=== PATIENT | female | born 1940 | race Caucasian/White ===

== ENCOUNTER → 2018-03-31 12:43 | Outpatient (CLI) | payer MEDICARE, OTHER, SELFPAY ==
--- NOTE | 2018-03-31 | DI.MG.S_ITS ---
UNILATERAL LEFT DIGITAL DIAGNOSTIC MAMMOGRAM 3D/2D SHORT-TERM FOLLOW-UP: 03/31/2018 CLINICAL: Patient returns for a 6 month follow up of the left breast. Patient returns for a 6 month follow up of the right breast. Comparison is made to exams dated: 09/30/2017 mammogram, 09/18/2017 mammogram, and 05/29/2016 mammogram - [facility]. There are scattered fibroglandular elements in the left breast. Prior mammographic finding is no longer seen in the left breast. This is consistent with overlapping fibroglandular tissue. No significant masses, calcifications, or other findings are seen in the breast. IMPRESSION: NEGATIVE There is no mammographic evidence of malignancy. A screening mammogram is recommended in August 2018 when the patient is due for bilateral mammography. This exam was interpreted at Station ID: [id number]. NOTE: For mammograms, a report in lay terms will be sent to the patient. Approximately 15% of breast malignancies will not be visualized mammographically. In the management of a palpable breast mass, a negative mammogram must not discourage biopsy of a clinically suspicious lesion. Electronically Signed By: Quan Liz M.D. cj/:03/31/2018 15:49:29 letter sent: Normal Exam ACR BI-RADS Category 1: Negative [id number]
[2018-03-31 14:10] LABS: Hemoglobin 9.5 g/dL (12.0-16.0); Mean Corpuscular HGB Conc 33.7 % (30-36); Mean Corpuscular Hemoglobin 33.5 PG (26-34); Mean Corpuscular Volume 99.4 fL (80-100); Red Blood Cell Count 2.82 X10^6/uL (4.0-5.2); Red Cell Distribution Width 19.4 % (11.6-14.8)
[2018-03-31 14:26] LABS: Alanine Aminotransferase 26 IU/L (9-52); Albumin 4.6 g/dL (3.5-5.0); Albumin Globulin Ratio 1.6 (1.0-2.8); Alkaline Phosphatase 85 U/L (38-126); Aspartate Aminotransferase 25 IU/L (14-36); BUN Creatinine Ratio 16.3 (6-22); Bilirubin Total 0.7 mg/dL (0.2-1.3); Bilirubin Unconjugated 0.4 mg/dL (0.0-1.1); Blood Urea Nitrogen 13 mg/dL (7-17); Calcium 9.7 mg/dL (8.4-10.2); Carbon Dioxide 29 mmol/L (22-32); Chloride 101 mmol/L (98-107); Estimated Glomerular Filt Rate > 60.0 mL/min (>60); Globulin 2.8 g/dL (1.7-4.1); Glucose 105 mg/dL (80-110); HEMOLYSIS 16 (0-50); Potassium 4.8 mmol/L (3.4-5.1); Sodium 143 mmol/L (137-145); Total Protein 7.4 g/dL (6.3-8.2)
[2018-03-31 14:37] LABS: Platelet Count 7 X10^3/uL (150-400); White Blood Cell Count 36.5 X10^3/uL (4.5-11.0)
[2018-03-31 14:38] LABS: Add Manual Diff / Slide Review YES
[2018-03-31 15:25] LABS: Neutrophils Absolute Manual 6570 /uL (3000-5900); Total Cells Counted 100
[2018-03-31 15:26] LABS: Morphology Comment DIFF COMMENT
[2018-03-31 15:27] LABS: Anisocytosis 1+; Platelet Estimate Decreased on smear; Polychromasia 1+
[2018-03-31 15:28] LABS: WBC Morphology Comment AUER RODS PRESENT
--- NOTE | 2018-04-01 09:47 | PM.OP.1 ---
Operative Date/Time/Diagnoses - Date of procedure: 04/01/18 Time of procedure: 09:47 Pre-op diagnosis: Reflux symptoms Personal history of colon polyps Post-op diagnosis: same Procedure & Clinicians Procedure: Esophagogastroduodenoscopy with biopsies and colonoscopy to the cecum Same procedure as scheduled: Yes Indications: Worsening reflux symptoms Personal history of colon polyps with last colonoscopy approximately 12 years ago Surgeon: Sulma Tian Click Yes if Unassisted: Yes Anesthesia Type: Sedation (Versed 7 mg; fentanyl 150 mcg) Operative Notes Findings: 1. Normal duodenum 2. Mild gastritis 3. Incompetent GE junction with a small 1 cm sliding hiatal hernia 4. GE junction at 39 cm from the incisors 5. No colonic polyps or mass lesions 6. Excellent prep 7. No AV malformations or other evidence of mucosal pathology 8. Grade 1 internal hemorrhoid 9. Essentially normal colonoscopy with minimal diverticulosis limited to the junction of the descending sigmoid colon Closure Type: not applicable Specimen(s): other (Cold forceps biopsies of the duodenum, antrum, and GE junction) Estimated Blood Loss (mL): 2 Procedure in detail: After obtaining informed consent, the patient was brought to the GI suite and placed in the left lateral decubitus position on the examination table. After placement of appropriate monitors, the patient was given incremental doses of Versed and Fentanyl until an appropriate level of sedation was achieved. A time out was held per SCOAP protocol. We began with EGD. A bite block was gently placed between the patient's teeth. The endoscope was lubricated and then passed into the patient's posterior oropharynx. The esophagus was cannulated under direct vision and the scope was passed to the second portion of the duodenum without difficulty. The scope was then withdrawn with careful examination of all areas of the upper GI tract and mucosa. In the stomach, the instrument was retroflexed and the GE junction examined. The scope was straightened and the procedure continued with examination of the remainder of the upper GI tract. Findings are noted above. Air was aspirated from the stomach and the endoscope gently removed from the esophagus. The examination table was turned and we continued with the colonoscopy. A digital rectal examination was performed and did not reveal any masses or obstructing lesions. The colonoscope was gently passed into the patient's anus and the entire colon navigated to the level of the cecum with minimal difficulty. Once in the cecum, the scope was withdrawn being sure to go before and beyond all mucosal folds and prominences and get an excellent examination. The findings are noted above. At the level of the rectal vault, the scope was retroflexed and the internal anal canal was examined. The scope was straightened and air aspirated from the colon. The instrument was removed from the patient's body and the procedure was concluded. The patient was allowed to awaken from sedation without difficulty and taken to the post-anesthesia care unit in good condition. Total sedation time 23 min Total withdrawal time from colonoscopy 7 min Complications: none Condition: stable Disposition: PACU Plan for aftercare: 1. Discharge to home 2. We will contact her with results and recommendations
--- NOTE | 2018-04-14 15:57 | PC.NURSE ---
Addendum entered by Ingrid Isbell R.N. 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 RN cordinator from [facility] is Cherie at [phone] pager. Orders will need co-signing by PCP Dr Orlando they will contact.Asked for orders to be sent this week .
== END | disposition home or self-care (01) ==
PROVIDERS: PCP Family Medicine; Visit Provider Surgery
DX: R92.8 Other abnormal and inconclusive findings on diagnostic imaging of breast (principal); C92.00 Acute myeloblastic leukemia, not having achieved remission
CPT/HCPCS: 36415; 77065; 80048; 80076; 85025; G0279

== ENCOUNTER 2018-04-22 09:03 | Emergency (ER) | payer MEDICARE, OTHER, SELFPAY ==
[2018-04-22 09:05] VITALS: BP 151/56; PULSE 80; RESP 14; TEMP 36.4; O2SAT 99
--- NOTE | 2018-04-22 09:22 | ED_ITS ---
HPI - Nausea/Vomiting/Diarrhea General Chief complaint: Nausea/Vomiting/Diarrhea Stated complaint: SPITTING UP BLOOD, HAS LEUKEMIA Time Seen by Provider: 04/22/18 09:11 Source: patient Mode of arrival: ambulatory Limitations: no limitations History of Present Illness HPI Narrative: Patient is a 77-year-old female with acute leukemia she recently restarted chemotherapy. He has been in and out of the [facility] recently released 4 days ago. Last night she got extremely nauseated she was dry heaving. This morning she has vomited 6 times with speckled amounts of blood. She denies any pain no lightheadedness no fevers. She did get a platelet transfusion about 1 week ago. She does not usually vomit. She has chronic ongoing abdominal pain which isn't any worse. MD complaint: nausea and vomiting Description of Vomiting: blood-streaked Description of Diarrhea: none Related Data Home Medications Medication Instructions Recorded Confirmed fexofenadine 60 mg PO Q12HP PRN #0 05/29/12 04/22/18 acetaminophen 650 mg PO Q4-6H PRN #0 05/08/17 04/22/18 cholecalciferol (vitamin D3) 1,000 unit PO QDAY #0 06/17/17 04/22/18 [Vitamin D3] acyclovir 800 mg PO BID 04/22/18 04/22/18 fidaxomicin 200 mg PO BID 04/22/18 04/22/18 hyoscyamine sulfate 0.125 mg PO BID-QID PRN 04/22/18 04/22/18 levofloxacin 750 mg PO BEDTIME 04/22/18 04/22/18 loperamide 2 mg PO BID PRN 04/22/18 04/22/18 lorazepam 1 mg SUBLINGUAL Q6HR PRN 04/22/18 04/22/18 ondansetron 8 mg PO TID PRN 04/22/18 04/22/18 posaconazole 300 mg PO BEDTIME 04/22/18 04/22/18 prochlorperazine maleate 5 mg PO Q6HR PRN 04/22/18 04/22/18 Previous Rx's Medication Instructions Recorded estradiol [Estrace] 1 gm VAGINAL QDAY #60 gm 09/16/17 Allergies Allergy/AdvReac Type Severity Reaction Status Date / Time Penicillins Allergy Unknown Verified 04/22/18 09:15 fentanyl [FENTANYL] AdvReac Unknown NAUSEA Verified 04/22/18 09:15 meperidine AdvReac Unknown N/V Verified 04/22/18 09:15 morphine AdvReac Unknown N/V Verified 04/22/18 09:15 Review of Systems Review of Systems All systems reviewed & are unremarkable except as noted in HPI and below ENT Ears, Nose, Mouth, and Throat: Denies bleeding gums, Denies dysphagia and Denies epistaxis Cardiovascular Denies chest pain, Denies diaphoresis and Denies syncope Gastrointestinal Gastrointestinal: Denies dysphagia Musculoskeletal Denies back pain, Denies muscle weakness, Denies numbness and Denies tingling Integumentary/Breasts Denies pruritus, Denies erythema, Denies rash and Denies wounds Neurologic Denies syncope, Denies numbness and Denies tingling PFSH Medical History 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) Leukemia (Acute) Social History Smoking Status: Never smoker Exam Initial Vital Signs Initial Vital Signs: Vital Signs Temperature 97.5 F L 04/22/18 09:05 Pulse Rate 80 04/22/18 09:05 Respiratory Rate 14 04/22/18 09:05 Blood Pressure 151/56 H 04/22/18 09:05 Pulse Oximetry 99 04/22/18 09:05 GENERAL: Thin frail elderly female and in no acute distress. HEENT: Head atraumatic,EOMI, pupils reactive, CARDIOVASCULAR: Regular rate and rhythm without murmurs, rubs or gallops. RESPIRATORY: Breath sounds equal bilaterally, no wheezes rales or rhonchi. ABDOMEN: Soft, nontender. Normoactive bowel sounds all 4 quadrants. No guarding or rebound. : No CVA tenderness EXTREMITIES: Normal range of motion, no clubbing or edema. Neurovascularly intact NEUROLOGICAL: Alert and oriented x4.Normal gait and speech. Cranial nerves II through XII grossly intact. SKIN: Warm, dry, no laceration, no petechiae, no rashes or lesions. Course Hospital Course: I have called and spoken with oncology does recommend platelet transfusion with platelets of 8. If she does not appear to be in acute distress no longer vomiting on then no need to transfer at this time. Orders Ordered: ED Orders 04/22/18 09:25 Complete Blood Count AUTO DIFF Stat Comprehensive Metabolic Panel Stat Partial Thromboplastin Time Stat Prothrombin Time INR Stat 04/22/18 09:35 ABO RH Type Stat Platelet Pheresis Irradiated Stat Discontinued Medications Sodium Chloride (Normal Saline 0.9%) 1,000 mls @ 1,000 mls/hr IV BOLUS ONE Stop: 04/22/18 10:27 Last Infusion: 04/22/18 11:21 Dose: 0 mls/hr Admin: 04/22/18 10:16 Dose: 1,000 mls/hr Lorazepam (Ativan) 0.5 mg IV NOW ONE Stop: 04/22/18 09:30 Last Admin: 04/22/18 10:16 Dose: 0.5 mg Ondansetron HCl (Zofran) 4 mg IV NOW ONE Stop: 04/22/18 09:29 Last Admin: 04/22/18 10:16 Dose: 4 mg Vital Signs - 8 hr 04/22/18 09:05 04/22/18 10:57 04/22/18 11:57 Temperature 97.5 F L 97.8 F Pulse Rate 80 72 70 Respiratory Rate 14 12 14 Blood Pressure 151/56 H 114/47 L Blood Pressure [Left Arm] 115/54 L Pulse Oximetry 99 97 99 MDM - Nausea/Vomiting/Diarrhea Lab Data Result diagrams: 04/22/18 09:25 04/22/18 09:25 Lab Results 04/22/18 04/22/18 04/22/18 Range/Units 09:25 09:25 09:25 WBC 0.3 L* (4.5-11.0) X10^3/uL RBC 3.42 L (4.0-5.2) X10^6/uL Hgb 10.1 L (12.0-16.0) g/dL Hct 29.8 L (36-46) % MCV 87.1 (80-100) fL MCH 29.4 (26-34) PG MCHC 33.7 (30-36) % RDW 16.3 H (11.6-14.8) % Plt Count 8 L* (150-400) X10^3/uL Neut % (Auto) Not Reportable Lymph % (Auto) Not Reportable Trimble % (Auto) Not Reportable Eos % (Auto) Not Reportable Baso % (Auto) Not Reportable RBC Morphology Not Reportable Rouleaux 1+ H PT 13.5 H (10.1-12.7) SECONDS INR 1.2 (0.9-1.3) APTT 31 (26.4-36.2) SECONDS Sodium 138 (137-145) mmol/L Potassium 3.2 L (3.4-5.1) mmol/L Chloride 101 (98-107) mmol/L Carbon Dioxide 24 (22-32) mmol/L BUN 9 (7-17) mg/dL Creatinine 0.70 (0.52-1.04) mg/dL Estimated GFR > 60.0 (>60) mL/min BUN/Creatinine Ratio 12.9 (6-22) Glucose 127 H (80-110) mg/dL Calcium 9.0 (8.4-10.2) mg/dL Total Bilirubin 0.6 (0.2-1.3) mg/dL AST 18 (14-36) IU/L ALT 23 (9-52) IU/L Alkaline Phosphatase 93 (38-126) U/L Total Protein 6.7 (6.3-8.2) g/dL Albumin 3.9 (3.5-5.0) g/dL Globulin 2.8 (1.7-4.1) g/dL Albumin/Globulin Ratio 1.4 (1.0-2.8) Blood Type 04/22/18 Range/Units 09:35 WBC (4.5-11.0) X10^3/uL RBC (4.0-5.2) X10^6/uL Hgb (12.0-16.0) g/dL Hct (36-46) % MCV (80-100) fL MCH (26-34) PG MCHC (30-36) % RDW (11.6-14.8) % Plt Count (150-400) X10^3/uL Neut % (Auto) Lymph % (Auto) Trimble % (Auto) Eos % (Auto) Baso % (Auto) RBC Morphology Rouleaux PT (10.1-12.7) SECONDS INR (0.9-1.3) APTT (26.4-36.2) SECONDS Sodium (137-145) mmol/L Potassium (3.4-5.1) mmol/L Chloride (98-107) mmol/L Carbon Dioxide (22-32) mmol/L BUN (7-17) mg/dL Creatinine (0.52-1.04) mg/dL Estimated GFR (>60) mL/min BUN/Creatinine Ratio (6-22) Glucose (80-110) mg/dL Calcium (8.4-10.2) mg/dL Total Bilirubin (0.2-1.3) mg/dL AST (14-36) IU/L ALT (9-52) IU/L Alkaline Phosphatase (38-126) U/L Total Protein (6.3-8.2) g/dL Albumin (3.5-5.0) g/dL Globulin (1.7-4.1) g/dL Albumin/Globulin Ratio (1.0-2.8) Blood Type O Positive MDM Narrative Medical decision making narrative: I have spoken with [facility] nurse practitioner for Dr. Earl, she does recommend of platelet transfusion. The she was typed and crossed here couple of days ago however no platelets are readily available. In fact they are actually supposed to be her this afternoon around 4:00 p.m. Patient has been monitored in the ED she no longer has nausea or vomiting. His she is tolerating ice chips. Signs of she has had small amounts of speckled all blood in her vomit does not seem to be large amounts. This is likely from thrombocytopenia. I do not suspect of air seal bleed or Boerhaave syndrome, or Mara-Mclaughlin tear. She appears nontoxic and in no acute distress it actually looks much better than she did when she 1st came in. Discharge Plan Departure Patient Disposition: Home, Self-Care Clinical Impression: Thrombocytopenia Discharge Date/Time: 04/22/18 12:00 Interventions: ED Discharge Assessment Last Done: 04/22/18 11:57 Instructions: Immune Thrombocytopenia Purpura Activity Restrictions/Additional Instructions: Go to the infusion clinic around 4:00 p.m., your plateletlets should be her by then. *You have been diagnosed with thrombocytopenia *Continue to take medications as directed *Follow up with your primary care provider in 2-3 days *Return to ER if you should have any new, worsening or concerning symptoms Prescriptions: No Action fexofenadine 60 MG tablet 60 mg PO Q12HP PRN (Reason: seasonal allergies) Qty: 0 RF: 0 acetaminophen 325 MG tablet 650 mg PO Q4-6H PRN (Reason: Pain (Scale Score 1-3)) Qty: 0 RF: 0 cholecalciferol (vitamin D3) [Vitamin D3] 1,000 UNIT tablet 1,000 unit PO QDAY Qty: 0 RF: 0 estradiol [Estrace] 0.01 % cream 1 gm Vaginal QDAY Qty: 60 RF: 0 loperamide 2 mg Capsule 2 mg PO BID PRN (Reason: Diarrhea) RF: 0 prochlorperazine maleate 5 mg Tablet 5 mg PO Q6HR PRN (Reason: nausea / vomiting) RF: 0 acyclovir 400 mg Tablet 800 mg PO BID RF: 0 ondansetron 8 mg Tablet,Disintegrating 8 mg PO TID PRN (Reason: allergies) RF: 0 hyoscyamine sulfate 0.125 mg Tablet 0.125 mg PO BID-QID PRN (Reason: stomach cramping) RF: 0 lorazepam 1 mg Tablet 1 mg SUBLINGUAL Q6HR PRN (Reason: nausea / vomiting) RF: 0 levofloxacin 750 mg Tablet 750 mg PO BEDTIME RF: 0 fidaxomicin 200 mg Tablet 200 mg PO BID RF: 0 posaconazole 100 mg Tablet,Delayed Release (Dr/Ec) 300 mg PO BEDTIME RF: 0 Referrals: Alexandre Orlando MD [Primary Care Provider] -
[2018-04-22 09:44] LABS: INR 1.2 (0.9-1.3); Prothrombin Time 13.5 SECONDS (10.1-12.7)
[2018-04-22 09:46] LABS: Hematocrit 29.8 % (36-46); Hemoglobin 10.1 g/dL (12.0-16.0); Mean Corpuscular HGB Conc 33.7 % (30-36); Mean Corpuscular Hemoglobin 29.4 PG (26-34); Mean Corpuscular Volume 87.1 fL (80-100); PTT Partial Thromboplastin Tim 31 SECONDS (26.4-36.2); Red Blood Cell Count 3.42 X10^6/uL (4.0-5.2); Red Cell Distribution Width 16.3 % (11.6-14.8)
[2018-04-22 09:49] LABS: Alanine Aminotransferase 23 IU/L (9-52); Albumin 3.9 g/dL (3.5-5.0); Albumin Globulin Ratio 1.4 (1.0-2.8); Alkaline Phosphatase 93 U/L (38-126); Aspartate Aminotransferase 18 IU/L (14-36); BUN Creatinine Ratio 12.9 (6-22); Bilirubin Total 0.6 mg/dL (0.2-1.3); Blood Urea Nitrogen 9 mg/dL (7-17); Carbon Dioxide 24 mmol/L (22-32); Chloride 101 mmol/L (98-107); Estimated Glomerular Filt Rate > 60.0 mL/min (>60); Globulin 2.8 g/dL (1.7-4.1); Glucose 127 mg/dL (80-110); HEMOLYSIS < 15 (0-50); Potassium 3.2 mmol/L (3.4-5.1); Sodium 138 mmol/L (137-145); Total Protein 6.7 g/dL (6.3-8.2)
[2018-04-22 09:50] LABS: Platelet Count 8 X10^3/uL (150-400); White Blood Cell Count 0.3 X10^3/uL (4.5-11.0)
[2018-04-22 09:51] LABS: Add Manual Diff / Slide Review NO
[2018-04-22 10:08] LABS: Rouleaux 1+
[2018-04-22] MEDS: SODIUM CHLORIDE 0.9% 1,000 ML 1000 ML IV (10:16)
[2018-04-22] MEDS: LORazepam 2 MG/ML SYRINGE 0.5 MG IV (10:16)
[2018-04-22] MEDS: ONDANSETRON 4 MG/2 ML INJ IV (10:16)
[2018-04-22 10:57] VITALS: BP 115/54; PULSE 72; RESP 12; O2SAT 97
--- NOTE | 2018-04-22 11:41 | PC.NURSE ---
Spoke w/ [facility] Pt can get transfusion of platelets today. Pt instructed to keep bands on. Will report to cancer care at 1600.
[2018-04-22 11:57] VITALS: BP 114/47; PULSE 70; RESP 14; TEMP 36.6; O2SAT 99
--- NOTE | 2018-04-22 11:57 | PC.NURSE ---
Each PICC port flushed w/ 1 cc 10 unit / 1ml heparin in anticipation of platelet infusion in less than 8 hours.
--- NOTE | 2018-04-22 13:31 | PC.NURSE ---
Recieved call from lab asking that order be placed for platelets. Completed verbal order from Dr. Serra.
[2018-04-22 18:14] VITALS: BP 138/65; PULSE 69; RESP 16; TEMP 36.7
[2018-04-22 18:29] VITALS: BP 121/54; PULSE 72; RESP 17; TEMP 36.7
[2018-04-22] MEDS: diphenhydrAMINE 25 MG TABLET PO (18:39)
[2018-04-22 19:40] VITALS: BP 130/85; PULSE 75; RESP 16; TEMP 36.9
--- NOTE | 2018-04-22 20:23 | PC.NURSE ---
Platelet Infusion Pt arrived to acute care at 1700 from infusion clinic. Lab reports platelets ready. Issue with AC RN not being able to chart on order. ER nurse came to to start infusion/document. Also unable to chart on infusion once started by ER nurse so was assisted by another ER nurse to chart end of unit. Pt vitals stable, no adverse reactions reported.
== END 2018-04-22 12:00 | disposition home or self-care (01) ==
PROVIDERS: Emergency Provider Emergency Medicine; PCP Family Medicine
DX: D69.6 Thrombocytopenia, unspecified (principal); C92.02 Acute myeloblastic leukemia, in relapse
CPT/HCPCS: 36430; 36591; 80053; 85025; 85610; 85730; 86900; 86901; 96361; 96374; 96375; 99283; 99285; P9016; J2060; J2405; P9035

== ENCOUNTER 2018-05-12 15:51 | Inpatient (IN) | payer MEDICARE, OTHER, SELFPAY ==
[2018-05-12 15:58] VITALS: BP 114/69; PULSE 90; RESP 16; TEMP 37.2; O2SAT 97
--- NOTE | 2018-05-12 16:48 | DI.RAD.S_ITS ---
PROCEDURE: XR CHEST 1V INDICATIONS: fever cancer TECHNIQUE: One view of the chest was acquired. COMPARISON: [facility], , CHEST 2 VIEW, 02/08/2017, 18:34. FINDINGS: Surgical changes and devices: Right-sided PICC line with tip overlying the atrial caval junction. There are surgical clips over the upper abdomen. Lungs and pleura: No pleural effusions or pneumothorax. Mild elevation right hemidiaphragm. Lungs are clear. Mediastinum: Mediastinal contours appear normal. Heart size is normal. Bones and chest wall: No suspicious bony lesions. Overlying soft tissues appear unremarkable. IMPRESSION: No acute cardiopulmonary abnormality Dictated by: Elia Schuster M.D. on 05/12/2018 at 17:12 Approved by: Elia Schuster M.D. on 05/12/2018 at 17:13
[2018-05-12 17:40] LABS: Hemoglobin 7.9 g/dL (12.0-16.0); Mean Corpuscular HGB Conc 34.7 % (30-36); Mean Corpuscular Hemoglobin 29.7 PG (26-34); Mean Corpuscular Volume 85.7 fL (80-100); Red Blood Cell Count 2.64 X10^6/uL (4.0-5.2); Red Cell Distribution Width 16.8 % (11.6-14.8)
[2018-05-12] MEDS: SODIUM CHLORIDE 0.9% 1,000 ML 1000 ML IV (17:43)
[2018-05-12 17:49] LABS: Lactate (Lactic Acid) 1.5 mmol/L (0.7-2.1)
[2018-05-12 17:50] LABS: Alanine Aminotransferase 24 IU/L (9-52); Albumin Globulin Ratio 1.2 (1.0-2.8); Alkaline Phosphatase 54 U/L (38-126); Aspartate Aminotransferase 9 IU/L (14-36); BUN Creatinine Ratio 21.7 (6-22); Bilirubin Total 1.3 mg/dL (0.2-1.3); Blood Urea Nitrogen 13 mg/dL (7-17); Calcium 8.1 mg/dL (8.4-10.2); Carbon Dioxide 30 mmol/L (22-32); Chloride 97 mmol/L (98-107); Estimated Glomerular Filt Rate > 60.0 mL/min (>60); Globulin 2.5 g/dL (1.7-4.1); Glucose 128 mg/dL (80-110); HEMOLYSIS < 15 (0-50); Potassium 3.1 mmol/L (3.4-5.1); Sodium 132 mmol/L (137-145); Total Protein 5.5 g/dL (6.3-8.2)
[2018-05-12 18:00] VITALS: BP 121/51; PULSE 78; RESP 26; O2SAT 96
[2018-05-12 18:03] LABS: Hematocrit 23.3 % (36-46)
[2018-05-12 18:04] LABS: Platelet Count 60 X10^3/uL (150-400)
[2018-05-12 18:11] LABS: Procalcitonin 2.02 ng/mL (<0.5)
--- NOTE | 2018-05-12 18:24 | ED_ITS ---
HPI - Fever General Chief Complaint: Fever Stated Complaint: FEVER Time Seen by Provider: 05/12/18 16:04 Source: patient Mode of arrival: ambulatory Limitations: no limitations History of Present Illness HPI Narrative: Patient is a 77-year-old female who has known recurrence AML presenting from the infusion clinic with a fever. She was receiving a platelet transfusion for platelets of 9 when she developed fever of 101 per the transfusion nurse. She is currently afebrile here she denies receiving any Tylenol. She overall feels weak and fatigued. She received chemotherapy last week. She has known WBC count of 0 and has for a while. MD complaint: fever Related Data Home Medications Medication Instructions Recorded Confirmed fexofenadine 60 mg PO Q12HP PRN #0 05/29/12 04/22/18 acetaminophen 650 mg PO Q4-6H PRN #0 05/08/17 04/22/18 cholecalciferol (vitamin D3) 1,000 unit PO QDAY #0 06/17/17 04/22/18 [Vitamin D3] acyclovir 800 mg PO BID 04/22/18 04/22/18 fidaxomicin 200 mg PO BID 04/22/18 04/22/18 hyoscyamine sulfate 0.125 mg PO BID-QID PRN 04/22/18 04/22/18 levofloxacin 750 mg PO BEDTIME 04/22/18 04/22/18 loperamide 2 mg PO BID PRN 04/22/18 04/22/18 lorazepam 1 mg SUBLINGUAL Q6HR PRN 04/22/18 04/22/18 ondansetron 8 mg PO TID PRN 04/22/18 04/22/18 posaconazole 300 mg PO BEDTIME 04/22/18 04/22/18 prochlorperazine maleate 5 mg PO Q6HR PRN 04/22/18 04/22/18 Previous Rx's Medication Instructions Recorded estradiol [Estrace] 1 gm VAGINAL QDAY #60 gm 09/16/17 Allergies Allergy/AdvReac Type Severity Reaction Status Date / Time Penicillins Allergy Unknown Verified 04/22/18 09:15 fentanyl [FENTANYL] AdvReac Unknown NAUSEA Verified 04/22/18 09:15 meperidine AdvReac Unknown N/V Verified 04/22/18 09:15 morphine AdvReac Unknown N/V Verified 04/22/18 09:15 Review of Systems Review of Systems All systems reviewed & are unremarkable except as noted in HPI and below Constitutional Reports body ache(s), Reports fatigue, Reports poor appetite and Reports weakness ENT Ears, Nose, Mouth, and Throat: Denies change in voice, Denies neck pain and Denies sore throat Cardiovascular Denies chest pain, Denies irregular heart rhythm, Denies lightheadedness, Denies palpitations, Denies dyspnea, Denies dyspnea on exertion and Denies orthopnea Respiratory Denies cough, Denies dyspnea, Denies dyspnea on exertion and Denies wheezing Gastrointestinal Gastrointestinal: Denies abdominal pain, Denies change in bowel habits, Denies diarrhea, Denies nausea and Denies vomiting Musculoskeletal Denies neck pain Neurologic Reports weakness Endocrine Reports fatigue and Denies palpitations Allergic/Immunologic Denies wheezing PFSH Medical History 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) Leukemia (Acute) Social History Smoking Status: Never smoker Exam Initial Vital Signs Initial Vital Signs: Vital Signs Temperature 99.0 F 05/12/18 15:58 Pulse Rate 90 05/12/18 15:58 Respiratory Rate 16 05/12/18 15:58 Blood Pressure 114/69 05/12/18 15:58 Pulse Oximetry 97 05/12/18 15:58 Const General: cooperative, frail appearing and ill appearing Nutritional Appearance: thin HENMT Head: normal to inspection and normocephalic Face and sinus: normal facial exam Mouth: moist mucous membranes Eyes General: appearance normal, both eyes and all related structures Neck Neck: normal visual inspection, full ROM and no meningeal signs Chest Chest: normal inspection of the chest Resp Effort & Inspection: normal respiratory effort, able to speak in complete sentences, no respiratory distress and no use of accessory muscles Auscultation: clear to auscultation bilaterally, no rales, no rhonchi and no wheezes Cardio Rate: regular rate Rhythm: regular rhythm Heart Sounds: no click, no gallops, no murmurs and no rubs Pulses: normal peripheral pulses GI Inspection: non-distended Palpation: soft, no hepatosplenomegaly, No guarding, No pulsatile mass and No tender Auscultation: normal bowel sounds Skin General: no rashes or lesions noted, No jaundice and No petechiae Neuro General: alert, oriented x3, gait normal and no focal motor deficits Speech: speech normal Course Orders Ordered: ED Orders 05/12/18 16:48 XR chest 1V Stat 05/12/18 17:20 Blood Culture Stat Complete Blood Count AUTO DIFF Stat Comprehensive Metabolic Panel Stat Lactate (Lactic Acid) Stat Procalcitonin Stat 05/12/18 18:40 Urinalysis and Microscopic Stat Sodium Chloride (Normal Saline 0.9%) 1,000 mls @ 1,000 mls/hr IV CONT RACHNA Last Infusion: 05/12/18 19:24 Dose: 0 mls/hr Admin: 05/12/18 17:43 Dose: 1,000 mls/hr Discontinued Medications Levofloxacin (Levaquin) 750 mg in 150 mls @ 100 mls/hr IV NOW ONE Stop: 05/12/18 20:30 Cefepime HCl 1 gm/ Sodium (Chloride) 100 mls @ 200 mls/hr IV NOW ONE Stop: 05/12/18 19:03 Consultations Consultation #1: Dr. Reed Han [phone] (cell surgical nurse practitioner dr) for leukemia at the [facility] has been updated on patient's symptoms and test results. Difficult to tell if this is transfusion reaction versus true neutropenic fever. She has not been measuring her temperatures at home so it makes the situation more difficult. Recommends keeping for observation along with IV cefepime. No vancomycin at this time. Time: 19:00 Consultation #2: Dr. Barrientos accepts patient for observation. Time: 19:33 Vital Signs - 8 hr 05/12/18 15:58 05/12/18 18:00 Temperature 99.0 F Pulse Rate 90 78 Respiratory Rate 16 26 H Blood Pressure 114/69 Blood Pressure [Left Arm] 121/51 H Pulse Oximetry 97 96 MDM - Fever Lab Data Attestation: I reviewed the patient's lab results. Result diagrams: 05/12/18 17:20 05/12/18 17:20 Lab Results 05/12/18 05/12/18 05/12/18 Range/Units 17:20 17:20 17:20 WBC 0.0 L* (4.5-11.0) X10^3/uL RBC 2.64 L (4.0-5.2) X10^6/uL Hgb 7.9 L (12.0-16.0) g/dL Hct 23.3 L (36-46) % MCV 85.7 (80-100) fL MCH 29.7 (26-34) PG MCHC 34.7 (30-36) % RDW 16.8 H (11.6-14.8) % Plt Count 60 L (150-400) X10^3/uL Neut % (Auto) Not Reportable Lymph % (Auto) Not Reportable [place] % (Auto) Not Reportable Eos % (Auto) Not Reportable Baso % (Auto) Not Reportable Sodium 132 L (137-145) mmol/L Potassium 3.1 L (3.4-5.1) mmol/L Chloride 97 L (98-107) mmol/L Carbon Dioxide 30 (22-32) mmol/L BUN 13 (7-17) mg/dL Creatinine 0.60 (0.52-1.04) mg/dL Estimated GFR > 60.0 (>60) mL/min BUN/Creatinine Ratio 21.7 (6-22) Glucose 128 H (80-110) mg/dL Lactate (0.7-2.1) mmol/L Calcium 8.1 L (8.4-10.2) mg/dL Total Bilirubin 1.3 (0.2-1.3) mg/dL AST 9 L (14-36) IU/L ALT 24 (9-52) IU/L Alkaline Phosphatase 54 (38-126) U/L Total Protein 5.5 L (6.3-8.2) g/dL Albumin 3.0 L (3.5-5.0) g/dL Globulin 2.5 (1.7-4.1) g/dL Albumin/Globulin Ratio 1.2 (1.0-2.8) Procalcitonin 2.02 H (<0.5) ng/mL Urine Color Urine Appearance Urine pH (4.5-8.0) Ur Specific [place] (1.000-1.035) Urine Protein (Negative) Urine Glucose (UA) (Normal) g/dL Urine Ketones (NEGATIVE) Urine Occult Blood (Negative) Urine Nitrate (Negative) Urine Bilirubin (NEGATIVE) Urine Urobilinogen (0.2) E.U./dL Ur Leukocyte Esterase (NEGATIVE) Urine RBC (0-5/HPF) Urine WBC (0-5/HPF) Ur Squamous Epith Cells Urine Bacteria (None) Ur Culture Indicated? Micro UA Comment 07/18/18 07/18/18 Range/Units 17:20 18:40 WBC (4.5-11.0) X10^3/uL RBC (4.0-5.2) X10^6/uL Hgb (12.0-16.0) g/dL Hct (36-46) % MCV (80-100) fL MCH (26-34) PG MCHC (30-36) % RDW (11.6-14.8) % Plt Count (150-400) X10^3/uL Neut % (Auto) Lymph % (Auto) [place] % (Auto) Eos % (Auto) Baso % (Auto) Sodium (137-145) mmol/L Potassium (3.4-5.1) mmol/L Chloride (98-107) mmol/L Carbon Dioxide (22-32) mmol/L BUN (7-17) mg/dL Creatinine (0.52-1.04) mg/dL Estimated GFR (>60) mL/min BUN/Creatinine Ratio (6-22) Glucose (80-110) mg/dL Lactate 1.5 (0.7-2.1) mmol/L Calcium (8.4-10.2) mg/dL Total Bilirubin (0.2-1.3) mg/dL AST (14-36) IU/L ALT (9-52) IU/L Alkaline Phosphatase (38-126) U/L Total Protein (6.3-8.2) g/dL Albumin (3.5-5.0) g/dL Globulin (1.7-4.1) g/dL Albumin/Globulin Ratio (1.0-2.8) Procalcitonin (<0.5) ng/mL Urine Color Yellow Urine Appearance Clear Urine pH 7.5 (4.5-8.0) Ur Specific [place] 1.010 (1.000-1.035) Urine Protein Negative (Negative) Urine Glucose (UA) Negative (Normal) g/dL Urine Ketones Negative (NEGATIVE) Urine Occult Blood 2+ H (Negative) Urine Nitrate Negative (Negative) Urine Bilirubin Negative (NEGATIVE) Urine Urobilinogen 0.2 (0.2) E.U./dL Ur Leukocyte Esterase Negative (NEGATIVE) Urine RBC 5-10/hpf H (0-5/HPF) Urine WBC 0-1/hpf (0-5/HPF) Ur Squamous Epith Cells 0-1 /hpf Urine Bacteria Occasional (0-1) (None) Ur Culture Indicated? Cult not indicated Micro UA Comment Not Reportable Imaging Data Chest x-ray: Radiologist's impression: PROCEDURE: XR CHEST 1V INDICATIONS: fever cancer TECHNIQUE: One view of the chest was acquired. COMPARISON: [facility], CHEST 2 VIEW, 02/08/2017, 18:34. FINDINGS: Surgical changes and devices: Right-sided PICC line with tip overlying the atrial caval junction. There are surgical clips over the upper abdomen. Lungs and pleura: No pleural effusions or pneumothorax. Mild elevation right hemidiaphragm. Lungs are clear. Mediastinum: Mediastinal contours appear normal. Heart size is normal. Bones and chest wall: No suspicious bony lesions. Overlying soft tissues appear unremarkable. IMPRESSION: No acute cardiopulmonary abnormality Dictated by: Elia Schuster M.D. on 05/12/2018 at 17:12 MDM Narrative Medical decision making narrative: Patient has been persistently neutropenic. She has been afebrile in the ED. Difficult to differentiate between transfusion reaction versus neutropenic fever. We will air on side of precaution patient no longer has appointment with oncology tomorrow. And does not have close follow-up up here. Discharge Plan Departure Patient Disposition: Admitted as Observation Clinical Impression: Fever and neutropenia
[2018-05-12 18:47] LABS: Appearance Urine UA CLEAR; Bilirubin Urine UA NEGATIVE (NEGATIVE); Color Urine UA YELLOW; Glucose Urine UA NEGATIVE (Normal); Ketones Urine UA NEGATIVE (NEGATIVE); Leukocyte Esterase Urine UA NEGATIVE (NEGATIVE); Nitrite Urine UA Negative (Negative); Occult Blood Urine UA 2+ (Negative); Protein Urine UA NEGATIVE (Negative); Urobilinogen Urine UA 0.2 E.U./dL (0.2); pH Urine UA 7.5 (4.5-8.0)
[2018-05-12 18:57] LABS: Bacteria Urine Occasional (0-1); Culture Indicated Urine Cult Not Indicated; RBC Urine 5-10/HPF (0-5/HPF); Squamous Epithelial Cell Urine 0-1 /HPF; WBC Urine 0-1/HPF (0-5/HPF)
--- NOTE | 2018-05-12 19:00 | PC.NURSE ---
patient was sent from the infusion center for a fever that started while she was getting a platelet infusion. Per patients family the patients temperature was 101.
[2018-05-12] MEDS: CEFEPIME 1 GM in SODIUM CHLORIDE 0.9% 100 ML 200 ML IV (19:30)
[2018-05-12] MEDS: levoFLOXacin 750 MG/150 ML PIGGYBACK 100 MG IV (20:09)
[2018-05-12 20:10] VITALS: BP 115/45; PULSE 84; RESP 23; O2SAT 95
[2018-05-12 20:36] VITALS: BP 113/48; PULSE 88; RESP 16; TEMP 38.8
[2018-05-12 21:10] VITALS: BP 115/45; PULSE 83; RESP 16
[2018-05-12 21:11] VITALS: BP 129/54; PULSE 89; RESP 20; TEMP 37.7; O2SAT 98
--- NOTE | 2018-05-12 22:16 | PC.NURSE ---
2100- Pt [id number] to room 2214 from ED via stretcher. Pl placed on reverse isolation for WBC- 0.0, plts 60, Hx Leukemia. Pt recieved levoquin and cefepine in ED with 1L fluids. Pt states comfortable, except dislikes the bed movement. RAY dbl lum PICC. 98% RA, LS clear. Pt dry heaves adn reports this is baseline, and takes ativan 1mg PRN at home for this. Dr. Barrientos in to see pt. Call light in reach and bed alarm on for safety.
[2018-05-12] MEDS: SODIUM CHLORIDE 0.9% 1,000 ML 125 ML IV (22:31)
--- NOTE | 2018-05-12 22:32 | P.HP_ITS ---
History of Present Illness Date Patient Seen: 05/12/18 Time Patient Seen: 22:29 Chief complaint: FEVER Narrative: 77-year-old female with AML who gets chemotherapy down in [place] presents with fever. She was actually here at the Infusion Center today getting a platelet transfusion and during the transfusion her temperature went up to 101. The patient received chemotherapy about a week ago her white count has been at 0 since then. She has been on Levaquin at home she has had no symptoms of cough or congestion respiratory symptoms no urinary symptoms no GI symptoms or no signs of infection other than the fever. In the emergency department here the provider contacted her oncologist or the oncologist household refrigeration mechanic and they suggested that this could be a transfusion reaction but could also be a neutropenic fever they suggested placing her on antibiotic and monitoring her over night. Patient History Medical History 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) Leukemia (Acute) Family & Social History Social History: household members spouse Prior Living Arrangements House Safety & Behavioral: Feels Safe in Current Yes Environment Suicidal Ideation Description None Suicide Plan Description No Plan Tobacco & Substance use: Smoking Status Never smoker alcohol intake frequency 0-2 drinks per day Substance Use Type does not use Meds Home Medications Medication Instructions Recorded Confirmed Type fexofenadine 60 mg PO Q12HP PRN #0 05/29/12 05/12/18 History acetaminophen 650 mg PO Q4-6H PRN #0 05/08/17 05/12/18 History cholecalciferol (vitamin D3) 1,000 unit PO QDAY #0 06/17/17 05/12/18 History [Vitamin D3] estradiol [Estrace] 1 gm VAGINAL QDAY #60 gm 09/16/17 05/12/18 Rx acyclovir 800 mg PO BID 04/22/18 05/12/18 History fidaxomicin 200 mg PO BID 04/22/18 05/12/18 History hyoscyamine sulfate 0.125 mg PO BID-QID PRN 04/22/18 05/12/18 History levofloxacin 750 mg PO BEDTIME 04/22/18 05/12/18 History loperamide 2 mg PO BID PRN 04/22/18 05/12/18 History lorazepam 1 mg SUBLINGUAL Q6HR PRN 04/22/18 05/12/18 History ondansetron 8 mg PO TID PRN 04/22/18 05/12/18 History posaconazole 300 mg PO BEDTIME 04/22/18 05/12/18 History prochlorperazine maleate 5 mg PO Q6HR PRN 04/22/18 05/12/18 History Allergies Allergy/AdvReac Type Severity Reaction Status Date / Time Penicillins Allergy Unknown Verified 04/22/18 09:15 fentanyl [FENTANYL] AdvReac Unknown NAUSEA Verified 04/22/18 09:15 meperidine AdvReac Unknown N/V Verified 04/22/18 09:15 morphine AdvReac Unknown N/V Verified 04/22/18 09:15 Review of Systems Review of Systems All systems reviewed & are unremarkable except as noted in HPI and below Exam Vital Signs (past 8 hours): - 05/12/18 15:58 05/12/18 18:00 05/12/18 20:10 Temperature 99.0 F Pulse Rate 90 78 84 Respiratory Rate 16 26 H 23 Blood Pressure 114/69 Blood Pressure [Left Arm] 121/51 H 115/45 L Pulse Oximetry 97 96 95 05/12/18 20:36 05/12/18 21:10 05/12/18 21:11 Temperature 101.9 F H 99.8 F H Pulse Rate 88 83 89 Respiratory Rate 16 16 20 Blood Pressure 115/45 L 129/54 H Blood Pressure [Left Arm] 113/48 L Pulse Oximetry 98 Oxygen Delivery Method Room Air Narrative Exam Narrative: Thin elderly female no acute distress HEENT exam unremarkable oropharynx clear Neck no adenopathy Lungs Clear to auscultation Heart regular rhythm Abdomen thin soft nontender Extremities no edema Neuro exam awake alert oriented no focal deficits Objective Labs Result Diagrams: 05/12/18 17:20 05/12/18 17:20 Labs: Laboratory Results - last 24 hr 05/12/18 05/12/18 05/12/18 17:20 17:20 17:20 WBC 0.0 L* RBC 2.64 L Hgb 7.9 L Hct 23.3 L MCV 85.7 MCH 29.7 MCHC 34.7 RDW 16.8 H Plt Count 60 L Neut % (Auto) Not Reportable Lymph % (Auto) Not Reportable [place] % (Auto) Not Reportable Eos % (Auto) Not Reportable Baso % (Auto) Not Reportable Sodium 132 L Potassium 3.1 L Chloride 97 L Carbon Dioxide 30 BUN 13 Creatinine 0.60 Estimated GFR > 60.0 BUN/Creatinine Ratio 21.7 Glucose 128 H Lactate Calcium 8.1 L Total Bilirubin 1.3 AST 9 L ALT 24 Alkaline Phosphatase 54 Total Protein 5.5 L Albumin 3.0 L Globulin 2.5 Albumin/Globulin Ratio 1.2 Procalcitonin 2.02 H Urine Color Urine Appearance Urine pH Ur Specific [place] Urine Protein Urine Glucose (UA) Urine Ketones Urine Occult Blood Urine Nitrate Urine Bilirubin Urine Urobilinogen Ur Leukocyte Esterase Urine RBC Urine WBC Ur Squamous Epith Cells Urine Bacteria Ur Culture Indicated? Micro UA Comment 05/12/18 05/12/18 17:20 18:40 WBC RBC Hgb Hct MCV MCH MCHC RDW Plt Count Neut % (Auto) Lymph % (Auto) [place] % (Auto) Eos % (Auto) Baso % (Auto) Sodium Potassium Chloride Carbon Dioxide BUN Creatinine Estimated GFR BUN/Creatinine Ratio Glucose Lactate 1.5 Calcium Total Bilirubin AST ALT Alkaline Phosphatase Total Protein Albumin Globulin Albumin/Globulin Ratio Procalcitonin Urine Color Yellow Urine Appearance Clear Urine pH 7.5 Ur Specific [place] 1.010 Urine Protein Negative Urine Glucose (UA) Negative Urine Ketones Negative Urine Occult Blood 2+ H Urine Nitrate Negative Urine Bilirubin Negative Urine Urobilinogen 0.2 Ur Leukocyte Esterase Negative Urine RBC 5-10/hpf H Urine WBC 0-1/hpf Ur Squamous Epith Cells 0-1 /hpf Urine Bacteria Occasional (0-1) Ur Culture Indicated? Cult not indicated Micro UA Comment Not Reportable Assessment & Plan Plan: Assessment/Plan Narrative: One. Possible neutropenic fever patient will be placed on observation status and IV antibiotics cefepime and will observe her overnight recheck her white count in the morning. It does not sound like she has been on any bone marrow stimulating medications but has just been followed closely by Oncology. She has been getting platelet transfusions every 1-2 weeks. No signs of active bleeding in her platelet count actually today is 60. That is after the transfusion. 2. Pancytopenia secondary to chemotherapy Quality VTE Deep Vein Thrombosis/Pulmonary Embolism Present on Admission: No
[2018-05-12] MEDS: LORazepam 1 MG TABLET PO (22:48)
[2018-05-13] VITALS (15 sets, daily range): BP systolic 106–125; BP diastolic 55–70; PULSE 72–91; RESP 14–18; TEMP 36.2–38.1; O2SAT 95–100
--- NOTE | 2018-05-13 03:44 | PC.NURSE ---
Addendum entered by Lana Roche R.N. 05/13/18 06:33: Temp rechecked at 0620 for 98.3f orally . Original Note: Addendum entered by Lana Roche R.N. 05/13/18 04:37: Temp 100.2F orally at 0425. 650mg Tylenol po prn given. Blood cultures previous drawn in ED that are pending. Pt otherwise denies chills, shaking. Will recheck temp and monitor. Original Note: Photo Stylist- Pt A&OX4, able to make needs known using call light. OOB with SBA to BR, denied SOBOE, light-headedness or dizziness. Pt denied pain, nausea, discomfort. VSS, afebrile. Temp 98.9F orally at 0045. IVF infusing well to RAY PICC. HR 80bpm and regular upon auscultation, no edema noted, denies neuropathy. Pt states that she was due to have chemotherapy on Thursday of this week and last had 2 weeks ago, unable to state what Chemotherapy cycle she was on. States that she is on G-CLAM Chemotherapy regime at the [facility] in [place]. No voiced concerns, call light within reach.
[2018-05-13] MEDS: CEFEPIME 2 GM in SODIUM CHLORIDE 0.9% 100 ML 200 ML IV ×3 (04:23→19:39)
[2018-05-13] MEDS: SODIUM CHLORIDE 0.9% 1,000 ML 125 ML IV ×2 (04:26→16:09)
[2018-05-13] MEDS: ACETAMINOPHEN 325 MG TABLET 650 MG PO ×2 (04:31→16:38)
[2018-05-13 06:39] LABS: Add Manual Diff / Slide Review NO; Hematocrit 21.6 % (36-46); Hemoglobin 7.5 g/dL (12.0-16.0); Mean Corpuscular HGB Conc 34.6 % (30-36); Mean Corpuscular Hemoglobin 29.7 PG (26-34); Mean Corpuscular Volume 85.8 fL (80-100); Neutrophils Absolute Auto 0 /uL (3000-5900); Red Blood Cell Count 2.52 X10^6/uL (4.0-5.2); Red Cell Distribution Width 16.8 % (11.6-14.8)
[2018-05-13 06:40] LABS: Platelet Count 33 X10^3/uL (150-400); White Blood Cell Count 0.1 X10^3/uL (4.5-11.0)
[2018-05-13 06:49] LABS: Blood Urea Nitrogen 8 mg/dL (7-17); Carbon Dioxide 29 mmol/L (22-32); Chloride 99 mmol/L (98-107); Estimated Glomerular Filt Rate > 60.0 mL/min (>60); Glucose 99 mg/dL (80-110); HEMOLYSIS < 15 (0-50); Sodium 131 mmol/L (137-145)
[2018-05-13 07:01] LABS: Calcium 7.3 mg/dL (8.4-10.2)
[2018-05-13 07:03] LABS: Potassium 2.5 mmol/L (3.4-5.1)
[2018-05-13] MEDS: ACYCLOVIR 400 MG TABLET 800 MG PO ×2 (09:49→21:34)
[2018-05-13] MEDS: POTASSIUM CHLORIDE 20 MEQ TAB PO ×2 (09:49→18:07)
[2018-05-13 10:16] LABS: Enterococcus species Not Detected (Not Detect); Listeria monocytogenes Not Detected (Not Detect); Methicillin-resistant gene Detected (Not Detect)
[2018-05-13 10:17] LABS: Acinetobacter baumannii Not Detected (Not Detect); Candida albicans Not Detected (Not Detect); Candida glabrata Not Detected (Not Detect); Candida krusei Not Detected (Not Detect); Candida parapsilosis Not Detected (Not Detect); Candida tropicalis Not Detected (Not Detect); E. coli Not Detected (Not Detect); Enterobacter cloacae complex Not Detected (Not Detect); Enterobacteriaceae species Not Detected (Not Detect); Haemophilus influenzae Not Detected (Not Detect); Neisseria meningitidis Not Detected (Not Detect); Proteus species Not Detected (Not Detect); Pseudomonas aeruginosa Not Detected (Not Detect); Serratia marcescens Not Detected (Not Detect); Streptococcus agalactiae (Gr B Not Detected (Not Detect); Streptococcus pneumonia Not Detected (Not Detect); Streptococcus pyogenes (Gr A) Not Detected (Not Detect)
[2018-05-13 10:18] LABS: Staphylococcus species Detected (Not Detect); Streptococcus species Detected (Not Detect)
[2018-05-13] MEDS: VANCOMYCIN 500 MG in SODIUM CHLORIDE 0.9% 100 ML IV (11:04)
--- NOTE | 2018-05-13 17:15 | PM.PN.1 ---
Subjective Date Patient Seen: 05/13/18 Time Patient Seen: 16:00 Interval history: Patient had low-grade temp last night when her temperature went up to 100.2. She she has some nausea. She is feeling weak. Exam Vital Signs (past 8 hours): - 05/13/18 10:00 05/13/18 12:20 05/13/18 16:00 Temperature 98.4 F 97.2 F L 100.6 F H Pulse Rate 72 75 77 Respiratory Rate 16 14 16 Blood Pressure 106/55 L 122/58 H 120/70 Pulse Oximetry 95 97 96 05/13/18 16:38 Temperature 100.6 F H Pulse Rate Respiratory Rate Blood Pressure Pulse Oximetry Oxygen Delivery Method Room Air Oxygen Flow Rate 0 Narrative Exam Narrative: General: Thin elderly woman who was lethargic Lungs: Clear to auscultation bilaterally Heart: Regular rhythm, no murmur appreciated Abdomen: Soft, nontender Extremities: No pitting edema Objective Labs Result Diagrams: 05/13/18 06:20 05/13/18 06:20 Labs: Laboratory Results - last 24 hr 05/12/18 05/12/18 05/12/18 17:20 17:20 17:20 WBC 0.0 L* RBC 2.64 L Hgb 7.9 L Hct 23.3 L MCV 85.7 MCH 29.7 MCHC 34.7 RDW 16.8 H Plt Count 60 L Neut % (Auto) Not Reportable Lymph % (Auto) Not Reportable [place] % (Auto) Not Reportable Eos % (Auto) Not Reportable Baso % (Auto) Not Reportable Neut # (Auto) Sodium 132 L Potassium 3.1 L Chloride 97 L Carbon Dioxide 30 BUN 13 Creatinine 0.60 Estimated GFR > 60.0 BUN/Creatinine Ratio 21.7 Glucose 128 H Lactate Calcium 8.1 L Total Bilirubin 1.3 AST 9 L ALT 24 Alkaline Phosphatase 54 Total Protein 5.5 L Albumin 3.0 L Globulin 2.5 Albumin/Globulin Ratio 1.2 Procalcitonin 2.02 H Urine Color Urine Appearance Urine pH Ur Specific [place] Urine Protein Urine Glucose (UA) Urine Ketones Urine Occult Blood Urine Nitrate Urine Bilirubin Urine Urobilinogen Ur Leukocyte Esterase Urine RBC Urine WBC Ur Squamous Epith Cells Urine Bacteria Ur Culture Indicated? Micro UA Comment A. baumannii (PCR) Sue albicans (PCR) C. glabrata (PCR) C. krusei (PCR) C. parapsilosis (PCR) C. tropicalis (PCR) Enterobacteriac sp PCR E. cloacae complex PCR Enterococcus sp PCR E. coli (PCR) H. influenzae (PCR) Klebsiella oxytoca PCR Klebsiella pneumoniae List. monocytogenes PCR N. meningitidis (PCR) Proteus species (PCR) Serratia marcescens PCR Staphylococcus sp PCR Staph aureus (PCR) mecA-Methicil Res Gene Streptococcus sp PCR Group A Strep (PCR) Strep agalactiae (PCR) Strep pneumoniae (PCR) P. aeruginosa (PCR) [place]/B-Vanco Res Genes KPC-Carbap Res Gene PCR 05/12/18 05/12/18 05/12/18 17:20 17:32 18:40 WBC RBC Hgb Hct MCV MCH MCHC RDW Plt Count Neut % (Auto) Lymph % (Auto) [place] % (Auto) Eos % (Auto) Baso % (Auto) Neut # (Auto) Sodium Potassium Chloride Carbon Dioxide BUN Creatinine Estimated GFR BUN/Creatinine Ratio Glucose Lactate 1.5 Calcium Total Bilirubin AST ALT Alkaline Phosphatase Total Protein Albumin Globulin Albumin/Globulin Ratio Procalcitonin Urine Color Yellow Urine Appearance Clear Urine pH 7.5 Ur Specific [place] 1.010 Urine Protein Negative Urine Glucose (UA) Negative Urine Ketones Negative Urine Occult Blood 2+ H Urine Nitrate Negative Urine Bilirubin Negative Urine Urobilinogen 0.2 Ur Leukocyte Esterase Negative Urine RBC 5-10/hpf H Urine WBC 0-1/hpf Ur Squamous Epith Cells 0-1 /hpf Urine Bacteria Occasional (0-1) Ur Culture Indicated? Cult not indicated Micro UA Comment Not Reportable A. baumannii (PCR) Not detected Sue albicans (PCR) Not detected C. glabrata (PCR) Not detected C. krusei (PCR) Not detected C. parapsilosis (PCR) Not detected C. tropicalis (PCR) Not detected Enterobacteriac sp PCR Not detected E. cloacae complex PCR Not detected Enterococcus sp PCR Not detected E. coli (PCR) Not detected H. influenzae (PCR) Not detected Klebsiella oxytoca PCR Not detected Klebsiella pneumoniae Not detected List. monocytogenes PCR Not detected N. meningitidis (PCR) Not detected Proteus species (PCR) Not detected Serratia marcescens PCR Not detected Staphylococcus sp PCR Detected H Staph aureus (PCR) Not detected mecA-Methicil Res Gene Detected H Streptococcus sp PCR Detected H Group A Strep (PCR) Not detected Strep agalactiae (PCR) Not detected Strep pneumoniae (PCR) Not detected P. aeruginosa (PCR) Not detected [place]/B-Vanco Res Genes Not Reportable KPC-Carbap Res Gene PCR Not Reportable 05/13/18 05/13/18 06:20 06:20 WBC 0.1 L* D RBC 2.52 L Hgb 7.5 L Hct 21.6 L MCV 85.8 MCH 29.7 MCHC 34.6 RDW 16.8 H Plt Count 33 L* Neut % (Auto) 0.0 L Lymph % (Auto) 10.0 L [place] % (Auto) 10.0 Eos % (Auto) 80.0 H Baso % (Auto) 0.0 Neut # (Auto) 0 L Sodium 131 L Potassium 2.5 L* Chloride 99 Carbon Dioxide 29 BUN 8 Creatinine 0.50 L Estimated GFR > 60.0 BUN/Creatinine Ratio 16.0 Glucose 99 Lactate Calcium 7.3 L Total Bilirubin AST ALT Alkaline Phosphatase Total Protein Albumin Globulin Albumin/Globulin Ratio Procalcitonin Urine Color Urine Appearance Urine pH Ur Specific [place] Urine Protein Urine Glucose (UA) Urine Ketones Urine Occult Blood Urine Nitrate Urine Bilirubin Urine Urobilinogen Ur Leukocyte Esterase Urine RBC Urine WBC Ur Squamous Epith Cells Urine Bacteria Ur Culture Indicated? Micro UA Comment A. baumannii (PCR) Sue albicans (PCR) C. glabrata (PCR) C. krusei (PCR) C. parapsilosis (PCR) C. tropicalis (PCR) Enterobacteriac sp PCR E. cloacae complex PCR Enterococcus sp PCR E. coli (PCR) H. influenzae (PCR) Klebsiella oxytoca PCR Klebsiella pneumoniae List. monocytogenes PCR N. meningitidis (PCR) Proteus species (PCR) Serratia marcescens PCR Staphylococcus sp PCR Staph aureus (PCR) mecA-Methicil Res Gene Streptococcus sp PCR Group A Strep (PCR) Strep agalactiae (PCR) Strep pneumoniae (PCR) P. aeruginosa (PCR) [place]/B-Vanco Res Genes KPC-Carbap Res Gene PCR Assessment & Plan Plan: Assessment/Plan Narrative: 1. neutropenic fever: Patient continued to have fever which makes to transfusion reaction on likely. Continue cefepime. We will also add vancomycin for broader coverage. Neutrophil count has not had significant improvement. We will continue monitor daily CBC. Continue neutropenic precautions. 2. Pancytopenia secondary to chemotherapy: Transfuse 2 units of irradiated packed red cell today. Continue monitor her cell counts. We will also start her on prophylactic treatment per SCCA recommendations including Levaquin, fluconazole, and acyclovir. 3. Severe hypokalemia: Potassium was 2.5 this morning. She received oral potassium chloride. We will also give her 40 mEq of K rider. Check magnesium in the morning. Replace as needed. 4. Disposition: Patient meets inpatient criteria. I have changed her admission status to inpatient. Discharge home when she is medically more stable. Quality VTE Deep Vein Thrombosis/Pulmonary Embolism Present on Admission: No
[2018-05-13] MEDS: POTASSIUM CHLORIDE 40 MEQ in SODIUM CHLORIDE 0.9% 500 ML 130 ML IV (18:07)
[2018-05-13] MEDS: CHOLECALCIFEROL (VITAMIN D3) 1,000 UNIT TABLET 1000 UNIT PO (18:19)
[2018-05-13] MEDS: levoFLOXacin 250 MG TABLET 750 MG PO (21:34)
--- NOTE | 2018-05-13 22:29 | PC.NURSE ---
Addendum entered by Randa Robledo R.N. 05/13/18 23:28: TAR was unavailable to use, so record of transfusion of PRBC is located in pt's physical file (red file). Original Note: Evening shift pt AOx3, SBA to BR, receptive to care, denying pain and nausea, but reports felling ill. Patient has a decreased appetite and mild fever at beginning of shift of 100.6 so I administered 650mg of Tylenol, 30 minutes later pt temp at 100.5, temp later in shift was reported at 98.1, then 98.6. Patient asked for vicotin for nausea (she uses it at home), Dr. Vaz said she would not prescribe that here. Patient not c/o being nauseous, but wanted the vicotin just in case. Administered 1 unit of PRBC at 2155, H&H this AM was 7.5 and 21.6; oncology protocol states to transfuse patient if hct <26, pt tolerating transfusion well. Changed PICC dressing at start of shift, pt tolerated well. 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
[2018-05-14] VITALS (12 sets, daily range): BP systolic 108–129; BP diastolic 54–81; PULSE 65–79; RESP 16–19; TEMP 36.5–38.2; O2SAT 97–98
[2018-05-14] MEDS: ACETAMINOPHEN 325 MG TABLET 650 MG PO (02:27)
--- NOTE | 2018-05-14 02:54 | PC.NURSE ---
pre transfusion vs for 2 unit PRBC.
--- NOTE | 2018-05-14 02:56 | PC.NURSE ---
15 min post start transfusion vs.
[2018-05-14] MEDS: CEFEPIME 2 GM in SODIUM CHLORIDE 0.9% 100 ML 200 ML IV ×3 (03:31→20:57)
--- NOTE | 2018-05-14 05:15 | PC.NURSE ---
Post transfusion #2 vs.
[2018-05-14] MEDS: SODIUM CHLORIDE 0.9% 1,000 ML 125 ML IV ×2 (06:06→16:00)
[2018-05-14 06:18] LABS: Eosinophils Percent Auto 11.1 % (2-4); Hematocrit 27.2 % (36-46); Hemoglobin 9.6 g/dL (12.0-16.0); Lymphocytes Percent Auto 44.5 % (25-40); Mean Corpuscular HGB Conc 35.3 % (30-36); Mean Corpuscular Hemoglobin 30.6 PG (26-34); Mean Corpuscular Volume 86.5 fL (80-100); Monocytes Percent Auto 11.1 % (3-14); Neutrophils Absolute Auto 0 /uL (3000-5900); Neutrophils Percent Auto 33.3 % (50-75); Red Blood Cell Count 3.14 X10^6/uL (4.0-5.2); Red Cell Distribution Width 15.8 % (11.6-14.8)
[2018-05-14 06:20] LABS: Blood Urea Nitrogen 6 mg/dL (7-17); Carbon Dioxide 27 mmol/L (22-32); Chloride 102 mmol/L (98-107); Estimated Glomerular Filt Rate > 60.0 mL/min (>60); Glucose 92 mg/dL (80-110); HEMOLYSIS < 15 (0-50); Magnesium 1.8 mg/dL (1.6-2.3); Sodium 134 mmol/L (137-145)
[2018-05-14 06:27] LABS: Add Manual Diff / Slide Review SLIDE REVIEW; Platelet Count 25 X10^3/uL (150-400)
[2018-05-14 07:17] LABS: Hypochromasia 1+
[2018-05-14] MEDS: LORATADINE 10 MG TABLET PO (09:49)
[2018-05-14] MEDS: CHOLECALCIFEROL (VITAMIN D3) 1,000 UNIT TABLET 1000 UNIT PO (09:49)
[2018-05-14] MEDS: ACYCLOVIR 400 MG TABLET 800 MG PO ×2 (09:49→20:54)
[2018-05-14] MEDS: POTASSIUM CHLORIDE 20 MEQ TAB 40 MEQ PO ×2 (09:50→17:05)
[2018-05-14] MEDS: POTASSIUM CHLORIDE 20 MEQ TAB PO ×3 (09:56→17:06)
--- NOTE | 2018-05-14 11:33 | P.PN_ITS ---
Subjective Date Patient Seen: 05/14/18 Time Patient Seen: 11:22 Interval history: Patient low-grade temp of 100.8? last night. She is afebrile this morning, complains of feeling weak and has some abdominal cramping. She says she is having more frequent bowel movements and they are becoming more loose. Exam Vital Signs (past 8 hours): - 05/14/18 04:15 05/14/18 05:47 05/14/18 07:00 Temperature 100.2 F H 100.2 F H Pulse Rate 74 Respiratory Rate 16 Blood Pressure 124/65 H Pulse Oximetry 98 05/14/18 07:45 Temperature 98.4 F Pulse Rate 65 Respiratory Rate 16 Blood Pressure 108/81 H Pulse Oximetry 98 Oxygen Delivery Method Room Air Oxygen Flow Rate 0 Narrative Exam Narrative: Thin elderly woman who was awake alert. Const General: cooperative, comfortable, well developed, well groomed and frail appearing Nutritional Appearance: underweight Orientation: alert, awake and oriented x3 HENMT Head: normal to inspection, normocephalic and atraumatic Eyes General: appearance normal, both eyes and all related structures Pupils: PERRL Neck Neck: normal visual inspection, trachea midline and supple Other: No JVD or lymphadenopathy Chest Chest: normal inspection of the chest Resp Effort & Inspection: normal respiratory effort and able to speak in complete sentences Auscultation: clear to auscultation bilaterally Cardio Rate: regular rate Heart Sounds: S1 normal and S2 normal GI Inspection: normal to inspection Palpation: soft Percussion: normal to percussion Auscultation: normal bowel sounds Other: No masses or tenderness Skin General: no rashes or lesions noted, dry skin and warm Neuro General: alert, awake and oriented x3 Cognition: normal cognition Speech: speech normal Motor: muscle tone normal throughout Sensory Exam: no sensory deficits noted Extrem General: normal to inspection, capillary refill normal, no pedal edema and no calf tenderness Psych Appearance: grossly normal Mental Status: mental status grossly normal Mood: congruent mood Affect: normal affect Attitude: cooperative Thought Process: normal Thought Content: normal Judgment: judgment good Objective Labs Result Diagrams: 05/14/18 05:55 05/14/18 05:55 Labs: Laboratory Results - last 24 hr 05/12/18 05/14/18 05/14/18 17:20 05:55 05:55 WBC 0.0 L* D RBC 3.14 L Hgb 9.6 L Hct 27.2 L MCV 86.5 MCH 30.6 MCHC 35.3 RDW 15.8 H Plt Count 25 L* Neut % (Auto) 33.3 L D Lymph % (Auto) 44.5 H D [place] % (Auto) 11.1 Eos % (Auto) 11.1 H Baso % (Auto) 0.0 Neut # (Auto) 0 L RBC Morphology Not Reportable Hypochromasia 1+ H Sodium 134 L Potassium 3.0 L Chloride 102 Carbon Dioxide 27 BUN 6 L Creatinine 0.40 L Estimated GFR > 60.0 BUN/Creatinine Ratio 15.0 Glucose 92 Lactate 1.5 Calcium 7.0 L Magnesium 1.8 Assessment & Plan Plan: Assessment/Plan Narrative: 1. neutropenic fever: Patient continued to have fever which makes to transfusion reaction unlikely. T-max yesterday 100.8. Continue cefepime and vancomycin IV. We will also vancomycin 125 p.o. q.i.d. for C diff coverage based on recommendations from pharmacy as this patient was on fidaxomicin at home. She is starting to have more loose stools today. We will send a stool for C diff. I contacted [facility] [place] today to confirm transfusion threshold for the patient. We will not likely transfuse her with platelets unless platelet count is less than 10 or she shows signs of active bleeding. And we will not transfuse with packed red blood cells unless her hematocrit is less than 26. Neutrophil count has not had significant improvement. We will continue monitor daily CBC. Continue neutropenic precautions. 2. Pancytopenia secondary to chemotherapy: She was transfused with 2 units of irradiated packed red cell yesterday. Continue monitor her cell counts. We was also started on her prophylactic treatment per [facility] recommendations including Levaquin, fluconazole, and acyclovir. 3. Severe hypokalemia: Potassium was 3.0 this morning. She received 40 mEq orally and her maintenance was increased to 20 mEq t.i.d.. Her magnesium level is normal. Will continue to monitor electrolytes and replace as needed. 4. Disposition: Patient meets inpatient criteria. I have changed her admission status to inpatient. Discharge home when she is medically more stable. Quality VTE Deep Vein Thrombosis/Pulmonary Embolism Present on Admission: No
[2018-05-14] MEDS: VANCOMYCIN 125 MG CAPSULE PO ×4 (11:49→20:55)
[2018-05-14] MEDS: VANCOMYCIN 500 MG in SODIUM CHLORIDE 0.9% 100 ML IV (11:49)
--- NOTE | 2018-05-14 12:30 | PC.NURSE ---
Pt resting in bed, tired today but denies pain other than on/off abdominal cramping due to diarrhea. Will send stool culture on next bm.)
[2018-05-14 14:49] LABS: Clostridium Difficile Tox PCR Negative for C. diff
[2018-05-14] MEDS: LORazepam 1 MG TABLET PO (16:10)
[2018-05-14] MEDS: levoFLOXacin 250 MG TABLET 750 MG PO (20:55)
--- NOTE | 2018-05-14 21:46 | PC.NURSE ---
SHIFT NOTE Ox3. pt reports feeling tired today. c/o dry heaving nausea and abdominal cramps from frequent diarrhea. administered PRN ativan for nausea with good effect. pt states diarrhea has also subsided greatly. neutropenic precautions maintained.
[2018-05-15] VITALS (8 sets, daily range): BP systolic 116–132; BP diastolic 61–71; PULSE 63–73; RESP 16–20; TEMP 36.7–37.8; O2SAT 97–98
[2018-05-15] MEDS: SODIUM CHLORIDE 0.9% 1,000 ML 125 ML IV ×2 (00:38→09:32)
[2018-05-15] MEDS: CEFEPIME 2 GM in SODIUM CHLORIDE 0.9% 100 ML 200 ML IV ×3 (03:41→19:43)
[2018-05-15 05:36] LABS: Eosinophils Percent Auto 1.9 % (2-4); Hematocrit 26.7 % (36-46); Hemoglobin 9.3 g/dL (12.0-16.0); Lymphocytes Percent Auto 86.8 % (25-40); Mean Corpuscular HGB Conc 34.7 % (30-36); Mean Corpuscular Hemoglobin 30.3 PG (26-34); Mean Corpuscular Volume 87.2 fL (80-100); Monocytes Percent Auto 7.5 % (3-14); Neutrophils Absolute Auto 0 /uL (3000-5900); Neutrophils Percent Auto 3.8 % (50-75); Red Blood Cell Count 3.06 X10^6/uL (4.0-5.2); Red Cell Distribution Width 16.2 % (11.6-14.8)
[2018-05-15 05:38] LABS: Add Manual Diff / Slide Review SLIDE REVIEW; Platelet Count 11 X10^3/uL (150-400)
[2018-05-15 05:40] LABS: Blood Urea Nitrogen 7 mg/dL (7-17); Calcium 6.9 mg/dL (8.4-10.2); Carbon Dioxide 25 mmol/L (22-32); Chloride 100 mmol/L (98-107); Estimated Glomerular Filt Rate > 60.0 mL/min (>60); Glucose 82 mg/dL (80-110); HEMOLYSIS < 15 (0-50); Potassium 2.9 mmol/L (3.4-5.1); Sodium 132 mmol/L (137-145)
[2018-05-15 06:51] LABS: Target Cells 1+
[2018-05-15] MEDS: POTASSIUM CHLORIDE 20 MEQ TAB PO ×3 (09:33→17:18)
[2018-05-15] MEDS: CHOLECALCIFEROL (VITAMIN D3) 1,000 UNIT TABLET 1000 UNIT PO (09:33)
[2018-05-15] MEDS: ACYCLOVIR 400 MG TABLET 800 MG PO ×2 (09:33→21:00)
[2018-05-15] MEDS: VANCOMYCIN 125 MG CAPSULE PO ×4 (09:33→21:00)
--- NOTE | 2018-05-15 10:33 | PM.PN.1 ---
Subjective Date Patient Seen: 05/15/18 Time Patient Seen: 10:33 Interval history: She did have a bloody nose this morning Exam Vital Signs (past 8 hours): - 05/15/18 05:09 05/15/18 09:00 Temperature 99.5 F 98.1 F Pulse Rate 68 63 Respiratory Rate 20 16 Blood Pressure 123/64 H 130/61 H Pulse Oximetry 98 Oxygen Delivery Method Room Air Oxygen Flow Rate 0 Narrative Exam Narrative: Elderly female resting comfortably no acute distress no bloody nose currently Lungs are clear Heart regular rhythm Abdomen is soft Neuro exam awake alert orient x3 no focal deficits speech normal Skin warm and dry Objective Labs Result Diagrams: 05/15/18 05:05 05/15/18 05:05 Labs: Laboratory Results - last 24 hr 05/14/18 05/15/18 05/15/18 Unknown 05:05 05:05 WBC 0.0 L* RBC 3.06 L Hgb 9.3 L Hct 26.7 L MCV 87.2 MCH 30.3 MCHC 34.7 RDW 16.2 H Plt Count 11 L* Neut % (Auto) 3.8 L D Lymph % (Auto) 86.8 H D [place] % (Auto) 7.5 Eos % (Auto) 1.9 L Baso % (Auto) 0.0 Neut # (Auto) 0 L RBC Morphology Not Reportable Target Cells 1+ H Sodium 132 L Potassium 2.9 L Chloride 100 Carbon Dioxide 25 BUN 7 Creatinine 0.50 L Estimated GFR > 60.0 BUN/Creatinine Ratio 14.0 Glucose 82 Calcium 6.9 L C. difficile Tox (PCR) Negative for c. diff Assessment & Plan Plan: Assessment/Plan Narrative: 1. neutropenic fever: Patient continued to have fever which makes to transfusion reaction unlikely. T-max from yesterday morning 100.8 Continue cefepime and vancomycin IV. We will also vancomycin 125 p.o. q.i.d. for C diff coverage based on recommendations from pharmacy as this patient was on fidaxomicin at home. She is starting to have more loose stools today. We will send a stool for C diff. I contacted [facility] in [place] today to confirm transfusion threshold for the patient. We will not likely transfuse her with platelets unless platelet count is less than 10 or she shows signs of active bleeding. And we will not transfuse with packed red blood cells unless her hematocrit is less than 26. Neutrophil count has not had significant improvement. We will continue monitor daily CBC. Continue neutropenic precautions. Platelet count this morning at 11,000 Medica 26. Plan to recheck in the morning consider discharge tomorrow if things are stable 2. Pancytopenia secondary to chemotherapy: She was transfused with 2 units of irradiated packed red cell yesterday. Continue monitor her cell counts. We was also started on her prophylactic treatment per [facility] recommendations including Levaquin, fluconazole, and acyclovir. 3. Severe hypokalemia: Still with some hypokalemia plan to give her IV potassium today. 4. Disposition: Patient meets inpatient criteria. Inpatient status. If she can go without any fevers today and if things look stable that she can probably go home tomorrow Quality VTE Deep Vein Thrombosis/Pulmonary Embolism Present on Admission: No
[2018-05-15] MEDS: POTASSIUM CHLORIDE 40 MEQ in SODIUM CHLORIDE 0.9% 500 ML 130 ML IV (11:12)
[2018-05-15] MEDS: VANCOMYCIN 500 MG in SODIUM CHLORIDE 0.9% 100 ML IV (11:12)
--- NOTE | 2018-05-15 15:23 | PC.NURSE ---
patient slept on and off most of day, awakening for meals and to use bathroom. Denies pain but states she is just very fatigued. PICC line to RUE remains intact. Patient denies pain, nausea or vomiting. Patient had multiple small loose stools, assisted to bathroom with standby assistance. Patient disappointed that she was not ready for discharge today, but is hopeful for tomorrow. Call light within reach, denies needs at this time.
[2018-05-15] MEDS: ACETAMINOPHEN 325 MG TABLET 650 MG PO (15:57)
[2018-05-15] MEDS: SODIUM CHLORIDE 0.9% FLUSH 10 ML IV ×2 (16:08→19:57)
[2018-05-15] MEDS: LORazepam 1 MG TABLET PO (16:08)
[2018-05-15] MEDS: LOPERAMIDE 2 MG CAPSULE 4 MG PO (16:26)
--- NOTE | 2018-05-15 19:12 | PC.NURSE ---
Pt c/o abdominal cramping with loose stools @ beginning of shift. Requests imodium to treat this complaint. Discussed with Dr. Barrientos via telephone; orders received and entered. Med administered. Pt has dry heaves and retching and requests ativan po. Tylenol for elevated temp. Offered multiple dietary choices which pt declines after taking minimal evening meal. Refused nutritional supplement beverage. Encouraged to call for needs, but allowing for uninterrupted sleep.
[2018-05-15] MEDS: levoFLOXacin 250 MG TABLET 750 MG PO (21:00)
[2018-05-16] VITALS (14 sets, daily range): BP systolic 112–142; BP diastolic 53–70; PULSE 67–80; RESP 16–17; TEMP 36.9–37.9; O2SAT 96–100
[2018-05-16] MEDS: CEFEPIME 2 GM in SODIUM CHLORIDE 0.9% 100 ML 200 ML IV ×3 (03:40→20:00)
[2018-05-16] MEDS: SODIUM CHLORIDE 0.9% FLUSH 10 ML IV ×2 (04:30→05:52)
[2018-05-16 06:05] LABS: Eosinophils Percent Auto 5.9 % (2-4); Hematocrit 28.4 % (36-46); Hemoglobin 9.9 g/dL (12.0-16.0); Lymphocytes Percent Auto 88.2 % (25-40); Mean Corpuscular Hemoglobin 30.6 PG (26-34); Mean Corpuscular Volume 87.3 fL (80-100); Neutrophils Absolute Auto 0 /uL (3000-5900); Neutrophils Percent Auto 5.9 % (50-75); Red Blood Cell Count 3.25 X10^6/uL (4.0-5.2); Red Cell Distribution Width 16.5 % (11.6-14.8)
[2018-05-16 06:07] LABS: Platelet Count 5 X10^3/uL (150-400)
[2018-05-16 06:08] LABS: Add Manual Diff / Slide Review SLIDE REVIEW
--- NOTE | 2018-05-16 06:58 | PC.NURSE ---
Dr. Barrientos here this morning. Reported Platelet this morning only 5. Will report to day RN.
[2018-05-16 07:00] LABS: RBC Morphology Normal Morphology
[2018-05-16] MEDS: POTASSIUM CHLORIDE 20 MEQ TAB PO ×3 (09:16→16:48)
[2018-05-16] MEDS: CHOLECALCIFEROL (VITAMIN D3) 1,000 UNIT TABLET 1000 UNIT PO (09:16)
[2018-05-16] MEDS: VANCOMYCIN 125 MG CAPSULE PO ×4 (09:16→21:45)
[2018-05-16] MEDS: ACYCLOVIR 400 MG TABLET 800 MG PO ×2 (09:16→21:45)
[2018-05-16] MEDS: ACETAMINOPHEN 325 MG TABLET 650 MG PO (11:04)
--- NOTE | 2018-05-16 11:16 | PC.NURSE ---
Patient with temp of 99.9, denies complaints, given tylenol as ordered prn prior to platelet transfusion and Dr. Barrientos notified of temp. Into see patient. will proceed and continue to monitor per protocol.
[2018-05-16 11:46] LABS: Vancomycin Trough < 5.0 ug/mL (10-20)
[2018-05-16] MEDS: VANCOMYCIN 1,000 MG/200 ML FROZ.PIGGY 200 MG IV (12:12)
--- NOTE | 2018-05-16 12:58 | PC.NURSE ---
Patient tolerated 1st unit of platelets well, vss, denies pain or other complaints at this time.
--- NOTE | 2018-05-16 14:52 | P.PN_ITS ---
Subjective Date Patient Seen: 05/16/18 Time Patient Seen: 14:50 Interval history: She denies any bleeding Exam Vital Signs (past 8 hours): - 05/16/18 07:00 05/16/18 08:00 05/16/18 11:14 Temperature 98.8 F 99.9 F H Pulse Rate 67 73 Respiratory Rate 16 17 Blood Pressure 131/63 H 139/64 H Pulse Oximetry 100 98 05/16/18 11:37 05/16/18 12:55 05/16/18 13:21 Temperature 98.5 F 99.0 F 98.5 F Pulse Rate 68 79 68 Respiratory Rate 16 16 17 Blood Pressure 126/69 H 125/61 H 112/57 L Pulse Oximetry 05/16/18 13:36 05/16/18 13:41 Temperature 99.1 F Pulse Rate 72 Respiratory Rate 17 Blood Pressure 119/62 Pulse Oximetry 100 Oxygen Delivery Method Room Air Oxygen Flow Rate 0 Narrative Exam Narrative: Resting comfortably Lungs clear Heart regular rhythm Abdomen soft nontender Neuro exam awake alert oriented x3 Skin warm and dry Objective Labs Result Diagrams: 05/16/18 05:45 05/15/18 05:05 Labs: Laboratory Results - last 24 hr 05/16/18 05/16/18 05/16/18 05:45 07:50 10:45 WBC 0.0 L* RBC 3.25 L Hgb 9.9 L Hct 28.4 L MCV 87.3 MCH 30.6 MCHC 35.0 RDW 16.5 H Plt Count 5 L* Neut % (Auto) 5.9 L Lymph % (Auto) 88.2 H [place] % (Auto) 0.0 L Eos % (Auto) 5.9 H Baso % (Auto) 0.0 Neut # (Auto) 0 L Platelet Estimate RBC Morphology Normal morphology Vancomycin Trough < 5.0 L Blood Type O Positive Assessment & Plan Plan: Assessment/Plan Narrative: 1. neutropenic fever: Patient continued to have fever which makes to transfusion reaction unlikely. T-max from yesterday morning 100.8 Continue cefepime and vancomycin IV. We will also vancomycin 125 p.o. q.i.d. for C diff coverage based on recommendations from pharmacy as this patient was on fidaxomicin at home. She is starting to have more loose stools today. We will send a stool for C diff. I contacted [facility] in [place] today to confirm transfusion threshold for the patient. We will not likely transfuse her with platelets unless platelet count is less than 10 or she shows signs of active bleeding. And we will not transfuse with packed red blood cells unless her hematocrit is less than 26. Neutrophil count has not had significant improvement. We will continue monitor daily CBC. Continue neutropenic precautions. Platelet count this morning 5000. Platelets will be transfused today. She did have a fever to 100.1 last night so continue antibiotics for now 2. Pancytopenia secondary to chemotherapy: She was transfused with 2 units of irradiated packed red cell yesterday. Continue monitor her cell counts. We was also started on her prophylactic treatment per [facility] recommendations including Levaquin, fluconazole, and acyclovir. 3. Severe hypokalemia: She is on oral potassium. Plan to recheck in the morning 4. Disposition: Patient meets inpatient criteria. Inpatient status. If she can go without any fevers today and if things look stable that she can probably go home tomorrow Quality VTE Deep Vein Thrombosis/Pulmonary Embolism Present on Admission: No
--- NOTE | 2018-05-16 15:11 | CM.DPC ---
Chart Review: Pt's fevers continue, no with some abd cramping and diarrhea, stool sample sent to r/o Cdiff. Dr Barrientos expects improvement over the next 24-48 hrs. [facility] has been consulted per Dr Barrientos's note. Pt would benefit from a chk in and review of DCP before DC home. ZANDRA Discharge Planning/Care Management CM Discharge Assessment Start: 05/13/18 15:35 Freq: Status: Active Protocol: Document 05/13/18 15:35 KJS (Rec: 05/13/18 15:43 KJS [id number]) Discharge Planning Assessment Assigned Outdoor Emergency Care Technician EARL/Lauren History Provided By Patient Has Patient been admitted in last 30 No days? Prior Living Arrangements House Household Members spouse Type of transporation used prior to Relies on Others admit Independent with ADL's Yes Is patient alert and oriented? Yes Caregiver for Another No Discharge Plan Home Transportation Arrangement Spouse/Greg will provide transport home. Additional Comment Reviewed chart. Patient is a 77yr old female admitted [place] [facility] with fever. Patient with h/ o AML. PCP Is Dr. Mendoza. Primary payor is 1)Medicare 2) [place]. Met with patient explained CM/ SW role. Patient alert and oriented, resting in bed at time of visit. Patient expresses feeling down because of current situation. Patient resides with spouse [place] Patient plans to return home when medically stable. Patient has h/o AML and has been going to [facility] for treatment. Pt. reports that this has taken a lot out of her and spouse. Prior to going to [place] patient's oncologist was Dr. Dimas in the area. Patient reports that she is primarily I with all ADL's however, she no longer drives. Patient unsure on what the future holds for her. Patient hopes to fight the disease and live has long as she can but admits to being tired. Provided emotional support and placed name/number and plan on white board in patient's room. D/C date unknown. Patient aware CM team will continue to follow if needs were to arise. Review Status In Process Next Review Type Discharge Review
--- NOTE | 2018-05-16 15:16 | PC.NURSE ---
2nd unit of platelets complete, vss, patient tolerated well. Denies pain, remains fatigued resting in bed at this time. at bedside. Patient hoping to go home tonight.
[2018-05-16] MEDS: LORazepam 1 MG TABLET PO (16:53)
[2018-05-16] MEDS: levoFLOXacin 250 MG TABLET 750 MG PO (21:45)
[2018-05-17 00:20] VITALS: BP 138/70; PULSE 73; RESP 14; TEMP 36.9; O2SAT 96
[2018-05-17] MEDS: VANCOMYCIN 1,000 MG/200 ML FROZ.PIGGY 200 MG IV (00:21)
[2018-05-17] MEDS: SODIUM CHLORIDE 0.9% FLUSH 10 ML IV ×2 (00:27→03:36)
[2018-05-17 00:34] VITALS: O2SAT 96
[2018-05-17] MEDS: CEFEPIME 2 GM in SODIUM CHLORIDE 0.9% 100 ML 200 ML IV (03:36)
[2018-05-17] MEDS: LORazepam 1 MG TABLET PO (03:52)
[2018-05-17 04:26] VITALS: BP 137/76; PULSE 87; RESP 14; TEMP 37.6; O2SAT 97
[2018-05-17 05:48] LABS: Hemoglobin 9.2 g/dL (12.0-16.0); Mean Corpuscular HGB Conc 35.2 % (30-36); Mean Corpuscular Hemoglobin 30.7 PG (26-34); Mean Corpuscular Volume 87.3 fL (80-100); Neutrophils Absolute Auto 0 /uL (3000-5900); Platelet Count 78 X10^3/uL (150-400); Red Blood Cell Count 2.98 X10^6/uL (4.0-5.2); Red Cell Distribution Width 16.5 % (11.6-14.8)
--- NOTE | 2018-05-17 06:00 | PC.NURSE ---
Addendum entered by Rafia Mosley R.N. 05/17/18 06:07: platelets today are 78. (were 5 yesterday, then received platelets) Original Note: Pt is AxOx3, VSS, temp this morning was 99.7 F. No complaints of pain. Belching and retching, Ativan given for it with some relief. Reverse isolation maintained. No active signs of bleeding. RUE double lumen picc with patent purple port, Red port is not flushing. Labs drawn thru purple port. IV ABX given as ordered.
[2018-05-17 06:03] LABS: Add Manual Diff / Slide Review SLIDE REVIEW
[2018-05-17 06:21] LABS: Blood Urea Nitrogen 8 mg/dL (7-17); Carbon Dioxide 33 mmol/L (22-32); Chloride 93 mmol/L (98-107); Estimated Glomerular Filt Rate > 60.0 mL/min (>60); Glucose 91 mg/dL (80-110); HEMOLYSIS < 15 (0-50); Sodium 132 mmol/L (137-145)
[2018-05-17 06:34] LABS: Calcium 7.3 mg/dL (8.4-10.2)
[2018-05-17 07:20] VITALS: BP 129/62; PULSE 84; RESP 16; TEMP 37.7; O2SAT 97
[2018-05-17] MEDS: VANCOMYCIN 125 MG CAPSULE PO (08:13)
[2018-05-17] MEDS: ACYCLOVIR 400 MG TABLET 800 MG PO (08:13)
[2018-05-17] MEDS: POTASSIUM CHLORIDE 20 MEQ TAB PO (08:13)
[2018-05-17] MEDS: CHOLECALCIFEROL (VITAMIN D3) 1,000 UNIT TABLET 1000 UNIT PO (08:13)
--- NOTE | 2018-05-17 09:36 | PC.NURSE ---
per night club manager RN red lumen on PICC line was not flushing. Caps changed and reattempted this morning and flushing without difficulty. Dressing remains intact. Patient dangling at bedside to eating breakfast. No complaints at this time, eager to go home. will continue to follow.
[2018-05-17] MEDS: POTASSIUM CHLORIDE 20 MEQ TAB 40 MEQ PO (10:47)
--- NOTE | 2018-05-17 11:34 | PM.DS.1 ---
History of Present Illness Date Patient Seen: 05/17/18 Time Patient Seen: 11:34 Chief complaint: FEVER Narrative: 77-year-old female with AML who gets chemotherapy down in [place] presents with fever. She was actually here [facility] today getting a platelet transfusion and during the transfusion her temperature went up to 101. The patient received chemotherapy about a week ago her white count has been at 0 since then. She has been on Levaquin at home she has had no symptoms of cough or congestion respiratory symptoms no urinary symptoms no GI symptoms or no signs of infection other than the fever. In the emergency department here the provider contacted her oncologist or the oncologist electronic sales and service technician and they suggested that this could be a transfusion reaction but could also be a neutropenic fever they suggested placing her on antibiotic and monitoring her over night. Discharge Providers Date of admission: 05/13/18 09:54 Primary care physician: Alexandre Orlando MD Discharge provider: LAURA Murray Summary Discharge Diagnosis: 1. Neutropenic fever 2. Pancytopenia secondary to chemotherapy 3. Hypokalemia Hospital Course: This summary of a 5 day hospitalization for this 77-year-old patient who presented to the emergency room from the infusion clinic with fever. She was receiving platelet transfusion for platelet count of 9 when she developed a fever of 101 and was sent to the emergency department as a possible transfusion reaction. She continued to have labile lower grade temperatures as high as 101.9 during hospitalization and it was felt that this was not related to transfusion reaction. Blood cultures were obtained and the patient was started on cefepime and vancomycin. She was also started on her prophylactic treatment per [facility] recommendations including Levaquin, fluconazole, and acyclovir. She was placed on neutropenic precautions. One blood culture was positive for Streptococcus mitis/oralis which was resistant to Levofloxacin. She also developed significant diarrhea probably secondary to her antibiotic therapy. C diff was negative. Her chest x-ray showed no pleural effusions or consolidations. Her white count at admission was 0. She was transfused with 2 units of irradiated packed cells on the 13 of May for hemoglobin of 7.5 hematocrit of 21.6. On the 16 of May she was transfused with 2 units of platelets for a platelet count of 5 with some epistaxis. During this hospitalization she also developed significant hypokalemia with a K as low as 2.5. She was supplemented with p.o. as well as IV potassium and she will be started on 20 mEq t.i.d. for home medication. She will also continue on cefdinir 300 mg q.12 hours for the next 10 days to complete a total 14 day course of IV/oral antibiotics for the positive blood culture. On the day of discharge her hemoglobin is 9.2 hematocrit 26 and a platelet count of 78 white blood cell count of 0. She is encouraged to follow up with her oncology provider as soon as possible. Status at Discharge Functional status at discharge: independent ambulation Overall status at discharge: patient is progressing back to baseline Time Spent with Patient Greater than 30 minutes Exam Vital Signs (past 8 hours): - 05/17/18 04:26 05/17/18 07:20 Temperature 99.7 F H 99.8 F H Pulse Rate 87 84 Respiratory Rate 14 16 Blood Pressure 137/76 H 129/62 H Pulse Oximetry 97 97 Oxygen Delivery Method Room Air Oxygen Flow Rate 0 Narrative Exam Narrative: Thin elderly woman who was awake alert. Const General: cooperative, comfortable, well developed, well groomed and frail appearing Nutritional Appearance: underweight Orientation: alert, awake and oriented x3 HENMT Head: normal to inspection, normocephalic and atraumatic Eyes General: appearance normal, both eyes and all related structures Pupils: PERRL Neck Neck: normal visual inspection, trachea midline and supple Other: No JVD or lymphadenopathy Chest Chest: normal inspection of the chest Resp Effort & Inspection: normal respiratory effort and able to speak in complete sentences Auscultation: clear to auscultation bilaterally Cardio Rate: regular rate Heart Sounds: S1 normal and S2 normal GI Inspection: normal to inspection Palpation: soft Percussion: normal to percussion Auscultation: normal bowel sounds Other: No masses or tenderness Skin General: no rashes or lesions noted, dry skin and warm Neuro General: alert, awake and oriented x3 Cognition: normal cognition Speech: speech normal Motor: muscle tone normal throughout Sensory Exam: no sensory deficits noted Extrem General: normal to inspection, capillary refill normal, no pedal edema and no calf tenderness Psych Appearance: grossly normal Mental Status: mental status grossly normal Mood: congruent mood Affect: normal affect Attitude: cooperative Thought Process: normal Thought Content: normal Judgment: judgment good Objective Labs Result Diagrams: 05/17/18 05:35 05/17/18 05:35 Labs: Laboratory Results - last 24 hr 05/16/18 05/16/18 05/17/18 07:50 10:45 05:35 WBC 0.0 L* RBC 2.98 L Hgb 9.2 L Hct 26.0 L MCV 87.3 MCH 30.7 MCHC 35.2 RDW 16.5 H Plt Count 78 L Neut % (Auto) 0.0 L Lymph % (Auto) 75.0 H [place] % (Auto) 25.0 H Eos % (Auto) 0.0 L Baso % (Auto) 0.0 Neut # (Auto) 0 L Sodium Potassium Chloride Carbon Dioxide BUN Creatinine Estimated GFR BUN/Creatinine Ratio Glucose Calcium Vancomycin Trough < 5.0 L Blood Type O Positive 05/17/18 05:35 WBC RBC Hgb Hct MCV MCH MCHC RDW Plt Count Neut % (Auto) Lymph % (Auto) [place] % (Auto) Eos % (Auto) Baso % (Auto) Neut # (Auto) Sodium 132 L Potassium 3.0 L Chloride 93 L Carbon Dioxide 33 H BUN 8 Creatinine 0.40 L Estimated GFR > 60.0 BUN/Creatinine Ratio 20.0 Glucose 91 Calcium 7.3 L Vancomycin Trough Blood Type PROCEDURE: XR CHEST 1V INDICATIONS: fever cancer TECHNIQUE: One view of the chest was acquired. COMPARISON: Located Within [facility], , CHEST 2 VIEW, 02/08/2017, 18:34. FINDINGS: Surgical changes and devices: Right-sided PICC line with tip overlying the atrial caval junction. There are surgical clips over the upper abdomen. Lungs and pleura: No pleural effusions or pneumothorax. Mild elevation right hemidiaphragm. Lungs are clear. Mediastinum: Mediastinal contours appear normal. Heart size is normal. Bones and chest wall: No suspicious bony lesions. Overlying soft tissues appear unremarkable. IMPRESSION: No acute cardiopulmonary abnormality Dictated by: Elia Schuster M.D. on 05/12/2018 at 17:12 Approved by: Elia Schuster M.D. on 05/12/2018 at 17:13 Discharge Plan Discharge Plan Patient Disposition: Home, Self-Care Provider Discharge Instructions Diet: Diet as Tolerated and Regular Activity: As tolerated Oxygen: Room air Wound Care Report to your healthcare provider any signs of infection, such as:: chills, fever, night sweats and increased pain Discharge Data Primary Care Provider: Alexandre Orlando Attending Provider: Bony Barrientos Admit Date/Time: 05/13/18 09:54 Quality VTE Deep Vein Thrombosis/Pulmonary Embolism Present on Admission: No
--- NOTE | 2018-05-17 11:53 | CM.DPC ---
DCP Discharge Home Per PA, pt is medically stable to d/c home today with no identified barriers to discharge. Per RN, pt looking forward to discharging home today and aware of her needs and no concerns at this time. Plan: Patient to d/c home today via spouse POV. No SW needs at this time. EARL Herman
[2018-05-17 11:55] VITALS: BP 128/70; PULSE 77; RESP 16; TEMP 37.2; O2SAT 98
--- NOTE | 2018-05-17 12:39 | PC.NURSE ---
Discharge order received, discussed discharge information and instructions with patient and her , they state understanding and have no further questions or concerns at this time. PICC line to RAY in place, dressing within date, appears to have been changed on 05/13 and remains intact without reddness or swelling at the insertion site. Patient is to follow up with oncologist evon upon discharge.
--- NOTE | 2018-05-17 12:56 | PC.NURSE ---
patient escorted out via wheelchair by glove tagger with all belongings to be discharged to home with .
== END 2018-05-17 13:03 | disposition home or self-care (01) | DRG 809 ==
LOC: ED 19:34 → AC 20:16
PROVIDERS: Internal Medicine; Nurse Practitioner Acute Care; Admitting Provider Internal Medicine; Emergency Provider Emergency Medicine; Family Provider Family Medicine; PCP Family Medicine; Visit Provider Internal Medicine
DX: D70.9 Neutropenia, unspecified (principal); C92.02 Acute myeloblastic leukemia, in relapse; R78.81 Bacteremia; D61.810 Antineoplastic chemotherapy induced pancytopenia; E87.6 Hypokalemia; R50.81 Fever presenting with conditions classified elsewhere; B95.4 Other streptococcus as the cause of diseases classified elsewhere
CPT/HCPCS: 36415; 36430; 36591; 36592; 71045; 80048; 80053; 80202; 81001; 83605; 83735; 84145; 85025; 86850; 86900; 86901; 86945; 87015; 87040; 87045; 87077; 87150; 87186; 87205; 87427; 87493; 87899; 96360; 96361; 96365; 96366; 96368; 99285; G0378; P9016; J0692; J1956; J3370; J3480; P9035

== ENCOUNTER 2018-06-20 08:43 | Emergency (ER) | payer MEDICARE, OTHER, SELFPAY ==
[2018-06-20 09:00] VITALS: BP 104/79; PULSE 107; RESP 20; TEMP 36.3; O2SAT 99; BMI 16.4
--- NOTE | 2018-06-20 09:06 | ED.FALL ---
HPI - Fall General Chief Complaint: Fall Stated Complaint: GLF-hip pain Time Seen by Provider: 06/20/18 08:48 Source: patient Mode of arrival: wheelchair Limitations: no limitations History of Present Illness HPI Narrative: 77-year-old female with history of leukemia recently finished the last course of chemotherapy not currently on chemotherapy here for evaluation of left hip pain. Patient states that she was in her laundry room earlier this morning when she bent over to pharmacy picking technician some yarn cleaner and lost her balance and fell landing on her left hip. She states she did not hit her head. No loss of consciousness. Her was standing right next door when this happened. She states that it did take her some time to get up but she was able to stand up and walk afterwards. Had continued pain in her left hip since that time. Has not tried anything for prior to arrival. Normally is ambulatory at home without any assistance with walking. Related Data Home Medications Medication Instructions Recorded Confirmed fexofenadine 60 mg PO Q12HP PRN #0 05/29/12 05/12/18 acetaminophen 650 mg PO Q4-6H PRN #0 05/08/17 05/12/18 cholecalciferol (vitamin D3) 1,000 unit PO QDAY #0 06/17/17 05/12/18 [Vitamin D3] acyclovir 800 mg PO BID 04/22/18 05/12/18 fidaxomicin 200 mg PO BID 04/22/18 05/12/18 hyoscyamine sulfate 0.125 mg PO BID-QID PRN 04/22/18 05/12/18 levofloxacin 750 mg PO BEDTIME 04/22/18 05/12/18 loperamide 2 mg PO BID PRN 04/22/18 05/12/18 lorazepam 1 mg SUBLINGUAL Q6HR PRN 04/22/18 05/12/18 ondansetron 8 mg PO TID PRN 04/22/18 05/12/18 posaconazole 300 mg PO BEDTIME 04/22/18 05/12/18 prochlorperazine maleate 5 mg PO Q6HR PRN 04/22/18 05/12/18 Previous Rx's Medication Instructions Recorded estradiol [Estrace] 1 gm VAGINAL QDAY #60 gm 09/16/17 Allergies Allergy/AdvReac Type Severity Reaction Status Date / Time Penicillins Allergy Unknown Verified 04/22/18 09:15 fentanyl [FENTANYL] AdvReac Unknown NAUSEA Verified 04/22/18 09:15 meperidine AdvReac Unknown N/V Verified 04/22/18 09:15 morphine AdvReac Unknown N/V Verified 04/22/18 09:15 Review of Systems Constitutional Denies fever(s), Denies frequent falls and Denies headache(s) ENT Ears, Nose, Mouth, and Throat: Denies vertigo, Denies dizziness and Denies headache(s) Cardiovascular Denies chest pain, Denies syncope, Denies palpitations and Denies dyspnea Respiratory Denies chest congestion and Denies dyspnea Gastrointestinal Gastrointestinal: Denies abdominal pain, Denies nausea and Denies vomiting Musculoskeletal Denies numbness Comments: Left hip pain Integumentary/Breasts Denies lesions and Denies rash Neurologic Denies confusion, Denies vertigo, Denies dizziness, Denies syncope, Denies frequent falls, Denies headache(s), Denies focal weakness, Denies memory loss and Denies numbness Psychiatric Denies confusion and Denies memory loss Endocrine Denies palpitations Hematologic/Lymphatic Denies easy bleeding and Denies easy bruising Exam Initial Vital Signs Initial Vital Signs: Vital Signs Temperature 97.3 F L 06/20/18 09:00 Pulse Rate 107 H 06/20/18 09:00 Respiratory Rate 20 06/20/18 09:00 Blood Pressure 104/79 06/20/18 09:00 Pulse Oximetry 99 06/20/18 09:00 Const General: cooperative, healthy appearing, comfortable, well developed, well groomed and No acute distress Orientation: alert, awake and oriented x3 [facility] Head: normal to inspection and normocephalic Resp Effort & Inspection: normal respiratory effort Auscultation: clear to auscultation bilaterally Cardio Rate: regular rate Rhythm: regular rhythm Heart Sounds: no murmurs Pulses: dorsalis pedis present on the left GI Inspection: non-distended Palpation: soft, No guarding, No pulsatile mass and No tender Skin Lesions: no lesions Rashes: no rashes Neuro General: alert, awake and oriented x3 Cognition: normal cognition Speech: speech normal Sensory Exam: no sensory deficits noted Extrem Other: Pelvis stable. Has tenderness to palpation lateral aspect of left hip. Left thigh unremarkable. Left knee unremarkable. Rest of left lower extremity unremarkable. Patient able to internally and externally rotate left hip without problems. Able to flex and extend at the hip with some pain on the lateral aspect. 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) Leukemia (Acute) Surgical History No pertinent past surgical history (Acute) Social History household members: spouse Smoking Status: Never smoker Course Orders Ordered: ED Orders 06/20/18 09:06 XR hip w pel if done LT 2V Stat Vital Signs - 8 hr 06/20/18 09:00 Temperature 97.3 F L Pulse Rate 107 H Respiratory Rate 20 Blood Pressure 104/79 Pulse Oximetry 99 MDM - Fall Imaging Data Hip x-ray: Radiologist's impression: [address] [address] XRay Report Signed Patient: Cornelia Liang [facility]#: [id number] : 1940Acct:[id number] Age/Sex: 77 / FDate of Service: 06/20/18 Loc: ED Accession Number: [id number] Procedure: XR hip w pel if done LT 2V Ordering Provider: Rigo Powell D.O. PROCEDURE: XR HIP W PEL IF DONE LT 2V INDICATIONS: fall with hip pain TECHNIQUE: AP pelvis with lateral view(s) of the left hip(s). COMPARISON: None. FINDINGS: Bones: No fractures or dislocations. Pelvic ring appears intact. No suspicious bony lesions. Osteophytic changes are noted in bilateral hip joints. No evidence of avascular necrosis. Soft tissues: The visualized bowel gas pattern is normal. No suspicious soft tissue calcifications. IMPRESSION: No acute left hip or pelvic fracture. Left hip joint osteoarthritis. Dictated by: Joel Devlin M.D. on 06/20/2018 at 9:34 Approved by: Joel Devlin M.D. on 06/20/2018 at 9:35 [facility] Narrative Medical decision making narrative: Patient is neurovascularly intact. No fractures noted on the x-ray. this does appear to be a mechanical fall. No skin changes. Informed patient of her x-ray findings. No limitations on ambulation at home. She was given return precautions. She expressed understanding and agreement with plan. Discharge Plan Departure Patient Disposition: Home Clinical Impression: Acute pain of left hip, Fall Instructions: How to Prevent Falls Activity Restrictions/Additional Instructions: No fractures were found on the x-rays that were done today. You have no limitations on walking at home. You can take Tylenol for any discomfort. Call your primary care doctor for a follow-up. Return to the emergency department for any new or worsening symptoms Prescriptions: No Action fexofenadine 60 MG tablet 60 mg PO Q12HP PRN (Reason: seasonal allergies) Qty: 0 RF: 0 acetaminophen 325 MG tablet 650 mg PO Q4-6H PRN (Reason: Pain (Scale Score 1-3)) Qty: 0 RF: 0 cholecalciferol (vitamin D3) [Vitamin D3] 1,000 UNIT tablet 1,000 unit PO QDAY Qty: 0 RF: 0 estradiol [Estrace] 0.01 % cream 1 gm Vaginal QDAY Qty: 60 RF: 0 loperamide 2 mg Capsule 2 mg PO BID PRN (Reason: Diarrhea) RF: 0 prochlorperazine maleate 5 mg Tablet 5 mg PO Q6HR PRN (Reason: nausea / vomiting) RF: 0 acyclovir 400 mg Tablet 800 mg PO BID RF: 0 ondansetron 8 mg Tablet,Disintegrating 8 mg PO TID PRN (Reason: allergies) RF: 0 hyoscyamine sulfate 0.125 mg Tablet 0.125 mg PO BID-QID PRN (Reason: stomach cramping) RF: 0 lorazepam 1 mg Tablet 1 mg SUBLINGUAL Q6HR PRN (Reason: nausea / vomiting) RF: 0 levofloxacin 750 mg Tablet 750 mg PO BEDTIME RF: 0 fidaxomicin 200 mg Tablet 200 mg PO BID RF: 0 posaconazole 100 mg Tablet,Delayed Release (Dr/Ec) 300 mg PO BEDTIME RF: 0
[2018-06-20 10:03] VITALS: BP 129/61; PULSE 97; RESP 15; O2SAT 99
== END 2018-06-20 10:13 | disposition home or self-care (01) ==
PROVIDERS: Emergency Provider Emergency Medicine; Family Provider Family Medicine; PCP Family Medicine
DX: M25.552 Pain in left hip (principal); W18.30XA Fall on same level, unspecified, initial encounter
CPT/HCPCS: 73502; 99282; 99283

== ENCOUNTER 2018-07-28 13:03 | Emergency (ER) | payer MEDICARE, OTHER, SELFPAY ==
[2018-07-28 13:07] VITALS: BP 160/80; PULSE 96; RESP 14; TEMP 36.1; O2SAT 96
[2018-07-28 13:54] LABS: Add Manual Diff / Slide Review NO; Basophils Percent Auto 0.1 % (0-2); Eosinophils Percent Auto 0.1 % (2-4); Hematocrit 30.8 % (36-46); Hemoglobin 10.5 g/dL (12.0-16.0); Lymphocytes Percent Auto 7.3 % (25-40); Mean Corpuscular HGB Conc 34.2 % (30-36); Mean Corpuscular Hemoglobin 33.5 PG (26-34); Monocytes Percent Auto 13.2 % (3-14); Neutrophils Absolute Auto 8500 /uL (3000-5900); Neutrophils Percent Auto 79.3 % (50-75); Platelet Count 101 X10^3/uL (150-400); Red Blood Cell Count 3.14 X10^6/uL (4.0-5.2); Red Cell Distribution Width 18.2 % (11.6-14.8); White Blood Cell Count 10.7 X10^3/uL (4.5-11.0)
[2018-07-28 14:02] LABS: PTT Partial Thromboplastin Tim 32 SECONDS (26.4-36.2)
[2018-07-28 14:08] LABS: Alanine Aminotransferase 41 IU/L (9-52); Albumin 4.1 g/dL (3.5-5.0); Albumin Globulin Ratio 1.9 (1.0-2.8); Alkaline Phosphatase 90 U/L (38-126); Aspartate Aminotransferase 33 IU/L (14-36); BUN Creatinine Ratio 22.5 (6-22); Bilirubin Total 0.6 mg/dL (0.2-1.3); Blood Urea Nitrogen 18 mg/dL (7-17); Calcium 9.4 mg/dL (8.4-10.2); Carbon Dioxide 32 mmol/L (22-32); Chloride 101 mmol/L (98-107); Estimated Glomerular Filt Rate > 60.0 mL/min (>60); Globulin 2.2 g/dL (1.7-4.1); Glucose 128 mg/dL (80-110); HEMOLYSIS 38 (0-50); Lipase 26 U/L (23-300); Sodium 141 mmol/L (137-145); Total Protein 6.3 g/dL (6.3-8.2)
[2018-07-28 14:29] VITALS: BP 119/60; PULSE 87; RESP 13; O2SAT 98
[2018-07-28] MEDS: LORazepam 2 MG/ML SYRINGE 1 MG IV (14:43)
--- NOTE | 2018-07-28 16:08 | DI.CT.S_ITS ---
PROCEDURE: CT ABDOMEN PELVIS W CON INDICATIONS: abdominal pain, cancer TECHNIQUE: After the administration of intravenous contrast, 5 mm thick sections acquired from the diaphragm to the symphysis. 5 mm coronal and sagittal reformats were acquired. For radiation dose reduction, the following was used: automated exposure control, adjustment of mA and/or kV according to patient size. COMPARISON: [facility], CT, CHEST/ABD/PEL WITH CONTRAST, 11/19/2016, 12:36. FINDINGS: Image quality: Excellent. ABDOMEN: Lung bases: Lung bases are clear. Heart size is normal. Solid organs: Liver is normal in size. Within the right hepatic lobe posteriorly, there is a peripheral enhancing mass measuring 16 mm, as before. The mass previously demonstrated peripheral nodular enhancement. Gallbladder is surgically absent. Mild extrahepatic biliary ductal dilatation is present, and is increased from the prior examination. There is possible high density material within the distal common bile duct. Pancreas enhances normally. Spleen is normal in size and enhancement. No adrenal nodules. Kidneys demonstrate normal size and enhancement, without hydronephrosis. There is a nonobstructing 8 mm diameter calculus within the superior pole left kidney. Smaller nonobstructing calculi within the left interpolar and inferior pole kidney are present, as before. Peritoneum and bowel: Bowel loops demonstrate normal wall thickness and caliber. No free fluid or air. Normal appendix. Nodes and vessels: No retroperitoneal or mesenteric adenopathy by size criteria. Aorta and inferior vena cava are normal in size. Miscellaneous: No ventral hernias. PELVIS: Genitourinary: Urinary bladder is decompressed. Miscellaneous: No inguinal hernias or adenopathy. Bones: No suspicious bony lesions. New mild chronic appearing wedging of T12, L1, and L3 is present. No acute vertebral body compression fractures. IMPRESSION: 1. Increased extrahepatic biliary ductal dilatation with possible distal common bile duct calculus. MRCP or ERCP could be performed for further assessment, if clinically indicated. 2. Nonobstructing left nephroliths. 3. Normal appendix. 4. 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 5. No evidence of malignancy. 6. New mild chronic appearing compression fractures of T12, L1, and L3. If there is clinical evidence for a more recent fracture, MRI could be performed for further assessment. Dictated by: Fina Martinez M.D. on 07/28/2018 at 16:39 Approved by: Fina Martinez M.D. on 07/28/2018 at 16:45
[2018-07-28 16:38] VITALS: BP 137/68; PULSE 81; RESP 14; O2SAT 99
--- NOTE | 2018-07-28 17:00 | DI.US.S_ITS ---
PROCEDURE: US ABDOMEN LIMITED INDICATIONS: CT shows possible CBD dilatation; ?stone? TECHNIQUE: Real-time focused scanning was performed of the abdomen, with image documentation. COMPARISON: [facility], CT, CT ABDOMEN PELVIS W CON, 07/28/2018, 16:08. FINDINGS: A complex measures 8 mm, which is within normal limits for a post cholecystectomy patient and the distal common bile duct is not secondary to overlying bowel gas. IMPRESSION: The common bile duct measures within normal limits for a post cholecystectomy patient. The distal common bile duct is not seen, secondary to overlying bowel gas and a potential cause of obstruction is not observed. As clinically appropriate, an MRCP could be considered for further evaluation (assuming that there is no contraindication to MRI). Dictated by: Aleksey Armstrong M.D. on 07/28/2018 at 16:32 Approved by: Aleksey Armstrong M.D. on 07/28/2018 at 16:34
--- NOTE | 2018-08-05 18:15 | ED.ABDPAIN ---
HPI - Abdominal Pain General Chief Complaint: Abdominal Pain Stated Complaint: abdominal cramps,nausea Time Seen by Provider: 07/28/18 13:26 Source: patient and family Mode of arrival: ambulatory Limitations: no limitations History of Present Illness HPI narrative: No fever. MD complaint: abdominal pain Onset (ago): day(s) Pain Consistency: constant Location: diffuse Severity: moderate Severity scale (1-10): 5 Quality: cramping Radiation: none Migration to: no migration Relieving factors: nothing Exacerbating factors: nothing Context: other (Patient states that she has been having symptoms since her last chemotherapy treatment yesterday. She states that the symptoms are not unusual that she has been on chemo, but that the symptoms have been a little more severe this time.) Associated symptoms: nausea, vomiting and diarrhea Related Data Home Medications Medication Instructions Recorded Confirmed fexofenadine 60 mg PO QPM #0 05/29/12 07/28/18 acetaminophen 650 mg PO Q4-6H PRN #0 05/08/17 07/28/18 cholecalciferol (vitamin D3) 1,000 unit PO QDAY #0 06/17/17 07/28/18 [Vitamin D3] acyclovir 800 mg PO BID 04/22/18 07/28/18 fidaxomicin 200 mg PO BID 04/22/18 07/28/18 hyoscyamine sulfate 0.125 mg PO BID-QID PRN 04/22/18 07/28/18 levofloxacin 750 mg PO BEDTIME 04/22/18 07/28/18 loperamide 2 mg PO BID PRN 04/22/18 07/28/18 ondansetron 8 mg PO TID PRN 04/22/18 07/28/18 posaconazole 300 mg PO BEDTIME 04/22/18 07/28/18 prochlorperazine maleate 5 mg PO Q6HR PRN 04/22/18 07/28/18 lorazepam [Ativan] 0.5 mg BUCCAL BID-TID PRN 07/14/18 07/28/18 cyclobenzaprine 5 mg PO TID PRN 07/28/18 07/28/18 Previous Rx's Medication Instructions Recorded estradiol [Estrace] 1 gm VAGINAL QDAY #60 gm 09/16/17 lorazepam 1 mg SUBLINGUAL Q6HR PRN 30 Days 08/03/18 #60 tab Allergies Allergy/AdvReac Type Severity Reaction Status Date / Time Penicillins Allergy Unknown Verified 07/28/18 13:08 fentanyl [FENTANYL] AdvReac Unknown NAUSEA Verified 07/28/18 13:08 meperidine AdvReac Unknown N/V Verified 07/28/18 13:08 morphine AdvReac Unknown N/V Verified 07/28/18 13:08 Review of Systems Review of Systems All systems reviewed & are unremarkable except as noted in HPI and below Constitutional Denies chills, Denies fever(s), Denies lethargy and Denies weakness Eyes Denies change in vision, Denies eye discharge, Denies irritation and Denies loss of vision ENT Ears, Nose, Mouth, and Throat: Denies change in voice, Denies neck pain and Denies sore throat Cardiovascular Denies chest pain, Denies irregular heart rhythm, Denies lightheadedness, Denies palpitations, Denies dyspnea, Denies dyspnea on exertion and Denies orthopnea Respiratory Denies cough, Denies dyspnea, Denies dyspnea on exertion and Denies wheezing Gastrointestinal Gastrointestinal: Denies abdominal pain, Denies change in bowel habits, Denies diarrhea, Denies nausea and Denies vomiting Genitourinary Denies hematuria, Denies flank pain, Denies urinary incontinence and Denies urinary urgency Musculoskeletal Denies neck pain Integumentary/Breasts Denies pruritus, Denies erythema, Denies rash and Denies wounds Neurologic Denies confusion, Denies loss of vision and Denies weakness Psychiatric Denies anxiety, Denies confusion, Denies depression, Denies homicidal ideation and Denies suicidal ideation Endocrine Denies palpitations Hematologic/Lymphatic Denies easy bruising Allergic/Immunologic Denies wheezing [facility] Medical History 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) Leukemia (Acute) Surgical History No pertinent past surgical history (Acute) Social History Smoking Status: Never smoker Exam Initial Vital Signs Initial Vital Signs: Vital Signs Temperature 97.0 F L 07/28/18 13:07 Pulse Rate 96 H 07/28/18 13:07 Respiratory Rate 14 10/03/18 13:07 Blood Pressure 160/80 H 07/28/18 13:07 Pulse Oximetry 96 07/28/18 13:07 Const General: cooperative and well developed Nutritional Appearance: well nourished Orientation: alert, awake, oriented x3 and not confused [facility] Head: normocephalic and atraumatic Ears: external ears normal and TM's normal bilaterally Nose: external nose normal and No nasal discharge Face and sinus: sinuses nontender, face symmetric, no sinus tenderness and No dry mucous membranes Mouth: oral mucosae normal and moist mucous membranes Teeth and gingiva: dentition normal Throat: tonsils normal and uvula midline Eyes General: appearance normal, both eyes and all related structures Eyelids: eyelids normal Conjunctivae: conjunctivae normal Sclera: sclerae normal Pupils: PERRL EOM: EOM intact bilaterally Neck Neck: normal visual inspection, trachea midline, No lymphadenopathy, No midline deformity and No JVD Lymphatic: No lymphedema Chest Chest: normal inspection of the chest Resp Effort & Inspection: normal respiratory effort, able to speak in complete sentences, no respiratory distress and no use of accessory muscles Auscultation: clear to auscultation bilaterally, no rales, no rhonchi and no wheezes Cardio Rate: regular rate Rhythm: regular rhythm Heart Sounds: no click, no gallops, no murmurs and no rubs Pulses: normal peripheral pulses GI Inspection: non-distended Palpation: soft, no hepatosplenomegaly, No guarding, No pulsatile mass and tender Auscultation: normal bowel sounds Back/Spine/Pelvis Back: No CVA tenderness Cervical Spine: cervical ROM normal and No pain with cervical ROM Thoracic/Lumbar Spine: thoracic and lumbar spine normal to inspection Skin General: no rashes or lesions noted, No jaundice and No petechiae Neuro General: alert, oriented x3, gait normal and no focal motor deficits Speech: speech normal Extrem General: full ROM, no clubbing, cyanosis or edema, no pedal edema and no calf tenderness Psych Appearance: well kempt Mental Status: mental status grossly normal Attitude: cooperative Thought Content: normal and suicidality Judgment: judgment good Course Course Narrative: Patient was worked up with labs and imaging. She was treated symptomatically in the emergency department as well. Orders Ordered: Discontinued Medications Lorazepam (Ativan) 1 mg IV NOW ONE Stop: 07/28/18 14:42 Last Admin: 07/28/18 14:43 Dose: 1 mg MDM - Abdominal Pain Medical Records Attestation: I reviewed the patient's medical records. Lab Data Attestation: I reviewed the patient's lab results. Result diagrams: 07/28/18 13:45 07/28/18 13:45 Lab Results 07/28/18 07/28/18 07/28/18 Range/Units 13:45 13:45 13:45 WBC 10.7 (4.5-11.0) X10^3/uL RBC 3.14 L (4.0-5.2) X10^6/uL Hgb 10.5 L (12.0-16.0) g/dL Hct 30.8 L (36-46) % MCV 98.0 (80-100) fL MCH 33.5 (26-34) PG MCHC 34.2 (30-36) % RDW 18.2 H (11.6-14.8) % Plt Count 101 L (150-400) X10^3/uL Neut % (Auto) 79.3 H (50-75) % Lymph % (Auto) 7.3 L (25-40) % Stokes % (Auto) 13.2 (3-14) % Eos % (Auto) 0.1 L (2-4) % Baso % (Auto) 0.1 (0-2) % Neut # (Auto) 8500 H (3673-1000) /uL PT 11.0 (10.1-12.7) SECONDS INR 1.0 (0.9-1.3) APTT 32 (26.4-36.2) SECONDS Sodium 141 (137-145) mmol/L Potassium 4.0 (3.4-5.1) mmol/L Chloride 101 (98-107) mmol/L Carbon Dioxide 32 (22-32) mmol/L BUN 18 H (7-17) mg/dL Creatinine 0.80 (0.52-1.04) mg/dL Estimated GFR > 60.0 (>60) mL/min BUN/Creatinine Ratio 22.5 H (6-22) Glucose 128 H (80-110) mg/dL Calcium 9.4 (8.4-10.2) mg/dL Total Bilirubin 0.6 (0.2-1.3) mg/dL AST 33 (14-36) IU/L ALT 41 (9-52) IU/L Alkaline Phosphatase 90 (38-126) U/L Total Protein 6.3 (6.3-8.2) g/dL Albumin 4.1 (3.5-5.0) g/dL Globulin 2.2 (1.7-4.1) g/dL Albumin/Globulin Ratio 1.9 (1.0-2.8) Lipase 26 (23-300) U/L Point of care testing: Urine Dip Bedside Urine Glucose Negative Bedside Urine Bilirubin - Negative Bedside Urine Ketone - Negative Urine Specific [place] 1.025 Bedside Urine Occult Blood - Negative Bedside Urine pH 7.0 Bedside Urine Protein - Negative Bedside Urine Urobilinogen - Negative Bedside Urine Nitrite - Negative Bedside Urine Leukocytes - Negative Esterase Imaging Data CT scan - abdomen: Radiologist's impression: PROCEDURE: CT ABDOMEN PELVIS W CON INDICATIONS: abdominal pain, cancer TECHNIQUE: After the administration of intravenous contrast, 5 mm thick sections acquired from the diaphragm to the symphysis. 5 mm coronal and sagittal reformats were acquired. For radiation dose reduction, the following was used: automated exposure control, adjustment of mA and/or kV according to patient size. COMPARISON: [facility], CT, CHEST/ABD/PEL WITH CONTRAST, 11/19/2016, 12:36. FINDINGS: Image quality: Excellent. ABDOMEN: Lung bases: Lung bases are clear. Heart size is normal. Solid organs: Liver is normal in size. Within the right hepatic lobe posteriorly, there is a peripheral enhancing mass measuring 16 mm, as before. The mass previously demonstrated peripheral nodular enhancement. Gallbladder is surgically absent. Mild extrahepatic biliary ductal dilatation is present, and is increased from the prior examination. There is possible high density material within the distal common bile duct. Pancreas enhances normally. Spleen is normal in size and enhancement. No adrenal nodules. Kidneys demonstrate normal size and enhancement, without hydronephrosis. There is a nonobstructing 8 mm diameter calculus within the superior pole left kidney. Smaller nonobstructing calculi within the left interpolar and inferior pole kidney are present, as before. Peritoneum and bowel: Bowel loops demonstrate normal wall thickness and caliber. No free fluid or air. Normal appendix. Nodes and vessels: No retroperitoneal or mesenteric adenopathy by size criteria. Aorta and inferior vena cava are normal in size. Miscellaneous: No ventral hernias. PELVIS: Genitourinary: Urinary bladder is decompressed. Miscellaneous: No inguinal hernias or adenopathy. Bones: No suspicious bony lesions. New mild chronic appearing wedging of T12, L1, and L3 is present. No acute vertebral body compression fractures. IMPRESSION: 1. Increased extrahepatic biliary ductal dilatation with possible distal common bile duct calculus. MRCP or ERCP could be performed for further assessment, if clinically indicated. 2. Nonobstructing left nephroliths. 3. Normal appendix. 4. 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 5. No evidence of malignancy. 6. New mild chronic appearing compression fractures of T12, L1, and L3. If there is clinical evidence for a more recent fracture, MRI could be performed for further assessment. Dictated by: Fina Martinez M.D. on 07/28/2018 at 16:39 Approved by: Fina Martinez M.D. on 07/28/2018 at 16:45 US - abdomen: Radiologist's impression: [place] [address] Ultrasound Report Signed Patient: Cornelia Liang [facility]#: [id number] : 1940Acct:[id number] Age/Sex: 78 / FDate of Service: 07/28/18 Loc: ED Accession Number: [id number] Procedure: US abdomen limited Ordering Provider: Stacy Junior MD PROCEDURE: US ABDOMEN LIMITED INDICATIONS: CT shows possible CBD dilatation; ?stone? TECHNIQUE: Real-time focused scanning was performed of the abdomen, with image documentation. COMPARISON: [facility], CT, CT ABDOMEN PELVIS W CON, 07/28/2018, 16:08. FINDINGS: A complex measures 8 mm, which is within normal limits for a post cholecystectomy patient and the distal common bile duct is not secondary to overlying bowel gas. IMPRESSION: The common bile duct measures within normal limits for a post cholecystectomy patient. The distal common bile duct is not seen, secondary to overlying bowel gas and a potential cause of obstruction is not observed. As clinically appropriate, an MRCP could be considered for further evaluation (assuming that there is no contraindication to MRI). Dictated by: Aleksey Armstrong M.D. on 07/28/2018 at 16:32 Approved by: Aleksey Armstrong M.D. on 07/28/2018 at 16:34 [facility] Narrative Medical decision making narrative: Patient was found to be feeling better after symptomatic treatment. Her CT scan showed what appeared to be a dilated common bile duct although patient is status post cholecystectomy, and radiologist felt a stone could not be excluded. As such, an ultrasound of the right upper quadrant was performed to evaluate the possibility of a stone, and was read by the radiologist as common bile duct within normal limits. I did feel the patient was stable for discharge home. We have discussed the workup results, as well as symptomatic management at home. The usual indications for return been discussed. Discharge Plan Departure Patient Disposition: Home Clinical Impression: Nausea, Abdominal pain Discharge Date/Time: 07/28/18 17:40 Interventions: ED Discharge Assessment Last Done: 07/28/18 17:40 Instructions: Coping with Nausea and Vomiting From Chemotherapy, DI for Abdominal Pain-Adult, DI for Nausea -- Adult Activity Restrictions/Additional Instructions: Your CT scan showed a dilated common bile duct with a possible stone. For this reason, an ultrasound was done to evaluate the duct that is left over after your gallbladder removal. This appeared normal on ultrasound, which is good. No evidence of any problem with your abdominal organs was identified. Your symptoms are most likely the result of the chemotherapy. If you continue to have trouble with the chemotherapy, please speak with your oncologist about options for management of these unpleasant side effects. Prescriptions: No Action fexofenadine 60 MG tablet 60 mg PO QPM Qty: 0 RF: 0 acetaminophen 325 MG tablet 650 mg PO Q4-6H PRN (Reason: Pain (Scale Score 1-3)) Qty: 0 RF: 0 cholecalciferol (vitamin D3) [Vitamin D3] 1,000 UNIT tablet 1,000 unit PO QDAY Qty: 0 RF: 0 estradiol [Estrace] 0.01 % cream 1 gm Vaginal QDAY Qty: 60 RF: 0 lorazepam [Ativan] 0.5 mg Tablet 0.5 mg BUCCAL BID-TID PRN (Reason: unknown) RF: 0 lorazepam 1 mg Tablet 1 mg SUBLINGUAL Q6HR PRN (Reason: nausea / vomiting) 30 Days Qty: 60 RF: 0 loperamide 2 mg Capsule 2 mg PO BID PRN (Reason: Diarrhea) RF: 0 prochlorperazine maleate 5 mg Tablet 5 mg PO Q6HR PRN (Reason: nausea / vomiting) RF: 0 acyclovir 400 mg Tablet 800 mg PO BID RF: 0 ondansetron 8 mg Tablet,Disintegrating 8 mg PO TID PRN (Reason: allergies) RF: 0 hyoscyamine sulfate 0.125 mg Tablet 0.125 mg PO BID-QID PRN (Reason: stomach cramping) RF: 0 levofloxacin 750 mg Tablet 750 mg PO BEDTIME RF: 0 fidaxomicin 200 mg Tablet 200 mg PO BID RF: 0 posaconazole 100 mg Tablet,Delayed Release (Dr/Ec) 300 mg PO BEDTIME RF: 0 cyclobenzaprine 5 mg tablet 5 mg PO TID PRN (Reason: Muscle Spasm) RF: 0 Referrals: Alexandre Orlando MD [Primary Care Provider] -
--- NOTE | 2018-08-05 18:39 | ED_ITS ---
HPI - Abdominal Pain General Chief Complaint: Abdominal Pain Stated Complaint: abdominal cramps,nausea Time Seen by Provider: 07/28/18 13:26 Source: patient and family Mode of arrival: ambulatory Limitations: no limitations History of Present Illness HPI narrative: No fever. MD complaint: abdominal pain Onset (ago): day(s) Pain Consistency: constant Location: diffuse Severity: moderate Severity scale (1-10): 5 Quality: cramping Radiation: none Migration to: no migration Relieving factors: nothing Exacerbating factors: nothing Context: other (Patient states that she has been having symptoms since her last chemotherapy treatment yesterday. She states that the symptoms are not unusual that she has been on chemo, but that the symptoms have been a little more severe this time.) Associated symptoms: nausea, vomiting and diarrhea Related Data Home Medications Medication Instructions Recorded Confirmed fexofenadine 60 mg PO QPM #0 05/29/12 07/28/18 acetaminophen 650 mg PO Q4-6H PRN #0 05/08/17 07/28/18 cholecalciferol (vitamin D3) 1,000 unit PO QDAY #0 06/17/17 07/28/18 [Vitamin D3] acyclovir 800 mg PO BID 04/22/18 07/28/18 fidaxomicin 200 mg PO BID 04/22/18 07/28/18 hyoscyamine sulfate 0.125 mg PO BID-QID PRN 04/22/18 07/28/18 levofloxacin 750 mg PO BEDTIME 04/22/18 07/28/18 loperamide 2 mg PO BID PRN 04/22/18 07/28/18 ondansetron 8 mg PO TID PRN 04/22/18 07/28/18 posaconazole 300 mg PO BEDTIME 04/22/18 07/28/18 prochlorperazine maleate 5 mg PO Q6HR PRN 04/22/18 07/28/18 lorazepam [Ativan] 0.5 mg BUCCAL BID-TID PRN 07/14/18 07/28/18 cyclobenzaprine 5 mg PO TID PRN 07/28/18 07/28/18 Previous Rx's Medication Instructions Recorded estradiol [Estrace] 1 gm VAGINAL QDAY #60 gm 09/16/17 lorazepam 1 mg SUBLINGUAL Q6HR PRN 30 Days 08/03/18 #60 tab Allergies Allergy/AdvReac Type Severity Reaction Status Date / Time Penicillins Allergy Unknown Verified 07/28/18 13:08 fentanyl [FENTANYL] AdvReac Unknown NAUSEA Verified 07/28/18 13:08 meperidine AdvReac Unknown N/V Verified 07/28/18 13:08 morphine AdvReac Unknown N/V Verified 07/28/18 13:08 Review of Systems Review of Systems All systems reviewed & are unremarkable except as noted in HPI and below Constitutional Denies chills, Denies fever(s), Denies lethargy and Denies weakness Eyes Denies change in vision, Denies eye discharge, Denies irritation and Denies loss of vision ENT Ears, Nose, Mouth, and Throat: Denies change in voice, Denies neck pain and Denies sore throat Cardiovascular Denies chest pain, Denies irregular heart rhythm, Denies lightheadedness, Denies palpitations, Denies dyspnea, Denies dyspnea on exertion and Denies orthopnea Respiratory Denies cough, Denies dyspnea, Denies dyspnea on exertion and Denies wheezing Gastrointestinal Gastrointestinal: Denies abdominal pain, Denies change in bowel habits, Denies diarrhea, Denies nausea and Denies vomiting Genitourinary Denies hematuria, Denies flank pain, Denies urinary incontinence and Denies urinary urgency Musculoskeletal Denies neck pain Integumentary/Breasts Denies pruritus, Denies erythema, Denies rash and Denies wounds Neurologic Denies confusion, Denies loss of vision and Denies weakness Psychiatric Denies anxiety, Denies confusion, Denies depression, Denies homicidal ideation and Denies suicidal ideation Endocrine Denies palpitations Hematologic/Lymphatic Denies easy bruising Allergic/Immunologic Denies wheezing [facility] Medical History 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) Leukemia (Acute) Surgical History No pertinent past surgical history (Acute) Social History Smoking Status: Never smoker Exam Initial Vital Signs Initial Vital Signs: Vital Signs Temperature 97.0 F L 07/28/18 13:07 Pulse Rate 96 H 07/28/18 13:07 Respiratory Rate 14 10/03/18 13:07 Blood Pressure 160/80 H 07/28/18 13:07 Pulse Oximetry 96 07/28/18 13:07 Const General: cooperative and well developed Nutritional Appearance: well nourished Orientation: alert, awake, oriented x3 and not confused [facility] Head: normocephalic and atraumatic Ears: external ears normal and TM's normal bilaterally Nose: external nose normal and No nasal discharge Face and sinus: sinuses nontender, face symmetric, no sinus tenderness and No dry mucous membranes Mouth: oral mucosae normal and moist mucous membranes Teeth and gingiva: dentition normal Throat: tonsils normal and uvula midline Eyes General: appearance normal, both eyes and all related structures Eyelids: eyelids normal Conjunctivae: conjunctivae normal Sclera: sclerae normal Pupils: PERRL EOM: EOM intact bilaterally Neck Neck: normal visual inspection, trachea midline, No lymphadenopathy, No midline deformity and No JVD Lymphatic: No lymphedema Chest Chest: normal inspection of the chest Resp Effort & Inspection: normal respiratory effort, able to speak in complete sentences, no respiratory distress and no use of accessory muscles Auscultation: clear to auscultation bilaterally, no rales, no rhonchi and no wheezes Cardio Rate: regular rate Rhythm: regular rhythm Heart Sounds: no click, no gallops, no murmurs and no rubs Pulses: normal peripheral pulses GI Inspection: non-distended Palpation: soft, no hepatosplenomegaly, No guarding, No pulsatile mass and tender Auscultation: normal bowel sounds Back/Spine/Pelvis Back: No CVA tenderness Cervical Spine: cervical ROM normal and No pain with cervical ROM Thoracic/Lumbar Spine: thoracic and lumbar spine normal to inspection Skin General: no rashes or lesions noted, No jaundice and No petechiae Neuro General: alert, oriented x3, gait normal and no focal motor deficits Speech: speech normal Extrem General: full ROM, no clubbing, cyanosis or edema, no pedal edema and no calf tenderness Psych Appearance: well kempt Mental Status: mental status grossly normal Attitude: cooperative Thought Content: normal and suicidality Judgment: judgment good Course Course Narrative: Patient was worked up with labs and imaging. She was treated symptomatically in the emergency department as well. Orders Ordered: Discontinued Medications Lorazepam (Ativan) 1 mg IV NOW ONE Stop: 07/28/18 14:42 Last Admin: 07/28/18 14:43 Dose: 1 mg MDM - Abdominal Pain Medical Records Attestation: I reviewed the patient's medical records. Lab Data Attestation: I reviewed the patient's lab results. Result diagrams: 07/28/18 13:45 07/28/18 13:45 Lab Results 07/28/18 07/28/18 07/28/18 Range/Units 13:45 13:45 13:45 WBC 10.7 (4.5-11.0) X10^3/uL RBC 3.14 L (4.0-5.2) X10^6/uL Hgb 10.5 L (12.0-16.0) g/dL Hct 30.8 L (36-46) % MCV 98.0 (80-100) fL MCH 33.5 (26-34) PG MCHC 34.2 (30-36) % RDW 18.2 H (11.6-14.8) % Plt Count 101 L (150-400) X10^3/uL Neut % (Auto) 79.3 H (50-75) % Lymph % (Auto) 7.3 L (25-40) % [place] % (Auto) 13.2 (3-14) % Eos % (Auto) 0.1 L (2-4) % Baso % (Auto) 0.1 (0-2) % Neut # (Auto) 8500 H (7499-4450) /uL PT 11.0 (10.1-12.7) SECONDS INR 1.0 (0.9-1.3) APTT 32 (26.4-36.2) SECONDS Sodium 141 (137-145) mmol/L Potassium 4.0 (3.4-5.1) mmol/L Chloride 101 (98-107) mmol/L Carbon Dioxide 32 (22-32) mmol/L BUN 18 H (7-17) mg/dL Creatinine 0.80 (0.52-1.04) mg/dL Estimated GFR > 60.0 (>60) mL/min BUN/Creatinine Ratio 22.5 H (6-22) Glucose 128 H (80-110) mg/dL Calcium 9.4 (8.4-10.2) mg/dL Total Bilirubin 0.6 (0.2-1.3) mg/dL AST 33 (14-36) IU/L ALT 41 (9-52) IU/L Alkaline Phosphatase 90 (38-126) U/L Total Protein 6.3 (6.3-8.2) g/dL Albumin 4.1 (3.5-5.0) g/dL Globulin 2.2 (1.7-4.1) g/dL Albumin/Globulin Ratio 1.9 (1.0-2.8) Lipase 26 (23-300) U/L Point of care testing: Urine Dip Bedside Urine Glucose Negative Bedside Urine Bilirubin - Negative Bedside Urine Ketone - Negative Urine Specific [place] 1.025 Bedside Urine Occult Blood - Negative Bedside Urine pH 7.0 Bedside Urine Protein - Negative Bedside Urine Urobilinogen - Negative Bedside Urine Nitrite - Negative Bedside Urine Leukocytes - Negative Esterase Imaging Data CT scan - abdomen: Radiologist's impression: PROCEDURE: CT ABDOMEN PELVIS W CON INDICATIONS: abdominal pain, cancer TECHNIQUE: After the administration of intravenous contrast, 5 mm thick sections acquired from the diaphragm to the symphysis. 5 mm coronal and sagittal reformats were acquired. For radiation dose reduction, the following was used: automated exposure control, adjustment of mA and/or kV according to patient size. COMPARISON: [facility], CT, CHEST/ABD/PEL WITH CONTRAST, 11/19/2016, 12:36. FINDINGS: Image quality: Excellent. ABDOMEN: Lung bases: Lung bases are clear. Heart size is normal. Solid organs: Liver is normal in size. Within the right hepatic lobe posteriorly, there is a peripheral enhancing mass measuring 16 mm, as before. The mass previously demonstrated peripheral nodular enhancement. Gallbladder is surgically absent. Mild extrahepatic biliary ductal dilatation is present, and is increased from the prior examination. There is possible high density material within the distal common bile duct. Pancreas enhances normally. Spleen is normal in size and enhancement. No adrenal nodules. Kidneys demonstrate normal size and enhancement, without hydronephrosis. There is a nonobstructing 8 mm diameter calculus within the superior pole left kidney. Smaller nonobstructing calculi within the left interpolar and inferior pole kidney are present, as before. Peritoneum and bowel: Bowel loops demonstrate normal wall thickness and caliber. No free fluid or air. Normal appendix. Nodes and vessels: No retroperitoneal or mesenteric adenopathy by size criteria. Aorta and inferior vena cava are normal in size. Miscellaneous: No ventral hernias. PELVIS: Genitourinary: Urinary bladder is decompressed. Miscellaneous: No inguinal hernias or adenopathy. Bones: No suspicious bony lesions. New mild chronic appearing wedging of T12, L1, and L3 is present. No acute vertebral body compression fractures. IMPRESSION: 1. Increased extrahepatic biliary ductal dilatation with possible distal common bile duct calculus. MRCP or ERCP could be performed for further assessment, if clinically indicated. 2. Nonobstructing left nephroliths. 3. Normal appendix. 4. 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 5. No evidence of malignancy. 6. New mild chronic appearing compression fractures of T12, L1, and L3. If there is clinical evidence for a more recent fracture, MRI could be performed for further assessment. Dictated by: Fina Martinez M.D. on 07/28/2018 at 16:39 Approved by: Fina Martinez M.D. on 07/28/2018 at 16:45 US - abdomen: Radiologist's impression: [place] [address] Ultrasound Report Signed Patient: Cornelia Liang [facility]#: [id number] : 1940Acct:[id number] Age/Sex: 78 / FDate of Service: 07/28/18 Loc: ED Accession Number: [id number] Procedure: US abdomen limited Ordering Provider: Stacy Junior MD PROCEDURE: US ABDOMEN LIMITED INDICATIONS: CT shows possible CBD dilatation; ?stone? TECHNIQUE: Real-time focused scanning was performed of the abdomen, with image documentation. COMPARISON: [facility], CT, CT ABDOMEN PELVIS W CON, 07/28/2018, 16:08. FINDINGS: A complex measures 8 mm, which is within normal limits for a post cholecystectomy patient and the distal common bile duct is not secondary to overlying bowel gas. IMPRESSION: The common bile duct measures within normal limits for a post cholecystectomy patient. The distal common bile duct is not seen, secondary to overlying bowel gas and a potential cause of obstruction is not observed. As clinically appropriate, an MRCP could be considered for further evaluation ( assuming that there is no contraindication to MRI). Dictated by: Aleksey Armstrong M.D. on 07/28/2018 at 16:32 Approved by: Aleksey Armstrong M.D. on 07/28/2018 at 16:34 [facility] Narrative Medical decision making narrative: Patient was found to be feeling better after symptomatic treatment. Her CT scan showed what appeared to be a dilated common bile duct although patient is status post cholecystectomy, and radiologist felt a stone could not be excluded. As such, an ultrasound of the right upper quadrant was performed to evaluate the possibility of a stone, and was read by the radiologist as common bile duct within normal limits. I did feel the patient was stable for discharge home. We have discussed the workup results, as well as symptomatic management at home. The usual indications for return been discussed. Discharge Plan Departure Patient Disposition: Home Clinical Impression: Nausea, Abdominal pain Discharge Date/Time: 07/28/18 17:40 Interventions: ED Discharge Assessment Last Done: 07/28/18 17:40 Instructions: Coping with Nausea and Vomiting From Chemotherapy, DI for Abdominal Pain-Adult, DI for Nausea -- Adult Activity Restrictions/Additional Instructions: Your CT scan showed a dilated common bile duct with a possible stone. For this reason, an ultrasound was done to evaluate the duct that is left over after your gallbladder removal. This appeared normal on ultrasound, which is good. No evidence of any problem with your abdominal organs was identified. Your symptoms are most likely the result of the chemotherapy. If you continue to have trouble with the chemotherapy, please speak with your oncologist about options for management of these unpleasant side effects. Prescriptions: No Action fexofenadine 60 MG tablet 60 mg PO QPM Qty: 0 RF: 0 acetaminophen 325 MG tablet 650 mg PO Q4-6H PRN (Reason: Pain (Scale Score 1-3)) Qty: 0 RF: 0 cholecalciferol (vitamin D3) [Vitamin D3] 1,000 UNIT tablet 1,000 unit PO QDAY Qty: 0 RF: 0 estradiol [Estrace] 0.01 % cream 1 gm Vaginal QDAY Qty: 60 RF: 0 lorazepam [Ativan] 0.5 mg Tablet 0.5 mg BUCCAL BID-TID PRN (Reason: unknown) RF: 0 lorazepam 1 mg Tablet 1 mg SUBLINGUAL Q6HR PRN (Reason: nausea / vomiting) 30 Days Qty: 60 RF: 0 loperamide 2 mg Capsule 2 mg PO BID PRN (Reason: Diarrhea) RF: 0 prochlorperazine maleate 5 mg Tablet 5 mg PO Q6HR PRN (Reason: nausea / vomiting) RF: 0 acyclovir 400 mg Tablet 800 mg PO BID RF: 0 ondansetron 8 mg Tablet,Disintegrating 8 mg PO TID PRN (Reason: allergies) RF: 0 hyoscyamine sulfate 0.125 mg Tablet 0.125 mg PO BID-QID PRN (Reason: stomach cramping) RF: 0 levofloxacin 750 mg Tablet 750 mg PO BEDTIME RF: 0 fidaxomicin 200 mg Tablet 200 mg PO BID RF: 0 posaconazole 100 mg Tablet,Delayed Release (Dr/Ec) 300 mg PO BEDTIME RF: 0 cyclobenzaprine 5 mg tablet 5 mg PO TID PRN (Reason: Muscle Spasm) RF: 0 Referrals: Alexandre Orlando MD [Primary Care Provider] -
== END 2018-07-28 17:40 | disposition home or self-care (01) ==
PROVIDERS: Emergency Provider Emergency Medicine; Family Provider Family Medicine; PCP Family Medicine
DX: R10.9 Unspecified abdominal pain (principal)
CPT/HCPCS: 36591; 74177; 76705; 80053; 81003; 83690; 85025; 85610; 85730; 96374; 99282; 99285; J2060; Q9967

== ENCOUNTER 2018-10-28 19:56 | Emergency (ER) | payer MEDICARE, OTHER, SELFPAY ==
[2018-10-28 20:09] VITALS: BP 164/76; PULSE 106; RESP 16; TEMP 36.9; O2SAT 96
--- NOTE | 2018-10-28 20:09 | ED.FEMALEGU ---
HPI - Female Genitourinary <Svetlana Gonzalez PA-C - Last Filed: 10/28/18 22:12> General Chief complaint: Urogenital-Female Stated complaint: BLOOD IN URINE Time Seen by Provider: 10/28/18 20:09 Source: patient Mode of arrival: ambulatory Limitations: no limitations History of Present Illness HPI Narrative: This 78-year-old female comes in today due to urinary changes. She states that she returned home after chemotherapy and noticed that her urine seemed dark. She had 2 episodes of this, then noticed this evening some blood on the toilet paper when she wiped. She states that she has had urinary infections present this way previously. She has not had any dysuria, frequency, or urgency. She denies any fever, chills, sweats, nausea or vomiting. She states she has had some right-sided low back and flank area pain which is very typical for her, especially when she is constipated (she states that she has not had a bowel movement in 3 days, also not unusual, she will take a dose of MiraLax tomorrow as she usually does every 3rd day and will have a bowel movement). She denies any other new pain including abdominal pain. She states that she would not have come in today aside from seeing the change in the appearance of her urine. States her lab work looked good yesterday including improvement in her platelet count. She does have a history of kidney stones as well Related Data Home Medications Medication Instructions Recorded Confirmed fexofenadine 60 mg PO QPM #0 05/29/12 07/28/18 acetaminophen 650 mg PO Q4-6H PRN #0 05/08/17 07/28/18 hyoscyamine sulfate 0.125 mg PO BID-QID PRN 04/22/18 07/28/18 loperamide 2 mg PO BID PRN 04/22/18 07/28/18 ondansetron 8 mg PO TID PRN 04/22/18 07/28/18 prochlorperazine maleate 5 mg PO Q6HR PRN 04/22/18 07/28/18 lorazepam [Ativan] 0.5 mg BUCCAL BID-TID PRN 07/14/18 07/28/18 cyclobenzaprine 5 mg PO TID PRN 07/28/18 08/17/18 hydrocodone-acetaminophen 1 tab PO Q4-6H PRN 08/17/18 08/17/18 Previous Rx's Medication Instructions Recorded lorazepam [Ativan] 0.5 mg PO BID-TID PRN 30 Days #60 10/20/18 tab oxycodone 5 mg PO Q4-6H PRN 30 Days #90 cap 10/20/18 Allergies Allergy/AdvReac Type Severity Reaction Status Date / Time Penicillins Allergy Unknown Verified 07/28/18 13:08 fentanyl [FENTANYL] AdvReac Unknown NAUSEA Verified 07/28/18 13:08 meperidine AdvReac Unknown N/V Verified 07/28/18 13:08 morphine AdvReac Unknown N/V Verified 07/28/18 13:08 Review of Systems <Svetlana Gonzalez PA-C - Last Filed: 10/28/18 22:12> Review of Systems All systems reviewed & are unremarkable except as noted in HPI and below Exam <Svetlana Gonzalez PA-C - Last Filed: 10/28/18 22:12> Narrative Exam Narrative: GENERAL APPEARANCE: Diminuitive patient sitting comfortably, in no distress. HEENT: PERRL, EOMI, no scleral icterus NECK: Supple LUNGS: Clear to auscultation bilaterally. HEART: Rate and rhythm regular, normal S1 and S2, no S3 or S4. ABDOMEN: Soft, nontender, nondistended, bowel sounds present x 4 quadrants, no masses palpable, no hepatosplenomegaly. Minimal L. CVAT EXTREMITIES: No edema DERMATOLOGIC: No jaundice or exanthem NEUROLOGIC: Alert and oriented with normal speech and coordination Initial Vital Signs Initial Vital Signs: Vital Signs Temperature 98.4 F 10/28/18 20:09 Pulse Rate 106 H 10/28/18 20:09 Respiratory Rate 16 10/28/18 20:09 Blood Pressure 164/76 H 10/28/18 20:09 Pulse Oximetry 96 10/28/18 20:09 <Ramírez Sanchez DO - Last Filed: 10/29/18 00:14> Initial Vital Signs Initial Vital Signs: Vital Signs Temperature 98.4 F 10/28/18 20:09 Pulse Rate 106 H 10/28/18 20:09 Respiratory Rate 16 10/28/18 20:09 Blood Pressure 164/76 H 10/28/18 20:09 Pulse Oximetry 96 10/28/18 20:09 Course <Svetlana Gonzalez PA-C - Last Filed: 10/28/18 22:12> Additional Information: Patient appears comfortable in the ED. She does have oxycodone at home and agrees to increase the dose of this as needed. She felt like this was typical of her chronic back pain. Advised on reasons to return, as well as importance of follow-up with her PCP, preferably tomorrow but if not in the next few days, so that she can get set up with a urologist if needed. She does not appear to have acute infection with the stones. Orders Ordered: ED Orders 10/28/18 20:15 Urinalysis and Microscopic Stat 10/28/18 20:26 CT kidney ureter bladder (KUB) Stat 10/28/18 20:50 Complete Blood Count AUTO DIFF Stat Comprehensive Metabolic Panel Stat Creatine Kinase Stat Vital Signs - 8 hr 10/28/18 20:09 10/28/18 21:27 Temperature 98.4 F Pulse Rate 106 H 80 Respiratory Rate 16 18 Blood Pressure 164/76 H Blood Pressure [Left Arm] 126/54 L Pulse Oximetry 96 97 <Ramírez Sanchez DO - Last Filed: 10/29/18 00:14> Orders Ordered: ED Orders 10/28/18 20:15 Urinalysis and Microscopic Stat 10/28/18 20:26 CT kidney ureter bladder (KUB) Stat 10/28/18 20:50 Complete Blood Count AUTO DIFF Stat Comprehensive Metabolic Panel Stat Creatine Kinase Stat Vital Signs - 8 hr 10/28/18 20:09 10/28/18 21:27 Temperature 98.4 F Pulse Rate 106 H 80 Respiratory Rate 16 18 Blood Pressure 164/76 H Blood Pressure [Left Arm] 126/54 L Pulse Oximetry 96 97 MDM - Female Genitourinary <Svetlana Gonzalez PA-C - Last Filed: 10/28/18 22:12> Lab Data Result diagrams: 10/28/18 20:50 10/28/18 20:50 Lab Results 10/28/18 10/28/18 10/28/18 Range/Units 20:15 20:50 20:50 WBC 12.6 H (4.5-11.0) X10^3/uL RBC 3.93 L (4.0-5.2) X10^6/uL Hgb 12.6 (12.0-16.0) g/dL Hct 37.8 (36-46) % MCV 96.4 (80-100) fL MCH 32.0 (26-34) PG MCHC 33.2 (30-36) % RDW 15.5 H (11.6-14.8) % Plt Count 134 L (150-400) X10^3/uL Neut % (Auto) Not Reportable Lymph % (Auto) Not Reportable [place] % (Auto) Not Reportable Eos % (Auto) Not Reportable Baso % (Auto) Not Reportable Total Counted 100 Seg Neutrophils % 96.0 H (38-70) % Lymphocytes % (Manual) 3.0 L (25-45) % Monocytes % (Manual) 1.0 L (2-11) % Neutrophils # (Manual) 51704 H (7088-7397) /uL Smudge Cells 2+ H RBC Morphology See below Poikilocytosis 1+ H Anisocytosis 2+ H Macrocytosis 2+ H Ovalocytes 1+ H Sodium (137-145) mmol/L Potassium (3.4-5.1) mmol/L Chloride (98-107) mmol/L Carbon Dioxide (22-32) mmol/L BUN (7-17) mg/dL Creatinine (0.52-1.04) mg/dL Estimated GFR (>60) mL/min BUN/Creatinine Ratio (6-22) Glucose (80-110) mg/dL Calcium (8.4-10.2) mg/dL Total Bilirubin (0.2-1.3) mg/dL AST (14-36) IU/L ALT (9-52) IU/L Alkaline Phosphatase (38-126) U/L Total Creatine Kinase Cancelled Total Protein (6.3-8.2) g/dL Albumin (3.5-5.0) g/dL Globulin (1.7-4.1) g/dL Albumin/Globulin Ratio (1.0-2.8) Urine Color Yellow Urine Appearance Cloudy Urine pH 6.0 (4.5-8.0) Ur Specific [place] 1.015 (1.000-1.035) Urine Protein Negative (Negative) Urine Glucose (UA) Trace H (Negative) g/dL Urine Ketones Negative (NEGATIVE) Urine Occult Blood 3+ H (Negative) Urine Nitrate Negative (Negative) Urine Bilirubin Negative (NEGATIVE) Urine Urobilinogen 0.2 (0.2) E.U./dL Ur Leukocyte Esterase Negative (NEGATIVE) Urine RBC 30-100/hpf H (0-5/HPF) Urine WBC 1-5/hpf (0-5/HPF) Ur Squamous Epith Cells 0-1 /hpf Urine Bacteria None seen (None) Ur Culture Indicated? Cult not indicated Micro UA Comment Not Reportable 10/28/18 Range/Units 20:50 WBC (4.5-11.0) X10^3/uL RBC (4.0-5.2) X10^6/uL Hgb (12.0-16.0) g/dL Hct (36-46) % MCV (80-100) fL MCH (26-34) PG MCHC (30-36) % RDW (11.6-14.8) % Plt Count (150-400) X10^3/uL Neut % (Auto) Lymph % (Auto) [place] % (Auto) Eos % (Auto) Baso % (Auto) Total Counted Seg Neutrophils % (38-70) % Lymphocytes % (Manual) (25-45) % Monocytes % (Manual) (2-11) % Neutrophils # (Manual) (6331-8536) /uL Smudge Cells RBC Morphology Poikilocytosis Anisocytosis Macrocytosis Ovalocytes Sodium 139 (137-145) mmol/L Potassium 4.1 (3.4-5.1) mmol/L Chloride 101 (98-107) mmol/L Carbon Dioxide 26 (22-32) mmol/L BUN 21 H (7-17) mg/dL Creatinine 0.80 (0.52-1.04) mg/dL Estimated GFR > 60.0 (>60) mL/min BUN/Creatinine Ratio 26.3 H (6-22) Glucose 178 H (80-110) mg/dL Calcium 9.2 (8.4-10.2) mg/dL Total Bilirubin 0.7 (0.2-1.3) mg/dL AST 21 (14-36) IU/L ALT 19 (9-52) IU/L Alkaline Phosphatase 109 (38-126) U/L Total Creatine Kinase < 20 L Total Protein 6.8 (6.3-8.2) g/dL Albumin 4.2 (3.5-5.0) g/dL Globulin 2.6 (1.7-4.1) g/dL Albumin/Globulin Ratio 1.6 (1.0-2.8) Urine Color Urine Appearance Urine pH (4.5-8.0) Ur Specific [place] (1.000-1.035) Urine Protein (Negative) Urine Glucose (UA) (Negative) g/dL Urine Ketones (NEGATIVE) Urine Occult Blood (Negative) Urine Nitrate (Negative) Urine Bilirubin (NEGATIVE) Urine Urobilinogen (0.2) E.U./dL Ur Leukocyte Esterase (NEGATIVE) Urine RBC (0-5/HPF) Urine WBC (0-5/HPF) Ur Squamous Epith Cells Urine Bacteria (None) Ur Culture Indicated? Micro UA Comment Imaging Data KUB: Radiologist's impression: View Report History Print [address] [address] [address] Scan Report Signed Patient: Cornelia Liang MR#: [id number] : 1940 Acct:[id number] Age/Sex: 78 / F Date of Service: 10/28/18 Loc: ED Accession Number: [id number] Procedure: CT kidney ureter bladder (KUB) Ordering Provider: Svetlana Gonzlaez P.A-C PROCEDURE: CT KIDNEY URETER BLADDER (KUB) INDICATIONS: L. flank pain, hematuria TECHNIQUE: Noncontrast 5 mm thick sections acquired from the diaphragms to the symphysis. 5 mm thick coronal and sagittal reformats were then performed. For radiation dose reduction, the following was used: automated exposure control, adjustment of mA and/or kV according to patient size. COMPARISON: [facility], CT, CT ABDOMEN PELVIS W CON, 07/28/2018, 16:08. FINDINGS: Image quality: Excellent. Lung bases: Lung bases are clear. Heart size is normal. Urinary system: Both kidneys are normal in size. No right renal cannulate. Multiple left renal calculi measuring up to 7 mm No hydronephrosis or perinephric fat stranding. Both ureters appear non-dilated throughout their expected courses. Bladder is collapsed and otherwise unremarkable. There are scattered vascular calcifications in the near the expected course of the left ureter. Other solid organs: Liver is normal in size. Gallbladder surgically absent. Pancreas is normal in contours. Spleen is normal in size. No adrenal nodules. Peritoneum and bowel: Surgical clips seen at the GE junction. No bowel obstruction. Colonic diverticulosis. Rectum is grossly unremarkable The appendix is within normal limits No free fluid or air. Nodes and vessels: No retroperitoneal or mesenteric adenopathy by size criteria. Aorta and inferior vena cava are normal in caliber. Abdominal wall: No ventral hernias. Pelvis: No free pelvic fluid. No inguinal hernias or adenopathy. Bones: No suspicious bony lesions. Subcentimeter sclerotic focus in the posterior column the left acetabulum is unchanged. Mild compression fractures involving the L3 and T12 vertebral bodies, grossly unchanged. Multilevel degenerative disc disease and facet arthropathy, as well as diffuse osteopenia. IMPRESSION: Multiple left renal calculi without evidence of urinary obstruction. Normal appendix. Dictated by: Simón Brock M.D. on 10/28/2018 at 21:02 Approved by: Simón Brock M.D. on 10/28/2018 at 21:09 <Ramírez Sanchez DO - Last Filed: 10/29/18 00:14> Lab Data Lab Results 10/28/18 10/28/18 10/28/18 Range/Units 20:15 20:50 20:50 WBC 12.6 H (4.5-11.0) X10^3/uL RBC 3.93 L (4.0-5.2) X10^6/uL Hgb 12.6 (12.0-16.0) g/dL Hct 37.8 (36-46) % MCV 96.4 (80-100) fL MCH 32.0 (26-34) PG MCHC 33.2 (30-36) % RDW 15.5 H (11.6-14.8) % Plt Count 134 L (150-400) X10^3/uL Neut % (Auto) Not Reportable Lymph % (Auto) Not Reportable [place] % (Auto) Not Reportable Eos % (Auto) Not Reportable Baso % (Auto) Not Reportable Total Counted 100 Seg Neutrophils % 96.0 H (38-70) % Lymphocytes % (Manual) 3.0 L (25-45) % Monocytes % (Manual) 1.0 L (2-11) % Neutrophils # (Manual) 14880 H (7022-0919) /uL Smudge Cells 2+ H RBC Morphology See below Poikilocytosis 1+ H Anisocytosis 2+ H Macrocytosis 2+ H Ovalocytes 1+ H Sodium (137-145) mmol/L Potassium (3.4-5.1) mmol/L Chloride (98-107) mmol/L Carbon Dioxide (22-32) mmol/L BUN (7-17) mg/dL Creatinine (0.52-1.04) mg/dL Estimated GFR (>60) mL/min BUN/Creatinine Ratio (6-22) Glucose (80-110) mg/dL Calcium (8.4-10.2) mg/dL Total Bilirubin (0.2-1.3) mg/dL AST (14-36) IU/L ALT (9-52) IU/L Alkaline Phosphatase (38-126) U/L Total Creatine Kinase Cancelled Total Protein (6.3-8.2) g/dL Albumin (3.5-5.0) g/dL Globulin (1.7-4.1) g/dL Albumin/Globulin Ratio (1.0-2.8) Urine Color Yellow Urine Appearance Cloudy Urine pH 6.0 (4.5-8.0) Ur Specific [place] 1.015 (1.000-1.035) Urine Protein Negative (Negative) Urine Glucose (UA) Trace H (Negative) g/dL Urine Ketones Negative (NEGATIVE) Urine Occult Blood 3+ H (Negative) Urine Nitrate Negative (Negative) Urine Bilirubin Negative (NEGATIVE) Urine Urobilinogen 0.2 (0.2) E.U./dL Ur Leukocyte Esterase Negative (NEGATIVE) Urine RBC 30-100/hpf H (0-5/HPF) Urine WBC 1-5/hpf (0-5/HPF) Ur Squamous Epith Cells 0-1 /hpf Urine Bacteria None seen (None) Ur Culture Indicated? Cult not indicated Micro UA Comment Not Reportable 10/28/18 Range/Units 20:50 WBC (4.5-11.0) X10^3/uL RBC (4.0-5.2) X10^6/uL Hgb (12.0-16.0) g/dL Hct (36-46) % MCV (80-100) fL MCH (26-34) PG MCHC (30-36) % RDW (11.6-14.8) % Plt Count (150-400) X10^3/uL Neut % (Auto) Lymph % (Auto) [place] % (Auto) Eos % (Auto) Baso % (Auto) Total Counted Seg Neutrophils % (38-70) % Lymphocytes % (Manual) (25-45) % Monocytes % (Manual) (2-11) % Neutrophils # (Manual) (4249-2075) /uL Smudge Cells RBC Morphology Poikilocytosis Anisocytosis Macrocytosis Ovalocytes Sodium 139 (137-145) mmol/L Potassium 4.1 (3.4-5.1) mmol/L Chloride 101 (98-107) mmol/L Carbon Dioxide 26 (22-32) mmol/L BUN 21 H (7-17) mg/dL Creatinine 0.80 (0.52-1.04) mg/dL Estimated GFR > 60.0 (>60) mL/min BUN/Creatinine Ratio 26.3 H (6-22) Glucose 178 H (80-110) mg/dL Calcium 9.2 (8.4-10.2) mg/dL Total Bilirubin 0.7 (0.2-1.3) mg/dL AST 21 (14-36) IU/L ALT 19 (9-52) IU/L Alkaline Phosphatase 109 (38-126) U/L Total Creatine Kinase < 20 L Total Protein 6.8 (6.3-8.2) g/dL Albumin 4.2 (3.5-5.0) g/dL Globulin 2.6 (1.7-4.1) g/dL Albumin/Globulin Ratio 1.6 (1.0-2.8) Urine Color Urine Appearance Urine pH (4.5-8.0) Ur Specific [place] (1.000-1.035) Urine Protein (Negative) Urine Glucose (UA) (Negative) g/dL Urine Ketones (NEGATIVE) Urine Occult Blood (Negative) Urine Nitrate (Negative) Urine Bilirubin (NEGATIVE) Urine Urobilinogen (0.2) E.U./dL Ur Leukocyte Esterase (NEGATIVE) Urine RBC (0-5/HPF) Urine WBC (0-5/HPF) Ur Squamous Epith Cells Urine Bacteria (None) Ur Culture Indicated? Micro UA Comment Discharge Plan Departure Patient Disposition: Home Clinical Impression: Kidney stone on left side Discharge Date/Time: 10/28/18 21:50 Interventions: ED Discharge Assessment Last Done: 10/28/18 22:00 Instructions: DI for Kidney Stones Activity Restrictions/Additional Instructions: You do have some blood in your urine today on microscopic evaluation, and you have left-sided kidney stones on your CT scan. These are not causing an obstruction. They are likely to pass on their own, but please follow-up with your PCP tomorrow or in the next few days so that you can get a referral to urology if you're not feeling better. You should return if you have any acutely worsening symptoms in the interim, or new symptoms such as vomiting or fever. Please continue your oxycodone for pain, however you can take it much more frequently if you need to. Please use your MiraLax tonight as you planned to help with your constipation. Prescriptions: No Action fexofenadine 60 MG tablet 60 mg PO QPM Qty: 0 RF: 0 acetaminophen 325 MG tablet 650 mg PO Q4-6H PRN (Reason: Pain (Scale Score 1-3)) Qty: 0 RF: 0 lorazepam [Ativan] 0.5 mg Tablet 0.5 mg BUCCAL BID-TID PRN (Reason: unknown) RF: 0 hydrocodone-acetaminophen 5-325 mg Tablet 1 tab PO Q4-6H PRN (Reason: Pain (Scale Score 1-3)) RF: 0 lorazepam [Ativan] 0.5 mg Tablet 0.5 mg PO BID-TID PRN (Reason: Anxiety) 30 Days Qty: 60 RF: 1 oxycodone 5 mg Capsule 5 mg PO Q4-6H PRN (Reason: Pain (Scale Score 4-6)) 30 Days Qty: 90 RF: 0 loperamide 2 mg Capsule 2 mg PO BID PRN (Reason: Diarrhea) RF: 0 prochlorperazine maleate 5 mg Tablet 5 mg PO Q6HR PRN (Reason: nausea / vomiting) RF: 0 ondansetron 8 mg Tablet,Disintegrating 8 mg PO TID PRN (Reason: allergies) RF: 0 hyoscyamine sulfate 0.125 mg Tablet 0.125 mg PO BID-QID PRN (Reason: stomach cramping) RF: 0 cyclobenzaprine 5 mg tablet 5 mg PO TID PRN (Reason: Muscle Spasm) RF: 0 Referrals: Alexandre Orlando MD [Primary Care Provider] - Tay Patel MD [Physician] - <Ramírez Sanchez DO - Last Filed: 10/29/18 00:14> Cosign ED Attending Sohaature Attestation: I was immediately available in the department for consultation. Documentation has been reviewed. I agree with assessment and plan.
--- NOTE | 2018-10-28 20:14 | ED_ITS ---
HPI - Female Genitourinary <Svetlana Gonzalez PA-C - Last Filed: 10/28/18 22:12> General Chief complaint: Urogenital-Female Stated complaint: BLOOD IN URINE Time Seen by Provider: 10/28/18 20:09 Source: patient Mode of arrival: ambulatory Limitations: no limitations History of Present Illness HPI Narrative: This 78-year-old female comes in today due to urinary changes. She states that she returned home after chemotherapy and noticed that her urine seemed dark. She had 2 episodes of this, then noticed this evening some blood on the toilet paper when she wiped. She states that she has had urinary infections present this way previously. She has not had any dysuria, frequency , or urgency. She denies any fever, chills, sweats, nausea or vomiting. She states she has had some right-sided low back and flank area pain which is very typical for her, especially when she is constipated (she states that she has not had a bowel movement in 3 days, also not unusual, she will take a dose of MiraLax tomorrow as she usually does every 3rd day and will have a bowel movement). She denies any other new pain including abdominal pain. She states that she would not have come in today aside from seeing the change in the appearance of her urine. States her lab work looked good yesterday including improvement in her platelet count. She does have a history of kidney stones as well Related Data Home Medications Medication Instructions Recorded Confirmed fexofenadine 60 mg PO QPM #0 05/29/12 07/28/18 acetaminophen 650 mg PO Q4-6H PRN #0 05/08/17 07/28/18 hyoscyamine sulfate 0.125 mg PO BID-QID PRN 04/22/18 07/28/18 loperamide 2 mg PO BID PRN 04/22/18 07/28/18 ondansetron 8 mg PO TID PRN 04/22/18 07/28/18 prochlorperazine maleate 5 mg PO Q6HR PRN 04/22/18 07/28/18 lorazepam [Ativan] 0.5 mg BUCCAL BID-TID PRN 07/14/18 07/28/18 cyclobenzaprine 5 mg PO TID PRN 07/28/18 08/17/18 hydrocodone-acetaminophen 1 tab PO Q4-6H PRN 08/17/18 08/17/18 Previous Rx's Medication Instructions Recorded lorazepam [Ativan] 0.5 mg PO BID-TID PRN 30 Days #60 10/20/18 tab oxycodone 5 mg PO Q4-6H PRN 30 Days #90 cap 10/20/18 Allergies Allergy/AdvReac Type Severity Reaction Status Date / Time Penicillins Allergy Unknown Verified 07/28/18 13:08 fentanyl [FENTANYL] AdvReac Unknown NAUSEA Verified 07/28/18 13:08 meperidine AdvReac Unknown N/V Verified 07/28/18 13:08 morphine AdvReac Unknown N/V Verified 07/28/18 13:08 Review of Systems <Svetlana Gonzalez PA-C - Last Filed: 10/28/18 22:12> Review of Systems All systems reviewed & are unremarkable except as noted in HPI and below Exam <Svetlana Gonzalez PA-C - Last Filed: 10/28/18 22:12> Narrative Exam Narrative: GENERAL APPEARANCE: Diminuitive patient sitting comfortably, in no distress. HEENT: PERRL, EOMI, no scleral icterus NECK: Supple LUNGS: Clear to auscultation bilaterally. HEART: Rate and rhythm regular, normal S1 and S2, no S3 or S4. ABDOMEN: Soft, nontender, nondistended, bowel sounds present x 4 quadrants, no masses palpable, no hepatosplenomegaly. Minimal L. CVAT EXTREMITIES: No edema DERMATOLOGIC: No jaundice or exanthem NEUROLOGIC: Alert and oriented with normal speech and coordination Initial Vital Signs Initial Vital Signs: Vital Signs Temperature 98.4 F 10/28/18 20:09 Pulse Rate 106 H 10/28/18 20:09 Respiratory Rate 16 10/28/18 20:09 Blood Pressure 164/76 H 10/28/18 20:09 Pulse Oximetry 96 10/28/18 20:09 <Ramírez Sanchez DO - Last Filed: 10/29/18 00:14> Initial Vital Signs Initial Vital Signs: Vital Signs Temperature 98.4 F 10/28/18 20:09 Pulse Rate 106 H 10/28/18 20:09 Respiratory Rate 16 10/28/18 20:09 Blood Pressure 164/76 H 10/28/18 20:09 Pulse Oximetry 96 10/28/18 20:09 Course <Svetlana Gonzalez PA-C - Last Filed: 10/28/18 22:12> Additional Information: Patient appears comfortable in the ED. She does have oxycodone at home and agrees to increase the dose of this as needed. She felt like this was typical of her chronic back pain. Advised on reasons to return, as well as importance of follow-up with her PCP, preferably tomorrow but if not in the next few days, so that she can get set up with a urologist if needed. She does not appear to have acute infection with the stones. Orders Ordered: ED Orders 10/28/18 20:15 Urinalysis and Microscopic Stat 10/28/18 20:26 CT kidney ureter bladder (KUB) Stat 10/28/18 20:50 Complete Blood Count AUTO DIFF Stat Comprehensive Metabolic Panel Stat Creatine Kinase Stat Vital Signs - 8 hr 10/28/18 20:09 10/28/18 21:27 Temperature 98.4 F Pulse Rate 106 H 80 Respiratory Rate 16 18 Blood Pressure 164/76 H Blood Pressure [Left Arm] 126/54 L Pulse Oximetry 96 97 <Ramírez Sanchez DO - Last Filed: 10/29/18 00:14> Orders Ordered: ED Orders 10/28/18 20:15 Urinalysis and Microscopic Stat 10/28/18 20:26 CT kidney ureter bladder (KUB) Stat 10/28/18 20:50 Complete Blood Count AUTO DIFF Stat Comprehensive Metabolic Panel Stat Creatine Kinase Stat Vital Signs - 8 hr 10/28/18 20:09 10/28/18 21:27 Temperature 98.4 F Pulse Rate 106 H 80 Respiratory Rate 16 18 Blood Pressure 164/76 H Blood Pressure [Left Arm] 126/54 L Pulse Oximetry 96 97 MDM - Female Genitourinary <Svetlana Gonzalez PA-C - Last Filed: 10/28/18 22:12> Lab Data Result diagrams: 10/28/18 20:50 10/28/18 20:50 Lab Results 10/28/18 10/28/18 10/28/18 Range/Units 20:15 20:50 20:50 WBC 12.6 H (4.5-11.0) X10^3/uL RBC 3.93 L (4.0-5.2) X10^6/uL Hgb 12.6 (12.0-16.0) g/dL Hct 37.8 (36-46) % MCV 96.4 (80-100) fL MCH 32.0 (26-34) PG MCHC 33.2 (30-36) % RDW 15.5 H (11.6-14.8) % Plt Count 134 L (150-400) X10^3/uL Neut % (Auto) Not Reportable Lymph % (Auto) Not Reportable Crisp % (Auto) Not Reportable Eos % (Auto) Not Reportable Baso % (Auto) Not Reportable Total Counted 100 Seg Neutrophils % 96.0 H (38-70) % Lymphocytes % (Manual) 3.0 L (25-45) % Monocytes % (Manual) 1.0 L (2-11) % Neutrophils # (Manual) 47984 H (3873-6001) /uL Smudge Cells 2+ H RBC Morphology See below Poikilocytosis 1+ H Anisocytosis 2+ H Macrocytosis 2+ H Ovalocytes 1+ H Sodium (137-145) mmol/L Potassium (3.4-5.1) mmol/L Chloride (98-107) mmol/L Carbon Dioxide (22-32) mmol/L BUN (7-17) mg/dL Creatinine (0.52-1.04) mg/dL Estimated GFR (>60) mL/min BUN/Creatinine Ratio (6-22) Glucose (80-110) mg/dL Calcium (8.4-10.2) mg/dL Total Bilirubin (0.2-1.3) mg/dL AST (14-36) IU/L ALT (9-52) IU/L Alkaline Phosphatase (38-126) U/L Total Creatine Kinase Cancelled Total Protein (6.3-8.2) g/dL Albumin (3.5-5.0) g/dL Globulin (1.7-4.1) g/dL Albumin/Globulin Ratio (1.0-2.8) Urine Color Yellow Urine Appearance Cloudy Urine pH 6.0 (4.5-8.0) Ur Specific [place] 1.015 (1.000-1.035) Urine Protein Negative (Negative) Urine Glucose (UA) Trace H (Negative) g/dL Urine Ketones Negative (NEGATIVE) Urine Occult Blood 3+ H (Negative) Urine Nitrate Negative (Negative) Urine Bilirubin Negative (NEGATIVE) Urine Urobilinogen 0.2 (0.2) E.U./dL Ur Leukocyte Esterase Negative (NEGATIVE) Urine RBC 30-100/hpf H (0-5/HPF) Urine WBC 1-5/hpf (0-5/HPF) Ur Squamous Epith Cells 0-1 /hpf Urine Bacteria None seen (None) Ur Culture Indicated? Cult not indicated Micro UA Comment Not Reportable 10/28/18 Range/Units 20:50 WBC (4.5-11.0) X10^3/uL RBC (4.0-5.2) X10^6/uL Hgb (12.0-16.0) g/dL Hct (36-46) % MCV (80-100) fL MCH (26-34) PG MCHC (30-36) % RDW (11.6-14.8) % Plt Count (150-400) X10^3/uL Neut % (Auto) Lymph % (Auto) Crisp % (Auto) Eos % (Auto) Baso % (Auto) Total Counted Seg Neutrophils % (38-70) % Lymphocytes % (Manual) (25-45) % Monocytes % (Manual) (2-11) % Neutrophils # (Manual) (0848-7658) /uL Smudge Cells RBC Morphology Poikilocytosis Anisocytosis Macrocytosis Ovalocytes Sodium 139 (137-145) mmol/L Potassium 4.1 (3.4-5.1) mmol/L Chloride 101 (98-107) mmol/L Carbon Dioxide 26 (22-32) mmol/L BUN 21 H (7-17) mg/dL Creatinine 0.80 (0.52-1.04) mg/dL Estimated GFR > 60.0 (>60) mL/min BUN/Creatinine Ratio 26.3 H (6-22) Glucose 178 H (80-110) mg/dL Calcium 9.2 (8.4-10.2) mg/dL Total Bilirubin 0.7 (0.2-1.3) mg/dL AST 21 (14-36) IU/L ALT 19 (9-52) IU/L Alkaline Phosphatase 109 (38-126) U/L Total Creatine Kinase < 20 L Total Protein 6.8 (6.3-8.2) g/dL Albumin 4.2 (3.5-5.0) g/dL Globulin 2.6 (1.7-4.1) g/dL Albumin/Globulin Ratio 1.6 (1.0-2.8) Urine Color Urine Appearance Urine pH (4.5-8.0) Ur Specific [place] (1.000-1.035) Urine Protein (Negative) Urine Glucose (UA) (Negative) g/dL Urine Ketones (NEGATIVE) Urine Occult Blood (Negative) Urine Nitrate (Negative) Urine Bilirubin (NEGATIVE) Urine Urobilinogen (0.2) E.U./dL Ur Leukocyte Esterase (NEGATIVE) Urine RBC (0-5/HPF) Urine WBC (0-5/HPF) Ur Squamous Epith Cells Urine Bacteria (None) Ur Culture Indicated? Micro UA Comment Imaging Data KUB: Radiologist's impression: View Report History Print [address] [address] [address] Scan Report Signed Patient: Cornelia Liang MR#: [id number] : 1940 Acct:[id number] Age/Sex: 78 / F Date of Service: 10/28/18 Loc: ED Accession Number: [id number] Procedure: CT kidney ureter bladder (KUB) Ordering Provider: Svetlana Gonzalez P.A-C PROCEDURE: CT KIDNEY URETER BLADDER (KUB) INDICATIONS: L. flank pain, hematuria TECHNIQUE: Noncontrast 5 mm thick sections acquired from the diaphragms to the symphysis. 5 mm thick coronal and sagittal reformats were then performed. For radiation dose reduction, the following was used: automated exposure control, adjustment of mA and/or kV according to patient size. COMPARISON: [facility], CT, CT ABDOMEN PELVIS W CON, 07/28/2018, 16:08. FINDINGS: Image quality: Excellent. Lung bases: Lung bases are clear. Heart size is normal. Urinary system: Both kidneys are normal in size. No right renal cannulate. Multiple left renal calculi measuring up to 7 mm No hydronephrosis or perinephric fat stranding. Both ureters appear non- dilated throughout their expected courses. Bladder is collapsed and otherwise unremarkable. There are scattered vascular calcifications in the near the expected course of the left ureter. Other solid organs: Liver is normal in size. Gallbladder surgically absent. Pancreas is normal in contours. Spleen is normal in size. No adrenal nodules. Peritoneum and bowel: Surgical clips seen at the GE junction. No bowel obstruction. Colonic diverticulosis. Rectum is grossly unremarkable The appendix is within normal limits No free fluid or air. Nodes and vessels: No retroperitoneal or mesenteric adenopathy by size criteria. Aorta and inferior vena cava are normal in caliber. Abdominal wall: No ventral hernias. Pelvis: No free pelvic fluid. No inguinal hernias or adenopathy. Bones: No suspicious bony lesions. Subcentimeter sclerotic focus in the posterior column the left acetabulum is unchanged. Mild compression fractures involving the L3 and T12 vertebral bodies, grossly unchanged. Multilevel degenerative disc disease and facet arthropathy, as well as diffuse osteopenia. IMPRESSION: Multiple left renal calculi without evidence of urinary obstruction. Normal appendix. Dictated by: Simón Brock M.D. on 10/28/2018 at 21:02 Approved by: Simón Brock M.D. on 10/28/2018 at 21:09 <Ramírez Sanchez DO - Last Filed: 10/29/18 00:14> Lab Data Lab Results 10/28/18 10/28/18 10/28/18 Range/Units 20:15 20:50 20:50 WBC 12.6 H (4.5-11.0) X10^3/uL RBC 3.93 L (4.0-5.2) X10^6/uL Hgb 12.6 (12.0-16.0) g/dL Hct 37.8 (36-46) % MCV 96.4 (80-100) fL MCH 32.0 (26-34) PG MCHC 33.2 (30-36) % RDW 15.5 H (11.6-14.8) % Plt Count 134 L (150-400) X10^3/uL Neut % (Auto) Not Reportable Lymph % (Auto) Not Reportable Crisp % (Auto) Not Reportable Eos % (Auto) Not Reportable Baso % (Auto) Not Reportable Total Counted 100 Seg Neutrophils % 96.0 H (38-70) % Lymphocytes % (Manual) 3.0 L (25-45) % Monocytes % (Manual) 1.0 L (2-11) % Neutrophils # (Manual) 89729 H (7729-5545) /uL Smudge Cells 2+ H RBC Morphology See below Poikilocytosis 1+ H Anisocytosis 2+ H Macrocytosis 2+ H Ovalocytes 1+ H Sodium (137-145) mmol/L Potassium (3.4-5.1) mmol/L Chloride (98-107) mmol/L Carbon Dioxide (22-32) mmol/L BUN (7-17) mg/dL Creatinine (0.52-1.04) mg/dL Estimated GFR (>60) mL/min BUN/Creatinine Ratio (6-22) Glucose (80-110) mg/dL Calcium (8.4-10.2) mg/dL Total Bilirubin (0.2-1.3) mg/dL AST (14-36) IU/L ALT (9-52) IU/L Alkaline Phosphatase (38-126) U/L Total Creatine Kinase Cancelled Total Protein (6.3-8.2) g/dL Albumin (3.5-5.0) g/dL Globulin (1.7-4.1) g/dL Albumin/Globulin Ratio (1.0-2.8) Urine Color Yellow Urine Appearance Cloudy Urine pH 6.0 (4.5-8.0) Ur Specific [place] 1.015 (1.000-1.035) Urine Protein Negative (Negative) Urine Glucose (UA) Trace H (Negative) g/dL Urine Ketones Negative (NEGATIVE) Urine Occult Blood 3+ H (Negative) Urine Nitrate Negative (Negative) Urine Bilirubin Negative (NEGATIVE) Urine Urobilinogen 0.2 (0.2) E.U./dL Ur Leukocyte Esterase Negative (NEGATIVE) Urine RBC 30-100/hpf H (0-5/HPF) Urine WBC 1-5/hpf (0-5/HPF) Ur Squamous Epith Cells 0-1 /hpf Urine Bacteria None seen (None) Ur Culture Indicated? Cult not indicated Micro UA Comment Not Reportable 10/28/18 Range/Units 20:50 WBC (4.5-11.0) X10^3/uL RBC (4.0-5.2) X10^6/uL Hgb (12.0-16.0) g/dL Hct (36-46) % MCV (80-100) fL MCH (26-34) PG MCHC (30-36) % RDW (11.6-14.8) % Plt Count (150-400) X10^3/uL Neut % (Auto) Lymph % (Auto) Crisp % (Auto) Eos % (Auto) Baso % (Auto) Total Counted Seg Neutrophils % (38-70) % Lymphocytes % (Manual) (25-45) % Monocytes % (Manual) (2-11) % Neutrophils # (Manual) (7208-1004) /uL Smudge Cells RBC Morphology Poikilocytosis Anisocytosis Macrocytosis Ovalocytes Sodium 139 (137-145) mmol/L Potassium 4.1 (3.4-5.1) mmol/L Chloride 101 (98-107) mmol/L Carbon Dioxide 26 (22-32) mmol/L BUN 21 H (7-17) mg/dL Creatinine 0.80 (0.52-1.04) mg/dL Estimated GFR > 60.0 (>60) mL/min BUN/Creatinine Ratio 26.3 H (6-22) Glucose 178 H (80-110) mg/dL Calcium 9.2 (8.4-10.2) mg/dL Total Bilirubin 0.7 (0.2-1.3) mg/dL AST 21 (14-36) IU/L ALT 19 (9-52) IU/L Alkaline Phosphatase 109 (38-126) U/L Total Creatine Kinase < 20 L Total Protein 6.8 (6.3-8.2) g/dL Albumin 4.2 (3.5-5.0) g/dL Globulin 2.6 (1.7-4.1) g/dL Albumin/Globulin Ratio 1.6 (1.0-2.8) Urine Color Urine Appearance Urine pH (4.5-8.0) Ur Specific [place] (1.000-1.035) Urine Protein (Negative) Urine Glucose (UA) (Negative) g/dL Urine Ketones (NEGATIVE) Urine Occult Blood (Negative) Urine Nitrate (Negative) Urine Bilirubin (NEGATIVE) Urine Urobilinogen (0.2) E.U./dL Ur Leukocyte Esterase (NEGATIVE) Urine RBC (0-5/HPF) Urine WBC (0-5/HPF) Ur Squamous Epith Cells Urine Bacteria (None) Ur Culture Indicated? Micro UA Comment Discharge Plan Departure Patient Disposition: Home Clinical Impression: Kidney stone on left side Discharge Date/Time: 10/28/18 21:50 Interventions: ED Discharge Assessment Last Done: 10/28/18 22:00 Instructions: DI for Kidney Stones Activity Restrictions/Additional Instructions: You do have some blood in your urine today on microscopic evaluation, and you have left-sided kidney stones on your CT scan. These are not causing an obstruction. They are likely to pass on their own, but please follow-up with your PCP tomorrow or in the next few days so that you can get a referral to urology if you're not feeling better. You should return if you have any acutely worsening symptoms in the interim, or new symptoms such as vomiting or fever. Please continue your oxycodone for pain, however you can take it much more frequently if you need to. Please use your MiraLax tonight as you planned to help with your constipation. Prescriptions: No Action fexofenadine 60 MG tablet 60 mg PO QPM Qty: 0 RF: 0 acetaminophen 325 MG tablet 650 mg PO Q4-6H PRN (Reason: Pain (Scale Score 1-3)) Qty: 0 RF: 0 lorazepam [Ativan] 0.5 mg Tablet 0.5 mg BUCCAL BID-TID PRN (Reason: unknown) RF: 0 hydrocodone-acetaminophen 5-325 mg Tablet 1 tab PO Q4-6H PRN (Reason: Pain (Scale Score 1-3)) RF: 0 lorazepam [Ativan] 0.5 mg Tablet 0.5 mg PO BID-TID PRN (Reason: Anxiety) 30 Days Qty: 60 RF: 1 oxycodone 5 mg Capsule 5 mg PO Q4-6H PRN (Reason: Pain (Scale Score 4-6)) 30 Days Qty: 90 RF: 0 loperamide 2 mg Capsule 2 mg PO BID PRN (Reason: Diarrhea) RF: 0 prochlorperazine maleate 5 mg Tablet 5 mg PO Q6HR PRN (Reason: nausea / vomiting) RF: 0 ondansetron 8 mg Tablet,Disintegrating 8 mg PO TID PRN (Reason: allergies) RF: 0 hyoscyamine sulfate 0.125 mg Tablet 0.125 mg PO BID-QID PRN (Reason: stomach cramping) RF: 0 cyclobenzaprine 5 mg tablet 5 mg PO TID PRN (Reason: Muscle Spasm) RF: 0 Referrals: Alexandre Orlando MD [Primary Care Provider] - Tay Patel MD [Physician] - <Ramírez Sanchez DO - Last Filed: 10/29/18 00:14> Cosign ED Attending Sohaature Attestation: I was immediately available in the department for consultation. Documentation has been reviewed. I agree with assessment and plan.
[2018-10-28 20:17] LABS: Bacteria Urine None Seen
[2018-10-28 20:22] LABS: Appearance Urine UA CLOUDY; Bilirubin Urine UA NEGATIVE (NEGATIVE); Color Urine UA YELLOW; Glucose Urine UA TRACE g/dL (Negative); Ketones Urine UA NEGATIVE (NEGATIVE); Leukocyte Esterase Urine UA NEGATIVE (NEGATIVE); Nitrite Urine UA NEGATIVE (Negative); Occult Blood Urine UA 3+ (Negative); Protein Urine UA NEGATIVE (Negative); Specific Gravity Urine UA 1.015 (1.000-1.035); Urobilinogen Urine UA 0.2 E.U./dL (0.2)
--- NOTE | 2018-10-28 20:26 | DI.CT.S_ITS ---
PROCEDURE: CT KIDNEY URETER BLADDER (KUB) INDICATIONS: L. flank pain, hematuria TECHNIQUE: Noncontrast 5 mm thick sections acquired from the diaphragms to the symphysis. 5 mm thick coronal and sagittal reformats were then performed. For radiation dose reduction, the following was used: automated exposure control, adjustment of mA and/or kV according to patient size. COMPARISON: [facility], CT, CT ABDOMEN PELVIS W CON, 07/28/2018, 16:08. FINDINGS: Image quality: Excellent. Lung bases: Lung bases are clear. Heart size is normal. Urinary system: Both kidneys are normal in size. No right renal cannulate. Multiple left renal calculi measuring up to 7 mm No hydronephrosis or perinephric fat stranding. Both ureters appear non-dilated throughout their expected courses. Bladder is collapsed and otherwise unremarkable. There are scattered vascular calcifications in the near the expected course of the left ureter. Other solid organs: Liver is normal in size. Gallbladder surgically absent. Pancreas is normal in contours. Spleen is normal in size. No adrenal nodules. Peritoneum and bowel: Surgical clips seen at the GE junction. No bowel obstruction. Colonic diverticulosis. Rectum is grossly unremarkable The appendix is within normal limits No free fluid or air. Nodes and vessels: No retroperitoneal or mesenteric adenopathy by size criteria. Aorta and inferior vena cava are normal in caliber. Abdominal wall: No ventral hernias. Pelvis: No free pelvic fluid. No inguinal hernias or adenopathy. Bones: No suspicious bony lesions. Subcentimeter sclerotic focus in the posterior column the left acetabulum is unchanged. Mild compression fractures involving the L3 and T12 vertebral bodies, grossly unchanged. Multilevel degenerative disc disease and facet arthropathy, as well as diffuse osteopenia. IMPRESSION: Multiple left renal calculi without evidence of urinary obstruction. Normal appendix. Dictated by: Simón Brock M.D. on 10/28/2018 at 21:02 Approved by: Simón Brock M.D. on 10/28/2018 at 21:09
[2018-10-28 20:35] LABS: Culture Indicated Urine Cult Not Indicated; RBC Urine 30-100/HPF (0-5/HPF); Squamous Epithelial Cell Urine 0-1 /HPF; WBC Urine 1-5/HPF (0-5/HPF)
[2018-10-28 21:04] LABS: Hematocrit 37.8 % (36-46); Hemoglobin 12.6 g/dL (12.0-16.0); Mean Corpuscular HGB Conc 33.2 % (30-36); Mean Corpuscular Volume 96.4 fL (80-100); Platelet Count 134 X10^3/uL (150-400); Red Blood Cell Count 3.93 X10^6/uL (4.0-5.2); Red Cell Distribution Width 15.5 % (11.6-14.8); White Blood Cell Count 12.6 X10^3/uL (4.5-11.0)
[2018-10-28 21:07] LABS: Add Manual Diff / Slide Review YES
[2018-10-28 21:18] LABS: Alanine Aminotransferase 19 IU/L (9-52); Albumin 4.2 g/dL (3.5-5.0); Albumin Globulin Ratio 1.6 (1.0-2.8); Alkaline Phosphatase 109 U/L (38-126); Aspartate Aminotransferase 21 IU/L (14-36); BUN Creatinine Ratio 26.3 (6-22); Bilirubin Total 0.7 mg/dL (0.2-1.3); Blood Urea Nitrogen 21 mg/dL (7-17); Calcium 9.2 mg/dL (8.4-10.2); Carbon Dioxide 26 mmol/L (22-32); Chloride 101 mmol/L (98-107); Creatine Kinase < 20 U/L (30-135); Estimated Glomerular Filt Rate > 60.0 mL/min (>60); Globulin 2.6 g/dL (1.7-4.1); Glucose 178 mg/dL (80-110); HEMOLYSIS < 15 (0-50); Potassium 4.1 mmol/L (3.4-5.1); Sodium 139 mmol/L (137-145); Total Protein 6.8 g/dL (6.3-8.2)
[2018-10-28 21:19] LABS: Neutrophils Absolute Manual 12096 /uL (3000-5900); Smudge Cells 2+; Total Cells Counted 100
[2018-10-28 21:20] LABS: Anisocytosis 2+; Poikilocytosis 1+
[2018-10-28 21:21] LABS: Macrocytosis 2+; Ovalocytes 1+
[2018-10-28 21:27] VITALS: BP 126/54; PULSE 80; RESP 18; O2SAT 97
== END 2018-10-28 21:50 | disposition home or self-care (01) ==
PROVIDERS: Emergency Medicine; Emergency Provider Internal Medicine; Family Provider Family Medicine; PCP Family Medicine
DX: N20.0 Calculus of kidney (principal)
CPT/HCPCS: 36415; 74176; 80053; 81001; 82550; 85025; 96375; 96409; 99283; 99284; J1100; J2405; J9025

== ENCOUNTER → 2019-05-06 16:23 | Outpatient (CLI) | payer MEDICARE, OTHER, SELFPAY ==
--- NOTE | 2019-05-06 | DI.MRI.S_ITS ---
PROCEDURE: MR HIP LT WO CON INDICATIONS: LEFT HIP PAIN TECHNIQUE: Noncontrast coronal T1 spin echo and STIR through the bony pelvis. Coronal and axial T2 fast spin echo with fat saturation, sagittal T1 spin echo, and oblique axial T2 fast spin echo with fat saturation through the hip. COMPARISON: [facility], CT, CHEST/ABD/PEL WITH CONTRAST, 11/19/2016, 12:36. [facility], CT, CT KIDNEY URETER BLADDER (KUB), 10/28/2018, 20:26. [facility], CR, XR HIP W PEL IF DONE LT 2V, 06/20/2018, 8:55. FINDINGS: Image quality: Excellent. Bones and joints: There is diffuse mild stippled appearance of the marrow signal intensity throughout the bony pelvis and lower lumbar spine, with T1 hypointensity and T2 hyperintensity. This finding technically nonspecific although raises the possibility of early marrow infiltrative process. Of note, the CT appearance of the osseous structures on prior studies from 11/19/16 compared to 10/28/18 grossly unchanged No acute fractures. No avascular necrosis of the femoral heads. Lower lumbar spondylosis Tendons and ligaments: The gluteus medius and minimus tendons appear intact, without associated muscle atrophy. The nearby proximal iliotibial band also appears intact. The iliopsoas tendon appears intact, without adjacent bursal fluid collections or evidence for impingement syndrome. The origin of the hamstring tendon is intact at the ischial tuberosity, as well as the associated sacrotuberous ligament. The straight and reflected heads of the rectus femoris muscle origin appear intact, as well as the conjoint tendon. The ligamentum teres appears intact where visualized. Labrum and cartilage: Mild/moderate left hip joint degeneration. Anterosuperior labral tear, with possible early developing 2 mm para labral cyst seen on image 10 series 7 The alpha angle of the femur is within normal limits at less than 55 degrees. Soft tissues: Visualized muscles demonstrate normal bulk and internal signal. Quadratus femoris muscle demonstrates no internal edema to suggest ischiofemoral impingement. The proximal sciatic neurovascular bundle appears normal adjacent to the hamstring tendons. No free pelvic fluid. Bladder wall thickness is normal. Genitourinary structures and bowel loops appear normal where visualized. IMPRESSION: Anterosuperior labral tear with developing/early 2 mm para labral cyst. Mild to moderate left hip joint degeneration. Diffuse stippled appearance of the marrow signal intensity as above involving the bony pelvis and lower lumbar spine. This raises the possibility of early marrow infiltrative process, such as metastatic disease, myelofibrosis, among other benign and malignant possibilities. Recommend clinical correlation. If necessary, continued monitoring with cross-sectional imaging or further assessment with bone scan could be performed. Dictated by: Simón Brock M.D. on 05/09/2019 at 9:00 Approved by: Simón Brock M.D. on 05/09/2019 at 9:14
--- NOTE | 2019-05-06 16:26 | DI.MRI.S_ITS ---
PROCEDURE: MR LUMBAR SPINE WO CON INDICATIONS: RADICULLPATHY,LUMBAR PAIN LEFT HIP PAIN TECHNIQUE: Noncontrast sagittal T1 spin echo and T2 fast echo, sagittal STIR, axial T1 and T2 fast spin echo through the lumbar spine. In cases with scoliosis, additional coronal T2 fast spin echo may be performed. COMPARISON: None. FINDINGS: Image quality: Excellent. Alignment and Curvature: There is trace L2-L3 anterolisthesis. Bone Marrow: Marrow signal is within normal limits. No acute vertebral body compression fractures. Spinal Cord: Conus medullaris terminates at the L2 level. Visualized cord demonstrates normal signal and size. Paraspinous Soft Tissues: No paravertebral masses. L1-L2: Loss of disc signal. Mild, diffuse disc bulge. Mild bilateral facet hypertrophy. Mild narrowing of the central canal. Moderate bilateral neural foraminal narrowing. No neural impingement. L2-L3: Loss of disc signal. Mild, diffuse disc bulge. Moderate bilateral facet hypertrophy. Moderate narrowing of the central canal. Moderate right and mild left neural foraminal narrowing. No neural impingement. L3-L4: Loss of disc signal. Mild bilateral facet hypertrophy. Mild narrowing of the central canal. Mild bilateral neural foraminal narrowing. No neural impingement. L4-L5: Loss of disc signal. A loss of disc height. Mild, diffuse disc bulge. Mild bilateral facet hypertrophy. Mild narrowing of the central canal. Moderate bilateral neural foraminal narrowing. No neural impingement. L5-S1: Loss of disc signal. Mild bilateral facet hypertrophy. No central stenosis. Moderate to severe left subarticular neural foraminal narrowing with slight compression of the exiting left L5 nerve root. IMPRESSION: 1. Multilevel degenerative disc disease. 2. Multilevel facet arthropathy. 3. Mild L1-L2, L3-L4 and L4-L5 central canal narrowing. Moderate L2-L3 central canal narrowing. 4. Moderate to severe left L5-S1 subarticular neural foraminal narrowing. Moderate bilateral L1-L2 and L4-L5 neural foraminal narrowing. Moderate right and mild left L2-L3 neural foraminal narrowing. Mild bilateral L3-L4 neural foraminal narrowing. 5. Slight compression of the exiting left L5 nerve root secondary to left subarticular neural foraminal narrowing. Please correlate with clinical data. Dictated by: Stephie Cortez MD, PhD on 05/09/2019 at 9:01 Approved by: Stephie Cortez MD, PhD on 05/09/2019 at 9:16
== END ==
PROVIDERS: PCP Family Medicine; Visit Provider Family Medicine
DX: M25.552 Pain in left hip (principal); M16.12 Unilateral primary osteoarthritis, left hip; S73.192A Other sprain of left hip, initial encounter; M51.16 Intervertebral disc disorders with radiculopathy, lumbar region; M47.26 Other spondylosis with radiculopathy, lumbar region; M47.27 Other spondylosis with radiculopathy, lumbosacral region; M48.061 Spinal stenosis, lumbar region without neurogenic claudication; M48.07 Spinal stenosis, lumbosacral region
CPT/HCPCS: 72148; 73721

== ENCOUNTER 2019-06-20 20:23 | Emergency (ER) | payer MEDICARE, OTHER, SELFPAY ==
[2019-06-20 20:29] VITALS: BP 147/100; PULSE 128; RESP 17; O2SAT 94
--- NOTE | 2019-06-20 20:38 | PC.NURSE ---
Pt reports nose bleed slowly oozing since 1900 today. she was cleaning nose gently with a kleenex. She applied direct pressure externally with her hand and bleeding has stopped upon arrival. Pt had labs drawn today with plt 27 resulted.
[2019-06-20 20:44] VITALS: BP 145/70; PULSE 100; O2SAT 100
[2019-06-20] MEDS: SILVER NITRATE STICK 1 EACH TOP (20:49)
--- NOTE | 2019-06-20 20:50 | PC.NURSE ---
Provider applied silver nitrate to pt nostril.
[2019-06-20 21:00] VITALS: BP 108/54; PULSE 93; RESP 19; O2SAT 96
[2019-06-20] MEDS: OXYMETAZOLINE NASAL SPRAY 30 ML 2 SPRAYS NASAL (21:08)
--- NOTE | 2019-06-20 21:19 | PC.NURSE ---
Provider applied silver nitrate and afrin to nostril. Pt has no further complaints. Denies further needs.
[2019-06-20 21:25] VITALS: BP 132/78; PULSE 82; RESP 15; O2SAT 96
--- NOTE | 2019-06-21 01:15 | ED_ITS ---
HPI - Epistaxis General Chief complaint: Nasal Problem Stated complaint: LEUKEMIA PATIETNT BLOODY NOSE SENSE MORNING Time Seen by Provider: 06/20/19 20:29 Source: patient and family Mode of arrival: ambulatory Limitations: no limitations History of Present Illness HPI Narrative: 78-year-old female nonsmoker with history of leukemia, recently active again, presents with a left-sided nose bleed in the absence of any trauma. She is chronically thrombocytopenic and received platelet transfusion last week. Her bleeding had stopped prior to her arrival. She is not dizzy nor weak or lightheaded. She denies any blood in her urine or stool nor any abnormal bruising. She has had no chest pain, cough or hemoptysis. She denies nausea, vomiting or hematemesis. She denies any dark or tarry stools MD complaint: epistaxis Location: left nostril Onset (ago): hour(s) Duration: now resolved Associated symptoms: fever Treatment prior to arrival: nose pinching Related Data Home Medications Medication Instructions Recorded Confirmed acetaminophen 650 mg PO Q4-6H PRN #0 05/08/17 06/20/19 hydroxyurea [Hydrea] 500 mg PO DAILY 06/20/19 06/20/19 Previous Rx's Medication Instructions Recorded lorazepam 1 mg PO BID-TID PRN #60 tab 05/03/19 ondansetron 8 mg PO Q8H PRN 30 Days #30 tab 05/03/19 oxycodone 5 mg PO Q4-6H PRN #100 cap 06/01/19 allopurinol 300 mg PO DAILY 30 Days #30 tab 06/08/19 Allergies Allergy/AdvReac Type Severity Reaction Status Date / Time Penicillins Allergy Unknown Verified 06/20/19 20:31 fentanyl [FENTANYL] AdvReac Unknown NAUSEA Verified 06/20/19 20:31 meperidine AdvReac Unknown N/V Verified 06/20/19 20:31 morphine AdvReac Unknown N/V Verified 06/20/19 20:31 Review of Systems Constitutional Denies chills, Denies fever(s), Denies lethargy and Denies weakness Eyes Denies change in vision, Denies eye discharge, Denies irritation and Denies loss of vision ENT Ears, Nose, Mouth, and Throat: Denies change in voice, Reports epistaxis, Denies neck pain and Denies sore throat Cardiovascular Denies chest pain, Denies irregular heart rhythm, Denies lightheadedness, Denies palpitations, Denies dyspnea, Denies dyspnea on exertion and Denies orthopnea Respiratory Denies cough, Denies dyspnea, Denies dyspnea on exertion and Denies wheezing Gastrointestinal Gastrointestinal: Denies abdominal pain, Denies change in bowel habits, Denies diarrhea, Denies nausea and Denies vomiting Genitourinary Denies hematuria, Denies flank pain, Denies urinary incontinence and Denies uri nary urgency Musculoskeletal Denies neck pain Integumentary/Breasts Denies pruritus, Denies erythema, Denies rash and Denies wounds Neurologic Denies confusion, Denies loss of vision and Denies weakness Psychiatric Denies anxiety, Denies confusion, Denies depression, Denies homicidal ideation and Denies suicidal ideation Endocrine Denies palpitations Hematologic/Lymphatic Denies easy bruising Allergic/Immunologic Denies wheezing [facility] Medical History 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) Chronic back pain (Chronic) Chronic constipation (Chronic) Endometriosis (Chronic) History of kidney stones (Chronic) Leukemia (Chronic) Surgical History No pertinent past surgical history (Acute) History of Charisma fundoplication (Resolved) Family History Other Family history non-contributory Social History household members: spouse Smoking Status: Never smoker Family History Other Family history non-contributory Social History household members: spouse Smoking Status: Never smoker Exam Narrative Exam Narrative: GEN: AOx3 and in mild distress EYES: Pupils are equal, round, and reactive to light and accommodation. Extraoccular muscles are intact bilaterally. There is no subconjunctival hemorrhage or exudate. ENT: Dried clots in left nares, no active bleeding, irritated area in the anterior septum likely cause of bleeding CHEST: Lungs are clear to auscultation bilaterally and free of wheezes, rales, or rhonchi. Heart rate is regular rhythm, there are no murmurs, clicks, rubs, or gallops. There is no chest wall tenderness. ABD: Abdomen is soft and nontender. There is no guarding or rebound. Bowel sounds are normal in all 4 quadrants. There is no mass or organomegaly. EXT: Full painless ROM of all extremities with no loss of sensation or strength. SKIN: Warm, pink, and dry. No erythema or rash Initial Vital Signs Initial Vital Signs: Vital Signs Pulse Rate 128 H 06/20/19 20:29 Respiratory Rate 17 06/20/19 20:29 Blood Pressure 147/100 H 06/20/19 20:29 Pulse Oximetry 94 06/20/19 20:29 Procedures Epistaxis Control Time Out Performed: Yes Nostril: left Direct Inspection: yes Clots Removed by: suction Cautery Used: silver nitrate Patient Tolerated Procedure: well Course Orders Ordered: Discontinued Medications Oxymetazoline HCl (Afrin) 2 sprays NASAL NOW ONE Stop: 06/20/19 20:59 Last Admin: 06/20/19 21:08 Dose: 2 sprays Silver Nitrate/Potassium Nitrate (Silver Nitrate Stick) 1 each TOP NOW ONE Stop: 06/20/19 20:30 Last Admin: 06/20/19 20:49 Dose: 1 each Vital Signs - 8 hr 06/20/19 20:29 06/20/19 20:44 06/20/19 21:00 Pulse Rate 128 H 100 H 93 H Respiratory Rate 17 19 Blood Pressure 147/100 H Blood Pressure [Left Arm] 145/70 H 108/54 L Pulse Oximetry 94 100 96 06/20/19 21:25 Pulse Rate 82 Respiratory Rate 15 Blood Pressure 132/78 Blood Pressure [Left Arm] Pulse Oximetry 96 Discharge Plan Departure Patient Disposition: Home Clinical Impression: Bleeding from the nose Discharge Date/Time: 06/20/19 21:26 Interventions: ED Discharge Assessment Last Done: 06/20/19 21:25 Instructions: DI for Nosebleed Activity Restrictions/Additional Instructions: *You have been diagnosed with [ acute anterior epistaxis ] *What to do: * do not blow your nose, stick your finger in her nose, or disturb nose for the next 24 hr. If you must sneeze please sneeze out your mouth like we talked about *Follow up with your primary care provider or ENT doctor in 2-3 days, call for an appointment. Let them know you were seen in the Emergency Department and that we ask that you be seen in follow up *Return to ER if you should have any new, worsening or concerning symptoms * if you are bleeding starts again at home please place a portion of a cotton ball in your nostril and squirt some of the Afrin you were given in your nose. Apply the nose clamp and uses a watch or o'clock to time yourself for 15 min. At the end 15 min recheck for bleeding, if you continue to bleed please repeat the process for another 15 min. If at the end of 30 min you still have bleeding you should return to the emergency department Prescriptions: No Action acetaminophen 325 MG tablet 650 mg PO Q4-6H PRN (Reason: Pain (Scale Score 1-3)) Qty: 0 RF: 0 lorazepam 1 mg Tablet 1 mg PO BID-TID PRN (Reason: Nausea) Qty: 60 RF: 1 ondansetron 8 mg Tablet,Disintegrating 8 mg PO Q8H PRN (Reason: Nausea) 30 Days Qty: 30 RF: 6 oxycodone 5 mg Capsule 5 mg PO Q4-6H PRN (Reason: Pain (Scale Score 4-6)) Qty: 100 RF: 0 allopurinol 300 mg Tablet 300 mg PO DAILY 30 Days Qty: 30 RF: 0 hydroxyurea [Hydrea] 500 mg capsule 500 mg PO DAILY RF: 0 Referrals: Kevon Spears MD [Physician] - Alexandre Orlando MD [Primary Care Provider] -
== END 2019-06-20 21:26 | disposition home or self-care (01) ==
PROVIDERS: Emergency Provider Emergency Medicine; Family Provider Family Medicine; PCP Family Medicine
DX: R04.0 Epistaxis (principal); C92.02 Acute myeloblastic leukemia, in relapse
CPT/HCPCS: 30901; 36592; 80053; 85025; 96523; 99282

== ENCOUNTER 2019-06-22 12:23 | Emergency (ER) | payer MEDICARE, OTHER, SELFPAY ==
[2019-06-22 12:30] VITALS: BP 129/58; PULSE 101; RESP 14; TEMP 36.6; O2SAT 96; BMI 19.5
--- NOTE | 2019-06-22 12:50 | PC.NURSE ---
pt states she was here Thursday evening for nose bleed. it has started oozing blood. she leans forward and clamps nose, it stops but starts again.
--- NOTE | 2019-06-22 12:52 | PC.NURSE ---
no bleeding to nares at this time.
--- NOTE | 2019-06-22 14:31 | ED.EPISTAXIS ---
HPI - Epistaxis <DEMI Garcia Last Filed: 06/22/19 21:07> General Chief complaint: Nasal Problem Stated complaint: nose bleed Time Seen by Provider: 06/22/19 13:14 Source: patient Mode of arrival: ambulatory Limitations: no limitations History of Present Illness HPI Narrative: This 78-year-old female returns to ED secondary to recurrent epistaxis today, left-sided. She states that this started on Thursday evening and persisted, so she came in and this was treated with Afrin and cauterized. If she states that this morning it was continuing to slough and ooze a bit when she is up and about, though does seem to stop with pressure. She states she has been using a little bit of Vaseline to moisturize. She is not having pain. She has not noted any new rectal bleeding or other unusual bleeding or bruising though always bruises easily. 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 She states she is feeling otherwise at baseline Related Data Home Medications Medication Instructions Recorded Confirmed acetaminophen 650 mg PO Q4-6H PRN #0 05/08/17 06/20/19 hydroxyurea [Hydrea] 1,000 mg PO DAILY 06/20/19 06/22/19 oxycodone 5 mg PO Q4-6H PRN 06/22/19 06/22/19 Previous Rx's Medication Instructions Recorded lorazepam 1 mg PO BID-TID PRN #60 tab 05/03/19 ondansetron 8 mg PO Q8H PRN 30 Days #30 tab 05/03/19 allopurinol 300 mg PO DAILY 30 Days #30 tab 06/08/19 Allergies Allergy/AdvReac Type Severity Reaction Status Date / Time Penicillins Allergy Unknown Verified 06/22/19 12:30 fentanyl [FENTANYL] AdvReac Unknown NAUSEA Verified 06/22/19 12:30 meperidine AdvReac Unknown N/V Verified 06/22/19 12:30 morphine AdvReac Unknown N/V Verified 06/22/19 12:30 Review of Systems <Svetlana Gonzalez PA-C - Last Filed: 06/22/19 21:07> Review of Systems ROS Unobtainable: All systems reviewed & are unremarkable except as noted in HPI and below PFSH <Svetlana Gonzalez PA-C - Last Filed: 06/22/19 21:07> Medical History 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) Chronic back pain (Chronic) Chronic constipation (Chronic) Endometriosis (Chronic) History of kidney stones (Chronic) Leukemia (Chronic) Surgical History History of Charisma fundoplication (Resolved) No pertinent past surgical history (Acute) Family History Other Family history non-contributory Social History household members: spouse Smoking Status: Never smoker Social History household members: spouse Smoking Status: Never smoker Exam <DEMI Garcia Last Filed: 06/22/19 21:07> Narrative Exam Narrative: GENERAL APPEARANCE: Patient sitting comfortably, in no distress. HEENT: EOMI, right-sided nasal mucosa normal, left side there is mild edema, just a trace of dried blood slightly rough septal mucosa, no active bleeding site visualized LUNGS: Clear to auscultation bilaterally. HEART: Rate and rhythm regular without murmur, normal S1 and S2, no S3 or S4. Initial Vital Signs Initial Vital Signs: Vital Signs Temperature 97.8 F 06/22/19 12:30 Pulse Rate 101 H 06/22/19 12:30 Respiratory Rate 14 06/22/19 12:30 Blood Pressure 129/58 L 06/22/19 12:30 Pulse Oximetry 96 06/22/19 12:30 <Shawanda Prieto DO - Last Filed: 06/25/19 05:46> Initial Vital Signs Initial Vital Signs: Vital Signs Temperature 97.8 F 06/22/19 12:30 Pulse Rate 101 H 06/22/19 12:30 Respiratory Rate 14 06/22/19 12:30 Blood Pressure 129/58 L 06/22/19 12:30 Pulse Oximetry 96 06/22/19 12:30 Course <Svetlana Gonzalez PA-C - Last Filed: 06/22/19 21:07> Vital Signs Vital signs: Vital Signs - 8 hr 06/22/19 15:00 Pulse Rate 91 H Blood Pressure 113/50 L <Shawanda Prieto DO - Last Filed: 06/25/19 05:46> Vital Signs Vital signs: Vital Signs - 8 hr 06/22/19 15:00 Pulse Rate 91 H Blood Pressure 113/50 L Discharge Plan Departure Patient Disposition: Home Clinical Impression: Epistaxis Discharge Date/Time: 06/22/19 15:01 Instructions: DI for Nosebleed Activity Restrictions/Additional Instructions: Since your nose has not been bleeding for the last couple of hours and I do not see any active bleeding going on currently, you can monitor at home. If you have any persistent bleeding or oozing, please use the Afrin medicine we gave you on a cotton ball inside the nostril for about 10 minutes with the clip on your nose. If you are having heavy bleeding, weakness, nausea, or the bleeding is not stopping you should return to the ED. Please avoid blowing your nose, etc. You can use a little Vaseline as you have been to help moisturize. Thank you with your kind patience in our busy ED today, and best wishes with your great grand baby on the way! Prescriptions: No Action acetaminophen 325 MG tablet 650 mg PO Q4-6H PRN (Reason: Pain (Scale Score 1-3)) Qty: 0 RF: 0 lorazepam 1 mg Tablet 1 mg PO BID-TID PRN (Reason: Nausea) Qty: 60 RF: 1 ondansetron 8 mg Tablet,Disintegrating 8 mg PO Q8H PRN (Reason: Nausea) 30 Days Qty: 30 RF: 6 allopurinol 300 mg Tablet 300 mg PO DAILY 30 Days Qty: 30 RF: 0 hydroxyurea [Hydrea] 500 mg capsule 1,000 mg PO DAILY RF: 0 oxycodone 5 mg tablet 5 mg PO Q4-6H PRN (Reason: pain) RF: 0 Referrals: Alexandre Orlando MD [Primary Care Provider] - Tay Patel MD [Physician] -
[2019-06-22 15:00] VITALS: BP 113/50; PULSE 91
== END 2019-06-22 15:01 | disposition home or self-care (01) ==
PROVIDERS: Emergency Provider Internal Medicine; Family Provider Family Medicine; PCP Family Medicine
DX: R04.0 Epistaxis (principal)
CPT/HCPCS: 99282

== ENCOUNTER 2019-06-28 09:34 | Inpatient (IN) | payer MEDICARE, OTHER, SELFPAY ==
[2019-06-28 10:00] VITALS: BP 139/72; PULSE 111; RESP 16; TEMP 36.9; O2SAT 99
[2019-06-28 10:02] VITALS: BMI 17.4
--- NOTE | 2019-06-28 10:53 | PC.ADMIT ---
Admission Note: Pt arrived to room 230 at 0945, walked self into room independently without any issues, steady on feet. Alert and oriented x3. Oriented to room and to call light/tv/bed controls, call light within reach. Double-lumen PICC line in place to RUE, dressing due to be changed today. Labs easily drawn from PICC and sent to lab. Belongings in room including glasses, clothing, shoes, and home medications. Instructed on need to send medications home or to lock up in pharmacy - plans to send home with . Declines to lock up any valuables. The patient,Cornelia Liang,79 y/o, was given written information regarding hospital policies, unit procedures and contact persons. Patient's smoking status: Never smoker.
[2019-06-28 10:56] LABS: BUN Creatinine Ratio 13.8 (6-22); Blood Urea Nitrogen 11 mg/dL (7-17); Carbon Dioxide 29 mmol/L (22-32); Chloride 100 mmol/L (98-107); Estimated Glomerular Filt Rate > 60.0 mL/min (>60); Glucose 155 mg/dL (80-110); HEMOLYSIS < 15 (0-50); Potassium 3.4 mmol/L (3.4-5.1); Sodium 136 mmol/L (137-145)
[2019-06-28 10:58] LABS: Hematocrit 23.3 % (36-46); Hemoglobin 7.9 g/dL (12.0-16.0); Mean Corpuscular HGB Conc 33.9 % (30-36); Mean Corpuscular Volume 91.6 fL (80-100); Red Blood Cell Count 2.54 X10^6/uL (4.0-5.2); Red Cell Distribution Width 18.8 % (11.6-14.8)
[2019-06-28 11:11] LABS: Add Manual Diff / Slide Review YES; Platelet Count 28 X10^3/uL (150-400); White Blood Cell Count 60.2 X10^3/uL (4.5-11.0)
[2019-06-28 11:33] LABS: Hypochromasia 1+; Neutrophils Absolute Manual 27090 /uL (3000-5900); Platelet Estimate Decreased on smear; Poikilocytosis 1+; Total Cells Counted 100
[2019-06-28 11:34] LABS: Anisocytosis 2+; Tear Drop Cells 1+
[2019-06-28] MEDS: RASBURICASE 7.5 MG in SODIUM CHLORIDE 0.9% 50 ML 100 ML IV (11:45)
--- NOTE | 2019-06-28 12:10 | PC.NURSE ---
Pt currently on acute care floor for monitoring during initiation on Chemo Venclexta. Pt denies chest pain and SOB, reports usual fatigue. Speech clear, face and body relaxed. and pt's daughter in room, education provided to pt and family regarding new Chemo administration and side effect and possible reaction. Tumor Lysis Syndrome discussed at length with pt and family, verbalized understanding, questions answered. Premed, Rasburicase s/s of possible reaction discussed with pt, verbalized understanding and agrees to alert staff if anything abnormal occurs. Per Dr. Patel, Rasburicase will be given first, followed by Dex, and Zofran then, Vidaza, and last Venclexta. Dr. Patel aware of pt's platelet count of 28, no new orders received.
[2019-06-28] MEDS: ONDANSETRON 16 MG in SODIUM CHLORIDE 0.9% 50 ML 232 ML IV (13:07)
[2019-06-28] MEDS: SODIUM CHLORIDE 0.9% IV (13:46)
[2019-06-28] MEDS: AZACITIDINE IV (13:46)
[2019-06-28] MEDS: SODIUM CHLORIDE 0.9% 1,000 ML 150 ML IV (14:25)
[2019-06-28 14:55] VITALS: BP 139/68; PULSE 108; RESP 17; TEMP 36.8; O2SAT 96
[2019-06-28 15:30] VITALS: BP 122/69; PULSE 108; RESP 18; TEMP 37.1; O2SAT 96
[2019-06-28 15:58] LABS: Phosphorous 3.8 mg/dL (2.8-4.1)
[2019-06-28 16:12] LABS: Lactate Dehydrogenase 2888 U/L (313-618)
[2019-06-28] MEDS: LOPERAMIDE 2 MG CAPSULE PO ×2 (16:13→18:48)
--- NOTE | 2019-06-28 16:51 | P.HP_ITS ---
History of Present Illness History of Present Illness Date Patient Seen: 06/28/19 Chief complaint: AML Narrative: The patient is a 79-year-old female diagnosed with AML in 2016. She has a history of AML and has been receiving her treatment in [place]. She relapsed in March 2018 and was treated on a clinical trial but failed to respond. She had 1 additional cycle of off trial therapy and did have a response. Her most recent bone marrow biopsy in May showed morphologic remission. Her FISH however was positive at 0.2%. She has been on maintenance therapy with azacitidine since then. She has recently developed increased pain in her hip. MRI suggested bone marrow infiltration. Last week, she was noted to have a rising white count to 22,000. A bone marrow biopsy was performed. The patient was seen by Jorge and is admitted to the hospital at this time for consolidation chemotherapy. As the patient has a high risk for tumor lysis syndrome I was asked to assist with management of her care while hospitalized during her chemotherapeutic treatment. The patient reports an 8 lb weight loss over the past month which she attributes to ?stress. She denies any shortness of breath chest pain nausea or vomiting. She has no headache blurred vision or double vision. She does report some chronic left lower quadrant pain which is old. She has intermittent diarrhea. She has had no fever or chills. Further review of systems is negative Patient History Medical History (Updated 06/28/19 @ 16:59 by Mari Richard MD) 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) Bowel obstruction (Acute) Chronic back pain (Chronic) Chronic constipation (Chronic) Endometriosis (Chronic) History of kidney stones (Chronic) Leukemia (Chronic) Surgical History History of Charisma fundoplication (Resolved) No pertinent past surgical history (Acute) Family History (Updated 06/28/19 @ 16:59 by Mari Richard MD) Father Lung cancer Grandfather Stomach cancer Other Family history non-contributory Social History household members: spouse Smoking Status: Never smoker Family & Social History Family History (Updated 06/28/19 @ 16:59 by Mari Richard MD) Father Lung cancer Grandfather Stomach cancer Other Family history non-contributory Social History: household members spouse Prior Living Arrangements House Safety & Behavioral: Feels Safe in Current Yes Environment Been Physically Hurt or No Threatened By a Person Suicidal Ideation Description None Suicide Plan Description No Plan Tobacco & Substance use: Smoking Status Never smoker alcohol intake frequency 0-2 drinks per day Substance Use Type does not use Meds Home Medications and Allergies Home Medications Medication Instructions Recorded Confirmed Type lorazepam 1 mg PO BID-TID PRN #60 tab 05/03/19 06/28/19 Rx ondansetron 8 mg PO Q8H PRN 30 Days #30 tab 05/03/19 06/28/19 Rx allopurinol 300 mg PO DAILY 30 Days #30 tab 06/08/19 06/28/19 Rx hydroxyurea [Hydrea] 1,000 mg PO DAILY 06/20/19 06/28/19 History oxycodone 5 mg PO Q4-6H PRN 06/22/19 06/28/19 History fexofenadine [Irma Allergy] 180 mg PO DAILY 06/28/19 06/28/19 History loperamide [Imodium A-D] 2 mg PO Q2-4H PRN 06/28/19 06/28/19 History Allergies Allergy/AdvReac Type Severity Reaction Status Date / Time Penicillins Allergy Unknown Verified 06/22/19 12:30 fentanyl [FENTANYL] AdvReac Unknown NAUSEA Verified 06/22/19 12:30 meperidine AdvReac Unknown N/V Verified 06/22/19 12:30 morphine AdvReac Unknown N/V Verified 06/22/19 12:30 Review of Systems Review of Systems ROS Unobtainable: All systems reviewed & are unremarkable except as noted in HPI and below Exam Vital Signs (past 8 hours): - 06/28/19 10:00 06/28/19 14:55 06/28/19 15:30 Temperature 98.5 F 98.3 F 98.8 F Pulse Rate 111 H 108 H 108 H Respiratory Rate 16 17 18 Blood Pressure 139/72 139/68 122/69 Pulse Oximetry 99 96 96 Oxygen Flow Rate 0 Narrative Exam Narrative: Pleasant elderly female resting comfortably in no obvious distress HEENT: Normocephalic atraumatic, extraocular muscles are intact, oropharynx is clear, neck is supple, there is no adenopathy, no noted thyromegaly Lungs: Clear to auscultation Cardiac exam: Regular rate rhythm normal S1-S2 Abdomen: Soft nontender nondistended without hepatosplenomegaly, no board-like rigidity he, no rebound tenderness Extremities: No edema Neuro exam: Nonfocal Skin exam: No lesion Musculoskeletal exam: Normal bulk and tone no noted abnormality Objective Labs Result Diagrams: 06/28/19 10:30 06/28/19 10:30 Labs: Laboratory Results - last 24 hr 06/28/19 06/28/19 06/28/19 10:30 10:30 14:20 WBC 60.2 H* RBC 2.54 L Hgb 7.9 L Hct 23.3 L MCV 91.6 MCH 31.0 MCHC 33.9 RDW 18.8 H Plt Count 28 L* Neut % (Auto) Not Reportable Lymph % (Auto) Not Reportable [place] % (Auto) Not Reportable Eos % (Auto) Not Reportable Baso % (Auto) Not Reportable Lymph # (Auto) Not Reportable [place] # (Auto) Not Reportable Baso # (Auto) Not Reportable Total Counted 100 Seg Neutrophils % 41.0 Band Neutrophils % 4.0 Monocytes % (Manual) 6.0 Eosinophils % (Manual) 2.0 Blast Cells % 47.0 H Neutrophils # (Manual) 71850 H Differential Comment Platelet Estimate Decreased on smear RBC Morphology See below Hypochromasia 1+ H Poikilocytosis 1+ H Anisocytosis 2+ H Tear Drop Cells 1+ H Sodium 136 L Potassium 3.4 Chloride 100 Carbon Dioxide 29 BUN 11 Creatinine 0.80 Estimated GFR > 60.0 BUN/Creatinine Ratio 13.8 Glucose 155 H Uric Acid 3.0 Calcium 9.0 Phosphorus 3.8 Lactate Dehydrogenase 2888 H Crossmatch 06/28/19 14:20 WBC RBC Hgb Hct MCV MCH MCHC RDW Plt Count Neut % (Auto) Lymph % (Auto) [place] % (Auto) Eos % (Auto) Baso % (Auto) Lymph # (Auto) [place] # (Auto) Baso # (Auto) Total Counted Seg Neutrophils % Band Neutrophils % Monocytes % (Manual) Eosinophils % (Manual) Blast Cells % Neutrophils # (Manual) Differential Comment Platelet Estimate RBC Morphology Hypochromasia Poikilocytosis Anisocytosis Tear Drop Cells Sodium Potassium Chloride Carbon Dioxide BUN Creatinine Estimated GFR BUN/Creatinine Ratio Glucose Uric Acid Calcium Phosphorus Lactate Dehydrogenase Crossmatch See Detail Assessment & Plan Assessment & Plan narrative: 1. 79-year-old female with recurrent AML here for chemotherapy. Chemotherapy will be written by Dr. Patel. Patient to be monitor closely for tumor lysis syndrome. She has been started on IV fluids, D5 NS at 150 cc an hour. Will check her electrolytes daily including phosphate. Will obtain daily uric acid levels. 2. Chronic diarrhea, will continue usual Imodium 3. Allergic rhinitis, Irma as needed as needed The patient reports she is a full code. Note that in a regular accordingly. Will continue to follow her closely. Quality VTE Deep Vein Thrombosis/Pulmonary Embolism Present on Admission: No
--- NOTE | 2019-06-28 17:35 | PN_ITS ---
PN -Subjective Interval history: Diagnosis: AML Previous treatment: 1. Induction chemotherapy with decidabine + GCLAM October 2016. 2. Three cycles of consolidation with winston-c completed April 2017. 3. Relapse in March 2018 treated with a clinical trial without response. 4. One additional cycle of GCLAM which was tolerated poorly but did induce apparent remission. Bone marrow biopsy in May showed morphologic CR but with MRD detected by FISH at 0.2%. 5. 9 cycles of vidaza beginning in June 2018 Interval history The patient is 79-year-old woman who is seen today in the hospital. She has a history of relapsed acute leukemia. She had been on maintenance 5 days of for the last year. Recently she began having some increasing hip pain and MRI showed marrow infiltration. Shortly thereafter, her white cell count increased dramatically. Bone marrow biopsy showed relapsed acute leukemia. She has been taking Hydrea 1 g daily for the last few weeks which has been holding her white count steady. She has been needing red cell and platelet transfusions, the last was about a week ago. She did have an episode of epistaxis requiring cauterization in the ER. She has not had any other unusual bleeding or bruising. Her hip pain has been under good control with oxycodone. Strength and energy level have been low but stable. No mouth sores. No fevers or chills. She has not had any infectious complications. Appetite has been fair. No nausea or vomiting. She is otherwise without complaint today. Her medications are unchanged. They include Hydrea. Her last dose was yesterday. She has just run out. She has been on allopurinol for about 2-3 weeks now. She also takes Oxycodone Compazine Zofran hyoscamine and fexofenadine as needed. Social history: She lives in [place]. She is . She does not smoke or use alcohol. For past medical history is notable for leukemia as described above. She also has a history of C diff. She has otherwise been quite healthy. - Patient Self-Reported Symptoms SR Skin issues: Dry skin, Blistering or peeling, Hair loss or scalp prob, Nail changes SR Gastrointestinal issues: Nausea SR Genitourinary issues: Blood in urine SR Musculoskeletal issues: Muscle weakness, Muscle pain or cramps Home Medications and Allergies Home Medications Medication Instructions Recorded Confirmed Type lorazepam 1 mg PO BID-TID PRN #60 tab 05/03/19 06/28/19 Rx ondansetron 8 mg PO Q8H PRN 30 Days #30 tab 05/03/19 06/28/19 Rx allopurinol 300 mg PO DAILY 30 Days #30 tab 06/08/19 06/28/19 Rx hydroxyurea [Hydrea] 1,000 mg PO DAILY 06/20/19 06/28/19 History oxycodone 5 mg PO Q4-6H PRN 06/22/19 06/28/19 History fexofenadine [Irma Allergy] 180 mg PO DAILY 06/28/19 06/28/19 History loperamide [Imodium A-D] 2 mg PO Q2-4H PRN 06/28/19 06/28/19 History Allergies Allergy/AdvReac Type Severity Reaction Status Date / Time Penicillins Allergy Unknown Verified 06/22/19 12:30 fentanyl [FENTANYL] AdvReac Unknown NAUSEA Verified 06/22/19 12:30 meperidine AdvReac Unknown N/V Verified 06/22/19 12:30 morphine AdvReac Unknown N/V Verified 06/22/19 12:30 Exam - Constitutional positive no acute distress, positive average body habitus - Routine HEENT Exam Head: Present: normocephalic, atraumatic Eye: Present: EOMI, PERRL. Absent: conjunctival icterus, scleral injection ENT: Present: mucous membranes moist, oropharynx clear - Routine Neck Exam Present: supple. Absent: lymphadenopathy, thyromegaly - Routine Respiratory Exam Present: Clear to auscultation bilaterally. Absent: rales, wheezes - Routine Cardiovascular Exam Present: RRR, S1, S2. Absent: murmur - Routine Abdominal Exam Present: soft, normoactive bowel sounds. Absent: tenderness, organomegaly, mass - Routine Extremities Exam Absent: cyanosis, clubbing, edema - Routine Skin Exam Present: intact. Absent: petechiae, rash - Routine Neurological Exam Present: alert, oriented X3 - Routine Psychiatric Exam Present: normal affect, normal thought process Results - Labs Laboratory Last Values WBC Cancelled 06/23/19 13:02 RBC Cancelled 06/23/19 13:02 Hgb Cancelled 06/23/19 13:02 Hct Cancelled 06/23/19 13:02 MCV Cancelled 06/23/19 13:02 MCH Cancelled 06/23/19 13:02 MCHC Cancelled 06/23/19 13:02 RDW Cancelled 06/23/19 13:02 Plt Count Cancelled 06/23/19 13:02 Neut % (Auto) Cancelled 06/23/19 13:02 Lymph % (Auto) Cancelled 06/23/19 13:02 [place] % (Auto) Cancelled 06/23/19 13:02 Eos % (Auto) Cancelled 06/23/19 13:02 Baso % (Auto) Cancelled 06/23/19 13:02 Neut # (Auto) Cancelled 06/23/19 13:02 Lymph # (Auto) Cancelled 06/23/19 13:02 [place] # (Auto) Cancelled 06/23/19 13:02 Eos # (Auto) Cancelled 06/23/19 13:02 Baso # (Auto) Cancelled 06/23/19 13:02 Total Counted 100 06/23/19 13:00 Seg Neutrophils % 48.0 % (38-70) 06/23/19 13:00 Band Neutrophils % 13.0 % (3-7) H 06/23/19 13:00 Lymphocytes % (Manual) 5.0 % (25-45) L 06/23/19 13:00 Atypical Lymphs % 1.0 % (-0) H 06/16/19 08:49 Monocytes % (Manual) 5.0 % (2-11) 06/23/19 13:00 Eosinophils % (Manual) 2.0 % (2-4) 06/08/19 14:39 Basophils % (Manual) 1.0 % (0-1) 06/20/19 08:50 Metamyelocytes % 5.0 % (-0) H 06/23/19 13:00 Myelocytes % 5.0 % (-0) H 06/23/19 13:00 Promyelocytes % 4.0 % (-0) H 06/23/19 13:00 Blast Cells % 15.0 % (-0) H 06/23/19 13:00 Neutrophils # (Manual) 42837 /uL (2417-6466) H 06/23/19 13:00 Nucleated RBCs 1 #/Diff (-0) H 06/23/19 13:00 Differential Comment Cancelled 05/26/18 10:47 Hypersegmented Neuts Cancelled 03/07/19 13:25 Hypogranular Neuts Cancelled 03/07/19 13:25 Reactive Lymphocytes Cancelled 03/07/19 13:25 Plasma Cells Cancelled 05/26/18 10:47 Smudge Cells 1+ H 06/16/19 08:49 Other Cell Type Cancelled 03/07/19 13:25 Toxic Granulation Cancelled 03/07/19 13:25 Toxic Vacuolation Cancelled 03/07/19 13:25 Dohle Bodies Cancelled 03/07/19 13:25 [place] Rods Cancelled 03/07/19 13:25 WBC Morphology Comment Cancelled 03/07/19 13:25 Platelet Estimate Decreased on smear 06/23/19 13:00 Clumped Platelets Cancelled 03/07/19 13:25 Plt Morphology Comment 03/20/19 12:50 RBC Morphology See below 06/23/19 13:00 Dimorphic RBCs Cancelled 03/07/19 13:25 Polychromasia 1+ H 06/16/19 08:49 Hypochromasia Cancelled 03/07/19 13:25 Poikilocytosis 1+ H 06/20/19 08:50 Basophilic Stippling 1+ H 06/06/19 11:20 Anisocytosis 2+ H 06/23/19 13:00 Microcytosis Cancelled 03/07/19 13:25 Macrocytosis Cancelled 03/07/19 13:25 Spherocytes Cancelled 03/07/19 13:25 Pappenheimer Bodies Cancelled 03/07/19 13:25 Sickle Cells Cancelled 03/07/19 13:25 Target Cells Cancelled 03/07/19 13:25 Tear Drop Cells Cancelled 03/07/19 13:25 Ovalocytes Cancelled 03/07/19 13:25 Stomatocytes Cancelled 03/07/19 13:25 Helmet Cells Cancelled 03/07/19 13:25 [place] Bodies Cancelled 03/07/19 13:25 [place] Rings Cancelled 03/07/19 13:25 [place] Cells Cancelled 03/07/19 13:25 Acanthocytes (Spur) Cancelled 03/07/19 13:25 Rouleaux Cancelled 03/07/19 13:25 Schistocytes Cancelled 03/07/19 13:25 Smear Path Review Cancelled 06/01/19 15:55 Sodium 135 mmol/L (137-145) L 06/20/19 08:50 Potassium 3.9 mmol/L (3.4-5.1) 06/20/19 08:50 Chloride 99 mmol/L (98-107) 06/20/19 08:50 Carbon Dioxide 26 mmol/L (22-32) 06/20/19 08:50 BUN 21 mg/dL (7-17) H 06/20/19 08:50 Creatinine 0.90 mg/dL (0.52-1.04) 06/20/19 08:50 Estimated GFR > 60.0 mL/min (>60) 06/20/19 08:50 BUN/Creatinine Ratio 23.3 (6-22) H 06/20/19 08:50 Glucose 103 mg/dL (80-110) 06/20/19 08:50 Uric Acid 2.6 mg/dL (2.5-6.2) 06/13/19 14:06 Calcium 9.2 mg/dL (8.4-10.2) 06/20/19 08:50 Magnesium 2.1 mg/dL (1.6-2.3) 06/06/19 11:20 Total Bilirubin 0.7 mg/dL (0.2-1.3) 06/20/19 08:50 Conjugated Bilirubin 0.0 md/dL (0.0-0.3) 07/13/18 10:33 Unconjugated Bilirubin 0.7 mg/dL (0.0-1.1) 07/13/18 10:33 AST 32 IU/L (14-36) 06/20/19 08:50 ALT 29 IU/L (9-52) 06/20/19 08:50 Alkaline Phosphatase 88 U/L (38-126) 06/20/19 08:50 Lactate Dehydrogenase 4460 U/L (313-618) H 06/13/19 14:06 Total Protein 6.4 g/dL (6.3-8.2) 06/20/19 08:50 Albumin 4.2 g/dL (3.5-5.0) 06/20/19 08:50 Globulin 2.2 g/dL (1.7-4.1) 06/20/19 08:50 Albumin/Globulin Ratio 1.9 (1.0-2.8) 06/20/19 08:50 Urine Color Yellow 11/18/18 14:19 Urine Appearance Clear 11/18/18 14:19 Urine pH 7.0 (4.5-8.0) 11/18/18 14:19 Ur Specific [employer] 1.015 (1.000-1.035) 11/18/18 14:19 Urine Protein Negative (Negative) 11/18/18 14:19 Urine Glucose (UA) Negative g/dL (Negative) 11/18/18 14:19 Urine Ketones Negative (NEGATIVE) 11/18/18 14:19 Urine Occult Blood 3+ (Negative) H 11/18/18 14:19 Urine Nitrate Negative (Negative) 11/18/18 14:19 Urine Bilirubin Negative (NEGATIVE) 11/18/18 14:19 Urine Urobilinogen 0.2 E.U./dL (0.2) 11/18/18 14:19 Ur Leukocyte Esterase Negative (NEGATIVE) 11/18/18 14:19 Urine RBC 5-10/hpf (0-5/HPF) H 11/18/18 14:19 Urine WBC 0-1/hpf (0-5/HPF) 11/18/18 14:19 Ur Squamous Epith Cells 0-1 /hpf 11/18/18 14:19 Ur Transition Epith Cell 0-1/hpf (0-5/HPF) 11/18/18 14:19 Calcium Oxalate Crystal Few (None) H 11/18/18 14:19 Urine Bacteria None seen (None) 11/18/18 14:19 Ur Culture Indicated? Cult not indicated 11/18/18 14:19 Micro UA Comment Not Reportable 05/26/18 12:28 Blood Type O Positive 06/23/19 13:00 Antibody Screen Cancelled 06/14/19 16:20 Crossmatch See Detail 05/12/18 12:04 - Imaging Additional studies: Procedures Colonoscopy (04/06/14) Injection or infusion of other therapeutic or prophylactic substance (06/03/12) Assessment and Plan (1) Acute leukemia Status: Acute 79-year-old woman with florid relapse of acute leukemia. Her recent bone marrow showed 80% blasts. She has been on Hydrea which has been holding her white count steady. She has been on allopurinol now for 2-3 weeks. She is ready to begin therapy with azacitidine and venetoclax. The dose will need to be titrated over the next 3 days and she will then continue on 400 mg daily. She will need to be monitored carefully for the development of tumor lysis syndrome. She will continue with IV hydration. She does have some anemia and is scheduled for transfusion. Signed By:<Electronically signed by Tay Patel MD>06/28/19 [id number]
[2019-06-28 19:45] VITALS: BP 141/58; PULSE 105; RESP 17; TEMP 37; O2SAT 95
[2019-06-28] MEDS: LORazepam 1 MG TABLET PO (22:14)
[2019-06-28] MEDS: OXYCODONE IR 5 MG TABLET PO (22:14)
--- NOTE | 2019-06-28 23:53 | PC.NURSE ---
Shift summary-Pt in chemo precautions room. Pt c/o diarrhea x3, loperamide given after each episode, effective diarrhea subsided, SBA to BRP, voiding throughout shift, 750ml and 3 unmeasured voids this shift, output monitored closely for at least 100ml out/hr, information in chart regarding close output monitoring r/t new chemo medication, which pt recieved AM shift. RAY PICC NS @ 150, Blood draw from PICC sent to lab @ 2129 for uric acid and phosphate level. Changed PICC drsg @ 2129. tele- ST 106, ST-102. 96% RA, LS clear, denies SOB. BT+ denies nausea. call light in reach.
[2019-06-28 23:55] VITALS: BP 106/57; PULSE 103; RESP 16; TEMP 37.1; O2SAT 96
[2019-06-29] VITALS (15 sets, daily range): BP systolic 106–136; BP diastolic 51–77; PULSE 11–116; RESP 15–19; TEMP 36.4–37.2; O2SAT 90–97
[2019-06-29 02:14] LABS: Blood Urea Nitrogen 14 mg/dL (7-17); Calcium 7.9 mg/dL (8.4-10.2); Carbon Dioxide 27 mmol/L (22-32); Chloride 106 mmol/L (98-107); Estimated Glomerular Filt Rate > 60.0 mL/min (>60); Glucose 126 mg/dL (80-110); HEMOLYSIS < 15 (0-50); Potassium 4.2 mmol/L (3.4-5.1); Sodium 135 mmol/L (137-145)
[2019-06-29 02:15] LABS: Uric Acid < 0.5 mg/dL (2.5-6.2)
[2019-06-29 02:27] LABS: Phosphorous 3.9 mg/dL (2.8-4.1)
--- NOTE | 2019-06-29 03:03 | PC.NURSE ---
Refused SCD's, states I don't think I need it , I been walking to the bathroom & moving in bed a lot. Will monitor.
[2019-06-29] MEDS: SODIUM CHLORIDE 0.9% 1,000 ML 150 ML IV ×2 (06:15→13:11)
[2019-06-29] MEDS: OXYCODONE IR 5 MG TABLET PO ×2 (07:15→20:52)
--- NOTE | 2019-06-29 08:19 | PN_ITS ---
PN -Subjective Interval history: Diagnosis: AML Previous treatment: 1. Induction chemotherapy with decidabine + GCLAM October 2016. 2. Three cycles of consolidation with winston-c completed April 2017. 3. Relapse in March 2018 treated with a clinical trial without response. 4. One additional cycle of GCLAM which was tolerated poorly but did induce apparent remission. Bone marrow biopsy in May showed morphologic CR but with MRD detected by FISH at 0.2%. 5. 9 cycles of vidaza beginning in June 2018 6. Azacitidine and venetoclax starting yesterday Interval history The patient is 79-year-old woman who is seen today in the hospital. She has a history of relapsed acute leukemia. She had been on maintenance azacitidine for the last year. Recently she began having some increasing hip pain and MRI showed marrow infiltration. Shortly thereafter, her white cell count increased dramatically. Bone marrow biopsy showed relapsed acute leukemia. She has been taking Hydrea 1 g daily for the last few weeks which has been holding her white count steady. Yesterday, she started on azacitidine and venetoclax. She tolerated the 1st dose reasonably well. She has had a little bit of nausea but no vomiting. She has also noticed some loose stool yesterday. She took some Imodium which seems to have helped. She is scheduled for red cell transfusion later today. She has not had any unusual bleeding or bruising. No fevers or chills. No shortness of breath or cough. She notes a lot of urine output. She denies any other changes in her health. - Patient Self-Reported Symptoms SR Skin issues: Dry skin, Blistering or peeling, Hair loss or scalp prob, Nail changes SR Gastrointestinal issues: Nausea SR Genitourinary issues: Blood in urine SR Musculoskeletal issues: Muscle weakness, Muscle pain or cramps Home Medications and Allergies Home Medications Medication Instructions Recorded Confirmed Type lorazepam 1 mg PO BID-TID PRN #60 tab 05/03/19 06/28/19 Rx ondansetron 8 mg PO Q8H PRN 30 Days #30 tab 05/03/19 06/28/19 Rx allopurinol 300 mg PO DAILY 30 Days #30 tab 06/08/19 06/28/19 Rx hydroxyurea [Hydrea] 1,000 mg PO DAILY 06/20/19 06/28/19 History oxycodone 5 mg PO Q4-6H PRN 06/22/19 06/28/19 History fexofenadine [Irma Allergy] 180 mg PO DAILY 06/28/19 06/28/19 History loperamide [Imodium A-D] 2 mg PO Q2-4H PRN 06/28/19 06/28/19 History Allergies Allergy/AdvReac Type Severity Reaction Status Date / Time Penicillins Allergy Unknown Verified 06/22/19 12:30 fentanyl [FENTANYL] AdvReac Unknown NAUSEA Verified 06/22/19 12:30 meperidine AdvReac Unknown N/V Verified 06/22/19 12:30 morphine AdvReac Unknown N/V Verified 06/22/19 12:30 Exam - Constitutional positive no acute distress, positive average body habitus Comments: She is not further examined. Results - Labs Laboratory Last Values WBC Cancelled 06/23/19 13:02 RBC Cancelled 06/23/19 13:02 Hgb Cancelled 06/23/19 13:02 Hct Cancelled 06/23/19 13:02 MCV Cancelled 06/23/19 13:02 MCH Cancelled 06/23/19 13:02 MCHC Cancelled 06/23/19 13:02 RDW Cancelled 06/23/19 13:02 Plt Count Cancelled 06/23/19 13:02 Neut % (Auto) Cancelled 06/23/19 13:02 Lymph % (Auto) Cancelled 06/23/19 13:02 [place] % (Auto) Cancelled 06/23/19 13:02 Eos % (Auto) Cancelled 06/23/19 13:02 Baso % (Auto) Cancelled 06/23/19 13:02 Neut # (Auto) Cancelled 06/23/19 13:02 Lymph # (Auto) Cancelled 06/23/19 13:02 [place] # (Auto) Cancelled 06/23/19 13:02 Eos # (Auto) Cancelled 06/23/19 13:02 Baso # (Auto) Cancelled 06/23/19 13:02 Total Counted 100 06/23/19 13:00 Seg Neutrophils % 48.0 % (38-70) 06/23/19 13:00 Band Neutrophils % 13.0 % (3-7) H 06/23/19 13:00 Lymphocytes % (Manual) 5.0 % (25-45) L 06/23/19 13:00 Atypical Lymphs % 1.0 % (-0) H 06/16/19 08:49 Monocytes % (Manual) 5.0 % (2-11) 06/23/19 13:00 Eosinophils % (Manual) 2.0 % (2-4) 06/08/19 14:39 Basophils % (Manual) 1.0 % (0-1) 06/20/19 08:50 Metamyelocytes % 5.0 % (-0) H 06/23/19 13:00 Myelocytes % 5.0 % (-0) H 06/23/19 13:00 Promyelocytes % 4.0 % (-0) H 06/23/19 13:00 Blast Cells % 15.0 % (-0) H 06/23/19 13:00 Neutrophils # (Manual) 05341 /uL (4813-7959) H 06/23/19 13:00 Nucleated RBCs 1 #/Diff (-0) H 06/23/19 13:00 Differential Comment Cancelled 05/26/18 10:47 Hypersegmented Neuts Cancelled 03/07/19 13:25 Hypogranular Neuts Cancelled 03/07/19 13:25 Reactive Lymphocytes Cancelled 03/07/19 13:25 Plasma Cells Cancelled 05/26/18 10:47 Smudge Cells 1+ H 06/16/19 08:49 Other Cell Type Cancelled 03/07/19 13:25 Toxic Granulation Cancelled 03/07/19 13:25 Toxic Vacuolation Cancelled 03/07/19 13:25 Dohle Bodies Cancelled 03/07/19 13:25 [place] Rods Cancelled 03/07/19 13:25 WBC Morphology Comment Cancelled 03/07/19 13:25 Platelet Estimate Decreased on smear 06/23/19 13:00 Clumped Platelets Cancelled 03/07/19 13:25 Plt Morphology Comment 03/20/19 12:50 RBC Morphology See below 06/23/19 13:00 Dimorphic RBCs Cancelled 03/07/19 13:25 Polychromasia 1+ H 06/16/19 08:49 Hypochromasia Cancelled 03/07/19 13:25 Poikilocytosis 1+ H 06/20/19 08:50 Basophilic Stippling 1+ H 06/06/19 11:20 Anisocytosis 2+ H 06/23/19 13:00 Microcytosis Cancelled 03/07/19 13:25 Macrocytosis Cancelled 03/07/19 13:25 Spherocytes Cancelled 03/07/19 13:25 Pappenheimer Bodies Cancelled 03/07/19 13:25 Sickle Cells Cancelled 03/07/19 13:25 Target Cells Cancelled 03/07/19 13:25 Tear Drop Cells Cancelled 03/07/19 13:25 Ovalocytes Cancelled 03/07/19 13:25 Stomatocytes Cancelled 03/07/19 13:25 Helmet Cells Cancelled 03/07/19 13:25 [place] Bodies Cancelled 03/07/19 13:25 [place] Rings Cancelled 03/07/19 13:25 [place] Cells Cancelled 03/07/19 13:25 Acanthocytes (Spur) Cancelled 03/07/19 13:25 Rouleaux Cancelled 03/07/19 13:25 Schistocytes Cancelled 03/07/19 13:25 Smear Path Review Cancelled 06/01/19 15:55 Sodium 135 mmol/L (137-145) L 06/20/19 08:50 Potassium 3.9 mmol/L (3.4-5.1) 06/20/19 08:50 Chloride 99 mmol/L (98-107) 06/20/19 08:50 Carbon Dioxide 26 mmol/L (22-32) 06/20/19 08:50 BUN 21 mg/dL (7-17) H 06/20/19 08:50 Creatinine 0.90 mg/dL (0.52-1.04) 06/20/19 08:50 Estimated GFR > 60.0 mL/min (>60) 06/20/19 08:50 BUN/Creatinine Ratio 23.3 (6-22) H 06/20/19 08:50 Glucose 103 mg/dL (80-110) 06/20/19 08:50 Uric Acid 2.6 mg/dL (2.5-6.2) 06/13/19 14:06 Calcium 9.2 mg/dL (8.4-10.2) 06/20/19 08:50 Magnesium 2.1 mg/dL (1.6-2.3) 06/06/19 11:20 Total Bilirubin 0.7 mg/dL (0.2-1.3) 06/20/19 08:50 Conjugated Bilirubin 0.0 md/dL (0.0-0.3) 07/13/18 10:33 Unconjugated Bilirubin 0.7 mg/dL (0.0-1.1) 07/13/18 10:33 AST 32 IU/L (14-36) 06/20/19 08:50 ALT 29 IU/L (9-52) 06/20/19 08:50 Alkaline Phosphatase 88 U/L (38-126) 06/20/19 08:50 Lactate Dehydrogenase 4460 U/L (313-618) H 06/13/19 14:06 Total Protein 6.4 g/dL (6.3-8.2) 06/20/19 08:50 Albumin 4.2 g/dL (3.5-5.0) 06/20/19 08:50 Globulin 2.2 g/dL (1.7-4.1) 06/20/19 08:50 Albumin/Globulin Ratio 1.9 (1.0-2.8) 06/20/19 08:50 Urine Color Yellow 11/18/18 14:19 Urine Appearance Clear 11/18/18 14:19 Urine pH 7.0 (4.5-8.0) 11/18/18 14:19 Ur Specific [place] 1.015 (1.000-1.035) 11/18/18 14:19 Urine Protein Negative (Negative) 11/18/18 14:19 Urine Glucose (UA) Negative g/dL (Negative) 11/18/18 14:19 Urine Ketones Negative (NEGATIVE) 11/18/18 14:19 Urine Occult Blood 3+ (Negative) H 11/18/18 14:19 Urine Nitrate Negative (Negative) 11/18/18 14:19 Urine Bilirubin Negative (NEGATIVE) 11/18/18 14:19 Urine Urobilinogen 0.2 E.U./dL (0.2) 11/18/18 14:19 Ur Leukocyte Esterase Negative (NEGATIVE) 11/18/18 14:19 Urine RBC 5-10/hpf (0-5/HPF) H 11/18/18 14:19 Urine WBC 0-1/hpf (0-5/HPF) 11/18/18 14:19 Ur Squamous Epith Cells 0-1 /hpf 11/18/18 14:19 Ur Transition Epith Cell 0-1/hpf (0-5/HPF) 11/18/18 14:19 Calcium Oxalate Crystal Few (None) H 11/18/18 14:19 Urine Bacteria None seen (None) 11/18/18 14:19 Ur Culture Indicated? Cult not indicated 11/18/18 14:19 Micro UA Comment Not Reportable 05/26/18 12:28 Blood Type O Positive 06/23/19 13:00 Antibody Screen Cancelled 06/14/19 16:20 Crossmatch See Detail 05/12/18 12:04 - Imaging Additional studies: Procedures Colonoscopy (04/06/14) Injection or infusion of other therapeutic or prophylactic substance (06/03/12) Assessment and Plan (1) Acute leukemia Status: Acute 79-year-old woman with florid relapse of acute leukemia. Her recent bone marrow showed 80% blasts. She started azacytadine and venetoclax yesterday. She will be due for 200 mg of venetoclax today. This morning, her Cr, K and Phos are stable. Uric acid is undetectable. There is no sign of TLS so far. Will continue IVF and monitor electolytes. Red cell transfusion today. Signed By:<Electronically signed by Tay Patel MD>06/29/19 [id number]
[2019-06-29] MEDS: ALLOPURINOL 300 MG TABLET PO (08:46)
[2019-06-29] MEDS: LORazepam 0.5 MG TABLET PO ×2 (08:46→13:11)
[2019-06-29 10:15] LABS: Mean Corpuscular HGB Conc 33.6 % (30-36); Mean Corpuscular Hemoglobin 31.1 PG (26-34); Mean Corpuscular Volume 92.6 fL (80-100); Red Cell Distribution Width 19.1 % (11.6-14.8)
[2019-06-29 10:20] LABS: Add Manual Diff / Slide Review YES
[2019-06-29 10:25] LABS: Hematocrit 17.9 % (36-46); Hemoglobin 5.9 g/dL (12.0-16.0); Platelet Count 11 X10^3/uL (150-400)
[2019-06-29 10:38] LABS: Neutrophils Absolute Manual 27950 /uL (3000-5900); Nucleated Red Blood Cells 1 #/Diff; Total Cells Counted 100
[2019-06-29 10:40] LABS: Anisocytosis 3+
[2019-06-29 10:41] LABS: Poikilocytosis 1+
[2019-06-29 10:43] LABS: Platelet Estimate Decreased on smear; Schistocytes 1+
[2019-06-29] MEDS: ONDANSETRON 16 MG in SODIUM CHLORIDE 0.9% 50 ML 232 ML IV (11:04)
--- NOTE | 2019-06-29 11:16 | CM.DANOTE ---
DCP: Case received, EMR reviewed and met with patient. Introduced self and role. Was able to obtain baseline health information from patient. DCP assessment/template completed with information currently available. Patient is a 79 year old female who admitted yesterday morning to the care of the hospitalist team. PCP: Dr. Orlando. Payer: confirmed: Medicare/[facility]. Patient came to the hospital for her chemo-therapy treatment. She is receiving a type of chemo that has to be closely monitored. Patient has Acute Myeloid Leukemia Patient stated that she had been on oral chemo at home, but they found that some of it had spread, so they changed her chemo. Patent is under the care of Dr. Patel. She is pleasant. She no longer drives, but her spouse, Greg, is supportive. Her daughter, Sulma, is also here from [place], and staying with her for a while. Patient is independent at home, does help out with meals when she is weak. P: DCP to continue to follow and be available for any support that she may need at discharge. Amara Ortiz RN/Coal Dumping Equipment Operator
[2019-06-29] MEDS: AZACITIDINE IV (12:09)
[2019-06-29] MEDS: SODIUM CHLORIDE 0.9% IV (12:09)
--- NOTE | 2019-06-29 14:50 | PC.NURSE ---
1400 Pt had chemo per the director of corporate responsibility today. Pt brittney well. Pt now cont w/IVF at 150ml/hr thru PICC lne. Pt up to BRP w/sba. Pt pleasant/cooperative. Pt does refuse finger stick for glucose checks, updated Dr Richard on this. Pt to recieve PRBCs and plattlets this evening. Consent signed.
--- NOTE | 2019-06-29 15:07 | P.PN_ITS ---
Subjective Subjective Date Patient Seen: 06/29/19 Interval history: Patient is a 79-year-old female admitted to the hospital for chemotherapy for AML. The patient is here for IV hydration and evaluation for tumor lysis syndrome. She received her 1st dose of chemo yesterday. She had no changes in her electrolytes. Her platelet count is down to 11 today. She is anemic and anticipating blood transfusion. The patient denies any nausea or vomiting. She is tolerating therapy without difficulty. Exam Vital Signs (past 8 hours): - 06/29/19 07:45 06/29/19 08:00 06/29/19 12:00 Temperature 98.1 F 98 F Pulse Rate 98 H 92 H Respiratory Rate 19 18 Blood Pressure 114/51 L 115/57 L Pulse Oximetry 97 96 96 Oxygen Delivery Method Room Air Oxygen Flow Rate 0 Narrative Exam Narrative: Pleasant female resting comfortably in no obvious distress Lungs: Clear to auscultation Cardiac exam: Regular rate and rhythm normal S1-S2 with a 2/6 systolic ejection murmur Abdomen: Soft nontender nondistended Extremities: No edema Objective Labs Result Diagrams: 06/29/19 10:00 06/29/19 01:50 Labs: Laboratory Results - last 24 hr 06/28/19 06/28/19 06/29/19 14:20 14:20 01:50 WBC RBC Hgb Hct MCV MCH MCHC RDW Plt Count Neut % (Auto) Lymph % (Auto) [place] % (Auto) Eos % (Auto) Baso % (Auto) Lymph # (Auto) [place] # (Auto) Baso # (Auto) Total Counted Seg Neutrophils % Band Neutrophils % Lymphocytes % (Manual) Monocytes % (Manual) Eosinophils % (Manual) Metamyelocytes % Myelocytes % Blast Cells % Neutrophils # (Manual) Nucleated RBCs Platelet Estimate RBC Morphology Poikilocytosis Anisocytosis Schistocytes Sodium Cancelled Potassium Cancelled Chloride Cancelled Carbon Dioxide Cancelled BUN Cancelled Creatinine Cancelled Estimated GFR Cancelled BUN/Creatinine Ratio Cancelled Glucose Cancelled Uric Acid Calcium Cancelled Phosphorus 3.8 3.9 Lactate Dehydrogenase 2888 H Specimen Hemolysis Cancelled Blood Type O Positive Antibody Screen Negative 06/29/19 06/29/19 01:50 10:00 WBC 43.0 H* RBC 1.90 L Hgb 5.9 L* Hct 17.9 L* MCV 92.6 MCH 31.1 MCHC 33.6 RDW 19.1 H Plt Count 11 L* Neut % (Auto) Not Reportable Lymph % (Auto) Not Reportable [place] % (Auto) Not Reportable Eos % (Auto) Not Reportable Baso % (Auto) Not Reportable Lymph # (Auto) Not Reportable [place] # (Auto) Not Reportable Baso # (Auto) Not Reportable Total Counted 100 Seg Neutrophils % 57.0 Band Neutrophils % 8.0 H Lymphocytes % (Manual) 5.0 L Monocytes % (Manual) 6.0 Eosinophils % (Manual) 2.0 Metamyelocytes % 7.0 H Myelocytes % 1.0 H Blast Cells % 14.0 H Neutrophils # (Manual) 65982 H Nucleated RBCs 1 H Platelet Estimate Decreased on smear RBC Morphology See below Poikilocytosis 1+ H Anisocytosis 3+ H Schistocytes 1+ H Sodium 135 L Potassium 4.2 Chloride 106 Carbon Dioxide 27 BUN 14 Creatinine 0.70 Estimated GFR > 60.0 BUN/Creatinine Ratio 20.0 Glucose 126 H Uric Acid < 0.5 L Calcium 7.9 L Phosphorus Lactate Dehydrogenase Specimen Hemolysis Blood Type Antibody Screen Assessment & Plan Assessment & Plan narrative: Impression 1. Acute myelogenous leukemia, here for chemotherapy, also for IV hydration to rule out the possibility of tumor lysis syndrome. Electrolytes are stable at this point. 2. Anemia, secondary to chemotherapy awaiting blood transfusion. Patient will received 2 units of irradiated packed RBCs. 3. Thrombocytopenia, secondary to chemotherapy, patient awaiting platelets Plan continue to monitor electrolytes closely continue IV hydration replace platelets and RBCs as above. Quality VTE Deep Vein Thrombosis/Pulmonary Embolism Present on Admission: No
--- NOTE | 2019-06-29 18:44 | PC.NURSE ---
Addendum entered by Phyllis Robles R.N. 06/29/19 22:27: Patient has been resting in bed most of the shift. No more c/o chest pressure. Patient is on 2nd unit of PRBC and patient states she is feeling better. Aloud patient to get oob to wash up for bed. Patient denied any cardiac symptoms during that time. Patient has been calm and cooperative. Original Note: Patient resting in bed most of the shift. But when up to and from the bathroom independently patient c/o chest pressure. Once back into bed the pressure resolves. notified and stat EKG ordered. PRBC finally arrived and first unit is up and running. Ask patient to please us the BSC instead of ambulating all the way to the bathroom and back, patient agrees to use the BSC.
[2019-06-29] MEDS: LORazepam 1 MG TABLET PO (20:50)
[2019-06-30] VITALS (11 sets, daily range): BP systolic 116–127; BP diastolic 62–77; PULSE 83–93; RESP 15–19; TEMP 36.4–37.1; O2SAT 91–98
--- NOTE | 2019-06-30 01:18 | PC.NURSE ---
Second unit of PRBC's transfused @ 2358 & Platelets started @ 0010. Tolerating transfusion, denies any S&S of transfusion reactions. VS after 15 mins. of transfusion was B/P 117/62 , HR 90, RR 16 & temp. 98.4. Will monitor.
--- NOTE | 2019-06-30 03:14 | PC.NURSE ---
Platelet transfused no S&S of reactions noted.VS WNL B/P 120/76, HR 88, RR 16 & Temp. 98.0. Will cont. POC & monitor.
[2019-06-30] MEDS: SODIUM CHLORIDE 0.9% 1,000 ML 150 ML IV (05:29)
[2019-06-30 06:19] LABS: Hematocrit 24.7 % (36-46); Hemoglobin 8.4 g/dL (12.0-16.0); Mean Corpuscular HGB Conc 33.8 % (30-36); Mean Corpuscular Hemoglobin 30.8 PG (26-34); Mean Corpuscular Volume 90.9 fL (80-100); Red Blood Cell Count 2.72 X10^6/uL (4.0-5.2); Red Cell Distribution Width 16.5 % (11.6-14.8); White Blood Cell Count 21.6 X10^3/uL (4.5-11.0)
[2019-06-30 06:24] LABS: Phosphorous 4.3 mg/dL (2.8-4.1); Uric Acid 0.6 mg/dL (2.5-6.2)
[2019-06-30 06:25] LABS: Alanine Aminotransferase 22 IU/L (9-52); Albumin 3.1 g/dL (3.5-5.0); Albumin Globulin Ratio 1.3 (1.0-2.8); Alkaline Phosphatase 62 U/L (38-126); Aspartate Aminotransferase 75 IU/L (14-36); Bilirubin Total 0.8 mg/dL (0.2-1.3); Blood Urea Nitrogen 21 mg/dL (7-17); Carbon Dioxide 27 mmol/L (22-32); Chloride 106 mmol/L (98-107); Estimated Glomerular Filt Rate > 60.0 mL/min (>60); Globulin 2.4 g/dL (1.7-4.1); Glucose 107 mg/dL (80-110); HEMOLYSIS < 15 (0-50); Potassium 3.9 mmol/L (3.4-5.1); Sodium 137 mmol/L (137-145); Total Protein 5.5 g/dL (6.3-8.2)
[2019-06-30 06:33] LABS: Add Manual Diff / Slide Review YES; Platelet Count 36 X10^3/uL (150-400)
[2019-06-30 07:26] LABS: Anisocytosis 2+; Neutrophils Absolute Manual 18576 /uL (3000-5900); Total Cells Counted 100
[2019-06-30 07:27] LABS: Smudge Cells 1+
[2019-06-30] MEDS: LORazepam 0.5 MG TABLET PO ×2 (07:37→11:43)
[2019-06-30] MEDS: OXYCODONE IR 5 MG TABLET PO ×2 (07:37→20:32)
[2019-06-30] MEDS: ALLOPURINOL 300 MG TABLET PO (10:07)
[2019-06-30] MEDS: ONDANSETRON 16 MG in SODIUM CHLORIDE 0.9% 50 ML 232 ML IV (10:56)
--- NOTE | 2019-06-30 11:29 | PC.NURSE ---
Addendum entered by Jessi Winter R.N. 06/30/19 14:40: Updated physician to patients condition, instructed patient to minimize activity at this time to avoid SOB. Utilizing BSC. Patient currently on 4L at 94%. Addendum entered by Jessi Winter R.N. 06/30/19 12:33: Patient c/o shortness of breath. Patient at 80%, O2 placed via NC at 4L, Crackles noted bilaterally, doctor notified. Chest Xray and BNP ordered. Original Note: Patient resting comfortably in bed. A/O x 3. Denies pain, SOB, or N/V at this time. Lung sounds clear, patient on Tele, pulses equal, rate WNL, no edema noted. NS infusing at 150/hr, PICC line patent, dsg CDI. Bowel sounds present in all four quadrants, last BM 06/28/2019. Abd soft and non-tender. Pt. c/o post nasal drip and running nose due to allergies. Patient would like her allergy medication, Irma. Followed up with physician. Patient ambulates independently in the room. Patient denies any further needs at this time.
[2019-06-30] MEDS: SODIUM CHLORIDE 0.9% IV (11:41)
[2019-06-30] MEDS: AZACITIDINE IV (11:41)
[2019-06-30] MEDS: LORATADINE 10 MG TABLET PO (12:03)
--- NOTE | 2019-06-30 12:23 | DI.RAD.S_ITS ---
PROCEDURE: XR CHEST 1V INDICATIONS: SHORT OF BREATH TECHNIQUE: One view of the chest was acquired. COMPARISON: [facility], CR, XR CHEST 1V, 05/12/2018, 16:56. FINDINGS: Surgical changes and devices: There is a left PICC with the tip in the right atriocaval junction. Lungs and pleura: Bilateral interstitial and airspace infiltrates. No pleural effusions or pneumothorax. Mediastinum: Mediastinal contours appear normal. Heart size is normal. Bones and chest wall: No suspicious bony lesions. Overlying soft tissues appear unremarkable. IMPRESSION: 1. Bilateral interstitial and airspace infiltrates may be secondary to pulmonary edema or bilateral pneumonia 2. Right PICC tip is in the distal caval junction. Dictated by: Josy Alonzo M.D. on 06/30/2019 at 14:04 Approved by: Josy Alonzo M.D. on 06/30/2019 at 14:07
--- NOTE | 2019-06-30 12:33 | CM.DPC ---
DCP Cont: Anticipate that patient will be here for a couple more days, after discussion at team rounds. Patient has had 2 units of blood, and is continuing with her chemo. Patient has been coughing, is working with respiratory therapy. P: DCP to continue to follow patient closely, and be available for any needs before discharge. Amara Ortiz RN/Staple Side Laster
--- NOTE | 2019-06-30 12:56 | PC.NURSE ---
This RN administered pt's chemo on nursing floor, tolerated well. Upon initial arrival pt reported an increased cough because I haven't had my allergy pill, its been 3 days. Primary RN aware and working on order for allergy med. This communications writer administered allergy med when it became available. Pt's cough became increasingly persistent. Pt's lungs assessed; Bilat bases crackles noted. Wheezes auscultated L>R. Sats 80% on RA. IV fluids stopped, aware, 02 placed by primary RN. into see pt. Dr. Robles updated on pt's status.
[2019-06-30 13:42] LABS: B Type Natriuretic Peptide 683 (<100)
[2019-06-30 13:44] LABS: Uric Acid < 0.5 mg/dL (2.5-6.2)
[2019-06-30 14:05] LABS: Alanine Aminotransferase 27 IU/L (9-52); Albumin 3.3 g/dL (3.5-5.0); Albumin Globulin Ratio 1.6 (1.0-2.8); Alkaline Phosphatase 79 U/L (38-126); Aspartate Aminotransferase 64 IU/L (14-36); BUN Creatinine Ratio 23.8 (6-22); Bilirubin Total 1.1 mg/dL (0.2-1.3); Blood Urea Nitrogen 19 mg/dL (7-17); Carbon Dioxide 24 mmol/L (22-32); Chloride 105 mmol/L (98-107); Estimated Glomerular Filt Rate > 60.0 mL/min (>60); Globulin 2.1 g/dL (1.7-4.1); Glucose 123 mg/dL (80-110); HEMOLYSIS < 15 (0-50); Potassium 3.7 mmol/L (3.4-5.1); Sodium 138 mmol/L (137-145); Total Protein 5.4 g/dL (6.3-8.2)
[2019-06-30] MEDS: levoFLOXacin 750 MG/150 ML PIGGYBACK 100 MG IV (16:09)
[2019-06-30] MEDS: FUROSEMIDE 20 MG/2 ML VIAL IV (16:09)
--- NOTE | 2019-06-30 18:21 | PC.NURSE ---
Per patient, PICC line placed March 2018
[2019-06-30 18:24] LABS: Alanine Aminotransferase 23 IU/L (9-52); Albumin 3.7 g/dL (3.5-5.0); Albumin Globulin Ratio 1.5 (1.0-2.8); Alkaline Phosphatase 74 U/L (38-126); Aspartate Aminotransferase 60 IU/L (14-36); BUN Creatinine Ratio 23.8 (6-22); Bilirubin Total 1.3 mg/dL (0.2-1.3); Blood Urea Nitrogen 19 mg/dL (7-17); Calcium 8.4 mg/dL (8.4-10.2); Carbon Dioxide 28 mmol/L (22-32); Chloride 104 mmol/L (98-107); Estimated Glomerular Filt Rate > 60.0 mL/min (>60); Globulin 2.5 g/dL (1.7-4.1); Glucose 167 mg/dL (80-110); HEMOLYSIS < 15 (0-50); Potassium 3.8 mmol/L (3.4-5.1); Sodium 138 mmol/L (137-145); Total Protein 6.2 g/dL (6.3-8.2)
--- NOTE | 2019-06-30 18:49 | P.PN_ITS ---
Subjective Subjective Date Patient Seen: 06/30/19 Interval history: The patient is a 79-year-old female who was admitted to the hospital for induction chemotherapy for acute myelogenous leukemia. The concern was regarding possibility of development of tumor lysis syndrome. The patient has been getting hydrated. She became anemic, and thrombocytopenic. She required 2 units of packed RBCs in addition to a 6 pack of platelets. This morning the patient was found to be markedly short of breath, significant rhonchi throughout, and hypoxic. Exam Vital Signs (past 8 hours): - 06/30/19 11:43 06/30/19 16:00 06/30/19 17:41 Temperature 98 F 97.8 F Pulse Rate 93 H 93 H Respiratory Rate 16 19 Blood Pressure 120/75 127/77 Pulse Oximetry 91 96 94 Oxygen Delivery Method Nasal Cannula Oxygen Flow Rate 4 Narrative Exam Narrative: Ill appearing female short of breath Neck: JVD to the angle of the jaw bilaterally Lungs: Diffuse coarse rhonchi in the left base, diffuse crackles throughout, decreased breath sounds Cardiac exam tachycardic regular rate and rhythm normal S1-S2 with a 2/6 systoli c ejection murmur Abdomen: Soft nontender nondistended Extremities: 1+ edema Objective Labs Result Diagrams: 06/30/19 06:00 06/30/19 18:00 Labs: Laboratory Results - last 24 hr 06/28/19 06/30/19 06/30/19 14:20 06:00 06:00 WBC 21.6 H RBC 2.72 L Hgb 8.4 L Hct 24.7 L MCV 90.9 MCH 30.8 MCHC 33.8 RDW 16.5 H Plt Count 36 L* Neut % (Auto) Not Reportable Lymph % (Auto) Not Reportable [facility] % (Auto) Not Reportable Eos % (Auto) Not Reportable Baso % (Auto) Not Reportable Lymph # (Auto) Not Reportable [facility] # (Auto) Not Reportable Baso # (Auto) Not Reportable Total Counted 100 Seg Neutrophils % 86.0 H D Lymphocytes % (Manual) 3.0 L Monocytes % (Manual) 6.0 Metamyelocytes % 1.0 H Myelocytes % 2.0 H Blast Cells % 2.0 H Neutrophils # (Manual) 59973 H Smudge Cells 1+ H RBC Morphology See below Anisocytosis 2+ H Sodium Potassium Chloride Carbon Dioxide BUN Creatinine Estimated GFR BUN/Creatinine Ratio Glucose Uric Acid 0.6 L Calcium Phosphorus 4.3 H Total Bilirubin AST ALT Alkaline Phosphatase B-Natriuretic Peptide Total Protein Albumin Globulin Albumin/Globulin Ratio Blood Type O Positive Antibody Screen Negative Crossmatch See Detail 06/30/19 06/30/19 06/30/19 06:00 13:05 13:05 WBC RBC Hgb Hct MCV MCH MCHC RDW Plt Count Neut % (Auto) Lymph % (Auto) [facility] % (Auto) Eos % (Auto) Baso % (Auto) Lymph # (Auto) [facility] # (Auto) Baso # (Auto) Total Counted Seg Neutrophils % Lymphocytes % (Manual) Monocytes % (Manual) Metamyelocytes % Myelocytes % Blast Cells % Neutrophils # (Manual) Smudge Cells RBC Morphology Anisocytosis Sodium 137 Potassium 3.9 Chloride 106 Carbon Dioxide 27 BUN 21 H Creatinine 0.70 Estimated GFR > 60.0 BUN/Creatinine Ratio 30.0 H Glucose 107 Uric Acid < 0.5 L Calcium 8.0 L Phosphorus Total Bilirubin 0.8 AST 75 H ALT 22 Alkaline Phosphatase 62 B-Natriuretic Peptide 683 H Total Protein 5.5 L Albumin 3.1 L Globulin 2.4 Albumin/Globulin Ratio 1.3 Blood Type Antibody Screen Crossmatch 06/30/19 06/30/19 13:05 18:00 WBC RBC Hgb Hct MCV MCH MCHC RDW Plt Count Neut % (Auto) Lymph % (Auto) [facility] % (Auto) Eos % (Auto) Baso % (Auto) Lymph # (Auto) [facility] # (Auto) Baso # (Auto) Total Counted Seg Neutrophils % Lymphocytes % (Manual) Monocytes % (Manual) Metamyelocytes % Myelocytes % Blast Cells % Neutrophils # (Manual) Smudge Cells RBC Morphology Anisocytosis Sodium 138 138 Potassium 3.7 3.8 Chloride 105 104 Carbon Dioxide 24 28 BUN 19 H 19 H Creatinine 0.80 0.80 Estimated GFR > 60.0 > 60.0 BUN/Creatinine Ratio 23.8 H 23.8 H Glucose 123 H 167 H Uric Acid Calcium 8.0 L 8.4 Phosphorus Total Bilirubin 1.1 1.3 AST 64 H 60 H ALT 27 23 Alkaline Phosphatase 79 74 B-Natriuretic Peptide Total Protein 5.4 L 6.2 L Albumin 3.3 L 3.7 Globulin 2.1 2.5 Albumin/Globulin Ratio 1.6 1.5 Blood Type Antibody Screen Crossmatch Assessment & Plan Assessment & Plan narrative: Impression 1. Acute hypoxic respiratory failure, likely related to IV hydration, transfusion and possible pneumonia 2. Acute pulmonary edema will obtain cardiac echo, continue Lasix 20 mg IV daily 3. Left lower lobe pneumonia, abrupt onset during hospital stay. Given her immunocompromised state with chemotherapy ideally would start broad-spectrum antibiotics. However given her penicillin allergy will continue with levofloxacin 4. Acute myelogenous leukemia, continue induction chemotherapy. Patient is on protocol to rule out tumor lysis syndrome. Laboratory studies ordered per Oncology. IV fluids have been held 5. Cytopenia, secondary to chemotherapy. Patient has received 2 units of packed RBC in addition to platelets will continue to monitor closely. Quality VTE Deep Vein Thrombosis/Pulmonary Embolism Present on Admission: No
--- NOTE | 2019-06-30 20:17 | DI.ECHO.S_ITS ---
[facility] +---------+ : : [address] : [address] : : : : [id number] : : : : Phone: [phone] Echocardiogram Report + + :Name: SHABNAM DIEGO Study Date: 07/01/2019 Height: 60 in : :[facility] Exam Location: [facility] Weight: 90 lb : : Gender: Female BSA: 1.3 m2 : :: 1940 Age: 79 yrs BP: 131/76 mmHg: :Reason For Study: CHF : : Performed By: Bienvenido Dickerson : :Referring: ANURADHA RAINEY : + + Interpretation Summary The ejection fraction is estimated to be 55-60%. There is mild tricuspid regurgitation. The right ventricular systolic pressure is estimated to be at least 28 mmHg based on an estimated right atrial pressure of 3 mm Hg. Procedure: A two-dimensional transthoracic echocardiogram with color flow and Doppler was performed. The study quality was technically good. There is no prior echocardiogram noted for this patient. The patient was in normal sinus rhythm during the exam. Left Ventricle: The left ventricle is normal in size. There is normal left ventricular wall thickness. The ejection fraction is estimated to be 55-60%. There are no focal wall motion abnormalities. Right Ventricle: The right ventricle is normal in size and function. Atria: The left atrium is mildly dilated. Right atrial size is normal. The interatrial septum is intact with no evidence for an atrial septal defect. Mitral Valve: The mitral valve is normal in structure and function. There is trace mitral regurgitation. Aortic Valve: The aortic valve is trileaflet. The aortic valve is slightly calcified. The aortic valve opens well. There is trace aortic regurgitation. Tricuspid Valve: The tricuspid valve is normal in structure and function. There is mild tricuspid regurgitation. The right ventricular systolic pressure is estimated to be at least 28 mmHg based on an estimated right atrial pressure of 3 mm Hg. Pulmonic Valve: The pulmonic valve is normal in structure and function. There is trace pulmonic regurgitation. Great Vessels: The aortic root is normal size. The ascending aorta is mildly enlarged. The pulmonary artery is normal size. The IVC is of normal diameter and collapses greater than 50% with a sniff. This suggests a low right atrial pressure of 3 mm Hg. Pericardium/ Pleura There is no pericardial effusion. There is no pleural effusion. MMode/2D Measurements & Calculations LVIDd: 4.5 cm LVOT diam: 1.9 cm LVIDs: 3.1 cm Ao root diam: 2.8 cm FS: 29.9 % Aortic Jxn: 2.6 cm EPSS: 0.65 cm asc Aorta Diam: 3.7 cm IVSd: 0.82 cm Ao Arch Diam (Prox Trans): 2.2 cm LVPWd: 0.83 cm LV mendez. diameter/BSA (cm/m^2): 3.3 LV sys. diameter/BSA (cm/m^2): 2.3 LA dimension: 3.7 cm RA long axis: 4.7 cm LA A2 area: 18.9 cm2 RA area: 13.5 cm2 LA A4 area: 17.5 cm2 RA vol: 32.9 ml LA length (vol): 5.8 cm RA : 24.8 ml/m2 LA vol: 48.3 ml IVC diam: 1.6 cm LA vol index: 36.3 ml/m2 Doppler Measurements & Calculations Ao V2 max: 172.3 cm/sec LVOT Max Brock: 94.5 cm/sec Ao V2 mean: 117.7 cm/sec LV V1 max P.6 mmHg Ao max P.9 mmHg LV V1 VTI: 19.6 cm Ao mean P.2 mmHg FEDE(I,D): 1.6 cm2 Ao V2 VTI: 34.6 cm FEDE(V,D): 1.5 cm2 sev ratio: 0.57 FEDE indexed to BSA (cm^2/m^2): 1.2 MV E max brock: 63.6 cm/sec TR max brock: 249.9 cm/sec MV A max brock: 90.9 cm/sec TR max P.0 mmHg MV E/A: 0.70 PA V2 max: 80.3 cm/sec Med Peak E' Brock: 5.6 cm/sec PA V2 mean: 53.8 cm/sec E/E' med: 11.4 PA mean P.3 mmHg Lat Peak E' Brock: 6.6 cm/sec PA pr(Accel): 39.1 mmHg E/E' lat: 9.6 PA Accel Time: 0.09 sec E/e' average: 10.5 MV dec time: 0.16 sec SV(LVOT): 54.4 ml Reading Physician:01:19 PM
[2019-06-30] MEDS: LORazepam 1 MG TABLET PO (20:32)
--- NOTE | 2019-06-30 20:46 | PC.NURSE ---
Patient resting in bed most of the shift. independent to BSC. was on 5L o2 sats 98%, decreased to 3L but patient stated she felt a little sob after using the BSC, sats at that time were 92%. Increased to 4L, patient able to tolerate well sats 95%. Crackles in lungs have slightly improved after ivp lasix. Still has occasional cough. Patient has been calm and cooperative. Resting in bed at this time.
[2019-07-01] VITALS (12 sets, daily range): BP systolic 111–137; BP diastolic 56–76; PULSE 73–97; RESP 16–18; TEMP 36.3–37; O2SAT 91–98
[2019-07-01 01:11] LABS: Alanine Aminotransferase 23 IU/L (9-52); Albumin 3.1 g/dL (3.5-5.0); Albumin Globulin Ratio 1.5 (1.0-2.8); Alkaline Phosphatase 58 U/L (38-126); Aspartate Aminotransferase 42 IU/L (14-36); BUN Creatinine Ratio 26.3 (6-22); Bilirubin Total 1.2 mg/dL (0.2-1.3); Blood Urea Nitrogen 21 mg/dL (7-17); Calcium 8.1 mg/dL (8.4-10.2); Carbon Dioxide 30 mmol/L (22-32); Chloride 101 mmol/L (98-107); Estimated Glomerular Filt Rate > 60.0 mL/min (>60); Globulin 2.1 g/dL (1.7-4.1); Glucose 113 mg/dL (80-110); HEMOLYSIS < 15 (0-50); Sodium 137 mmol/L (137-145); Total Protein 5.2 g/dL (6.3-8.2)
[2019-07-01 01:12] LABS: Uric Acid < 0.5 mg/dL (2.5-6.2)
--- NOTE | 2019-07-01 04:23 | PC.NURSE ---
Pt continues to be on 4 liters of oxygen NC and 96%. Pt has course crackles bilaterally through all lung bhagat. Pt is on tele: NS.
[2019-07-01 06:41] LABS: Alanine Aminotransferase 25 IU/L (9-52); Albumin 3.1 g/dL (3.5-5.0); Albumin Globulin Ratio 1.4 (1.0-2.8); Alkaline Phosphatase 54 U/L (38-126); Aspartate Aminotransferase 39 IU/L (14-36); Bilirubin Total 1.4 mg/dL (0.2-1.3); Blood Urea Nitrogen 21 mg/dL (7-17); Calcium 8.4 mg/dL (8.4-10.2); Carbon Dioxide 31 mmol/L (22-32); Chloride 101 mmol/L (98-107); Estimated Glomerular Filt Rate > 60.0 mL/min (>60); Globulin 2.2 g/dL (1.7-4.1); Glucose 97 mg/dL (80-110); HEMOLYSIS < 15 (0-50); Sodium 137 mmol/L (137-145); Total Protein 5.3 g/dL (6.3-8.2)
[2019-07-01 06:42] LABS: Uric Acid 0.6 mg/dL (2.5-6.2)
[2019-07-01] MEDS: FUROSEMIDE 20 MG/2 ML VIAL IV (08:23)
[2019-07-01] MEDS: LORazepam 0.5 MG TABLET PO ×2 (08:24→12:31)
[2019-07-01] MEDS: LORATADINE 10 MG TABLET PO (08:24)
[2019-07-01] MEDS: ALLOPURINOL 300 MG TABLET PO (08:24)
[2019-07-01] MEDS: OXYCODONE IR 5 MG TABLET PO ×2 (08:25→21:24)
[2019-07-01 12:21] LABS: Uric Acid 0.5 mg/dL (2.5-6.2)
[2019-07-01] MEDS: VENCLEXTA 4 EACH PO (12:31)
[2019-07-01 14:12] LABS: Alanine Aminotransferase 22 IU/L (9-52); Albumin 3.7 g/dL (3.5-5.0); Albumin Globulin Ratio 1.7 (1.0-2.8); Alkaline Phosphatase 70 U/L (38-126); Aspartate Aminotransferase 41 IU/L (14-36); BUN Creatinine Ratio 26.3 (6-22); Bilirubin Total 1.7 mg/dL (0.2-1.3); Blood Urea Nitrogen 21 mg/dL (7-17); Calcium 8.6 mg/dL (8.4-10.2); Carbon Dioxide 34 mmol/L (22-32); Chloride 95 mmol/L (98-107); Estimated Glomerular Filt Rate > 60.0 mL/min (>60); Globulin 2.2 g/dL (1.7-4.1); Glucose 107 mg/dL (80-110); HEMOLYSIS < 15 (0-50); Potassium 3.4 mmol/L (3.4-5.1); Sodium 136 mmol/L (137-145); Total Protein 5.9 g/dL (6.3-8.2)
[2019-07-01 14:19] LABS: Hematocrit 26.4 % (36-46); Hemoglobin 9.4 g/dL (12.0-16.0); Mean Corpuscular HGB Conc 35.5 % (30-36); Mean Corpuscular Hemoglobin 31.8 PG (26-34); Mean Corpuscular Volume 89.6 fL (80-100); Red Blood Cell Count 2.95 X10^6/uL (4.0-5.2); Red Cell Distribution Width 16.6 % (11.6-14.8); White Blood Cell Count 11.4 X10^3/uL (4.5-11.0)
[2019-07-01 14:21] LABS: Add Manual Diff / Slide Review YES
[2019-07-01 14:24] LABS: Platelet Count 19 X10^3/uL (150-400)
[2019-07-01 14:36] LABS: B Type Natriuretic Peptide 303 (<100)
[2019-07-01 14:47] LABS: Platelet Estimate Decreased on smear
[2019-07-01 14:48] LABS: Neutrophils Absolute Manual 10602 /uL (3000-5900); Rouleaux 2+; Total Cells Counted 100
[2019-07-01 14:52] LABS: Anisocytosis 1+
--- NOTE | 2019-07-01 15:09 | P.PN_ITS ---
Subjective Subjective Date Patient Seen: 07/01/19 Interval history: She is seen today to follow-up her AML/chemotherapy induction with resultant pancytopenia and episode of pulmonary edema experienced yesterday. She was started on levofloxacin after a left lower lobe infiltrate was noted on chest x-ray. She is being followed by Oncology. Her blood tests today show a platelet level of 19, down from 36, a white blood count of 11.4, down from 21.6, a hematocrit of 9.4 along with a potassium of 3.4. She tells me that she lives with her in their home in [place]. Her echocardiogram is normal with an ejection fraction of 55-60% and no significant valvular disease.. Additionally her BNP is 303, down from 683. Exam Vital Signs (past 8 hours): - 07/01/19 08:20 07/01/19 08:40 07/01/19 12:11 Temperature 97.6 F 97.9 F Pulse Rate 81 73 Respiratory Rate 18 16 Blood Pressure 131/76 111/64 Pulse Oximetry 96 96 97 07/01/19 14:07 Temperature Pulse Rate Respiratory Rate Blood Pressure Pulse Oximetry 98 Oxygen Delivery Method Nasal Cannula Oxygen Flow Rate 3 Narrative Exam Narrative: She is alert and oriented x3. She is in no apparent distress. Heart is regular rate and rhythm without murmur. Lungs are clear to auscultation bilaterally. Extremities have no ankle edema. Objective Labs Result Diagrams: 07/01/19 12:00 07/01/19 12:00 Labs: Laboratory Results - last 24 hr 06/30/19 07/01/19 07/01/19 18:00 00:53 00:53 WBC RBC Hgb Hct MCV MCH MCHC RDW Plt Count Neut % (Auto) Lymph % (Auto) [place] % (Auto) Eos % (Auto) Baso % (Auto) Lymph # (Auto) [place] # (Auto) Baso # (Auto) Total Counted Seg Neutrophils % Lymphocytes % (Manual) Monocytes % (Manual) Eosinophils % (Manual) Basophils % (Manual) Neutrophils # (Manual) Platelet Estimate RBC Morphology Anisocytosis Rouleaux Sodium 138 137 Potassium 3.8 4.0 Chloride 104 101 Carbon Dioxide 28 30 BUN 19 H 21 H Creatinine 0.80 0.80 Estimated GFR > 60.0 > 60.0 BUN/Creatinine Ratio 23.8 H 26.3 H Glucose 167 H 113 H Uric Acid < 0.5 L Calcium 8.4 8.1 L Total Bilirubin 1.3 1.2 AST 60 H 42 H ALT 23 23 Alkaline Phosphatase 74 58 B-Natriuretic Peptide Total Protein 6.2 L 5.2 L Albumin 3.7 3.1 L Globulin 2.5 2.1 Albumin/Globulin Ratio 1.5 1.5 07/01/19 07/01/19 07/01/19 06:22 06:22 12:00 WBC RBC Hgb Hct MCV MCH MCHC RDW Plt Count Neut % (Auto) Lymph % (Auto) [place] % (Auto) Eos % (Auto) Baso % (Auto) Lymph # (Auto) [place] # (Auto) Baso # (Auto) Total Counted Seg Neutrophils % Lymphocytes % (Manual) Monocytes % (Manual) Eosinophils % (Manual) Basophils % (Manual) Neutrophils # (Manual) Platelet Estimate RBC Morphology Anisocytosis Rouleaux Sodium 137 Potassium 4.0 Chloride 101 Carbon Dioxide 31 BUN 21 H Creatinine 0.70 Estimated GFR > 60.0 BUN/Creatinine Ratio 30.0 H Glucose 97 Uric Acid 0.6 L 0.5 L Calcium 8.4 Total Bilirubin 1.4 H AST 39 H ALT 25 Alkaline Phosphatase 54 B-Natriuretic Peptide Total Protein 5.3 L Albumin 3.1 L Globulin 2.2 Albumin/Globulin Ratio 1.4 07/01/19 07/01/19 07/01/19 12:00 12:00 12:00 WBC 11.4 H RBC 2.95 L Hgb 9.4 L Hct 26.4 L MCV 89.6 MCH 31.8 MCHC 35.5 RDW 16.6 H Plt Count 19 L* Neut % (Auto) Not Reportable Lymph % (Auto) Not Reportable [place] % (Auto) Not Reportable Eos % (Auto) Not Reportable Baso % (Auto) Not Reportable Lymph # (Auto) Not Reportable [place] # (Auto) Not Reportable Baso # (Auto) Not Reportable Total Counted 100 Seg Neutrophils % 93.0 H Lymphocytes % (Manual) 4.0 L Monocytes % (Manual) 3.0 Eosinophils % (Manual) 0.0 L Basophils % (Manual) 0.0 Neutrophils # (Manual) 57198 H Platelet Estimate Decreased on smear RBC Morphology Not Reportable Anisocytosis 1+ H Rouleaux 2+ H Sodium 136 L Potassium 3.4 Chloride 95 L Carbon Dioxide 34 H BUN 21 H Creatinine 0.80 Estimated GFR > 60.0 BUN/Creatinine Ratio 26.3 H Glucose 107 Uric Acid Calcium 8.6 Total Bilirubin 1.7 H AST 41 H ALT 22 Alkaline Phosphatase 70 B-Natriuretic Peptide 303 H Total Protein 5.9 L Albumin 3.7 Globulin 2.2 Albumin/Globulin Ratio 1.7 Assessment & Plan Assessment & Plan narrative: 1. Acute hypoxic respiratory failure, caused by IV hydration, transfusion and possible pneumonia. She is hoping to wean off the oxygen by discharge which is quite realistic. 2. Acute pulmonary edema secondary to a blood transfusion/IV hydration, now resolving with a normal echocardiogram. Continue daily Lasix low dose. 3. Left lower lobe pneumonia, abrupt onset during hospital stay. Given her immunocompromised state with chemotherapy will continue the IV levofloxacin for now but continue to suspect that her chest x-ray findings are primarily pulmonary edema in origin.. 4. Acute myelogenous leukemia, continue induction chemotherapy. Patient is on p rotocol to rule out tumor lysis syndrome. Laboratory studies ordered per Oncology. IV fluids were stopped due to pulmonary edema. 5. Pancytopenia, secondary to chemotherapy. Patient received 2 units of packed RBC in addition to platelets so will continue to monitor closely. She may need another platelet transfusion by tomorrow. No signs of ongoing bleeding. Quality VTE Deep Vein Thrombosis/Pulmonary Embolism Present on Admission: No
--- NOTE | 2019-07-01 15:33 | CM.DPC ---
Discharge planning cont. FLOORING PROFESSIONAL met with pt, spouse and dtr to check on status and continued discharge planning needs. Pt shares that she is already feeling much better today in terms of her respiratory status, and that the current plan is for her to remain in the hospital for the next day or two until she is able to discharge on room air, and the plan so far is not to d/c with home O2. She continues to have the need for continuous O2 here inpt. She has a f/u appointment in Oncology this coming 07/04/19. Continue to monitor for any further needs/concerns that arise until time of d/c.
[2019-07-01] MEDS: LORazepam 1 MG TABLET PO (21:22)
[2019-07-02] VITALS (13 sets, daily range): BP systolic 109–122; BP diastolic 51–76; PULSE 84–158; RESP 14–20; TEMP 36.6–37.6; O2SAT 93–97
[2019-07-02 06:38] LABS: Hematocrit 24.1 % (36-46); Hemoglobin 8.5 g/dL (12.0-16.0); Mean Corpuscular HGB Conc 35.4 % (30-36); Mean Corpuscular Hemoglobin 31.8 PG (26-34); Mean Corpuscular Volume 89.8 fL (80-100); Red Blood Cell Count 2.68 X10^6/uL (4.0-5.2); Red Cell Distribution Width 16.1 % (11.6-14.8); White Blood Cell Count 6.9 X10^3/uL (4.5-11.0)
[2019-07-02] MEDS: ONDANSETRON 4 MG ODT SL (06:40)
[2019-07-02 06:41] LABS: Add Manual Diff / Slide Review YES
[2019-07-02 06:42] LABS: Platelet Count 17 X10^3/uL (150-400)
[2019-07-02 06:51] LABS: Alanine Aminotransferase 23 IU/L (9-52); Albumin 3.3 g/dL (3.5-5.0); Albumin Globulin Ratio 1.4 (1.0-2.8); Alkaline Phosphatase 60 U/L (38-126); Aspartate Aminotransferase 26 IU/L (14-36); BUN Creatinine Ratio 28.6 (6-22); Bilirubin Total 2.3 mg/dL (0.2-1.3); Blood Urea Nitrogen 20 mg/dL (7-17); Calcium 8.5 mg/dL (8.4-10.2); Carbon Dioxide 31 mmol/L (22-32); Chloride 93 mmol/L (98-107); Estimated Glomerular Filt Rate > 60.0 mL/min (>60); Globulin 2.3 g/dL (1.7-4.1); Glucose 99 mg/dL (80-110); HEMOLYSIS < 15 (0-50); Potassium 3.9 mmol/L (3.4-5.1); Sodium 132 mmol/L (137-145); Total Protein 5.6 g/dL (6.3-8.2)
[2019-07-02 07:02] LABS: Neutrophils Absolute Manual 5727 /uL (3000-5900); Nucleated Red Blood Cells 2 #/Diff; Total Cells Counted 100
[2019-07-02 07:03] LABS: RBC Morphology Normal Morphology
--- NOTE | 2019-07-02 08:41 | PC.NURSE ---
Day shift: Refused SCD's. Informed Pt of the risks of not using. Pt still refused.
[2019-07-02] MEDS: FUROSEMIDE 20 MG/2 ML VIAL IV (09:11)
[2019-07-02] MEDS: LORATADINE 10 MG TABLET PO (09:13)
[2019-07-02] MEDS: OXYCODONE IR 5 MG TABLET PO ×3 (09:13→20:36)
[2019-07-02] MEDS: ALLOPURINOL 300 MG TABLET PO (09:13)
[2019-07-02] MEDS: LORazepam 0.5 MG TABLET PO ×2 (09:13→11:54)
[2019-07-02] MEDS: ACETAMINOPHEN 325 MG TABLET 650 MG PO (09:24)
--- NOTE | 2019-07-02 10:03 | PM.DS.1 ---
History of Present Illness History of Present Illness Chief complaint: AML Narrative: The patient is a 79-year-old female diagnosed with AML in 2016. She has a history of AML and has been receiving her treatment in [place]. She relapsed in March 2018 and was treated on a clinical trial but failed to respond. She had 1 additional cycle of off trial therapy and did have a response. Her most recent bone marrow biopsy in May showed morphologic remission. Her FISH however was positive at 0.2%. She has been on maintenance therapy with azacitidine since then. She has recently developed increased pain in her hip. MRI suggested bone marrow infiltration. Last week, she was noted to have a rising white count to 22,000. A bone marrow biopsy was performed. The patient was seen by Jorge and is admitted to the hospital at this time for consolidation chemotherapy. As the patient has a high risk for tumor lysis syndrome I was asked to assist with management of her care while hospitalized during her chemotherapeutic treatment. The patient reports an 8 lb weight loss over the past month which she attributes to ?stress. She denies any shortness of breath chest pain nausea or vomiting. She has no headache blurred vision or double vision. She does report some chronic left lower quadrant pain which is old. She has intermittent diarrhea. She has had no fever or chills. Further review of systems is negative Discharge Providers Provider Date of admission: 06/28/19 09:34 Discharge Date: 07/02/19 Primary care physician: Alexandre Orlando MD Discharge provider: Mari Richard MD Summary Hospital Course Discharge Diagnosis: 1. Acute myelogenous leukemia, recurrence 2. Consolidation chemotherapy 3. Pulmonary edema 4. Left lower lobe infiltrate 5. Allergic rhinitis 6. Pancytopenia, status post 2 units of packed RBCs and [address] 7. Acute respiratory failure secondary to pulmonary edema from IV hydration and blood transfusion Hospital Course: Patient was admitted to the hospital for consolidation chemotherapy for her acute myelogenous leukemia. There was concern for development of tumor lysis syndrome. The patient was given IV hydration. In addition she received 2 units of packed RBCs. She became acutely hypoxic. The patient required IV Lasix. Her IV fluids were discontinued. She also was found to have a left lower lobe infiltrate. She was placed on IV antibiotics. The patient made significant improvement after a couple doses of Lasix. She was taken off oxygen. Breathing improved. She overall felt better. The patient had no evidence to suggest tumor lysis syndrome. She was deemed appropriate for discharge and arrangements were made for her to discharge home. Patient underwent a cardiac echo. Her LV function was within normal limits. Status at Discharge Cognitive/behavioral status at discharge: oriented Functional status at discharge: independent ambulation Overall status at discharge: patient is back to baseline Time Spent with Patient Time spent: Less than 30 minutes Exam Vital Signs (past 8 hours): - 07/02/19 04:25 07/02/19 08:00 07/02/19 08:12 Temperature 99.3 F 99.7 F H Pulse Rate 91 H 97 H Respiratory Rate 16 20 Blood Pressure 114/76 116/63 Pulse Oximetry 95 96 94 07/02/19 09:24 Temperature 99.3 F Pulse Rate Respiratory Rate Blood Pressure Pulse Oximetry Oxygen Delivery Method Room Air Oxygen Flow Rate 2 Narrative Exam Narrative: Pleasant elderly female in no obvious distress Lungs: Occasional basilar scattered crackles, no rhonchi or wheezing Cardiac exam: Regular rate and rhythm normal S1-S2 Abdomen: Soft nontender nondistended Extremities: No edema Objective Labs Result Diagrams: 07/02/19 06:30 07/02/19 06:30 Labs: Laboratory Results - last 24 hr 07/01/19 07/01/19 07/01/19 12:00 12:00 12:00 WBC 11.4 H RBC 2.95 L Hgb 9.4 L Hct 26.4 L MCV 89.6 MCH 31.8 MCHC 35.5 RDW 16.6 H Plt Count 19 L* Neut % (Auto) Not Reportable Lymph % (Auto) Not Reportable [place] % (Auto) Not Reportable Eos % (Auto) Not Reportable Baso % (Auto) Not Reportable Lymph # (Auto) Not Reportable [place] # (Auto) Not Reportable Baso # (Auto) Not Reportable Total Counted 100 Seg Neutrophils % 93.0 H Band Neutrophils % Lymphocytes % (Manual) 4.0 L Atypical Lymphs % Monocytes % (Manual) 3.0 Eosinophils % (Manual) 0.0 L Basophils % (Manual) 0.0 Metamyelocytes % Neutrophils # (Manual) 20847 H Nucleated RBCs Platelet Estimate Decreased on smear RBC Morphology Not Reportable Anisocytosis 1+ H Rouleaux 2+ H Sodium Potassium Chloride Carbon Dioxide BUN Creatinine Estimated GFR BUN/Creatinine Ratio Glucose Uric Acid 0.5 L Calcium Total Bilirubin AST ALT Alkaline Phosphatase B-Natriuretic Peptide 303 H Total Protein Albumin Globulin Albumin/Globulin Ratio 07/01/19 07/02/19 07/02/19 12:00 06:30 06:30 WBC 6.9 RBC 2.68 L Hgb 8.5 L Hct 24.1 L MCV 89.8 MCH 31.8 MCHC 35.4 RDW 16.1 H Plt Count 17 L* Neut % (Auto) Not Reportable Lymph % (Auto) Not Reportable [place] % (Auto) Not Reportable Eos % (Auto) Not Reportable Baso % (Auto) Not Reportable Lymph # (Auto) Not Reportable [place] # (Auto) Not Reportable Baso # (Auto) Not Reportable Total Counted 100 Seg Neutrophils % 70.0 Band Neutrophils % 13.0 H Lymphocytes % (Manual) 3.0 L Atypical Lymphs % 6.0 H Monocytes % (Manual) 6.0 Eosinophils % (Manual) Basophils % (Manual) Metamyelocytes % 2.0 H Neutrophils # (Manual) 5727 Nucleated RBCs 2 H Platelet Estimate RBC Morphology Normal morphology Anisocytosis Rouleaux Sodium 136 L 132 L Potassium 3.4 3.9 Chloride 95 L 93 L Carbon Dioxide 34 H 31 BUN 21 H 20 H Creatinine 0.80 0.70 Estimated GFR > 60.0 > 60.0 BUN/Creatinine Ratio 26.3 H 28.6 H Glucose 107 99 Uric Acid Calcium 8.6 8.5 Total Bilirubin 1.7 H 2.3 H AST 41 H 26 ALT 22 23 Alkaline Phosphatase 70 60 B-Natriuretic Peptide Total Protein 5.9 L 5.6 L Albumin 3.7 3.3 L Globulin 2.2 2.3 Albumin/Globulin Ratio 1.7 1.4 Discharge Plan Discharge Plan Patient Disposition: Home Discharge Med Rec/Prescriptions Prescriptions: New levofloxacin 750 mg tablet 750 mg PO DAILY Qty: 5 RF: 0 Continued lorazepam 1 mg Tablet 1 mg PO BID-TID PRN (Reason: Nausea) Qty: 60 RF: 1 ondansetron 8 mg Tablet,Disintegrating 8 mg PO Q8H PRN (Reason: Nausea) 30 Days Qty: 30 RF: 6 allopurinol 300 mg Tablet 300 mg PO DAILY 30 Days Qty: 30 RF: 0 hydroxyurea 500 mg capsule 1,000 mg PO DAILY RF: 0 oxycodone 5 mg tablet 5 mg PO Q4-6H PRN (Reason: pain) RF: 0 fexofenadine [Irma Allergy] 180 mg Tablet 180 mg PO DAILY RF: 0 loperamide [Imodium A-D] 2 mg Capsule 2 mg PO Q2-4H PRN (Reason: Diarrhea) RF: 0 Follow up/Referrals: Alexandre Orlando MD [Primary Care Provider] - Provider Discharge Instructions Diet: Diet as Tolerated Activity: as tolerated Discharge Data Primary Care Provider: Alexandre Orlando Quality VTE Deep Vein Thrombosis/Pulmonary Embolism Present on Admission: No
--- NOTE | 2019-07-02 11:15 | PC.NURSE ---
Day shift: Pt tachy w/ HR in 150's. Dr Richard aware. Ordered stat EKG and Dr Richard will order labs. MD also to cancel discharge orders.
[2019-07-02] MEDS: VENCLEXTA 4 EACH PO (11:54)
[2019-07-02 12:07] LABS: Alanine Aminotransferase 23 IU/L (9-52); Albumin 3.7 g/dL (3.5-5.0); Albumin Globulin Ratio 1.4 (1.0-2.8); Alkaline Phosphatase 73 U/L (38-126); Aspartate Aminotransferase 27 IU/L (14-36); BUN Creatinine Ratio 23.3 (6-22); Bilirubin Total 2.9 mg/dL (0.2-1.3); Blood Urea Nitrogen 21 mg/dL (7-17); Calcium 8.5 mg/dL (8.4-10.2); Carbon Dioxide 34 mmol/L (22-32); Chloride 92 mmol/L (98-107); Estimated Glomerular Filt Rate > 60.0 mL/min (>60); Globulin 2.6 g/dL (1.7-4.1); Glucose 114 mg/dL (80-110); HEMOLYSIS < 15 (0-50); Potassium 3.5 mmol/L (3.4-5.1); Sodium 132 mmol/L (137-145); Total Protein 6.3 g/dL (6.3-8.2); Uric Acid 0.7 mg/dL (2.5-6.2)
[2019-07-02 12:17] LABS: Basophils Absolute Auto 0 /uL (0-100); Basophils Percent Auto 0.2 % (0-2); Eosinophils Absolute Auto 100 /uL (0-450); Eosinophils Percent Auto 0.7 % (2-4); Hematocrit 26.2 % (36-46); Hemoglobin 9.2 g/dL (12.0-16.0); Lymphocytes Absolute Auto 400 /uL (1100-4500); Lymphocytes Percent Auto 4.9 % (25-40); Mean Corpuscular HGB Conc 35.2 % (30-36); Mean Corpuscular Hemoglobin 31.7 PG (26-34); Mean Corpuscular Volume 90.1 fL (80-100); Monocytes Absolute Auto 0 /uL (0-900); Monocytes Percent Auto 0.4 % (3-14); Neutrophils Absolute Auto 7200 /uL (1500-7000); Neutrophils Percent Auto 93.8 % (50-75); Red Blood Cell Count 2.91 X10^6/uL (4.0-5.2); Red Cell Distribution Width 16.5 % (11.6-14.8); White Blood Cell Count 7.6 X10^3/uL (4.5-11.0)
[2019-07-02 12:24] LABS: Platelet Count 16 X10^3/uL (150-400)
[2019-07-02 12:25] LABS: Add Manual Diff / Slide Review SLIDE REVIEW
[2019-07-02 13:19] LABS: RBC Morphology Normal Morphology
[2019-07-02 13:20] LABS: Platelet Estimate Decreased on smear
[2019-07-02] MEDS: levoFLOXacin 750 MG/150 ML PIGGYBACK 100 MG IV (14:25)
[2019-07-02] MEDS: LORazepam 1 MG TABLET PO (20:36)
--- NOTE | 2019-07-02 21:31 | PC.NURSE ---
Addendum entered by Isabell Birmingham R.N. 07/02/19 22:59: First platelet transfusion finished @ 2020. TAR is not allowing me to end this transfusion. This video game script writer has asked every RN on this shift for help with this documentation. No one is able to end documentation of this transfusion. Second transfusion is ready. 40mg potassium oral solution is not available in night pharmacy, nor is PO. New order for 20mg K-rider to infuse at 130/Hr, starting @ 2300. Original Note: Pt 95-97% 2L nc, LS fine crackles to bases bilat, denies SOB. SBA to BSC BM @ 1545. Pt tachycardic trending in the 100's, and spiking to the 140-150's. Kevon Ortiz made aware, order for potassium 40mg oral solution now, blood draw for K and Mag @ 2300. Platelets started @ 1835 at this time HR 145, 15min HR 101, 2020, end of transfusion HR 98, all other VSS WNL. RAY Dbl PICC SL. Call light in reach.
[2019-07-02] MEDS: POTASSIUM CHLORIDE 20 MEQ in SODIUM CHLORIDE 0.9% 250 ML 130 ML IV (23:08)
[2019-07-03 00:53] VITALS: O2SAT 93
--- NOTE | 2019-07-03 04:29 | PC.NURSE ---
Pt continues to be tachy in the 90's. Pt is on tele: NS and Sinus Tach w/occasional PVC's. K rider finished this night. Pt has bilateral fine crackles in lung bases.
[2019-07-03 05:35] VITALS: BP 125/64; PULSE 100; RESP 19; TEMP 36.8; O2SAT 97
[2019-07-03 05:54] LABS: Hemoglobin 8.2 g/dL (12.0-16.0); Mean Corpuscular HGB Conc 34.1 % (30-36); Mean Corpuscular Hemoglobin 31.3 PG (26-34); Mean Corpuscular Volume 91.9 fL (80-100); Platelet Count 68 X10^3/uL (150-400); Red Blood Cell Count 2.61 X10^6/uL (4.0-5.2); Red Cell Distribution Width 16.5 % (11.6-14.8); White Blood Cell Count 7.1 X10^3/uL (4.5-11.0)
[2019-07-03 05:57] LABS: Alanine Aminotransferase 18 IU/L (9-52); Albumin 3.4 g/dL (3.5-5.0); Albumin Globulin Ratio 1.4 (1.0-2.8); Alkaline Phosphatase 60 U/L (38-126); Aspartate Aminotransferase 19 IU/L (14-36); Bilirubin Total 1.9 mg/dL (0.2-1.3); Blood Urea Nitrogen 14 mg/dL (7-17); Calcium 8.7 mg/dL (8.4-10.2); Carbon Dioxide 30 mmol/L (22-32); Chloride 97 mmol/L (98-107); Estimated Glomerular Filt Rate > 60.0 mL/min (>60); Globulin 2.4 g/dL (1.7-4.1); Glucose 130 mg/dL (80-110); HEMOLYSIS < 15 (0-50); Potassium 3.6 mmol/L (3.4-5.1); Sodium 135 mmol/L (137-145); Total Protein 5.8 g/dL (6.3-8.2)
[2019-07-03 05:58] LABS: Add Manual Diff / Slide Review YES
[2019-07-03 06:27] LABS: B Type Natriuretic Peptide < 100 (<100)
[2019-07-03 06:31] LABS: Hypersegmented Neutrophils 2+; Neutrophils Absolute Manual 6603 /uL (3000-5900); Total Cells Counted 100
[2019-07-03 07:47] VITALS: O2SAT 96
--- NOTE | 2019-07-03 07:58 | P.DS_ITS ---
History of Present Illness History of Present Illness Date Patient Seen: 07/03/19 Time Patient Seen: 09:32 Chief complaint: AML Narrative: The patient is a 79-year-old female diagnosed with AML in 2016. She has a history of AML and has been receiving her treatment in [place]. She relapsed in March 2018 and was treated on a clinical trial but failed to respond. She had 1 additional cycle of off trial therapy and did have a response. Her most recent bone marrow biopsy in May showed morphologic remission. Her FISH however was positive at 0.2%. She has been on maintenance therapy with azacitidine since then. She has recently developed increased pain in her hip. MRI suggested bone marrow infiltration. Last week, she was noted to have a rising white count to 22,000. A bone marrow biopsy was performed. The patient was seen by Jorge and is admitted to the hospital at this time for consolidation chemotherapy. As the patient has a high risk for tumor lysis syndrome I was asked to assist with management of her care while hospitalized during her chemotherapeutic treatment. The patient reports an 8 lb weight loss over the past month which she att ributes to ?stress. She denies any shortness of breath chest pain nausea or vomiting. She has no headache blurred vision or double vision. She does report some chronic left lower quadrant pain which is old. She has intermittent diarrhea. She has had no fever or chills. Further review of systems is negative Discharge Providers Provider Date of admission: 06/28/19 09:34 Discharge Date: 07/03/19 Primary care physician: Alexandre Orlando MD Discharge provider: Ryley Atkins MD Summary Hospital Course Hospital Course: 1. Acute myelogenous leukemia, recurrence 2. Consolidation chemotherapy 3. Pulmonary edema 4. Left lower lobe infiltrate 5. Allergic rhinitis 6. Pancytopenia, status post 2 units of packed RBCs and [address] 7. Acute respiratory failure secondary to pulmonary edema from IV hydration and blood transfusion Hospital Course: Patient was admitted to the hospital for consolidation chemotherapy for her acute myelogenous leukemia. There was concern for development of tumor lysis syndrome. The patient was given IV hydration. In addition she received 2 units of packed RBCs. She became acutely hypoxic. The patient required IV Lasix. Her IV fluids were discontinued. She also was found to have a left lower lobe infiltrate. She was placed on IV antibiotics. The patient made significant improvement after a couple doses of Lasix. She was taken off oxygen. Breathing improved. She overall felt better. The patient had no evidence to suggest tumor lysis syndrome. She was deemed appropriate for discharge and arrangements were made for her to discharge home. Patient underwent a cardiac echo. Her LV function was within normal limits. Subsequent to yesterday's discharge plans her platelets continued to drop and so she was transfused and this morning her platelets are up to 68 so she will be discharged home with a hemoglobin of 8.2 and plans to follow up with Oncology in 1 day. Status at Discharge Cognitive/behavioral status at discharge: oriented Functional status at discharge: independent ambulation Overall status at discharge: patient is back to baseline Time Spent with Patient Time spent: Less than 30 minutes Exam Vital Signs (past 8 hours): - 07/03/19 00:53 07/03/19 05:35 07/03/19 07:47 Temperature 98.3 F Pulse Rate 100 H Respiratory Rate 19 Blood Pressure 125/64 Pulse Oximetry 93 97 96 Oxygen Delivery Method Nasal Cannula Oxygen Flow Rate 1 Narrative Exam Narrative: She is alert and oriented x3 in no apparent distress. She complains of abdominal cramping. This is apparently chronic. Heart is tachycardic, regular rhythm without murmur. Lungs clear to auscu ltation bilaterally. Abdomen is soft, bowel sounds positive, nontender, no organomegaly. Extremities have no ankle edema. Objective Labs Result Diagrams: 07/03/19 05:30 07/03/19 05:30 Labs: Laboratory Results - last 24 hr 06/28/19 07/02/19 07/02/19 14:20 11:35 11:35 WBC 7.6 RBC 2.91 L Hgb 9.2 L Hct 26.2 L MCV 90.1 MCH 31.7 MCHC 35.2 RDW 16.5 H Plt Count 16 L* Neut % (Auto) 93.8 H Lymph % (Auto) 4.9 L Ramsey % (Auto) 0.4 L Eos % (Auto) 0.7 L Baso % (Auto) 0.2 Neut # (Auto) 7200 H Lymph # (Auto) 400 L Ramsey # (Auto) 0 Eos # (Auto) 100 Baso # (Auto) 0 Total Counted Seg Neutrophils % Band Neutrophils % Lymphocytes % (Manual) Monocytes % (Manual) Eosinophils % (Manual) Neutrophils # (Manual) Hypersegmented Neuts Platelet Estimate Decreased on smear RBC Morphology Normal morphology Sodium 132 L Potassium 3.5 Chloride 92 L Carbon Dioxide 34 H BUN 21 H Creatinine 0.90 Estimated GFR > 60.0 BUN/Creatinine Ratio 23.3 H Glucose 114 H Uric Acid 0.7 L Calcium 8.5 Phosphorus 4.0 Magnesium Total Bilirubin 2.9 H AST 27 ALT 23 Alkaline Phosphatase 73 B-Natriuretic Peptide Total Protein 6.3 Albumin 3.7 Globulin 2.6 Albumin/Globulin Ratio 1.4 Blood Type O Positive Antibody Screen Negative Crossmatch See Detail 07/02/19 07/03/19 07/03/19 11:35 05:30 05:30 WBC 7.1 RBC 2.61 L Hgb 8.2 L Hct 24.0 L MCV 91.9 MCH 31.3 MCHC 34.1 RDW 16.5 H Plt Count 68 L Neut % (Auto) Not Reportable Lymph % (Auto) Not Reportable Ramsey % (Auto) Not Reportable Eos % (Auto) Not Reportable Baso % (Auto) Not Reportable Neut # (Auto) Lymph # (Auto) Not Reportable Ramsey # (Auto) Not Reportable Eos # (Auto) Baso # (Auto) Not Reportable Total Counted 100 Seg Neutrophils % 91.0 H Band Neutrophils % 2.0 L Lymphocytes % (Manual) 3.0 L Monocytes % (Manual) 3.0 Eosinophils % (Manual) 1.0 L Neutrophils # (Manual) 6603 H Hypersegmented Neuts 2+ Platelet Estimate RBC Morphology See below Sodium 135 L Potassium 3.6 Chloride 97 L Carbon Dioxide 30 BUN 14 Creatinine 0.70 Estimated GFR > 60.0 BUN/Creatinine Ratio 20.0 Glucose 130 H Uric Acid Calcium 8.7 Phosphorus Magnesium 2.0 Total Bilirubin 1.9 H AST 19 ALT 18 Alkaline Phosphatase 60 B-Natriuretic Peptide Total Protein 5.8 L Albumin 3.4 L Globulin 2.4 Albumin/Globulin Ratio 1.4 Blood Type Antibody Screen Crossmatch 07/03/19 05:30 WBC RBC Hgb Hct MCV MCH MCHC RDW Plt Count Neut % (Auto) Lymph % (Auto) Ramsey % (Auto) Eos % (Auto) Baso % (Auto) Neut # (Auto) Lymph # (Auto) Ramsey # (Auto) Eos # (Auto) Baso # (Auto) Total Counted Seg Neutrophils % Band Neutrophils % Lymphocytes % (Manual) Monocytes % (Manual) Eosinophils % (Manual) Neutrophils # (Manual) Hypersegmented Neuts Platelet Estimate RBC Morphology Sodium Potassium Chloride Carbon Dioxide BUN Creatinine Estimated GFR BUN/Creatinine Ratio Glucose Uric Acid Calcium Phosphorus Magnesium Total Bilirubin AST ALT Alkaline Phosphatase B-Natriuretic Peptide < 100 Total Protein Albumin Globulin Albumin/Globulin Ratio Blood Type Antibody Screen Crossmatch Discharge Plan Discharge Plan Patient Disposition: Home Discharge comment: Followup with oncology here in 2 days. Discharge Med Rec/Prescriptions Prescriptions: New levofloxacin 750 mg tablet 750 mg PO DAILY Qty: 5 RF: 0 Continued lorazepam 1 mg Tablet 1 mg PO BID-TID PRN (Reason: Nausea) Qty: 60 RF: 1 ondansetron 8 mg Tablet,Disintegrating 8 mg PO Q8H PRN (Reason: Nausea) 30 Days Qty: 30 RF: 6 allopurinol 300 mg Tablet 300 mg PO DAILY 30 Days Qty: 30 RF: 0 hydroxyurea 500 mg capsule 1,000 mg PO DAILY RF: 0 oxycodone 5 mg tablet 5 mg PO Q4-6H PRN (Reason: pain) RF: 0 fexofenadine [Irma Allergy] 180 mg Tablet 180 mg PO DAILY RF: 0 loperamide [Imodium A-D] 2 mg Capsule 2 mg PO Q2-4H PRN (Reason: Diarrhea) RF: 0 Follow up/Referrals: Alexandre Orlando MD [Primary Care Provider] - Provider Discharge Instructions Diet: Diet as Tolerated Activity: as tolerated Visit Report/Discharge Packet Instructions: Acute Myelogenous Leukemia -- Adult, Levofloxacin Discharge Data Primary Care Provider: Alexandre Orlando Discharges patient from system. Discharge Date/Time: 07/03/19 11:24 Quality VTE Deep Vein Thrombosis/Pulmonary Embolism Present on Admission: No
[2019-07-03] MEDS: LORazepam 0.5 MG TABLET PO (08:01)
[2019-07-03] MEDS: OXYCODONE IR 5 MG TABLET PO (08:04)
[2019-07-03 08:15] VITALS: BP 117/65; PULSE 103; RESP 16; TEMP 36.8; O2SAT 96
[2019-07-03] MEDS: ALLOPURINOL 300 MG TABLET PO (09:26)
[2019-07-03] MEDS: FUROSEMIDE 20 MG/2 ML VIAL IV (09:28)
[2019-07-03] MEDS: LORATADINE 10 MG TABLET PO (09:28)
[2019-07-03] MEDS: SODIUM CHLORIDE 0.9% FLUSH 10 ML IV (09:29)
--- NOTE | 2019-07-03 10:14 | PC.NURSE ---
Day shift: Ambulated with Pt in room w/ O2 monitor and Spo2 stayed above 91%. HR was 122. Dr Atkins aware. Pt to d/c home today. Pt has CA meds from pharmacy at this time.
--- NOTE | 2019-07-03 10:21 | CM.DPC ---
DCP: continued: Dr. Atkins noted in Team Rounds that pt was ready now for d/c to home and will followup at oncology clinic. EMR reviewed and see that rack room worker Nohemy did confirm that this appt is for Wednesday 07/04. Checked in with pt and her . She is up, dressed, on phone. confirms this appt for tomorrow and says we expect to go every day for the next four days. No concerns re the d/c for today were expressed.
[2019-07-03 10:50] VITALS: O2SAT 97
--- NOTE | 2019-07-03 11:21 | PC.NURSE ---
Day shift: Pt left unit at approx 1110 in WC w/ this entry writer to private car driven by spouse. Paperwork signed and all question answered. Pt has all personal belonging. MD scrips sent to mail paharmacy and Pt is aware and will call to get scrips faster. PICC line remains in place. Suggested Pts monitor SpO2 while at home and to keep MD informed.
== END 2019-07-03 11:24 | disposition home or self-care (01) | DRG 837 ==
PROVIDERS: Family Medicine; Internal Medicine Hematology & Oncology; Nurse Practitioner Adult Health; Nurse Practitioner Family; Admitting Provider Internal Medicine; Family Provider Family Medicine; PCP Family Medicine; Visit Provider Internal Medicine
DX: Z51.11 Encounter for antineoplastic chemotherapy (principal); J81.0 Acute pulmonary edema; C92.00 Acute myeloblastic leukemia, not having achieved remission; J18.9 Pneumonia, unspecified organism; J96.01 Acute respiratory failure with hypoxia; D61.810 Antineoplastic chemotherapy induced pancytopenia; R19.7 Diarrhea, unspecified; D64.81 Anemia due to antineoplastic chemotherapy; T45.1X5A Adverse effect of antineoplastic and immunosuppressive drugs, initial encounter; D69.59 Other secondary thrombocytopenia
CPT/HCPCS: 36430; 36592; 71045; 80048; 80053; 82962; 83615; 83735; 83880; 84100; 84550; 85025; 86850; 86900; 86901; 86945; 93005; 93306; 94760; 99231; P9016; P9040; J1100; J1642; J1940; J1956; J2405; J2783; J3480; J9025; P9035

== ENCOUNTER 2019-07-13 20:28 | Emergency (ER) | payer MEDICARE, OTHER, SELFPAY ==
[2019-07-13 20:41] VITALS: BP 126/74; PULSE 108; RESP 20; TEMP 37.3; O2SAT 97
--- NOTE | 2019-07-13 20:44 | DI.RAD.S_ITS ---
PROCEDURE: XR CHEST 1V INDICATIONS: suspected sepsis TECHNIQUE: One view of the chest was acquired. COMPARISON: [facility], CR, CHEST 2 VIEW, 02/08/2017, 18:34. [facility], CR, XR CHEST 1V, 05/12/2018, 16:56. [facility], CR, XR CHEST 1V, 06/30/2019, 12:31. FINDINGS: Surgical changes and devices: There is a right-sided PICC line seen, the tip overlying the inferior aspect of the superior vena cava, near the cavoatrial junction. Cholecystectomy clips and upper abdominal clips are seen. Lungs and pleura: Lungs are clear. No pleural effusions or pneumothorax. Mediastinum: Mediastinal contours appear normal. Heart size is normal. Bones and chest wall: No suspicious bony lesions. Age-appropriate bony degenerative changes are seen. Overlying soft tissues appear unremarkable. IMPRESSION: The tip of the right-sided PICC line is seen overlying the inferior aspect of the superior vena cava, near the cavoatrial junction. No focal infiltrates are seen. The previously seen pulmonary edema has resolved. If there is clinical concern for a developing pulmonary process, a short-term followup chest series (with PA and lateral views, performed in deep inspiration) is suggested for further evaluation. Dictated by: Aleksey Armstrong M.D. on 07/13/2019 at 21:15 Approved by: Aleksey Armstrong M.D. on 07/13/2019 at 21:17
[2019-07-13] MEDS: SODIUM CHLORIDE 0.9% 1,000 ML 1000 ML IV (20:45)
--- NOTE | 2019-07-13 21:05 | ED.FEVER ---
HPI - Fever General Chief Complaint: Fever Stated Complaint: leukemia patient , fever Time Seen by Provider: 07/13/19 20:49 Source: patient Mode of arrival: ambulatory Limitations: no limitations History of Present Illness HPI Narrative: Patient is a 79-year-old female with history of AML recent admission for pneumonia and pulmonary edema discharged on 06/28/2019. On Levaquin however the prescription was sent for a mail order so there were 3 days where she did not have an antibiotic. However she did receive a 6 full days of Levaquin after that. Today she was quite sleepy and tired. She had a temperature 100.0? at home. She was told by Oncology if it is anything above 99 she should come to the emergency department. She has a new chemotherapy medication is currently making her very nauseous she is not vomiting. She was able to eat a BLT sandwich today along with some cheese an apple sauce. She has no abdominal pain. She does have some hip pain with the cancer is has spread. She denies any chest pain or shortness of breath. She has no swelling in her legs. MD complaint: fever and malaise Related Data Home Medications Medication Instructions Recorded Confirmed hydroxyurea 1,000 mg PO DAILY 06/20/19 06/28/19 oxycodone 5 mg PO Q4-6H PRN 06/22/19 06/28/19 fexofenadine [Irma Allergy] 180 mg PO DAILY 06/28/19 06/28/19 loperamide [Imodium A-D] 2 mg PO Q2-4H PRN 06/28/19 06/28/19 Previous Rx's Medication Instructions Recorded lorazepam 1 mg PO BID-TID PRN #60 tab 05/03/19 ondansetron 8 mg PO Q8H PRN 30 Days #30 tab 05/03/19 allopurinol 300 mg PO DAILY 30 Days #30 tab 06/08/19 levofloxacin 750 mg PO DAILY #5 tab 07/02/19 Allergies Allergy/AdvReac Type Severity Reaction Status Date / Time Penicillins Allergy Unknown Verified 06/22/19 12:30 fentanyl [FENTANYL] AdvReac Unknown NAUSEA Verified 06/22/19 12:30 meperidine AdvReac Unknown N/V Verified 06/22/19 12:30 morphine AdvReac Unknown N/V Verified 06/22/19 12:30 Review of Systems Review of Systems ROS Unobtainable: All systems reviewed & are unremarkable except as noted in HPI and below Constitutional Constitutional: Denies chills, Reports fatigue and Reports fever(s) Eyes Eyes: Denies change in vision, Denies eye discharge, Denies irritation and Denies loss of vision ENT Ears, Nose, Mouth, and Throat: Denies change in voice, Denies neck pain and Denies sore throat Cardiovascular Cardiovascular: Denies chest pain, Denies irregular heart rhythm, Denies lightheadedness, Denies palpitations, Denies dyspnea, Denies dyspnea on exertion and Denies orthopnea Respiratory Respiratory: Denies cough, Denies dyspnea, Denies dyspnea on exertion and Denies wheezing Gastrointestinal Gastrointestinal: Denies abdominal pain, Denies diarrhea, Reports nausea and Denies vomiting Genitourinary Genitourinary: Denies hematuria, Denies flank pain, Denies urinary incontinence and Denies urinary urgency Musculoskeletal Musculoskeletal: Denies neck pain Integumentary/Breasts Skin/Breast: Denies pruritus, Denies erythema, Denies rash and Denies wounds Neurologic Neurologic: Denies loss of vision Endocrine Endocrine: Reports fatigue and Denies palpitations Allergic/Immunologic Allergic/Immunologic: Denies wheezing PFSH Medical History 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) Bowel obstruction (Acute) Chronic back pain (Chronic) Chronic constipation (Chronic) Endometriosis (Chronic) History of kidney stones (Chronic) Leukemia (Chronic) Surgical History History of Charisma fundoplication (Resolved) No pertinent past surgical history (Acute) Family History (Updated 06/28/19 @ 16:59 by Mari Richard MD) Father Lung cancer Grandfather Stomach cancer Other Family history non-contributory Social History household members: spouse Smoking Status: Never smoker Family History Father Lung cancer Grandfather Stomach cancer Other Family history non-contributory Social History household members: spouse Smoking Status: Never smoker Exam Initial Vital Signs Initial Vital Signs: Vital Signs Temperature 99.2 F 07/13/19 20:41 Pulse Rate 108 H 07/13/19 20:41 Respiratory Rate 20 07/13/19 20:41 Blood Pressure 126/74 07/13/19 20:41 Pulse Oximetry 97 07/13/19 20:41 GENERAL: A thin frail elderly female and in no acute distress. HEENT: Head atraumatic,EOMI, pupils reactive, face symmetric, moist mucous membranes CARDIOVASCULAR: Regular rate and rhythm without murmurs, rubs or gallops. RESPIRATORY: Breath sounds equal bilaterally, no wheezes rales or rhonchi. ABDOMEN: Soft, nontender. Normoactive bowel sounds all 4 quadrants. No guarding or rebound. EXTREMITIES: Normal range of motion, no clubbing or edema. Neurovascularly intact NEUROLOGICAL: Alert and oriented x4.Normal gait and speech. Cranial nerves II through XII grossly intact. SKIN: Warm, dry, no laceration, no petechiae, no rashes or lesions. Course Orders Ordered: ED Orders 07/13/19 20:44 XR chest 1V Stat Blood Culture Stat RT Consult Eval and Treat Now 07/13/19 20:57 B Type Natriuretic Peptide Stat Complete Blood Count AUTO DIFF Stat Comprehensive Metabolic Panel Stat Lactate (Lactic Acid) Stat Lipase Stat Partial Thromboplastin Time Stat Procalcitonin Stat Prothrombin Time INR Stat Troponin & CK Cardiac Panel Stat 07/13/19 22:30 Urine Culture Stat Urine Microscopic Stat Discontinued Medications Sodium Chloride (Normal Saline 0.9%) 1,000 mls @ 1,000 mls/hr IV BOLUS ONE Stop: 07/13/19 21:43 Last Infusion: 07/13/19 21:15 Dose: 1,000 mls/hr [facility]ed by: [facility] Admin: 07/13/19 20:45 Dose: 1,000 mls/hr Documented by: [facility] Vital Signs Vital signs: Vital Signs - 8 hr 07/13/19 20:41 07/13/19 22:25 07/13/19 23:13 Temperature 99.2 F 97.1 F L Pulse Rate 108 H 99 H 96 H Respiratory Rate 20 97 H Blood Pressure 126/74 Blood Pressure [Left Arm] 91/50 L 96/44 L Pulse Oximetry 97 96 97 MDM - Fever Lab Data Attestation: I reviewed the patient's lab results. Result diagrams: 07/13/19 20:57 07/13/19 20:57 Labs: Lab Results 07/13/19 07/13/19 07/13/19 Range/Units 20:57 20:57 20:57 WBC 2.7 L (4.5-11.0) X10^3/uL RBC 3.10 L (4.0-5.2) X10^6/uL Hgb 9.7 L (12.0-16.0) g/dL Hct 28.0 L (36-46) % MCV 90.2 (80-100) fL MCH 31.2 (26-34) PG MCHC 34.6 (30-36) % RDW 15.0 H (11.6-14.8) % Plt Count 80 L (150-400) X10^3/uL Neut % (Auto) Not Reportable Lymph % (Auto) Not Reportable Power % (Auto) Not Reportable Eos % (Auto) Not Reportable Baso % (Auto) Not Reportable Lymph # (Auto) Not Reportable Power # (Auto) Not Reportable Baso # (Auto) Not Reportable Total Counted 100 Seg Neutrophils % 82.0 H (38-70) % Band Neutrophils % 6.0 (3-7) % Lymphocytes % (Manual) 12.0 L (25-45) % Monocytes % (Manual) 0.0 L (2-11) % Eosinophils % (Manual) 0.0 L (2-4) % Basophils % (Manual) 0.0 (0-1) % Metamyelocytes % 0.0 (-0) % Myelocytes % 0.0 (-0) % Promyelocytes % 0.0 (-0) % Blast Cells % 0.0 (-0) % Neutrophils # (Manual) 2376 L (9559-2369) /uL Platelet Estimate Decreased on smear RBC Morphology Not Reportable Poikilocytosis 1+ H Anisocytosis 1+ H Schistocytes 1+ H PT 12.2 (10.1-12.7) SECONDS INR 1.1 (0.9-1.3) APTT 33 (26.4-36.2) SECONDS Sodium (137-145) mmol/L Potassium (3.4-5.1) mmol/L Chloride (98-107) mmol/L Carbon Dioxide (22-32) mmol/L BUN (7-17) mg/dL Creatinine (0.52-1.04) mg/dL Estimated GFR (>60) mL/min BUN/Creatinine Ratio (6-22) Glucose (80-110) mg/dL Lactate (0.7-2.1) mmol/L Calcium (8.4-10.2) mg/dL Total Bilirubin (0.2-1.3) mg/dL AST (14-36) IU/L ALT (9-52) IU/L Alkaline Phosphatase (38-126) U/L Total Creatine Kinase (30-135) U/L CK-MB (CK-2) CK-MB (CK-2) Rel Index Troponin I (0.01-0.034) ng/mL B-Natriuretic Peptide (<100) Total Protein (6.3-8.2) g/dL Albumin (3.5-5.0) g/dL Globulin (1.7-4.1) g/dL Albumin/Globulin Ratio (1.0-2.8) Lipase (23-300) U/L Procalcitonin 2.07 H (<0.5) ng/mL Urine RBC (0-5/HPF) Urine WBC (0-5/HPF) Urine Bacteria (None) Ur Culture Indicated? 07/13/19 07/13/19 07/13/19 Range/Units 20:57 20:57 20:57 WBC (4.5-11.0) X10^3/uL RBC (4.0-5.2) X10^6/uL Hgb (12.0-16.0) g/dL Hct (36-46) % MCV (80-100) fL MCH (26-34) PG MCHC (30-36) % RDW (11.6-14.8) % Plt Count (150-400) X10^3/uL Neut % (Auto) Lymph % (Auto) Power % (Auto) Eos % (Auto) Baso % (Auto) Lymph # (Auto) Power # (Auto) Baso # (Auto) Total Counted Seg Neutrophils % (38-70) % Band Neutrophils % (3-7) % Lymphocytes % (Manual) (25-45) % Monocytes % (Manual) (2-11) % Eosinophils % (Manual) (2-4) % Basophils % (Manual) (0-1) % Metamyelocytes % (-0) % Myelocytes % (-0) % Promyelocytes % (-0) % Blast Cells % (-0) % Neutrophils # (Manual) (8998-8188) /uL Platelet Estimate RBC Morphology Poikilocytosis Anisocytosis Schistocytes PT (10.1-12.7) SECONDS INR (0.9-1.3) APTT (26.4-36.2) SECONDS Sodium 136 L (137-145) mmol/L Potassium 3.2 L (3.4-5.1) mmol/L Chloride 99 (98-107) mmol/L Carbon Dioxide 30 (22-32) mmol/L BUN 11 (7-17) mg/dL Creatinine 0.60 (0.52-1.04) mg/dL Estimated GFR > 60.0 (>60) mL/min BUN/Creatinine Ratio 18.3 (6-22) Glucose 109 (80-110) mg/dL Lactate 0.9 (0.7-2.1) mmol/L Calcium 8.3 L (8.4-10.2) mg/dL Total Bilirubin 2.1 H (0.2-1.3) mg/dL AST 17 (14-36) IU/L ALT 14 (9-52) IU/L Alkaline Phosphatase 105 (38-126) U/L Total Creatine Kinase 29 L (30-135) U/L CK-MB (CK-2) TNP CK-MB (CK-2) Rel Index TNP Troponin I < 0.012 (0.01-0.034) ng/mL B-Natriuretic Peptide (<100) Total Protein 5.5 L (6.3-8.2) g/dL Albumin 3.3 L (3.5-5.0) g/dL Globulin 2.2 (1.7-4.1) g/dL Albumin/Globulin Ratio 1.5 (1.0-2.8) Lipase 209 (23-300) U/L Procalcitonin (<0.5) ng/mL Urine RBC (0-5/HPF) Urine WBC (0-5/HPF) Urine Bacteria (None) Ur Culture Indicated? 07/13/19 07/13/19 Range/Units 20:57 22:30 WBC (4.5-11.0) X10^3/uL RBC (4.0-5.2) X10^6/uL Hgb (12.0-16.0) g/dL Hct (36-46) % MCV (80-100) fL MCH (26-34) PG MCHC (30-36) % RDW (11.6-14.8) % Plt Count (150-400) X10^3/uL Neut % (Auto) Lymph % (Auto) Power % (Auto) Eos % (Auto) Baso % (Auto) Lymph # (Auto) Power # (Auto) Baso # (Auto) Total Counted Seg Neutrophils % (38-70) % Band Neutrophils % (3-7) % Lymphocytes % (Manual) (25-45) % Monocytes % (Manual) (2-11) % Eosinophils % (Manual) (2-4) % Basophils % (Manual) (0-1) % Metamyelocytes % (-0) % Myelocytes % (-0) % Promyelocytes % (-0) % Blast Cells % (-0) % Neutrophils # (Manual) (6851-0655) /uL Platelet Estimate RBC Morphology Poikilocytosis Anisocytosis Schistocytes PT (10.1-12.7) SECONDS INR (0.9-1.3) APTT (26.4-36.2) SECONDS Sodium (137-145) mmol/L Potassium (3.4-5.1) mmol/L Chloride (98-107) mmol/L Carbon Dioxide (22-32) mmol/L BUN (7-17) mg/dL Creatinine (0.52-1.04) mg/dL Estimated GFR (>60) mL/min BUN/Creatinine Ratio (6-22) Glucose (80-110) mg/dL Lactate (0.7-2.1) mmol/L Calcium (8.4-10.2) mg/dL Total Bilirubin (0.2-1.3) mg/dL AST (14-36) IU/L ALT (9-52) IU/L Alkaline Phosphatase (38-126) U/L Total Creatine Kinase (30-135) U/L CK-MB (CK-2) CK-MB (CK-2) Rel Index Troponin I (0.01-0.034) ng/mL B-Natriuretic Peptide 131 H (<100) Total Protein (6.3-8.2) g/dL Albumin (3.5-5.0) g/dL Globulin (1.7-4.1) g/dL Albumin/Globulin Ratio (1.0-2.8) Lipase (23-300) U/L Procalcitonin (<0.5) ng/mL Urine RBC 0-1/hpf (0-5/HPF) Urine WBC 0-1/hpf (0-5/HPF) Urine Bacteria Few (2-10) H (None) Ur Culture Indicated? Specimen cultured Urine Dip Bedside Urine Glucose Negative Bedside Urine Bilirubin - Negative Bedside Urine Ketone - Negative Urine Specific [place] 1.010 Bedside Urine Occult Blood +/- Bedside Urine pH 6.5 Bedside Urine Protein - Negative Bedside Urine Urobilinogen +/- 1mg Bedside Urine Nitrite - Negative Bedside Urine Leukocytes +/- 15 Esterase Imaging Data Chest x-ray: Radiologist's impression: PROCEDURE: XR CHEST 1V INDICATIONS: suspected sepsis TECHNIQUE: One view of the chest was acquired. COMPARISON: [facility], CR, CHEST 2 VIEW, 02/08/2017, 18:34. [facility], CR, XR CHEST 1V, 05/12/2018, 16:56. [facility], CR, XR CHEST 1V, 06/30/2019, 12:31. FINDINGS: Surgical changes and devices: There is a right-sided PICC line seen, the tip overlying the inferior aspect of the superior vena cava, near the cavoatrial junction. Cholecystectomy clips and upper abdominal clips are seen. Lungs and pleura: Lungs are clear. No pleural effusions or pneumothorax. Mediastinum: Mediastinal contours appear normal. Heart size is normal. Bones and chest wall: No suspicious bony lesions. Age-appropriate bony degenerative changes are seen. Overlying soft tissues appear unremarkable. IMPRESSION: The tip of the right-sided PICC line is seen overlying the inferior aspect of the superior vena cava, near the cavoatrial junction. No focal infiltrates are seen. The previously seen pulmonary edema has resolved. If there is clinical concern for a developing pulmonary process, a short-term followup chest series (with PA and lateral views, performed in deep inspiration) is suggested for further evaluation. Dictated by: Aleksey Armstrong M.D. on 07/13/2019 at 21:15 Approved by: Aleksey Armstrong M.D. on 07/13/2019 at 21:17 ECG Data Attestation: I personally reviewed and interpreted this ECG as follows: Prior ECG tracings: available for review Interpretation: Normal sinus rhythm rate [address] changes no T-wave inversions p.r. interval 121 QRS 76 QTC 440 no changes from prior MDM Narrative Medical decision making narrative: The patient is afebrile in the emergency department. Her blood work actually appears improved from yesterday she had a platelet transfusion. She has no significant shortness of breath or breathing difficulty year x-ray also has improved. She has not neutropenic. At this time she appears well recommend she follow up with her Oncology. Blood pressure is noted to be a little low she had a 500 cc bolus. She denies any dizziness lightheadedness. She says that she did take pain medication and she is very relaxed. But she overall feels like she can go home. Discharge Plan Departure Patient Disposition: Home Clinical Impression: Feared complaint without diagnosis Discharge Date/Time: 07/13/19 23:09 Instructions: DI for Fever (Symptom) -- Adult Activity Restrictions/Additional Instructions: *You have been diagnosed with no infection found *What to do: Increase fluid intake continue to monitor temperature *Continue to take medications as directed *Follow up with your primary care provider in 2-3 days *Return to ER if you should have increasing weakness, fever more than 100.4, increasing shortness of breath or any new, worsening or concerning symptoms Prescriptions: No Action lorazepam 1 mg Tablet 1 mg PO BID-TID PRN (Reason: Nausea) Qty: 60 RF: 1 ondansetron 8 mg Tablet,Disintegrating 8 mg PO Q8H PRN (Reason: Nausea) 30 Days Qty: 30 RF: 6 allopurinol 300 mg Tablet 300 mg PO DAILY 30 Days Qty: 30 RF: 0 hydroxyurea 500 mg capsule 1,000 mg PO DAILY RF: 0 oxycodone 5 mg tablet 5 mg PO Q4-6H PRN (Reason: pain) RF: 0 fexofenadine [Irma Allergy] 180 mg Tablet 180 mg PO DAILY RF: 0 loperamide [Imodium A-D] 2 mg Capsule 2 mg PO Q2-4H PRN (Reason: Diarrhea) RF: 0 levofloxacin 750 mg tablet 750 mg PO DAILY Qty: 5 RF: 0 Referrals: Alexandre Orlando MD [Primary Care Provider] - Tay Patel MD [Physician] -
[2019-07-13 21:12] LABS: Hemoglobin 9.7 g/dL (12.0-16.0); Mean Corpuscular HGB Conc 34.6 % (30-36); Mean Corpuscular Hemoglobin 31.2 PG (26-34); Mean Corpuscular Volume 90.2 fL (80-100); Platelet Count 80 X10^3/uL (150-400); White Blood Cell Count 2.7 X10^3/uL (4.5-11.0)
[2019-07-13 21:13] LABS: Add Manual Diff / Slide Review YES
--- NOTE | 2019-07-13 21:16 | PC.NURSE ---
Lab in to draw second set of blood cultures, pt refused. Dr catherine.
[2019-07-13 21:17] LABS: INR 1.1 (0.9-1.3); Prothrombin Time 12.2 SECONDS (10.1-12.7)
[2019-07-13 21:20] LABS: PTT Partial Thromboplastin Tim 33 SECONDS (26.4-36.2)
[2019-07-13 21:21] LABS: Lactate (Lactic Acid) 0.9 mmol/L (0.7-2.1)
[2019-07-13 21:23] LABS: Creatine Kinase 29 U/L (30-135)
[2019-07-13 21:27] LABS: Alanine Aminotransferase 14 IU/L (9-52); Albumin 3.3 g/dL (3.5-5.0); Albumin Globulin Ratio 1.5 (1.0-2.8); Alkaline Phosphatase 105 U/L (38-126); Aspartate Aminotransferase 17 IU/L (14-36); BUN Creatinine Ratio 18.3 (6-22); Bilirubin Total 2.1 mg/dL (0.2-1.3); Blood Urea Nitrogen 11 mg/dL (7-17); Calcium 8.3 mg/dL (8.4-10.2); Carbon Dioxide 30 mmol/L (22-32); Chloride 99 mmol/L (98-107); Estimated Glomerular Filt Rate > 60.0 mL/min (>60); Globulin 2.2 g/dL (1.7-4.1); Glucose 109 mg/dL (80-110); HEMOLYSIS 28 (0-50); Lipase 209 U/L (23-300); Potassium 3.2 mmol/L (3.4-5.1); Sodium 136 mmol/L (137-145); Total Protein 5.5 g/dL (6.3-8.2)
[2019-07-13 21:34] LABS: B Type Natriuretic Peptide 131 (<100)
[2019-07-13 21:36] LABS: Troponin I < 0.012 ng/mL (0.01-0.034)
[2019-07-13 21:44] LABS: Total Cells Counted 100
[2019-07-13 21:45] LABS: Neutrophils Absolute Manual 2376 /uL (3000-5900)
[2019-07-13 21:46] LABS: Anisocytosis 1+; Platelet Estimate Decreased on smear; Schistocytes 1+
[2019-07-13 21:47] LABS: Poikilocytosis 1+
--- NOTE | 2019-07-13 22:00 | PC.NURSE ---
PT states recent pneumonia and pulmonary edema with hospital admission, finished her levaquin and still febrile today was told to come in by oncology if Temperature was over 99. Pt is taking a new chemotherapy medication that is making her very nauseous she is not vomiting. She was able to eat a BLT sandwich today along with some cheese an apple sauce. Denies any chest pain or shortness of breath.
[2019-07-13 22:05] LABS: Procalcitonin 2.07 ng/mL (<0.5)
[2019-07-13 22:25] VITALS: BP 91/50; PULSE 99; RESP 97; TEMP 36.2; O2SAT 96
[2019-07-13 23:13] VITALS: BP 96/44; PULSE 96; O2SAT 97
[2019-07-13 23:13] LABS: Bacteria Urine Few (2-10); Culture Indicated Urine Specimen Cultured; RBC Urine 0-1/HPF (0-5/HPF); WBC Urine 0-1/HPF (0-5/HPF)
== END 2019-07-13 23:09 | disposition home or self-care (01) ==
PROVIDERS: Emergency Provider Emergency Medicine; Family Provider Family Medicine; PCP Family Medicine
DX: C95.10 Chronic leukemia of unspecified cell type not having achieved remission (principal); R50.9 Fever, unspecified; Z71.1 Person with feared health complaint in whom no diagnosis is made
CPT/HCPCS: 36591; 71045; 80053; 81003; 81015; 82550; 83605; 83690; 83880; 84145; 84484; 85025; 85610; 85730; 87040; 87086; 93005; 99283; 99285

== ENCOUNTER → 2019-08-02 10:00 | Oncology outpatient (ONC) | payer MEDICARE, OTHER, SELFPAY ==
[2018-04-20 12:56] LABS: Hematocrit 30.9 % (36-46); Hemoglobin 10.5 g/dL (12.0-16.0); Mean Corpuscular HGB Conc 33.8 % (30-36); Mean Corpuscular Hemoglobin 29.5 PG (26-34); Mean Corpuscular Volume 87.2 fL (80-100); Red Blood Cell Count 3.55 X10^6/uL (4.0-5.2); Red Cell Distribution Width 16.5 % (11.6-14.8)
[2018-04-20 13:00] LABS: Platelet Count 14 X10^3/uL (150-400)
[2018-04-20 13:11] LABS: Add Manual Diff / Slide Review NO; Alanine Aminotransferase 23 IU/L (9-52); Albumin 4.2 g/dL (3.5-5.0); Albumin Globulin Ratio 1.6 (1.0-2.8); Alkaline Phosphatase 89 U/L (38-126); Aspartate Aminotransferase 16 IU/L (14-36); BUN Creatinine Ratio 12.9 (6-22); Bilirubin Total 0.8 mg/dL (0.2-1.3); Blood Urea Nitrogen 9 mg/dL (7-17); Calcium 9.4 mg/dL (8.4-10.2); Carbon Dioxide 27 mmol/L (22-32); Chloride 100 mmol/L (98-107); Estimated Glomerular Filt Rate > 60.0 mL/min (>60); Globulin 2.7 g/dL (1.7-4.1); Glucose 106 mg/dL (80-110); HEMOLYSIS < 15 (0-50); Potassium 3.5 mmol/L (3.4-5.1); Sodium 137 mmol/L (137-145); Total Protein 6.9 g/dL (6.3-8.2)
[2018-04-20 13:13] LABS: Platelet Estimate Decreased on smear
--- NOTE | 2018-04-20 13:28 | PC.NURSE ---
1300: critical value of wbc 0.4 and plt 14 reported by El in lab, info given to triage NR.JJ.
[2018-04-20 13:50] LABS: White Blood Cell Count 0.4 X10^3/uL (4.5-11.0)
--- NOTE | 2018-04-20 14:02 | PC.NURSE ---
Addendum entered by Kamini Pack R.N. 04/20/18 14:03: Fax confirmation received. Original Note: labs noted and faxed to Nick Staton Rn for Dr Steward at fax number provided. Called pt to let her know results. Will check labs again on .
--- NOTE | 2018-04-27 12:20 | PC.NURSE ---
spoke to patient's spouse, Greg. He stated they were at [facility] yesterday and are going back (04/29/18) for one week of chemo. They'll call to schedule labs or transfusion if necessary in the future depending on [facility]'s requests
[2018-05-07 09:36] LABS: Hematocrit 33.2 % (36-46); Hemoglobin 11.3 g/dL (12.0-16.0); Mean Corpuscular Hemoglobin 29.7 PG (26-34); Mean Corpuscular Volume 87.3 fL (80-100); Red Blood Cell Count 3.81 X10^6/uL (4.0-5.2); Red Cell Distribution Width 15.9 % (11.6-14.8)
[2018-05-07 09:38] LABS: Add Manual Diff / Slide Review NO; Alanine Aminotransferase 37 IU/L (9-52); Albumin 3.7 g/dL (3.5-5.0); Albumin Globulin Ratio 1.7 (1.0-2.8); Alkaline Phosphatase 65 U/L (38-126); Aspartate Aminotransferase 15 IU/L (14-36); BUN Creatinine Ratio 28.6 (6-22); Bilirubin Total 1.3 mg/dL (0.2-1.3); Blood Urea Nitrogen 20 mg/dL (7-17); Calcium 8.8 mg/dL (8.4-10.2); Carbon Dioxide 26 mmol/L (22-32); Chloride 96 mmol/L (98-107); Estimated Glomerular Filt Rate > 60.0 mL/min (>60); Globulin 2.2 g/dL (1.7-4.1); Glucose 159 mg/dL (80-110); HEMOLYSIS < 15 (0-50); Platelet Count 11 X10^3/uL (150-400); Potassium 2.9 mmol/L (3.4-5.1); Sodium 135 mmol/L (137-145); Total Protein 5.9 g/dL (6.3-8.2)
[2018-05-07 09:53] VITALS: BP 128/66; PULSE 66; RESP 20; TEMP 36.2; O2SAT 100
[2018-05-07 10:12] LABS: Platelet Estimate Decreased on smear
[2018-05-07] MEDS: diphenhydrAMINE 25 MG TABLET PO (17:27)
[2018-05-07 18:34] VITALS: BP 128/66; PULSE 66; RESP 20; TEMP 36.2
[2018-05-07] MEDS: SODIUM CHLORIDE 0.9% 250 ML 21 ML IV (18:38)
[2018-05-07 18:50] VITALS: BP 132/62; PULSE 54; RESP 20; TEMP 36.8
[2018-05-07 20:31] VITALS: BP 131/63; PULSE 61; RESP 20; TEMP 36.5
--- NOTE | 2018-05-07 20:46 | PC.NURSE ---
patient vital signs stable all throughout treatment and administration of platelets. patient denied symptoms of fever (and temp was wnl), itchiness, and denied rash/irritation. patient tolerated administration of platelets well and has just now left facility with family and all belongings. patient was ambulatory and oriented upon d/c from facility.
[2018-05-10 10:59] LABS: Hematocrit 32.4 % (36-46); Mean Corpuscular Hemoglobin 29.4 PG (26-34); Mean Corpuscular Volume 86.5 fL (80-100); Red Blood Cell Count 3.75 X10^6/uL (4.0-5.2); Red Cell Distribution Width 16.6 % (11.6-14.8)
[2018-05-10 11:02] LABS: Add Manual Diff / Slide Review NO; Platelet Count 30 X10^3/uL (150-400)
[2018-05-10 11:29] LABS: RBC Morphology Normal Morphology
[2018-05-10 11:36] VITALS: BP 111/67; PULSE 79; RESP 18; TEMP 36.7; O2SAT 99
--- NOTE | 2018-05-10 11:39 | PC.NURSE ---
Pt here for labs.WBC 0.0 other labs stable no tranfusion required.Pt feeling poorly having intermittent dry heaves this am which apparently occurs intermittently. VSS afebrile assessment negative except for dry mouth and gassy pain that has been ongoing since first chemo takes Gas -X prn, having nl BM's.Call placed to [facility] to inquire re; potential fluid order. Pt decided to go home will try to drink some fluids and take a nap which often helps.To RTC on Thu for labs .Donna at [facility] covering for Yohan advised-pt to [facility] on for visit.
[2018-05-12 12:23] LABS: Hematocrit 31.8 % (36-46); Hemoglobin 10.8 g/dL (12.0-16.0); Mean Corpuscular Hemoglobin 29.2 PG (26-34); Mean Corpuscular Volume 85.9 fL (80-100); Red Cell Distribution Width 16.8 % (11.6-14.8)
[2018-05-12 12:25] LABS: Add Manual Diff / Slide Review NO; Platelet Count 9 X10^3/uL (150-400)
[2018-05-12 12:31] LABS: BUN Creatinine Ratio 21.4 (6-22); Blood Urea Nitrogen 15 mg/dL (7-17); Calcium 8.6 mg/dL (8.4-10.2); Carbon Dioxide 29 mmol/L (22-32); Chloride 95 mmol/L (98-107); Estimated Glomerular Filt Rate > 60.0 mL/min (>60); Glucose 165 mg/dL (80-110); HEMOLYSIS < 15 (0-50); Magnesium 2.3 mg/dL (1.6-2.3); Potassium 3.4 mmol/L (3.4-5.1); Sodium 135 mmol/L (137-145)
[2018-05-12 12:40] LABS: Anisocytosis 2+; Poikilocytosis 1+
[2018-05-12] MEDS: SODIUM CHLORIDE 0.9% 1,000 ML 1000 ML IV (12:46)
[2018-05-12 12:53] VITALS: BP 107/54; PULSE 78; RESP 14; TEMP 36.8; O2SAT 97
[2018-05-12] MEDS: MAG HYDROX/ALUM/SIMETH 30 ML UDC PO (13:09)
[2018-05-12 13:59] VITALS: BP 107/54; PULSE 78; RESP 14; TEMP 36.8
[2018-05-12 14:14] VITALS: BP 105/48; PULSE 78; RESP 14; TEMP 37.6
[2018-05-12] MEDS: SODIUM CHLORIDE 0.9% 250 ML 21 ML IV (14:26)
[2018-05-12] MEDS: diphenhydrAMINE 25 MG TABLET PO (14:27)
[2018-05-12 15:21] VITALS: BP 125/58; PULSE 79; RESP 14; TEMP 38.3
--- NOTE | 2018-05-12 15:56 | PC.NURSE ---
Per ARNOLD Woods pt spiked temp of 101.9. Pt taken to ER. Report given by Peggy BARRETT.
--- NOTE | 2018-05-12 16:05 | PC.NURSE ---
pt here today for platelet transfusion CV 9. During lab draw, pt was shakey,weak, with nausea and reports of no appetite. Labs associated with transfusion can be reviewed under TAR, but it should be noted her temp was as follows 98.7, fifteen minutes later it 99.0 then 100.9 I asked the pt to wait, removed her extra covering and a recheck which occurred at approx 1600 showed a temp of 101.0. It was then determined by myself and the block sawyer Joanna that the pt should be sent to the ED for a work up of a possible Neutropenic Fever that could be related to her WBC's of 0.[address] Puckett in the ED was given information for physician contacts at [facility] as well as a full report upon transferring pt to ED.
--- NOTE | 2018-05-12 16:11 | PC.NURSE ---
Called Nick Staton Rn at Dr Steward office to let her know about pt's fever and that she was sent to ER. Message left on her voicemail. Peggy BARRETT gave contact numbers including Dr Steward's pager to ER staff.
--- NOTE | 2018-05-19 14:54 | PC.NURSE ---
Triage note: called Arnulfo So at [facility] yesterday to let her know that pt was discharged from hospital 05/17 and to ask if they'd like us to go by the orders on May 05 or do they have knew ones? Return call not received. Called arnulfo on 05/19 to inquire again and she states that she didn't get my message. She states that yes, keep same orders with lab checks MWF. States pt is due to come in to see them tomorrow 05/20. Notified Vicky, director of physician practices and she called to make appt but told Aurylayne that Arnulfo instructed him that it's not necessary to have labs checked today because they are seeing her tomorrow. Requested to pls give us a call to schedule after appt with [facility] tomorrow.
[2018-05-26 11:12] LABS: Hematocrit 36.7 % (36-46); Hemoglobin 12.7 g/dL (12.0-16.0); Mean Corpuscular HGB Conc 34.6 % (30-36); Mean Corpuscular Hemoglobin 29.6 PG (26-34); Mean Corpuscular Volume 85.8 fL (80-100); Red Blood Cell Count 4.28 X10^6/uL (4.0-5.2); Red Cell Distribution Width 15.5 % (11.6-14.8)
[2018-05-26 11:18] LABS: Platelet Count 27 X10^3/uL (150-400); White Blood Cell Count 0.3 X10^3/uL (4.5-11.0)
[2018-05-26 11:24] LABS: Alanine Aminotransferase 208 IU/L (9-52); Albumin 3.4 g/dL (3.5-5.0); Albumin Globulin Ratio 1.3 (1.0-2.8); Alkaline Phosphatase 110 U/L (38-126); Aspartate Aminotransferase 64 IU/L (14-36); BUN Creatinine Ratio 21.7 (6-22); Bilirubin Total 1.1 mg/dL (0.2-1.3); Bilirubin Unconjugated 0.6 mg/dL (0.0-1.1); Blood Urea Nitrogen 13 mg/dL (7-17); Calcium 8.6 mg/dL (8.4-10.2); Carbon Dioxide 29 mmol/L (22-32); Chloride 96 mmol/L (98-107); Estimated Glomerular Filt Rate > 60.0 mL/min (>60); Globulin 2.6 g/dL (1.7-4.1); Glucose 88 mg/dL (80-110); HEMOLYSIS < 15 (0-50); Sodium 134 mmol/L (137-145)
[2018-05-26 11:28] LABS: Potassium 2.7 mmol/L (3.4-5.1)
[2018-05-26 11:38] LABS: Add Manual Diff / Slide Review NO; Platelet Estimate Decreased on smear
--- NOTE | 2018-05-26 12:37 | PC.NURSE ---
Critical values called form lab WBC 0.3 Plt and H/H stable at 27 k and 12.7/36.7.Critical potassium -2.7all reported to elevator mechanic apprentice Joanna
[2018-05-26 12:51] LABS: Bacteria Urine None Seen
[2018-05-26 12:52] LABS: Appearance Urine UA CLEAR; Bilirubin Urine UA NEGATIVE (NEGATIVE); Color Urine UA YELLOW; Glucose Urine UA NEGATIVE (Normal); Ketones Urine UA NEGATIVE (NEGATIVE); Leukocyte Esterase Urine UA NEGATIVE (NEGATIVE); Nitrite Urine UA Negative (Negative); Occult Blood Urine UA 3+ (Negative); Protein Urine UA TRACE (Negative); Urobilinogen Urine UA 0.2 E.U./dL (0.2)
[2018-05-26 13:00] LABS: Culture Indicated Urine Cult Not Indicated; RBC Urine 10-30/HPF (0-5/HPF); Squamous Epithelial Cell Urine 0-1 /HPF; WBC Urine 0-1/HPF (0-5/HPF)
[2018-05-26] MEDS: POTASSIUM CHLORIDE 40 MEQ in SODIUM CHLORIDE 0.9% 500 ML 130 MEQ IV (13:02)
[2018-05-26 13:19] VITALS: BP 130/71; PULSE 66; RESP 18; TEMP 36.4; O2SAT 96
--- NOTE | 2018-05-27 09:10 | ONC.NAV ---
*Pt received a wig today.
[2018-06-01 11:09] LABS: Hematocrit 36.3 % (36-46); Hemoglobin 12.3 g/dL (12.0-16.0); Mean Corpuscular Hemoglobin 29.5 PG (26-34); Mean Corpuscular Volume 86.8 fL (80-100); Red Blood Cell Count 4.18 X10^6/uL (4.0-5.2); Red Cell Distribution Width 15.2 % (11.6-14.8)
--- NOTE | 2018-06-01 11:13 | PC.NURSE ---
Received call from lab, WBC 1.0 and platelets 15, gear lapping machine operator aware.
[2018-06-01 11:14] LABS: Add Manual Diff / Slide Review YES; Platelet Count 15 X10^3/uL (150-400)
[2018-06-01 11:18] LABS: Alanine Aminotransferase 48 IU/L (9-52); Albumin 3.7 g/dL (3.5-5.0); Albumin Globulin Ratio 1.5 (1.0-2.8); Alkaline Phosphatase 122 U/L (38-126); Aspartate Aminotransferase 17 IU/L (14-36); BUN Creatinine Ratio 13.3 (6-22); Bilirubin Unconjugated 0.6 mg/dL (0.0-1.1); Blood Urea Nitrogen 8 mg/dL (7-17); Calcium 8.8 mg/dL (8.4-10.2); Carbon Dioxide 28 mmol/L (22-32); Chloride 96 mmol/L (98-107); Estimated Glomerular Filt Rate > 60.0 mL/min (>60); Globulin 2.4 g/dL (1.7-4.1); Glucose 115 mg/dL (80-110); HEMOLYSIS < 15 (0-50); Magnesium 1.9 mg/dL (1.6-2.3); Sodium 132 mmol/L (137-145); Total Protein 6.1 g/dL (6.3-8.2)
[2018-06-01 11:47] LABS: Neutrophils Absolute Manual 740 /uL (3000-5900); Total Cells Counted 50
[2018-06-01 11:48] LABS: Anisocytosis 1+
[2018-06-01 11:49] LABS: Poikilocytosis 1+
[2018-06-07 10:57] LABS: Hematocrit 32.2 % (36-46); Mean Corpuscular HGB Conc 34.2 % (30-36); Mean Corpuscular Hemoglobin 29.7 PG (26-34); Mean Corpuscular Volume 87.1 fL (80-100); Red Blood Cell Count 3.69 X10^6/uL (4.0-5.2); Red Cell Distribution Width 15.2 % (11.6-14.8)
[2018-06-07 10:58] LABS: White Blood Cell Count 1.2 X10^3/uL (4.5-11.0)
[2018-06-07 10:59] LABS: Add Manual Diff / Slide Review YES; Platelet Count 36 X10^3/uL (150-400)
[2018-06-07 11:13] LABS: BUN Creatinine Ratio 12.2 (6-22); Blood Urea Nitrogen 11 mg/dL (7-17); Calcium 8.7 mg/dL (8.4-10.2); Carbon Dioxide 31 mmol/L (22-32); Chloride 97 mmol/L (98-107); Estimated Glomerular Filt Rate > 60.0 mL/min (>60); Glucose 111 mg/dL (80-110); HEMOLYSIS < 15 (0-50); Magnesium 2.2 mg/dL (1.6-2.3); Potassium 4.6 mmol/L (3.4-5.1); Sodium 135 mmol/L (137-145)
[2018-06-07 11:16] LABS: Neutrophils Absolute Manual 792 /uL (3000-5900); Platelet Estimate Decreased on smear; Total Cells Counted 100
[2018-06-09 11:16] LABS: Hematocrit 32.4 % (36-46); Hemoglobin 10.9 g/dL (12.0-16.0); Mean Corpuscular HGB Conc 33.5 % (30-36); Mean Corpuscular Hemoglobin 29.4 PG (26-34); Mean Corpuscular Volume 87.8 fL (80-100); Red Blood Cell Count 3.69 X10^6/uL (4.0-5.2); Red Cell Distribution Width 15.2 % (11.6-14.8)
[2018-06-09 11:17] LABS: Platelet Count 20 X10^3/uL (150-400); White Blood Cell Count 1.8 X10^3/uL (4.5-11.0)
[2018-06-09 11:18] LABS: Add Manual Diff / Slide Review YES
[2018-06-09 11:27] LABS: BUN Creatinine Ratio 11.7 (6-22); Blood Urea Nitrogen 7 mg/dL (7-17); Calcium 9.1 mg/dL (8.4-10.2); Carbon Dioxide 33 mmol/L (22-32); Chloride 96 mmol/L (98-107); Estimated Glomerular Filt Rate > 60.0 mL/min (>60); Glucose 124 mg/dL (80-110); HEMOLYSIS < 15 (0-50); Magnesium 2.2 mg/dL (1.6-2.3); Potassium 5.2 mmol/L (3.4-5.1); Sodium 134 mmol/L (137-145)
[2018-06-09 11:45] LABS: Neutrophils Absolute Manual 1188 /uL (3000-5900); RBC Morphology Normal Morphology; Total Cells Counted 50
[2018-06-14 10:58] LABS: Add Manual Diff / Slide Review NO; Basophils Percent Auto 0.1 % (0-2); Hematocrit 28.5 % (36-46); Hemoglobin 9.8 g/dL (12.0-16.0); Lymphocytes Percent Auto 6.8 % (25-40); Mean Corpuscular HGB Conc 34.4 % (30-36); Mean Corpuscular Hemoglobin 30.4 PG (26-34); Mean Corpuscular Volume 88.5 fL (80-100); Monocytes Percent Auto 21.4 % (3-14); Neutrophils Absolute Auto 1800 /uL (3000-5900); Neutrophils Percent Auto 71.7 % (50-75); Red Blood Cell Count 3.21 X10^6/uL (4.0-5.2); Red Cell Distribution Width 15.4 % (11.6-14.8); White Blood Cell Count 2.4 X10^3/uL (4.5-11.0)
[2018-06-14 10:59] LABS: Platelet Count 19 X10^3/uL (150-400)
[2018-06-14 11:12] LABS: BUN Creatinine Ratio 13.3 (6-22); Blood Urea Nitrogen 8 mg/dL (7-17); Calcium 9.1 mg/dL (8.4-10.2); Carbon Dioxide 33 mmol/L (22-32); Chloride 96 mmol/L (98-107); Estimated Glomerular Filt Rate > 60.0 mL/min (>60); Glucose 186 mg/dL (80-110); HEMOLYSIS < 15 (0-50); Magnesium 2.2 mg/dL (1.6-2.3); Potassium 3.9 mmol/L (3.4-5.1); Sodium 135 mmol/L (137-145)
[2018-06-14 11:24] LABS: RBC Morphology Normal Morphology
--- NOTE | 2018-06-14 12:33 | PC.NURSE ---
Left message with pt regarding chemistry results dated 06/14. Encouraged a rtn call if any questions.
[2018-06-17 10:50] LABS: Hematocrit 27.5 % (36-46); Hemoglobin 9.4 g/dL (12.0-16.0); Mean Corpuscular HGB Conc 34.2 % (30-36); Mean Corpuscular Hemoglobin 30.2 PG (26-34); Mean Corpuscular Volume 88.4 fL (80-100); Red Blood Cell Count 3.11 X10^6/uL (4.0-5.2); Red Cell Distribution Width 15.9 % (11.6-14.8); White Blood Cell Count 2.6 X10^3/uL (4.5-11.0)
[2018-06-17 10:52] LABS: Add Manual Diff / Slide Review YES; Platelet Count 30 X10^3/uL (150-400)
[2018-06-17 11:03] LABS: BUN Creatinine Ratio 13.3 (6-22); Blood Urea Nitrogen 8 mg/dL (7-17); Calcium 8.7 mg/dL (8.4-10.2); Carbon Dioxide 31 mmol/L (22-32); Chloride 97 mmol/L (98-107); Estimated Glomerular Filt Rate > 60.0 mL/min (>60); Glucose 117 mg/dL (80-110); HEMOLYSIS < 15 (0-50); Magnesium 2.2 mg/dL (1.6-2.3); Sodium 135 mmol/L (137-145)
[2018-06-17 11:13] LABS: Anisocytosis 1+; Hypochromasia 1+; Neutrophils Absolute Manual 1820 /uL (3000-5900); Total Cells Counted 100
[2018-06-29 11:16] LABS: Hematocrit 28.9 % (36-46); Hemoglobin 9.6 g/dL (12.0-16.0); Mean Corpuscular HGB Conc 33.3 % (30-36); Mean Corpuscular Hemoglobin 31.2 PG (26-34); Mean Corpuscular Volume 93.8 fL (80-100); Platelet Count 66 X10^3/uL (150-400); Red Blood Cell Count 3.08 X10^6/uL (4.0-5.2); Red Cell Distribution Width 20.3 % (11.6-14.8); White Blood Cell Count 5.6 X10^3/uL (4.5-11.0)
[2018-06-29 11:17] LABS: Add Manual Diff / Slide Review YES
[2018-06-29 11:21] LABS: BUN Creatinine Ratio 17.1 (6-22); Blood Urea Nitrogen 12 mg/dL (7-17); Calcium 8.8 mg/dL (8.4-10.2); Carbon Dioxide 30 mmol/L (22-32); Chloride 102 mmol/L (98-107); Estimated Glomerular Filt Rate > 60.0 mL/min (>60); Glucose 110 mg/dL (80-110); HEMOLYSIS < 15 (0-50); Magnesium 2.2 mg/dL (1.6-2.3); Potassium 4.4 mmol/L (3.4-5.1); Sodium 140 mmol/L (137-145)
[2018-06-29 11:51] LABS: RBC Morphology Normal Morphology
[2018-06-29 12:11] LABS: Neutrophils Absolute Manual 4312 /uL (3000-5900); Total Cells Counted 100
[2018-07-06 11:03] LABS: Add Manual Diff / Slide Review NO; Basophils Percent Auto 0.4 % (0-2); Hematocrit 30.8 % (36-46); Hemoglobin 10.4 g/dL (12.0-16.0); Lymphocytes Percent Auto 6.8 % (25-40); Mean Corpuscular HGB Conc 33.8 % (30-36); Mean Corpuscular Volume 94.6 fL (80-100); Monocytes Percent Auto 14.4 % (3-14); Neutrophils Absolute Auto 5100 /uL (3000-5900); Neutrophils Percent Auto 78.4 % (50-75); Platelet Count 83 X10^3/uL (150-400); Red Blood Cell Count 3.25 X10^6/uL (4.0-5.2); Red Cell Distribution Width 21.5 % (11.6-14.8); White Blood Cell Count 6.5 X10^3/uL (4.5-11.0)
[2018-07-06 11:13] LABS: Alanine Aminotransferase 25 IU/L (9-52); Albumin 4.2 g/dL (3.5-5.0); Albumin Globulin Ratio 1.8 (1.0-2.8); Alkaline Phosphatase 119 U/L (38-126); Aspartate Aminotransferase 28 IU/L (14-36); Bilirubin Total 0.7 mg/dL (0.2-1.3); Bilirubin Unconjugated 0.4 mg/dL (0.0-1.1); Blood Urea Nitrogen 11 mg/dL (7-17); Calcium 9.3 mg/dL (8.4-10.2); Carbon Dioxide 32 mmol/L (22-32); Chloride 101 mmol/L (98-107); Estimated Glomerular Filt Rate > 60.0 mL/min (>60); Globulin 2.4 g/dL (1.7-4.1); Glucose 121 mg/dL (80-110); HEMOLYSIS < 15 (0-50); Magnesium 2.3 mg/dL (1.6-2.3); Potassium 4.2 mmol/L (3.4-5.1); Sodium 141 mmol/L (137-145); Total Protein 6.6 g/dL (6.3-8.2)
[2018-07-06 11:51] LABS: Anisocytosis 2+; Microcytosis 1+
[2018-07-06 11:52] LABS: Hypochromasia 1+; Poikilocytosis 1+; Polychromasia 1+
[2018-07-13 11:30] LABS: Add Manual Diff / Slide Review NO; Basophils Percent Auto 0.3 % (0-2); Eosinophils Percent Auto 0.1 % (2-4); Hematocrit 33.6 % (36-46); Hemoglobin 11.5 g/dL (12.0-16.0); Lymphocytes Percent Auto 8.6 % (25-40); Mean Corpuscular HGB Conc 34.1 % (30-36); Mean Corpuscular Hemoglobin 32.8 PG (26-34); Mean Corpuscular Volume 96.1 fL (80-100); Monocytes Percent Auto 15.9 % (3-14); Neutrophils Absolute Auto 5000 /uL (3000-5900); Neutrophils Percent Auto 75.1 % (50-75); Platelet Count 97 X10^3/uL (150-400); Red Cell Distribution Width 20.5 % (11.6-14.8); White Blood Cell Count 6.6 X10^3/uL (4.5-11.0)
[2018-07-13 11:38] LABS: Alanine Aminotransferase 26 IU/L (9-52); Albumin 4.3 g/dL (3.5-5.0); Albumin Globulin Ratio 1.6 (1.0-2.8); Alkaline Phosphatase 93 U/L (38-126); Aspartate Aminotransferase 31 IU/L (14-36); Bilirubin Unconjugated 0.7 mg/dL (0.0-1.1); Blood Urea Nitrogen 12 mg/dL (7-17); Calcium 9.6 mg/dL (8.4-10.2); Carbon Dioxide 32 mmol/L (22-32); Chloride 101 mmol/L (98-107); Estimated Glomerular Filt Rate > 60.0 mL/min (>60); Globulin 2.7 g/dL (1.7-4.1); Glucose 111 mg/dL (80-110); HEMOLYSIS 15 (0-50); Magnesium 2.2 mg/dL (1.6-2.3); Potassium 4.6 mmol/L (3.4-5.1); Sodium 142 mmol/L (137-145)
[2018-07-13 11:56] LABS: Anisocytosis 2+
[2018-07-14 09:45] VITALS: BP 122/93; PULSE 115; RESP 17; TEMP 36.6; O2SAT 98
--- NOTE | 2018-07-14 12:38 | ONC.PN ---
PN -Subjective Interval history: Diagnosis: AML Previous treatment: 1. Induction chemotherapy with decidabine + GCLAM October 2016. 2. Three cycles of consolidation with winston-c completed April 2017. 3. Relapse in March 2018 treated with a clinical trial JWP without response. 4. One additional cycle of GCLAM which was tolerated poorly but did induce apparent remission. Bone marrow biopsy in May showed morphologic CR but with MRD detected by FISH at 0.2%. Interval history The patient is 78-year-old woman who returns today for follow-up. She has a history of AML and has been receiving her treatment in [place]. She relapsed in March of this year and was treated on a clinical trial but failed to respond. She had 1 additional cycle of off trial therapy and did have a response. Her most recent bone marrow biopsy in May showed morphologic remission. Her FISH however was positive at 0.2%. She has been recovering slowly from her chemotherapy but over the last 2 weeks or so feels like her strength energy level and appetite are beginning to improve. Her weight has been fairly stable. She was having trouble with nausea and vomiting but it has gotten better recently. She also has had some ongoing diarrhea. She was found to have C diff has been on a course of antibiotics which she has just recently completed. She denies any unusual bleeding or bruising. She had been getting both red cell and platelet transfusions but has not needed any for the last 3-4 weeks. She denies any shortness of breath cough for chest pain. No mouth sores. Her skin lesions and rash have healed. Her physicians in [place] recommended ongoing treatment with vidaza. She would like to get as much treatment she can closer to home and would prefer treatment here. Her medications include Irma Tylenol and vitamins. Social history: She lives in [place]. She is . She does not smoke or use alcohol. For past medical history is notable for leukemia as described above. She also has a history of C diff. She has otherwise been quite healthy. - Patient Self-Reported Symptoms SR Skin issues: Dry skin, Blistering or peeling, Hair loss or scalp prob, Nail changes Home Medications and Allergies Home Medications Medication Instructions Recorded Confirmed Type fexofenadine 60 mg PO Q12HP PRN #0 05/29/12 07/14/18 History acetaminophen 650 mg PO Q4-6H PRN #0 05/08/17 07/14/18 History cholecalciferol (vitamin D3) 1,000 unit PO QDAY #0 06/17/17 07/14/18 History [Vitamin D3] estradiol [Estrace] 1 gm VAGINAL QDAY #60 gm 09/16/17 07/14/18 Rx acyclovir 800 mg PO BID 04/22/18 07/14/18 History fidaxomicin 200 mg PO BID 04/22/18 07/14/18 History hyoscyamine sulfate 0.125 mg PO BID-QID PRN 04/22/18 07/14/18 History levofloxacin 750 mg PO BEDTIME 04/22/18 07/14/18 History loperamide 2 mg PO BID PRN 04/22/18 07/14/18 History lorazepam 1 mg SUBLINGUAL Q6HR PRN 04/22/18 07/14/18 History ondansetron 8 mg PO TID PRN 04/22/18 07/14/18 History posaconazole 300 mg PO BEDTIME 04/22/18 07/14/18 History prochlorperazine maleate 5 mg PO Q6HR PRN 04/22/18 07/14/18 History loperamide [Imodium A-D] 0.1 mg/kg PO Q2H PRN 07/14/18 07/14/18 History lorazepam [Ativan] 0.5 mg BUCCAL BID-TID PRN 07/14/18 07/14/18 History Allergies Allergy/AdvReac Type Severity Reaction Status Date / Time Penicillins Allergy Unknown Verified 04/22/18 09:15 fentanyl [FENTANYL] AdvReac Unknown NAUSEA Verified 04/22/18 09:15 meperidine AdvReac Unknown N/V Verified 04/22/18 09:15 morphine AdvReac Unknown N/V Verified 04/22/18 09:15 Exam Vital signs: Last Vital Signs Temp 97.8 F 07/14/18 09:45 Pulse 115 H 07/14/18 09:45 Resp 17 07/14/18 09:45 BP 122/93 H 07/14/18 09:45 Pulse Ox 98 07/14/18 09:45 - Constitutional positive no acute distress, positive thin - Routine HEENT Exam Head: Present: normocephalic, atraumatic Eye: Present: EOMI, PERRL. Absent: conjunctival icterus, scleral injection ENT: Present: mucous membranes moist, oropharynx clear - Routine Neck Exam Present: supple. Absent: lymphadenopathy, thyromegaly - Routine Respiratory Exam Present: Clear to auscultation bilaterally. Absent: rales, wheezes - Routine Cardiovascular Exam Present: RRR, S1, S2. Absent: murmur - Routine Abdominal Exam Present: soft, normoactive bowel sounds. Absent: tenderness, organomegaly - Routine Extremities Exam Absent: cyanosis, clubbing, edema - Routine Back/Spine Exam Back/Spine: Absent: paraspinal tenderness, vertebral tenderness - Routine Skin Exam Present: intact. Absent: petechiae, rash - Routine Neurological Exam Present: alert, oriented X3 - Routine Psychiatric Exam Present: normal affect, normal thought process Results - Labs Laboratory Last Values WBC 6.6 X10^3/uL (4.5-11.0) 07/13/18 10:33 RBC 3.50 X10^6/uL (4.0-5.2) L 07/13/18 10:33 Hgb 11.5 g/dL (12.0-16.0) L 07/13/18 10:33 Hct 33.6 % (36-46) L 07/13/18 10:33 MCV 96.1 fL (80-100) 07/13/18 10:33 MCH 32.8 PG (26-34) 07/13/18 10:33 MCHC 34.1 % (30-36) 07/13/18 10:33 RDW 20.5 % (11.6-14.8) H 07/13/18 10:33 Plt Count 97 X10^3/uL (150-400) L 07/13/18 10:33 Neut % (Auto) 75.1 % (50-75) H 07/13/18 10:33 Lymph % (Auto) 8.6 % (25-40) L 07/13/18 10:33 Arthur % (Auto) 15.9 % (3-14) H 07/13/18 10:33 Eos % (Auto) 0.1 % (2-4) L 07/13/18 10:33 Baso % (Auto) 0.3 % (0-2) 07/13/18 10:33 Neut # (Auto) 5000 /uL (6084-8345) 07/13/18 10:33 Total Counted 100 06/29/18 10:55 Seg Neutrophils % 71.0 % (38-70) H 06/29/18 10:55 Band Neutrophils % 6.0 % (3-7) 06/29/18 10:55 Lymphocytes % (Manual) 5.0 % (25-45) L 06/29/18 10:55 Atypical Lymphs % 1.0 % (-0) H 06/17/18 10:35 Monocytes % (Manual) 17.0 % (2-11) H 06/29/18 10:55 Eosinophils % (Manual) Cancelled 04/20/18 12:34 Basophils % (Manual) 1.0 % (0-1) 06/29/18 10:55 Metamyelocytes % 1.0 % (-0) H 06/17/18 10:35 Myelocytes % 2.0 % (-0) H 06/01/18 10:55 Promyelocytes % Cancelled 04/20/18 12:34 Blast Cells % Cancelled 04/20/18 12:34 Neutrophils # (Manual) 4312 /uL (7865-8402) 06/29/18 10:55 Differential Comment Cancelled 04/20/18 12:34 Plasma Cells Cancelled 04/20/18 12:34 Platelet Estimate Decreased on smear 06/07/18 10:30 Plt Morphology Comment 06/01/18 10:55 RBC Morphology Not Reportable 07/13/18 10:33 Polychromasia 1+ H 07/06/18 10:37 Hypochromasia 1+ H 07/06/18 10:37 Poikilocytosis 1+ H 07/06/18 10:37 Anisocytosis 2+ H 07/13/18 10:33 Microcytosis 1+ H 07/06/18 10:37 Sodium 142 mmol/L (137-145) 07/13/18 10:33 Potassium 4.6 mmol/L (3.4-5.1) 07/13/18 10:33 Chloride 101 mmol/L (98-107) 07/13/18 10:33 Carbon Dioxide 32 mmol/L (22-32) 07/13/18 10:33 BUN 12 mg/dL (7-17) 07/13/18 10:33 Creatinine 0.80 mg/dL (0.52-1.04) 07/13/18 10:33 Estimated GFR > 60.0 mL/min (>60) 07/13/18 10:33 BUN/Creatinine Ratio 15.0 (6-22) 07/13/18 10:33 Glucose 111 mg/dL (80-110) H 07/13/18 10:33 Calcium 9.6 mg/dL (8.4-10.2) 07/13/18 10:33 Magnesium 2.2 mg/dL (1.6-2.3) 07/13/18 10:33 Total Bilirubin 1.0 mg/dL (0.2-1.3) 07/13/18 10:33 Conjugated Bilirubin 0.0 md/dL (0.0-0.3) 07/13/18 10:33 Unconjugated Bilirubin 0.7 mg/dL (0.0-1.1) 07/13/18 10:33 AST 31 IU/L (14-36) 07/13/18 10:33 ALT 26 IU/L (9-52) 07/13/18 10:33 Alkaline Phosphatase 93 U/L (38-126) 07/13/18 10:33 Total Protein 7.0 g/dL (6.3-8.2) 07/13/18 10:33 Albumin 4.3 g/dL (3.5-5.0) 07/13/18 10:33 Globulin 2.7 g/dL (1.7-4.1) 07/13/18 10:33 Albumin/Globulin Ratio 1.6 (1.0-2.8) 07/13/18 10:33 Urine Color Yellow 05/26/18 12:28 Urine Appearance Clear 05/26/18 12:28 Urine pH 7.0 (4.5-8.0) 05/26/18 12:28 Ur Specific [place] 1.010 (1.000-1.035) 05/26/18 12:28 Urine Protein Trace (Negative) H 05/26/18 12:28 Urine Glucose (UA) Negative g/dL (Normal) 05/26/18 12:28 Urine Ketones Negative (NEGATIVE) 05/26/18 12:28 Urine Occult Blood 3+ (Negative) H 05/26/18 12:28 Urine Nitrate Negative (Negative) 05/26/18 12:28 Urine Bilirubin Negative (NEGATIVE) 05/26/18 12:28 Urine Urobilinogen 0.2 E.U./dL (0.2) 05/26/18 12:28 Ur Leukocyte Esterase Negative (NEGATIVE) 05/26/18 12:28 Urine RBC 10-30/hpf (0-5/HPF) H 05/26/18 12:28 Urine WBC 0-1/hpf (0-5/HPF) 05/26/18 12:28 Ur Squamous Epith Cells 0-1 /hpf 05/26/18 12:28 Urine Bacteria None seen (None) 05/26/18 12:28 Ur Culture Indicated? Cult not indicated 05/26/18 12:28 Micro UA Comment Not Reportable 05/26/18 12:28 Blood Type O Positive 05/12/18 12:04 Antibody Screen Negative 05/12/18 12:04 Crossmatch See Detail 05/12/18 12:04 - Imaging Additional studies: Procedures Colonoscopy (04/06/14) Injection or infusion of other therapeutic or prophylactic substance (06/03/12) Transfusion of Nonautologous Platelets into Peripheral Vein, Percutaneous Approach (05/13/18) Assessment and Plan (1) Acute leukemia Problem details: 78-year-old woman with a history of AML with relapse disease about 3 months ago. She is in a morphologic remission but does have residual disease detected by FISH. She remains at very high risk for relapse. She is not willing to pursue any further aggressive therapy but is willing to go ahead with lower intensity therapy with vidaza. This would have a low risk for alopecia. Usually, nausea and vomiting are not big problem. Can induce some cytopenias and risk for infection. Rarely patients can have a rash. Compared to her prior chemotherapy, this should be much easier. We will plan on starting as soon as can be practically arranged. She will continue with weekly PICC dressing changes and labs. She will return to clinic in about 4 weeks for follow-up. Current visit: No Status: Acute
[2018-07-19 13:31] LABS: Add Manual Diff / Slide Review NO; Basophils Percent Auto 0.4 % (0-2); Eosinophils Percent Auto 0.3 % (2-4); Hemoglobin 10.8 g/dL (12.0-16.0); Lymphocytes Percent Auto 9.3 % (25-40); Mean Corpuscular HGB Conc 33.7 % (30-36); Mean Corpuscular Hemoglobin 32.9 PG (26-34); Mean Corpuscular Volume 97.8 fL (80-100); Monocytes Percent Auto 15.9 % (3-14); Neutrophils Absolute Auto 4500 /uL (3000-5900); Neutrophils Percent Auto 74.1 % (50-75); Platelet Count 96 X10^3/uL (150-400); Red Blood Cell Count 3.28 X10^6/uL (4.0-5.2); Red Cell Distribution Width 19.4 % (11.6-14.8); White Blood Cell Count 6.1 X10^3/uL (4.5-11.0)
[2018-07-19 13:43] VITALS: BP 121/69; PULSE 93; RESP 16; TEMP 37.1; O2SAT 98
[2018-07-19] MEDS: INFLUENZA VACCINE 0.5 ML SYRINGE IM (13:55)
[2018-07-26 13:11] LABS: Add Manual Diff / Slide Review NO; Basophils Percent Auto 0.5 % (0-2); Eosinophils Percent Auto 0.7 % (2-4); Hematocrit 31.6 % (36-46); Hemoglobin 10.7 g/dL (12.0-16.0); Lymphocytes Percent Auto 9.4 % (25-40); Mean Corpuscular HGB Conc 33.7 % (30-36); Mean Corpuscular Hemoglobin 32.8 PG (26-34); Mean Corpuscular Volume 97.3 fL (80-100); Monocytes Percent Auto 13.6 % (3-14); Neutrophils Absolute Auto 5200 /uL (3000-5900); Neutrophils Percent Auto 75.8 % (50-75); Platelet Count 89 X10^3/uL (150-400); Red Blood Cell Count 3.25 X10^6/uL (4.0-5.2); Red Cell Distribution Width 17.9 % (11.6-14.8); White Blood Cell Count 6.9 X10^3/uL (4.5-11.0)
[2018-07-26 14:03] VITALS: BP 112/70; PULSE 82; RESP 16; TEMP 37
[2018-07-26] MEDS: SODIUM CHLORIDE 0.9% 100 ML 21 ML IV (14:09)
[2018-07-26] MEDS: DEXAMETHASONE 12 MG in SODIUM CHLORIDE 0.9% 50 ML 212 ML IV (14:17)
[2018-07-26] MEDS: ONDANSETRON 16 MG in SODIUM CHLORIDE 0.9% 50 ML 232 ML IV (14:35)
[2018-07-26] MEDS: SODIUM CHLORIDE 0.9% IV (15:01)
[2018-07-26] MEDS: AZACITIDINE IV (15:01)
[2018-07-27 13:17] VITALS: BP 124/71; PULSE 92; RESP 16; TEMP 36.6
[2018-07-27] MEDS: DEXAMETHASONE 10 MG/ML VIAL 8 MG IV (14:20)
[2018-07-27] MEDS: ONDANSETRON 16 MG in SODIUM CHLORIDE 0.9% 50 ML 232 ML IV (14:32)
[2018-07-27] MEDS: SODIUM CHLORIDE 0.9% 100 ML 21 ML IV (14:35)
[2018-07-27] MEDS: SODIUM CHLORIDE 0.9% IV (15:15)
[2018-07-27] MEDS: AZACITIDINE IV (15:15)
--- NOTE | 2018-07-28 13:11 | PC.NURSE ---
Pt came today for D3 of vidaza. She is reporting 9/10 pain to her abdominal region along with severe nausea. After speaking with Dr Patel, it was decided she should be seen by ED for an appropriate workup. If cleared pt was instructed to return tomorrow for D3 of vidaza. This cancellation will add on extra day to her cycle.
[2018-07-29 10:38] VITALS: BP 122/72; PULSE 82; RESP 16; TEMP 36.5; O2SAT 97
[2018-08-02 09:03] LABS: Add Manual Diff / Slide Review NO; Basophils Percent Auto 0.4 % (0-2); Eosinophils Percent Auto 0.3 % (2-4); Hematocrit 36.4 % (36-46); Hemoglobin 12.2 g/dL (12.0-16.0); Lymphocytes Percent Auto 8.2 % (25-40); Mean Corpuscular HGB Conc 33.6 % (30-36); Mean Corpuscular Hemoglobin 33.3 PG (26-34); Mean Corpuscular Volume 99.1 fL (80-100); Monocytes Percent Auto 10.1 % (3-14); Neutrophils Absolute Auto 5600 /uL (3000-5900); Platelet Count 98 X10^3/uL (150-400); Red Blood Cell Count 3.68 X10^6/uL (4.0-5.2); White Blood Cell Count 6.9 X10^3/uL (4.5-11.0)
[2018-08-02 09:09] VITALS: BP 126/88; PULSE 88; RESP 12; TEMP 36.4; O2SAT 99
[2018-08-02] MEDS: SODIUM CHLORIDE 0.9% 100 ML 25 ML IV (09:32)
[2018-08-02] MEDS: DEXAMETHASONE 10 MG/ML VIAL 8 MG IV (09:33)
[2018-08-02] MEDS: ONDANSETRON 16 MG in SODIUM CHLORIDE 0.9% 50 ML 232 ML IV (09:47)
[2018-08-02] MEDS: AZACITIDINE IV (10:20)
[2018-08-02] MEDS: SODIUM CHLORIDE 0.9% IV (10:20)
[2018-08-03] MEDS: DEXAMETHASONE 10 MG/ML VIAL 8 MG IV (13:53)
[2018-08-03] MEDS: SODIUM CHLORIDE 0.9% 100 ML 21 ML IV (13:54)
[2018-08-03] MEDS: ONDANSETRON 16 MG in SODIUM CHLORIDE 0.9% 50 ML 232 ML IV (14:07)
[2018-08-03 14:18] VITALS: BP 113/66; PULSE 90; RESP 16; TEMP 36.8
[2018-08-03] MEDS: AZACITIDINE IV (14:50)
[2018-08-03] MEDS: SODIUM CHLORIDE 0.9% IV (14:50)
[2018-08-04 13:23] VITALS: BP 115/86; PULSE 96; RESP 16; TEMP 36.4; O2SAT 96
[2018-08-04] MEDS: ONDANSETRON 16 MG in SODIUM CHLORIDE 0.9% 50 ML 232 ML IV (13:31)
[2018-08-04] MEDS: DEXAMETHASONE 10 MG/ML VIAL 8 MG IV (13:31)
[2018-08-04] MEDS: SODIUM CHLORIDE 0.9% 100 ML 21 ML IV (13:32)
[2018-08-04] MEDS: AZACITIDINE IV (14:18)
[2018-08-04] MEDS: SODIUM CHLORIDE 0.9% IV (14:18)
[2018-08-09 13:38] LABS: Add Manual Diff / Slide Review NO; Basophils Percent Auto 0.1 % (0-2); Eosinophils Percent Auto 0.3 % (2-4); Hematocrit 34.7 % (36-46); Hemoglobin 11.8 g/dL (12.0-16.0); Lymphocytes Percent Auto 5.1 % (25-40); Mean Corpuscular HGB Conc 33.9 % (30-36); Mean Corpuscular Hemoglobin 33.3 PG (26-34); Mean Corpuscular Volume 98.3 fL (80-100); Monocytes Percent Auto 7.6 % (3-14); Neutrophils Absolute Auto 8300 /uL (3000-5900); Neutrophils Percent Auto 86.9 % (50-75); Platelet Count 66 X10^3/uL (150-400); Red Blood Cell Count 3.53 X10^6/uL (4.0-5.2); Red Cell Distribution Width 16.7 % (11.6-14.8); White Blood Cell Count 9.5 X10^3/uL (4.5-11.0)
[2018-08-17 09:55] LABS: Add Manual Diff / Slide Review NO; Basophils Percent Auto 0.7 % (0-2); Eosinophils Percent Auto 0.4 % (2-4); Hematocrit 34.3 % (36-46); Hemoglobin 11.5 g/dL (12.0-16.0); Lymphocytes Percent Auto 12.4 % (25-40); Mean Corpuscular HGB Conc 33.4 % (30-36); Mean Corpuscular Hemoglobin 33.2 PG (26-34); Mean Corpuscular Volume 99.2 fL (80-100); Monocytes Percent Auto 12.1 % (3-14); Neutrophils Absolute Auto 2400 /uL (3000-5900); Neutrophils Percent Auto 74.4 % (50-75); Platelet Count 74 X10^3/uL (150-400); Red Blood Cell Count 3.46 X10^6/uL (4.0-5.2); Red Cell Distribution Width 16.1 % (11.6-14.8); White Blood Cell Count 3.2 X10^3/uL (4.5-11.0)
[2018-08-17 10:08] LABS: Alanine Aminotransferase 24 IU/L (9-52); Albumin 4.1 g/dL (3.5-5.0); Albumin Globulin Ratio 1.9 (1.0-2.8); Alkaline Phosphatase 91 U/L (38-126); Aspartate Aminotransferase 24 IU/L (14-36); BUN Creatinine Ratio 18.3 (6-22); Bilirubin Total 0.5 mg/dL (0.2-1.3); Blood Urea Nitrogen 11 mg/dL (7-17); Calcium 9.3 mg/dL (8.4-10.2); Carbon Dioxide 31 mmol/L (22-32); Chloride 102 mmol/L (98-107); Estimated Glomerular Filt Rate > 60.0 mL/min (>60); Globulin 2.2 g/dL (1.7-4.1); Glucose 95 mg/dL (80-110); HEMOLYSIS < 15 (0-50); Potassium 4.3 mmol/L (3.4-5.1); Sodium 140 mmol/L (137-145); Total Protein 6.3 g/dL (6.3-8.2)
[2018-08-17 10:21] VITALS: BP 134/63; PULSE 82; RESP 18; TEMP 36.2; O2SAT 98
--- NOTE | 2018-08-17 10:38 | P.PNONC_ITS ---
PN -Subjective Interval history: Diagnosis: AML Previous treatment: 1. Induction chemotherapy with decidabine + GCLAM October 2016. 2. Three cycles of consolidation with winston-c completed April 2017. 3. Relapse in March 2018 treated with a clinical trial without response. 4. One additional cycle of GCLAM which was tolerated poorly but did induce apparent remission. Bone marrow biopsy in May showed morphologic CR but with MRD detected by FISH at 0.2%. 5. One cycle of vidaza Interval history The patient is 78-year-old woman who returns today for follow-up. She has a history of AML and has been receiving her treatment in [place]. She relapsed in March of this year and was treated on a clinical trial but failed to respond. She had 1 additional cycle of off trial therapy and did have a response. Her most recent bone marrow biopsy in May showed morphologic remission. Her FISH however was positive at 0.2%. She started 5 days a last month. She tolerated her 1st cycle without too much difficulty. She did have some fatigue. She has had some mild nausea but no vomiting. She did have some increased pain that she described as a muscle spasm in the left side of her abdomen. She has had similar kinds of symptoms in the past and responded to ibuprofen. She was evaluated in the emergency room and given a prescription for Vicodin which is helped somewhat. She did inadvertently get higher dose of vidaza for the 1st few days of the cycle. Her weight had been entered in lb instead of kg. This has been corrected. She denies any bleeding or bruising. No fevers or chills. Appetite has been fair. She denies any other new aches or pains and denies any other changes in her health. - Patient Self-Reported Symptoms SR Skin issues: Dry skin, Blistering or peeling, Hair loss or scalp prob, Nail changes SR Musculoskeletal issues: Muscle weakness, Muscle pain or cramps Home Medications and Allergies Home Medications Medication Instructions Recorded Confirmed Type fexofenadine 60 mg PO QPM #0 05/29/12 07/28/18 History acetaminophen 650 mg PO Q4-6H PRN #0 05/08/17 07/28/18 History hyoscyamine sulfate 0.125 mg PO BID-QID PRN 04/22/18 07/28/18 History loperamide 2 mg PO BID PRN 04/22/18 07/28/18 History ondansetron 8 mg PO TID PRN 04/22/18 07/28/18 History prochlorperazine maleate 5 mg PO Q6HR PRN 04/22/18 07/28/18 History lorazepam [Ativan] 0.5 mg BUCCAL BID-TID PRN 07/14/18 07/28/18 History cyclobenzaprine 5 mg PO TID PRN 07/28/18 08/17/18 History lorazepam 1 mg SUBLINGUAL Q6HR PRN 30 Days 08/03/18 08/17/18 Rx #60 tab hydrocodone-acetaminophen 1 tab PO Q4-6H PRN 08/17/18 08/17/18 History Allergies Allergy/AdvReac Type Severity Reaction Status Date / Time Penicillins Allergy Unknown Verified 07/28/18 13:08 fentanyl [FENTANYL] AdvReac Unknown NAUSEA Verified 07/28/18 13:08 meperidine AdvReac Unknown N/V Verified 07/28/18 13:08 morphine AdvReac Unknown N/V Verified 07/28/18 13:08 Exam - Constitutional positive no acute distress, positive thin - Routine HEENT Exam Head: Present: normocephalic, atraumatic Eye: Present: EOMI, PERRL. Absent: conjunctival icterus, scleral injection ENT: Present: mucous membranes moist, oropharynx clear - Routine Neck Exam Present: supple. Absent: lymphadenopathy, thyromegaly - Routine Respiratory Exam Present: Clear to auscultation bilaterally. Absent: rales, wheezes - Routine Cardiovascular Exam Present: RRR, S1, S2. Absent: murmur - Routine Abdominal Exam Present: soft, normoactive bowel sounds. Absent: organomegaly, mass Comments: She does have some tenderness to palpation on the left upper and mid abdomen. There are no palpable masses there is no pedal splenomegaly. No rebound or guarding. - Routine Extremities Exam Absent: cyanosis, clubbing, edema - Routine Back/Spine Exam Back/Spine: Absent: paraspinal tenderness, vertebral tenderness - Routine Skin Exam Present: intact. Absent: petechiae, rash - Routine Neurological Exam Present: alert, oriented X3 - Routine Psychiatric Exam Present: normal affect, normal thought process Results - Labs Laboratory Last Values WBC 3.2 X10^3/uL (4.5-11.0) L 08/17/18 09:40 RBC 3.46 X10^6/uL (4.0-5.2) L 08/17/18 09:40 Hgb 11.5 g/dL (12.0-16.0) L 08/17/18 09:40 Hct 34.3 % (36-46) L 08/17/18 09:40 MCV 99.2 fL (80-100) 08/17/18 09:40 MCH 33.2 PG (26-34) 08/17/18 09:40 MCHC 33.4 % (30-36) 08/17/18 09:40 RDW 16.1 % (11.6-14.8) H 08/17/18 09:40 Plt Count 74 X10^3/uL (150-400) L 08/17/18 09:40 Neut % (Auto) 74.4 % (50-75) 08/17/18 09:40 Lymph % (Auto) 12.4 % (25-40) L 08/17/18 09:40 [place] % (Auto) 12.1 % (3-14) 08/17/18 09:40 Eos % (Auto) 0.4 % (2-4) L 08/17/18 09:40 Baso % (Auto) 0.7 % (0-2) 08/17/18 09:40 Neut # (Auto) 2400 /uL (1588-9790) L 08/17/18 09:40 Total Counted 100 06/29/18 10:55 Seg Neutrophils % 71.0 % (38-70) H 06/29/18 10:55 Band Neutrophils % 6.0 % (3-7) 06/29/18 10:55 Lymphocytes % (Manual) 5.0 % (25-45) L 06/29/18 10:55 Atypical Lymphs % 1.0 % (-0) H 06/17/18 10:35 Monocytes % (Manual) 17.0 % (2-11) H 06/29/18 10:55 Eosinophils % (Manual) Cancelled 04/20/18 12:34 Basophils % (Manual) 1.0 % (0-1) 06/29/18 10:55 Metamyelocytes % 1.0 % (-0) H 06/17/18 10:35 Myelocytes % 2.0 % (-0) H 06/01/18 10:55 Promyelocytes % Cancelled 04/20/18 12:34 Blast Cells % Cancelled 04/20/18 12:34 Neutrophils # (Manual) 4312 /uL (7613-5516) 06/29/18 10:55 Differential Comment Cancelled 04/20/18 12:34 Plasma Cells Cancelled 04/20/18 12:34 Platelet Estimate Decreased on smear 06/07/18 10:30 Plt Morphology Comment 06/01/18 10:55 RBC Morphology Not Reportable 07/13/18 10:33 Polychromasia 1+ H 07/06/18 10:37 Hypochromasia 1+ H 07/06/18 10:37 Poikilocytosis 1+ H 07/06/18 10:37 Anisocytosis 2+ H 07/13/18 10:33 Microcytosis 1+ H 07/06/18 10:37 Sodium 140 mmol/L (137-145) 08/17/18 09:40 Potassium 4.3 mmol/L (3.4-5.1) 08/17/18 09:40 Chloride 102 mmol/L (98-107) 08/17/18 09:40 Carbon Dioxide 31 mmol/L (22-32) 08/17/18 09:40 BUN 11 mg/dL (7-17) 08/17/18 09:40 Creatinine 0.60 mg/dL (0.52-1.04) 08/17/18 09:40 Estimated GFR > 60.0 mL/min (>60) 08/17/18 09:40 BUN/Creatinine Ratio 18.3 (6-22) 08/17/18 09:40 Glucose 95 mg/dL (80-110) 08/17/18 09:40 Calcium 9.3 mg/dL (8.4-10.2) 08/17/18 09:40 Magnesium 2.2 mg/dL (1.6-2.3) 07/13/18 10:33 Total Bilirubin 0.5 mg/dL (0.2-1.3) 08/17/18 09:40 Conjugated Bilirubin 0.0 md/dL (0.0-0.3) 07/13/18 10:33 Unconjugated Bilirubin 0.7 mg/dL (0.0-1.1) 07/13/18 10:33 AST 24 IU/L (14-36) 08/17/18 09:40 ALT 24 IU/L (9-52) 08/17/18 09:40 Alkaline Phosphatase 91 U/L (38-126) 08/17/18 09:40 Total Protein 6.3 g/dL (6.3-8.2) 08/17/18 09:40 Albumin 4.1 g/dL (3.5-5.0) 08/17/18 09:40 Globulin 2.2 g/dL (1.7-4.1) 08/17/18 09:40 Albumin/Globulin Ratio 1.9 (1.0-2.8) 08/17/18 09:40 Urine Color Yellow 05/26/18 12:28 Urine Appearance Clear 05/26/18 12:28 Urine pH 7.0 (4.5-8.0) 05/26/18 12:28 Ur Specific [place] 1.010 (1.000-1.035) 05/26/18 12:28 Urine Protein Trace (Negative) H 05/26/18 12:28 Urine Glucose (UA) Negative g/dL (Normal) 05/26/18 12:28 Urine Ketones Negative (NEGATIVE) 05/26/18 12:28 Urine Occult Blood 3+ (Negative) H 05/26/18 12:28 Urine Nitrate Negative (Negative) 05/26/18 12:28 Urine Bilirubin Negative (NEGATIVE) 05/26/18 12:28 Urine Urobilinogen 0.2 E.U./dL (0.2) 05/26/18 12:28 Ur Leukocyte Esterase Negative (NEGATIVE) 05/26/18 12:28 Urine RBC 10-30/hpf (0-5/HPF) H 05/26/18 12:28 Urine WBC 0-1/hpf (0-5/HPF) 05/26/18 12:28 Ur Squamous Epith Cells 0-1 /hpf 05/26/18 12:28 Urine Bacteria None seen (None) 05/26/18 12:28 Ur Culture Indicated? Cult not indicated 05/26/18 12:28 Micro UA Comment Not Reportable 05/26/18 12:28 Blood Type O Positive 05/12/18 12:04 Antibody Screen Negative 05/12/18 12:04 Crossmatch See Detail 05/12/18 12:04 - Imaging Additional studies: Procedures Colonoscopy (04/06/14) Injection or infusion of other therapeutic or prophylactic substance (06/03/12) Transfusion of Nonautologous Platelets into Peripheral Vein, Percutaneous Approach (05/13/18) Assessment and Plan (1) Acute leukemia Problem details: 78-year-old woman with a history of AML with relapse disease about 3 months ago. She is in a morphologic remission but does have residual disease detected by FISH. She remains at very high risk for relapse. She has tolerated her 1st cycle of 5 days a reasonably well. Her white count platelet count or down somewhat but her red cell count is actually a little better. She will go ahead with her 2nd cycle next week and return to clinic in about 4 weeks for follow-up. I think we will just follow her clinically. As long as her counts are stable, I would not plan on a bone marrow biopsy. If however, she does developed evidence of obvious progression, we would need to consider either alternative therapy or perhaps hospice support at that time. Current visit: No Status: Acute
[2018-08-23 14:01] VITALS: BP 122/76; PULSE 80; RESP 16; TEMP 36.4; O2SAT 97
[2018-08-23] MEDS: DEXAMETHASONE 10 MG/ML VIAL 8 MG IV (14:04)
[2018-08-23] MEDS: SODIUM CHLORIDE 0.9% 100 ML 21 ML IV (14:05)
[2018-08-23] MEDS: ONDANSETRON 16 MG in SODIUM CHLORIDE 0.9% 50 ML 232 ML IV (14:42)
[2018-08-23] MEDS: AZACITIDINE IV (15:09)
[2018-08-23] MEDS: SODIUM CHLORIDE 0.9% IV (15:09)
--- NOTE | 2018-08-24 12:14 | PC.NURSE ---
Late entry for 07/29/18. Cornelia was told by RN Director that she received wrong dose of chemotherapy for first two days due to weight entry error. Dr. Patel was aware and her total weekly dose would not be effected. I apologized on behalf of the clinic and gave her the plan to come back on Thursday, 08/02 to resume her last three correct doses. Cornelia and her verbalized understanding. Vital signs and an assessment were done by nursing.
[2018-08-24 14:03] LABS: Add Manual Diff / Slide Review NO; Basophils Percent Auto 0.8 % (0-2); Hematocrit 34.5 % (36-46); Hemoglobin 11.6 g/dL (12.0-16.0); Lymphocytes Percent Auto 8.3 % (25-40); Mean Corpuscular HGB Conc 33.6 % (30-36); Mean Corpuscular Hemoglobin 33.2 PG (26-34); Mean Corpuscular Volume 98.7 fL (80-100); Monocytes Percent Auto 7.2 % (3-14); Neutrophils Absolute Auto 6600 /uL (3000-5900); Neutrophils Percent Auto 83.7 % (50-75); Platelet Count 104 X10^3/uL (150-400); Red Cell Distribution Width 15.9 % (11.6-14.8); White Blood Cell Count 7.9 X10^3/uL (4.5-11.0)
[2018-08-24] MEDS: ONDANSETRON 16 MG in SODIUM CHLORIDE 0.9% 50 ML 232 ML IV (14:23)
[2018-08-24] MEDS: DEXAMETHASONE 10 MG/ML VIAL 8 MG IV (14:23)
[2018-08-24] MEDS: SODIUM CHLORIDE 0.9% 100 ML 21 ML IV (14:24)
[2018-08-24 14:58] VITALS: BP 115/70; PULSE 77; RESP 16; TEMP 36.6
[2018-08-24] MEDS: SODIUM CHLORIDE 0.9% IV (15:03)
[2018-08-24] MEDS: AZACITIDINE IV (15:03)
[2018-08-25 13:37] VITALS: BP 147/68; PULSE 81; RESP 16; TEMP 36.5; O2SAT 97
[2018-08-25] MEDS: DEXAMETHASONE 10 MG/ML VIAL 8 MG IV ×2 (13:54→13:58)
[2018-08-25] MEDS: ONDANSETRON 16 MG in SODIUM CHLORIDE 0.9% 50 ML 232 ML IV (13:59)
[2018-08-25] MEDS: SODIUM CHLORIDE 0.9% 100 ML 21 ML IV (13:59)
[2018-08-25] MEDS: AZACITIDINE IV (14:24)
[2018-08-25] MEDS: SODIUM CHLORIDE 0.9% IV (14:24)
[2018-08-26 13:36] VITALS: BP 133/58; PULSE 85; RESP 16; TEMP 36.3
[2018-08-26] MEDS: ONDANSETRON 16 MG in SODIUM CHLORIDE 0.9% 50 ML 232 ML IV (14:02)
[2018-08-26] MEDS: DEXAMETHASONE 10 MG/ML VIAL 8 MG IV (14:05)
[2018-08-26] MEDS: SODIUM CHLORIDE 0.9% 100 ML 21 ML IV (14:06)
[2018-08-26] MEDS: SODIUM CHLORIDE 0.9% IV (15:01)
[2018-08-26] MEDS: AZACITIDINE IV (15:01)
[2018-08-27] MEDS: ONDANSETRON 16 MG in SODIUM CHLORIDE 0.9% 50 ML 232 ML IV (14:02)
[2018-08-27] MEDS: OXYCODONE IR 5 MG TABLET PO (14:02)
[2018-08-27] MEDS: DEXAMETHASONE 10 MG/ML VIAL 8 MG IV (14:02)
[2018-08-27] MEDS: SODIUM CHLORIDE 0.9% 100 ML 21 ML IV (14:03)
[2018-08-27 14:22] VITALS: BP 156/76; PULSE 82; RESP 18; TEMP 36.9; O2SAT 98
[2018-08-27] MEDS: AZACITIDINE IV (15:00)
[2018-08-27] MEDS: SODIUM CHLORIDE 0.9% IV (15:00)
[2018-08-30 14:06] VITALS: BP 117/67; PULSE 90; RESP 16; TEMP 36.6; O2SAT 97
[2018-08-30] MEDS: DEXAMETHASONE 10 MG/ML VIAL 8 MG IV (14:27)
[2018-08-30] MEDS: OXYCODONE IR 5 MG TABLET PO (14:34)
[2018-08-30] MEDS: ONDANSETRON 16 MG in SODIUM CHLORIDE 0.9% 50 ML 232 ML IV (14:43)
[2018-08-30] MEDS: SODIUM CHLORIDE 0.9% IV (15:43)
[2018-08-30] MEDS: AZACITIDINE IV (15:43)
[2018-08-30] MEDS: SODIUM CHLORIDE 0.9% 100 ML 21 ML IV (15:44)
[2018-08-31] MEDS: DEXAMETHASONE 10 MG/ML VIAL 8 MG IV (14:13)
[2018-08-31] MEDS: SODIUM CHLORIDE 0.9% 100 ML 21 ML IV (14:14)
[2018-08-31 14:21] LABS: Add Manual Diff / Slide Review NO; Basophils Percent Auto 0.5 % (0-2); Hematocrit 36.8 % (36-46); Hemoglobin 12.3 g/dL (12.0-16.0); Mean Corpuscular HGB Conc 33.3 % (30-36); Mean Corpuscular Hemoglobin 32.6 PG (26-34); Mean Corpuscular Volume 97.7 fL (80-100); Monocytes Percent Auto 3.2 % (3-14); Neutrophils Absolute Auto 7800 /uL (3000-5900); Neutrophils Percent Auto 87.3 % (50-75); Platelet Count 99 X10^3/uL (150-400); Red Blood Cell Count 3.77 X10^6/uL (4.0-5.2); Red Cell Distribution Width 15.5 % (11.6-14.8); White Blood Cell Count 8.9 X10^3/uL (4.5-11.0)
[2018-08-31] MEDS: ONDANSETRON 16 MG in SODIUM CHLORIDE 0.9% 50 ML 232 ML IV (14:37)
[2018-08-31] MEDS: SODIUM CHLORIDE 0.9% IV (15:03)
[2018-08-31] MEDS: AZACITIDINE IV (15:03)
[2018-08-31 15:36] VITALS: BP 140/57; PULSE 88; RESP 16; TEMP 36.8; O2SAT 97
[2018-09-07 13:50] LABS: Add Manual Diff / Slide Review NO; Basophils Percent Auto 0.9 % (0-2); Eosinophils Percent Auto 0.2 % (2-4); Hematocrit 36.7 % (36-46); Hemoglobin 12.4 g/dL (12.0-16.0); Lymphocytes Percent Auto 6.2 % (25-40); Mean Corpuscular HGB Conc 33.7 % (30-36); Mean Corpuscular Hemoglobin 33.1 PG (26-34); Monocytes Percent Auto 4.8 % (3-14); Neutrophils Absolute Auto 7000 /uL (3000-5900); Neutrophils Percent Auto 87.9 % (50-75); Platelet Count 54 X10^3/uL (150-400); Red Blood Cell Count 3.75 X10^6/uL (4.0-5.2); Red Cell Distribution Width 15.5 % (11.6-14.8); White Blood Cell Count 7.9 X10^3/uL (4.5-11.0)
[2018-09-13 13:49] LABS: Add Manual Diff / Slide Review NO; Basophils Percent Auto 0.4 % (0-2); Eosinophils Percent Auto 0.3 % (2-4); Hematocrit 35.3 % (36-46); Hemoglobin 11.9 g/dL (12.0-16.0); Lymphocytes Percent Auto 6.7 % (25-40); Mean Corpuscular HGB Conc 33.6 % (30-36); Mean Corpuscular Hemoglobin 33.3 PG (26-34); Mean Corpuscular Volume 98.9 fL (80-100); Monocytes Percent Auto 3.6 % (3-14); Neutrophils Absolute Auto 4800 /uL (3000-5900); Platelet Count 75 X10^3/uL (150-400); Red Blood Cell Count 3.57 X10^6/uL (4.0-5.2); Red Cell Distribution Width 15.6 % (11.6-14.8); White Blood Cell Count 5.4 X10^3/uL (4.5-11.0)
[2018-09-13 14:08] LABS: Alanine Aminotransferase 27 IU/L (9-52); Albumin 4.2 g/dL (3.5-5.0); Albumin Globulin Ratio 1.8 (1.0-2.8); Alkaline Phosphatase 96 U/L (38-126); Aspartate Aminotransferase 23 IU/L (14-36); BUN Creatinine Ratio 16.7 (6-22); Bilirubin Total 0.6 mg/dL (0.2-1.3); Blood Urea Nitrogen 10 mg/dL (7-17); Carbon Dioxide 28 mmol/L (22-32); Chloride 102 mmol/L (98-107); Estimated Glomerular Filt Rate > 60.0 mL/min (>60); Globulin 2.3 g/dL (1.7-4.1); Glucose 138 mg/dL (80-110); HEMOLYSIS 16 (0-50); Potassium 3.6 mmol/L (3.4-5.1); Sodium 141 mmol/L (137-145); Total Protein 6.5 g/dL (6.3-8.2)
[2018-09-14 11:51] VITALS: BP 125/75; PULSE 78; RESP 18; TEMP 36.4; O2SAT 98
--- NOTE | 2018-09-14 12:32 | ONC.APRN.PN ---
PN -Subjective Interval history: Diagnosis: AML Previous treatment: 1. Induction chemotherapy with decidabine + GCLAM October 2016. 2. Three cycles of consolidation with winston-c completed April 2017. 3. Relapse in March 2018 treated with a clinical trial without response. 4. One additional cycle of GCLAM which was tolerated poorly but did induce apparent remission. Bone marrow biopsy in May showed morphologic CR but with MRD detected by FISH at 0.2%. 5. 2 cycles of vidaza with C2D1 08/31/2018 Interval history The patient is 78-year-old woman who returns today for follow-up her and her son accompany her today. She has a history of AML and has been receiving her treatment in [place]. She relapsed in March of this year and was treated on a clinical trial but failed to respond. She had 1 additional cycle of off trial therapy and did have a response. Her most recent bone marrow biopsy in May showed morphologic remission. Her FISH however was positive at 0.2%. She started 5 days a last month. She tolerated her 1st cycle without too much difficultyhowever She did inadvertently get higher dose of vidaza for the 1st few days of the cycle. Her weight had been entered in lb instead of kg. She did have some fatigue. She has had some mild nausea but no vomiting. She did have some increased pain that she described as a muscle spasm in the left side of her abdomen. She has had similar kinds of symptoms in the past and responded to ibuprofen. She was evaluated in the emergency room and given a prescription for Vicodin which has helped she is now not requiring to take any. She is taking ativan as needed for nausea. She denies any bleeding or bruising. No fevers or chills. Appetite has been fair. She denies any other new aches or pains and denies any other changes in her health. Her chief complaint is ongoing fatigue and weakness, the pt reports I sleep alot and I really miss being able to cook and clean. - Patient Self-Reported Symptoms SR Skin issues: Dry skin, Blistering or peeling, Hair loss or scalp prob, Nail changes SR Musculoskeletal issues: Muscle weakness, Muscle pain or cramps Home Medications and Allergies Home Medications Medication Instructions Recorded Confirmed Type fexofenadine 60 mg PO QPM #0 05/29/12 07/28/18 History acetaminophen 650 mg PO Q4-6H PRN #0 05/08/17 07/28/18 History hyoscyamine sulfate 0.125 mg PO BID-QID PRN 04/22/18 07/28/18 History loperamide 2 mg PO BID PRN 04/22/18 07/28/18 History ondansetron 8 mg PO TID PRN 04/22/18 07/28/18 History prochlorperazine maleate 5 mg PO Q6HR PRN 04/22/18 07/28/18 History lorazepam [Ativan] 0.5 mg BUCCAL BID-TID PRN 07/14/18 07/28/18 History cyclobenzaprine 5 mg PO TID PRN 07/28/18 08/17/18 History hydrocodone-acetaminophen 1 tab PO Q4-6H PRN 08/17/18 08/17/18 History lorazepam [Ativan] 0.5 mg PO BID-TID PRN 30 Days #60 08/31/18 Rx tab oxycodone 5 mg PO Q4-6H PRN 30 Days #90 cap 10/05/18 Rx Allergies Allergy/AdvReac Type Severity Reaction Status Date / Time Penicillins Allergy Unknown Verified 07/28/18 13:08 fentanyl [FENTANYL] AdvReac Unknown NAUSEA Verified 07/28/18 13:08 meperidine AdvReac Unknown N/V Verified 07/28/18 13:08 morphine AdvReac Unknown N/V Verified 07/28/18 13:08 Exam Narrative: frail appearing - Constitutional positive no acute distress, positive thin - Routine HEENT Exam Eye: Present: conjunctivae pink, exophthalmos. Absent: conjunctival icterus, scleral injection ENT: Present: mucous membranes moist - Routine Neck Exam Present: supple. Absent: lymphadenopathy - Routine Respiratory Exam Present: Clear to auscultation bilaterally, decreased breath sounds. Absent: accessory muscle use, prolonged expiratory phase, rales, rhonchi, wheezes - Routine Cardiovascular Exam Present: RRR, S1, S2. Absent: murmur, gallop, rubs, JVD - Routine Abdominal Exam Present: soft, normoactive bowel sounds. Absent: tenderness, distended - Routine Skin Exam Present: intact. Absent: petechiae, rash - Routine Neurological Exam Present: alert, oriented X3 - Routine Psychiatric Exam Present: normal affect Results - Labs Laboratory Last Values WBC 5.4 X10^3/uL (4.5-11.0) 09/13/18 13:41 RBC 3.57 X10^6/uL (4.0-5.2) L 09/13/18 13:41 Hgb 11.9 g/dL (12.0-16.0) L 09/13/18 13:41 Hct 35.3 % (36-46) L 09/13/18 13:41 MCV 98.9 fL (80-100) 09/13/18 13:41 MCH 33.3 PG (26-34) 09/13/18 13:41 MCHC 33.6 % (30-36) 09/13/18 13:41 RDW 15.6 % (11.6-14.8) H 09/13/18 13:41 Plt Count 75 X10^3/uL (150-400) L 09/13/18 13:41 Neut % (Auto) 89.0 % (50-75) H 09/13/18 13:41 Lymph % (Auto) 6.7 % (25-40) L 09/13/18 13:41 [place] % (Auto) 3.6 % (3-14) 09/13/18 13:41 Eos % (Auto) 0.3 % (2-4) L 09/13/18 13:41 Baso % (Auto) 0.4 % (0-2) 09/13/18 13:41 Neut # (Auto) 4800 /uL (4230-7862) 09/13/18 13:41 Total Counted 100 06/29/18 10:55 Seg Neutrophils % 71.0 % (38-70) H 06/29/18 10:55 Band Neutrophils % 6.0 % (3-7) 06/29/18 10:55 Lymphocytes % (Manual) 5.0 % (25-45) L 06/29/18 10:55 Atypical Lymphs % 1.0 % (-0) H 06/17/18 10:35 Monocytes % (Manual) 17.0 % (2-11) H 06/29/18 10:55 Eosinophils % (Manual) Cancelled 04/20/18 12:34 Basophils % (Manual) 1.0 % (0-1) 06/29/18 10:55 Metamyelocytes % 1.0 % (-0) H 06/17/18 10:35 Myelocytes % 2.0 % (-0) H 06/01/18 10:55 Promyelocytes % Cancelled 04/20/18 12:34 Blast Cells % Cancelled 04/20/18 12:34 Neutrophils # (Manual) 4312 /uL (2001-0229) 06/29/18 10:55 Differential Comment Cancelled 04/20/18 12:34 Plasma Cells Cancelled 04/20/18 12:34 Platelet Estimate Decreased on smear 06/07/18 10:30 Plt Morphology Comment 06/01/18 10:55 RBC Morphology Not Reportable 07/13/18 10:33 Polychromasia 1+ H 07/06/18 10:37 Hypochromasia 1+ H 07/06/18 10:37 Poikilocytosis 1+ H 07/06/18 10:37 Anisocytosis 2+ H 07/13/18 10:33 Microcytosis 1+ H 07/06/18 10:37 Sodium 141 mmol/L (137-145) 09/13/18 13:41 Potassium 3.6 mmol/L (3.4-5.1) 09/13/18 13:41 Chloride 102 mmol/L (98-107) 09/13/18 13:41 Carbon Dioxide 28 mmol/L (22-32) 09/13/18 13:41 BUN 10 mg/dL (7-17) 09/13/18 13:41 Creatinine 0.60 mg/dL (0.52-1.04) 09/13/18 13:41 Estimated GFR > 60.0 mL/min (>60) 09/13/18 13:41 BUN/Creatinine Ratio 16.7 (6-22) 09/13/18 13:41 Glucose 138 mg/dL (80-110) H 09/13/18 13:41 Calcium 9.0 mg/dL (8.4-10.2) 09/13/18 13:41 Magnesium 2.2 mg/dL (1.6-2.3) 07/13/18 10:33 Total Bilirubin 0.6 mg/dL (0.2-1.3) 09/13/18 13:41 Conjugated Bilirubin 0.0 md/dL (0.0-0.3) 07/13/18 10:33 Unconjugated Bilirubin 0.7 mg/dL (0.0-1.1) 07/13/18 10:33 AST 23 IU/L (14-36) 09/13/18 13:41 ALT 27 IU/L (9-52) 09/13/18 13:41 Alkaline Phosphatase 96 U/L (38-126) 09/13/18 13:41 Total Protein 6.5 g/dL (6.3-8.2) 09/13/18 13:41 Albumin 4.2 g/dL (3.5-5.0) 09/13/18 13:41 Globulin 2.3 g/dL (1.7-4.1) 09/13/18 13:41 Albumin/Globulin Ratio 1.8 (1.0-2.8) 09/13/18 13:41 Urine Color Yellow 05/26/18 12:28 Urine Appearance Clear 05/26/18 12:28 Urine pH 7.0 (4.5-8.0) 05/26/18 12:28 Ur Specific [place] 1.010 (1.000-1.035) 05/26/18 12:28 Urine Protein Trace (Negative) H 05/26/18 12:28 Urine Glucose (UA) Negative g/dL (Normal) 05/26/18 12:28 Urine Ketones Negative (NEGATIVE) 05/26/18 12:28 Urine Occult Blood 3+ (Negative) H 05/26/18 12:28 Urine Nitrate Negative (Negative) 05/26/18 12:28 Urine Bilirubin Negative (NEGATIVE) 05/26/18 12:28 Urine Urobilinogen 0.2 E.U./dL (0.2) 05/26/18 12:28 Ur Leukocyte Esterase Negative (NEGATIVE) 05/26/18 12:28 Urine RBC 10-30/hpf (0-5/HPF) H 05/26/18 12:28 Urine WBC 0-1/hpf (0-5/HPF) 05/26/18 12:28 Ur Squamous Epith Cells 0-1 /hpf 05/26/18 12:28 Urine Bacteria None seen (None) 05/26/18 12:28 Ur Culture Indicated? Cult not indicated 05/26/18 12:28 Micro UA Comment Not Reportable 05/26/18 12:28 Blood Type O Positive 05/12/18 12:04 Antibody Screen Negative 05/12/18 12:04 Crossmatch See Detail 05/12/18 12:04 - Imaging Additional studies: Procedures Colonoscopy (04/06/14) Injection or infusion of other therapeutic or prophylactic substance (06/03/12) Transfusion of Nonautologous Platelets into Peripheral Vein, Percutaneous Approach (05/13/18) Assessment and Plan (1) Acute leukemia Problem details: 78-year-old woman with a history of AML with relapse disease about 3 months ago. She is in a morphologic remission but does have residual disease detected by FISH. She remains at very high risk for relapse. She has been tolerating her therapy well. She has had some thrombocytopenia and fatigue but overall has been manageable. Her white cell count red cell count have been good. She will continue with her current regimen. She will be due to start in about 2 weeks. We will plan on starting her cycle on the 20 of October and treat for 7 days but will miss new 's day due to the holiday. She will return to clinic in about 4 weeks for follow-up. She will continue with weekly labs and PICC dressing changes. 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 She presents today for routine follow-up visit. Cycle 2 day 1 Vidaza was August 23, 2018. Next infusion will be due September 19, 2018. Patient denies any acute changes in her health status since receiving previous infusion. She continues with grade 3 fatigue, grade 3 weakness, grade 2 nausea for which she takes Ativan. She is not quite sure what the plan is moving forward. CBC today demonstrates stable white count 5.4 hemoglobin 11.9 hematocrit 35.3 platelets improved at 75,000 ANC 4800. CMP unremarkable. Will check in with [facility] and our oncologist to verify the POC.
--- NOTE | 2018-09-15 15:33 | PC.NURSE ---
Called pt to explain that Dr Patel wants pt to continue on the Vidaza until it isn't effective any longer. Her next treatment is due Thursday 09/20. Transferred pt to [facility] for scheduling. Notified Mariel.
[2018-09-20 13:46] LABS: Add Manual Diff / Slide Review NO; Basophils Percent Auto 1.1 % (0-2); Eosinophils Percent Auto 0.8 % (2-4); Hematocrit 34.9 % (36-46); Lymphocytes Percent Auto 16.7 % (25-40); Mean Corpuscular HGB Conc 34.4 % (30-36); Mean Corpuscular Hemoglobin 33.6 PG (26-34); Mean Corpuscular Volume 97.8 fL (80-100); Monocytes Percent Auto 8.8 % (3-14); Neutrophils Absolute Auto 1600 /uL (3000-5900); Neutrophils Percent Auto 72.6 % (50-75); Platelet Count 104 X10^3/uL (150-400); Red Blood Cell Count 3.57 X10^6/uL (4.0-5.2); Red Cell Distribution Width 15.9 % (11.6-14.8); White Blood Cell Count 2.1 X10^3/uL (4.5-11.0)
[2018-09-20 13:47] VITALS: BP 129/86; PULSE 79; RESP 16; TEMP 36.5
[2018-09-20] MEDS: SODIUM CHLORIDE 0.9% 100 ML 21 ML IV (14:11)
[2018-09-20] MEDS: DEXAMETHASONE 10 MG/ML VIAL 8 MG IV (14:12)
[2018-09-20] MEDS: ONDANSETRON 16 MG in SODIUM CHLORIDE 0.9% 50 ML 232 ML IV (14:12)
[2018-09-20] MEDS: AZACITIDINE IV (14:54)
[2018-09-20] MEDS: SODIUM CHLORIDE 0.9% IV (14:54)
[2018-09-21 13:35] VITALS: BP 138/78; PULSE 84; RESP 16; TEMP 36.3; O2SAT 97
[2018-09-21] MEDS: DEXAMETHASONE 10 MG/ML VIAL 8 MG IV (13:50)
[2018-09-21] MEDS: ONDANSETRON 16 MG in SODIUM CHLORIDE 0.9% 50 ML 232 ML IV (13:50)
[2018-09-21] MEDS: SODIUM CHLORIDE 0.9% 100 ML 21 ML IV (13:50)
[2018-09-21] MEDS: SODIUM CHLORIDE 0.9% IV (14:41)
[2018-09-21] MEDS: AZACITIDINE IV (14:41)
[2018-09-22 13:56] VITALS: BP 132/73; PULSE 91; RESP 16; TEMP 36.4; O2SAT 96
[2018-09-22] MEDS: ONDANSETRON 16 MG in SODIUM CHLORIDE 0.9% 50 ML 232 ML IV (13:57)
[2018-09-22] MEDS: SODIUM CHLORIDE 0.9% 100 ML 21 ML IV (13:58)
[2018-09-22] MEDS: DEXAMETHASONE 10 MG/ML VIAL 8 MG IV (13:59)
[2018-09-22] MEDS: SODIUM CHLORIDE 0.9% IV (14:47)
[2018-09-22] MEDS: AZACITIDINE IV (14:47)
[2018-09-23 14:17] VITALS: BP 133/73; PULSE 72; RESP 16; TEMP 36.7
[2018-09-23] MEDS: SODIUM CHLORIDE 0.9% 100 ML 21 ML IV (14:24)
[2018-09-23] MEDS: DEXAMETHASONE 10 MG/ML VIAL 8 MG IV (14:24)
[2018-09-23] MEDS: ONDANSETRON 16 MG in SODIUM CHLORIDE 0.9% 50 ML 232 ML IV (14:24)
[2018-09-23] MEDS: AZACITIDINE IV (15:11)
[2018-09-23] MEDS: SODIUM CHLORIDE 0.9% IV (15:11)
[2018-09-24] MEDS: SODIUM CHLORIDE 0.9% 100 ML 21 ML IV (13:38)
[2018-09-24] MEDS: DEXAMETHASONE 10 MG/ML VIAL 8 MG IV (13:38)
[2018-09-24] MEDS: ONDANSETRON 16 MG in SODIUM CHLORIDE 0.9% 50 ML 232 ML IV (14:12)
[2018-09-24] MEDS: SODIUM CHLORIDE 0.9% IV (15:00)
[2018-09-24] MEDS: AZACITIDINE IV (15:00)
[2018-09-27 14:05] LABS: Add Manual Diff / Slide Review NO; Basophils Percent Auto 0.4 % (0-2); Eosinophils Percent Auto 0.1 % (2-4); Hematocrit 38.9 % (36-46); Hemoglobin 13.1 g/dL (12.0-16.0); Lymphocytes Percent Auto 8.1 % (25-40); Mean Corpuscular HGB Conc 33.7 % (30-36); Mean Corpuscular Hemoglobin 32.8 PG (26-34); Mean Corpuscular Volume 97.3 fL (80-100); Monocytes Percent Auto 3.2 % (3-14); Neutrophils Absolute Auto 5000 /uL (3000-5900); Neutrophils Percent Auto 88.2 % (50-75); Platelet Count 100 X10^3/uL (150-400); Red Cell Distribution Width 15.6 % (11.6-14.8); White Blood Cell Count 5.6 X10^3/uL (4.5-11.0)
[2018-09-27 14:16] VITALS: BP 149/62; RESP 16; TEMP 37.5; O2SAT 99
[2018-09-27] MEDS: DEXAMETHASONE 10 MG/ML VIAL 8 MG IV (14:48)
[2018-09-27] MEDS: SODIUM CHLORIDE 0.9% 100 ML 21 ML IV (14:48)
[2018-09-27] MEDS: ONDANSETRON 16 MG in SODIUM CHLORIDE 0.9% 50 ML 232 ML IV (15:05)
[2018-09-27] MEDS: SODIUM CHLORIDE 0.9% IV (15:23)
[2018-09-27] MEDS: AZACITIDINE IV (15:23)
[2018-09-28] MEDS: DEXAMETHASONE 10 MG/ML VIAL 8 MG IV (14:10)
[2018-09-28] MEDS: SODIUM CHLORIDE 0.9% 100 ML 21 ML IV (14:11)
[2018-09-28 14:17] VITALS: BP 139/73; PULSE 67; RESP 16; TEMP 36.8; O2SAT 98
[2018-09-28] MEDS: ONDANSETRON 16 MG in SODIUM CHLORIDE 0.9% 50 ML 232 ML IV (14:24)
[2018-09-28] MEDS: SODIUM CHLORIDE 0.9% IV (14:57)
[2018-09-28] MEDS: AZACITIDINE IV (14:57)
[2018-10-05 10:25] LABS: Add Manual Diff / Slide Review NO; Basophils Percent Auto 0.4 % (0-2); Eosinophils Percent Auto 0.1 % (2-4); Hematocrit 38.4 % (36-46); Lymphocytes Percent Auto 4.5 % (25-40); Mean Corpuscular HGB Conc 33.8 % (30-36); Mean Corpuscular Volume 97.7 fL (80-100); Monocytes Percent Auto 5.4 % (3-14); Neutrophils Absolute Auto 9300 /uL (3000-5900); Neutrophils Percent Auto 89.6 % (50-75); Platelet Count 57 X10^3/uL (150-400); Red Blood Cell Count 3.93 X10^6/uL (4.0-5.2); Red Cell Distribution Width 15.8 % (11.6-14.8); White Blood Cell Count 10.4 X10^3/uL (4.5-11.0)
[2018-10-05 10:28] VITALS: BP 133/90; PULSE 100; RESP 18; TEMP 36.8; O2SAT 99
[2018-10-05 10:37] LABS: Alanine Aminotransferase 23 IU/L (9-52); Albumin 4.3 g/dL (3.5-5.0); Albumin Globulin Ratio 1.9 (1.0-2.8); Alkaline Phosphatase 88 U/L (38-126); Aspartate Aminotransferase 25 IU/L (14-36); BUN Creatinine Ratio 21.7 (6-22); Blood Urea Nitrogen 13 mg/dL (7-17); Calcium 9.3 mg/dL (8.4-10.2); Carbon Dioxide 26 mmol/L (22-32); Chloride 102 mmol/L (98-107); Estimated Glomerular Filt Rate > 60.0 mL/min (>60); Globulin 2.3 g/dL (1.7-4.1); Glucose 165 mg/dL (80-110); HEMOLYSIS 30 (0-50); Potassium 4.2 mmol/L (3.4-5.1); Sodium 140 mmol/L (137-145); Total Protein 6.6 g/dL (6.3-8.2)
--- NOTE | 2018-10-05 11:00 | P.PNONC_ITS ---
PN -Subjective Interval history: Diagnosis: AML Previous treatment: 1. Induction chemotherapy with decidabine + GCLAM October 2016. 2. Three cycles of consolidation with winston-c completed April 2017. 3. Relapse in March 2018 treated with a clinical trial without response. 4. One additional cycle of GCLAM which was tolerated poorly but did induce apparent remission. Bone marrow biopsy in May showed morphologic CR but with MRD detected by FISH at 0.2%. 5. 3 cycles of vidaza Interval history The patient is 78-year-old woman who returns today for follow-up her and her son accompany her today. She has a history of AML and has been receiving her treatment in [place]. She relapsed in March of this year and was treated on a clinical trial but failed to respond. She had 1 additional cycle of off trial therapy and did have a response. Her most recent bone marrow biopsy in May showed morphologic remission. Since her last visit here, she has been through her 3rd round of treatment. She is due for her 4th right around [place]. She has had some nausea but no vomiting. She does get relieved with oral antiemetics. She has not had any unusual bleeding or bruising. She has had some ongoing fatigue but overall feels like her energy level has been improving. It is not any worse. She has noted some changes in her fingernails and toenails. No shortness of breath or cough. She is not requiring any transfusions. No new aches or pains. She does use occasional oxycodone. - Patient Self-Reported Symptoms SR Skin issues: Dry skin, Blistering or peeling, Hair loss or scalp prob, Nail changes SR Musculoskeletal issues: Muscle weakness, Muscle pain or cramps Home Medications and Allergies Home Medications Medication Instructions Recorded Confirmed Type fexofenadine 60 mg PO QPM #0 05/29/12 07/28/18 History acetaminophen 650 mg PO Q4-6H PRN #0 05/08/17 07/28/18 History hyoscyamine sulfate 0.125 mg PO BID-QID PRN 04/22/18 07/28/18 History loperamide 2 mg PO BID PRN 04/22/18 07/28/18 History ondansetron 8 mg PO TID PRN 04/22/18 07/28/18 History prochlorperazine maleate 5 mg PO Q6HR PRN 04/22/18 07/28/18 History lorazepam [Ativan] 0.5 mg BUCCAL BID-TID PRN 07/14/18 07/28/18 History cyclobenzaprine 5 mg PO TID PRN 07/28/18 08/17/18 History hydrocodone-acetaminophen 1 tab PO Q4-6H PRN 08/17/18 08/17/18 History lorazepam [Ativan] 0.5 mg PO BID-TID PRN 30 Days #60 08/31/18 Rx tab oxycodone 5 mg PO Q4-6H PRN 30 Days #90 cap 10/05/18 Rx Allergies Allergy/AdvReac Type Severity Reaction Status Date / Time Penicillins Allergy Unknown Verified 07/28/18 13:08 fentanyl [FENTANYL] AdvReac Unknown NAUSEA Verified 07/28/18 13:08 meperidine AdvReac Unknown N/V Verified 07/28/18 13:08 morphine AdvReac Unknown N/V Verified 07/28/18 13:08 Exam - Constitutional positive no acute distress, positive average body habitus - Routine HEENT Exam Head: Present: normocephalic, atraumatic Eye: Present: EOMI, PERRL. Absent: conjunctival icterus, scleral injection ENT: Present: mucous membranes moist, oropharynx clear - Routine Neck Exam Present: supple. Absent: lymphadenopathy, thyromegaly - Routine Respiratory Exam Present: Clear to auscultation bilaterally. Absent: rales, wheezes - Routine Cardiovascular Exam Present: RRR, S1, S2. Absent: murmur - Routine Abdominal Exam Present: soft, normoactive bowel sounds. Absent: tenderness, organomegaly, mass - Routine Extremities Exam Absent: cyanosis, clubbing, edema - Routine Skin Exam Present: intact. Absent: petechiae, rash - Routine Neurological Exam Present: alert, oriented X3 - Routine Psychiatric Exam Present: normal affect, normal thought process Results - Labs Laboratory Last Values WBC 10.4 X10^3/uL (4.5-11.0) 10/05/18 10:13 RBC 3.93 X10^6/uL (4.0-5.2) L 10/05/18 10:13 Hgb 13.0 g/dL (12.0-16.0) 10/05/18 10:13 Hct 38.4 % (36-46) 10/05/18 10:13 MCV 97.7 fL (80-100) 10/05/18 10:13 MCH 33.0 PG (26-34) 10/05/18 10:13 MCHC 33.8 % (30-36) 10/05/18 10:13 RDW 15.8 % (11.6-14.8) H 10/05/18 10:13 Plt Count 57 X10^3/uL (150-400) L 10/05/18 10:13 Neut % (Auto) 89.6 % (50-75) H 10/05/18 10:13 Lymph % (Auto) 4.5 % (25-40) L 10/05/18 10:13 [place] % (Auto) 5.4 % (3-14) 10/05/18 10:13 Eos % (Auto) 0.1 % (2-4) L 10/05/18 10:13 Baso % (Auto) 0.4 % (0-2) 10/05/18 10:13 Neut # (Auto) 9300 /uL (5617-7621) H 10/05/18 10:13 Total Counted 100 06/29/18 10:55 Seg Neutrophils % 71.0 % (38-70) H 06/29/18 10:55 Band Neutrophils % 6.0 % (3-7) 06/29/18 10:55 Lymphocytes % (Manual) 5.0 % (25-45) L 06/29/18 10:55 Atypical Lymphs % 1.0 % (-0) H 06/17/18 10:35 Monocytes % (Manual) 17.0 % (2-11) H 06/29/18 10:55 Eosinophils % (Manual) Cancelled 04/20/18 12:34 Basophils % (Manual) 1.0 % (0-1) 06/29/18 10:55 Metamyelocytes % 1.0 % (-0) H 06/17/18 10:35 Myelocytes % 2.0 % (-0) H 06/01/18 10:55 Promyelocytes % Cancelled 04/20/18 12:34 Blast Cells % Cancelled 04/20/18 12:34 Neutrophils # (Manual) 4312 /uL (3894-1546) 06/29/18 10:55 Differential Comment Cancelled 04/20/18 12:34 Plasma Cells Cancelled 04/20/18 12:34 Platelet Estimate Decreased on smear 06/07/18 10:30 Plt Morphology Comment 06/01/18 10:55 RBC Morphology Not Reportable 07/13/18 10:33 Polychromasia 1+ H 07/06/18 10:37 Hypochromasia 1+ H 07/06/18 10:37 Poikilocytosis 1+ H 07/06/18 10:37 Anisocytosis 2+ H 07/13/18 10:33 Microcytosis 1+ H 07/06/18 10:37 Sodium 140 mmol/L (137-145) 10/05/18 10:13 Potassium 4.2 mmol/L (3.4-5.1) 10/05/18 10:13 Chloride 102 mmol/L (98-107) 10/05/18 10:13 Carbon Dioxide 26 mmol/L (22-32) 10/05/18 10:13 BUN 13 mg/dL (7-17) 10/05/18 10:13 Creatinine 0.60 mg/dL (0.52-1.04) 10/05/18 10:13 Estimated GFR > 60.0 mL/min (>60) 10/05/18 10:13 BUN/Creatinine Ratio 21.7 (6-22) 10/05/18 10:13 Glucose 165 mg/dL (80-110) H 10/05/18 10:13 Calcium 9.3 mg/dL (8.4-10.2) 10/05/18 10:13 Magnesium 2.2 mg/dL (1.6-2.3) 07/13/18 10:33 Total Bilirubin 1.0 mg/dL (0.2-1.3) 10/05/18 10:13 Conjugated Bilirubin 0.0 md/dL (0.0-0.3) 07/13/18 10:33 Unconjugated Bilirubin 0.7 mg/dL (0.0-1.1) 07/13/18 10:33 AST 25 IU/L (14-36) 10/05/18 10:13 ALT 23 IU/L (9-52) 10/05/18 10:13 Alkaline Phosphatase 88 U/L (38-126) 10/05/18 10:13 Total Protein 6.6 g/dL (6.3-8.2) 10/05/18 10:13 Albumin 4.3 g/dL (3.5-5.0) 10/05/18 10:13 Globulin 2.3 g/dL (1.7-4.1) 10/05/18 10:13 Albumin/Globulin Ratio 1.9 (1.0-2.8) 10/05/18 10:13 Urine Color Yellow 05/26/18 12:28 Urine Appearance Clear 05/26/18 12:28 Urine pH 7.0 (4.5-8.0) 05/26/18 12:28 Ur Specific [place] 1.010 (1.000-1.035) 05/26/18 12:28 Urine Protein Trace (Negative) H 05/26/18 12:28 Urine Glucose (UA) Negative g/dL (Normal) 05/26/18 12:28 Urine Ketones Negative (NEGATIVE) 05/26/18 12:28 Urine Occult Blood 3+ (Negative) H 05/26/18 12:28 Urine Nitrate Negative (Negative) 05/26/18 12:28 Urine Bilirubin Negative (NEGATIVE) 05/26/18 12:28 Urine Urobilinogen 0.2 E.U./dL (0.2) 05/26/18 12:28 Ur Leukocyte Esterase Negative (NEGATIVE) 05/26/18 12:28 Urine RBC 10-30/hpf (0-5/HPF) H 05/26/18 12:28 Urine WBC 0-1/hpf (0-5/HPF) 05/26/18 12:28 Ur Squamous Epith Cells 0-1 /hpf 05/26/18 12:28 Urine Bacteria None seen (None) 05/26/18 12:28 Ur Culture Indicated? Cult not indicated 05/26/18 12:28 Micro UA Comment Not Reportable 05/26/18 12:28 Blood Type O Positive 05/12/18 12:04 Antibody Screen Negative 05/12/18 12:04 Crossmatch See Detail 05/12/18 12:04 - Imaging Additional studies: Procedures Colonoscopy (04/06/14) Injection or infusion of other therapeutic or prophylactic substance (06/03/12) Assessment and Plan (1) Acute leukemia Problem details: 78-year-old woman with a history of AML with relapse disease about 3 months ago. She is in a morphologic remission but does have residual disease detected by FISH. She remains at very high risk for relapse. She has been tolerating her therapy well. She has had some thrombocytopenia and fatigue but overall has been manageable. Her white cell count red cell count have been good. She will continue with her current regimen. She will be due to start in about 2 weeks. We will plan on starting her cycle on the 20 of October and treat for 7 days but will miss new 's day due to the holiday. She will return to clinic in about 4 weeks for follow-up. She will continue with weekly labs and PICC dressing changes. Current visit: No Status: Acute
[2018-10-12 10:53] LABS: Add Manual Diff / Slide Review NO; Basophils Percent Auto 0.6 % (0-2); Eosinophils Percent Auto 0.4 % (2-4); Hemoglobin 12.4 g/dL (12.0-16.0); Lymphocytes Percent Auto 9.7 % (25-40); Mean Corpuscular HGB Conc 33.4 % (30-36); Mean Corpuscular Hemoglobin 32.7 PG (26-34); Mean Corpuscular Volume 97.9 fL (80-100); Monocytes Percent Auto 8.1 % (3-14); Neutrophils Absolute Auto 3200 /uL (1500-7000); Neutrophils Percent Auto 81.2 % (50-75); Platelet Count 92 X10^3/uL (150-400); Red Blood Cell Count 3.78 X10^6/uL (4.0-5.2); Red Cell Distribution Width 15.9 % (11.6-14.8); White Blood Cell Count 3.9 X10^3/uL (4.5-11.0)
[2018-10-20 14:07] LABS: Add Manual Diff / Slide Review NO; Basophils Percent Auto 0.7 % (0-2); Eosinophils Percent Auto 0.2 % (2-4); Hemoglobin 12.3 g/dL (12.0-16.0); Lymphocytes Percent Auto 10.2 % (25-40); Mean Corpuscular Hemoglobin 32.9 PG (26-34); Mean Corpuscular Volume 96.8 fL (80-100); Monocytes Percent Auto 7.4 % (3-14); Neutrophils Absolute Auto 3800 /uL (1500-7000); Neutrophils Percent Auto 81.5 % (50-75); Platelet Count 111 X10^3/uL (150-400); Red Blood Cell Count 3.72 X10^6/uL (4.0-5.2); Red Cell Distribution Width 15.1 % (11.6-14.8); White Blood Cell Count 4.7 X10^3/uL (4.5-11.0)
[2018-10-20 14:21] VITALS: BP 150/109; PULSE 79; RESP 15; TEMP 37.1
[2018-10-20] MEDS: DEXAMETHASONE 12 MG in SODIUM CHLORIDE 0.9% 50 ML 212 ML IV (14:44)
[2018-10-20] MEDS: SODIUM CHLORIDE 0.9% 100 ML 21 ML IV (14:52)
[2018-10-20] MEDS: ONDANSETRON 16 MG in SODIUM CHLORIDE 0.9% 50 ML 232 ML IV (15:09)
[2018-10-20] MEDS: AZACITIDINE IV (15:25)
[2018-10-20] MEDS: SODIUM CHLORIDE 0.9% IV (15:25)
[2018-10-21 13:50] VITALS: BP 155/105; PULSE 78; RESP 15; TEMP 35.9
[2018-10-21] MEDS: SODIUM CHLORIDE 0.9% 100 ML 21 ML IV (13:54)
[2018-10-21] MEDS: DEXAMETHASONE 12 MG in SODIUM CHLORIDE 0.9% 50 ML 212 ML IV (13:59)
[2018-10-21] MEDS: ONDANSETRON 16 MG in SODIUM CHLORIDE 0.9% 50 ML 232 ML IV (14:25)
[2018-10-21] MEDS: SODIUM CHLORIDE 0.9% IV (14:59)
[2018-10-21] MEDS: AZACITIDINE IV (14:59)
[2018-10-22 14:12] VITALS: BP 135/87; PULSE 79; RESP 16; TEMP 36.6
[2018-10-22] MEDS: DEXAMETHASONE 12 MG in SODIUM CHLORIDE 0.9% 50 ML 212 ML IV (14:19)
[2018-10-22] MEDS: SODIUM CHLORIDE 0.9% 100 ML 21 ML IV (14:21)
[2018-10-22] MEDS: ONDANSETRON 16 MG in SODIUM CHLORIDE 0.9% 50 ML 232 ML IV (14:41)
[2018-10-22] MEDS: AZACITIDINE IV (15:20)
[2018-10-22] MEDS: SODIUM CHLORIDE 0.9% IV (15:20)
[2018-10-25] MEDS: DEXAMETHASONE 12 MG in SODIUM CHLORIDE 0.9% 50 ML 212 ML IV (14:14)
[2018-10-25] MEDS: ONDANSETRON 16 MG in SODIUM CHLORIDE 0.9% 50 ML 232 ML IV (14:45)
[2018-10-25] MEDS: AZACITIDINE IV (15:04)
[2018-10-25] MEDS: SODIUM CHLORIDE 0.9% IV (15:04)
[2018-10-25 15:21] VITALS: BP 130/65; PULSE 81; RESP 16; TEMP 36.8
[2018-10-27 14:06] LABS: Add Manual Diff / Slide Review NO; Basophils Percent Auto 0.1 % (0-2); Eosinophils Percent Auto 0.2 % (2-4); Hematocrit 37.3 % (36-46); Hemoglobin 12.6 g/dL (12.0-16.0); Lymphocytes Percent Auto 5.8 % (25-40); Mean Corpuscular HGB Conc 33.7 % (30-36); Mean Corpuscular Hemoglobin 32.3 PG (26-34); Mean Corpuscular Volume 95.8 fL (80-100); Monocytes Percent Auto 2.9 % (3-14); Neutrophils Absolute Auto 9500 /uL (1500-7000); Platelet Count 119 X10^3/uL (150-400); Red Blood Cell Count 3.89 X10^6/uL (4.0-5.2); Red Cell Distribution Width 15.3 % (11.6-14.8); White Blood Cell Count 10.4 X10^3/uL (4.5-11.0)
[2018-10-27] MEDS: SODIUM CHLORIDE 0.9% 100 ML 21 ML IV (14:09)
[2018-10-27] MEDS: DEXAMETHASONE 12 MG in SODIUM CHLORIDE 0.9% 50 ML 212 ML IV (14:51)
[2018-10-27] MEDS: ONDANSETRON 16 MG in SODIUM CHLORIDE 0.9% 50 ML 232 ML IV (15:03)
[2018-10-27 15:08] VITALS: BP 121/80; PULSE 79; RESP 18; TEMP 36.7; O2SAT 94
[2018-10-27] MEDS: SODIUM CHLORIDE 0.9% IV (15:25)
[2018-10-27] MEDS: AZACITIDINE IV (15:25)
[2018-10-28] MEDS: DEXAMETHASONE 12 MG in SODIUM CHLORIDE 0.9% 50 ML 212 ML IV (13:45)
[2018-10-28] MEDS: SODIUM CHLORIDE 0.9% 100 ML 21 ML IV (13:45)
[2018-10-28] MEDS: ONDANSETRON 16 MG in SODIUM CHLORIDE 0.9% 50 ML 232 ML IV (14:08)
[2018-10-28 14:30] VITALS: BP 125/70; PULSE 68; RESP 16; TEMP 36.7; O2SAT 96
[2018-10-28] MEDS: SODIUM CHLORIDE 0.9% IV (14:37)
[2018-10-28] MEDS: AZACITIDINE IV (14:37)
[2018-10-29 14:16] VITALS: BP 130/75; PULSE 77; RESP 18; TEMP 36.7
[2018-10-29] MEDS: DEXAMETHASONE 12 MG in SODIUM CHLORIDE 0.9% 50 ML 212 ML IV (14:30)
[2018-10-29] MEDS: ONDANSETRON 16 MG in SODIUM CHLORIDE 0.9% 50 ML 232 ML IV (14:55)
[2018-10-29] MEDS: SODIUM CHLORIDE 0.9% 100 ML 21 ML IV (14:56)
[2018-10-29] MEDS: AZACITIDINE IV (15:30)
[2018-10-29] MEDS: SODIUM CHLORIDE 0.9% IV (15:30)
[2018-11-02 10:32] LABS: Add Manual Diff / Slide Review NO; Basophils Percent Auto 0.6 % (0-2); Eosinophils Percent Auto 0.2 % (2-4); Hematocrit 38.2 % (36-46); Hemoglobin 12.8 g/dL (12.0-16.0); Lymphocytes Percent Auto 3.8 % (25-40); Mean Corpuscular HGB Conc 33.5 % (30-36); Mean Corpuscular Volume 95.5 fL (80-100); Monocytes Percent Auto 3.9 % (3-14); Neutrophils Absolute Auto 9700 /uL (1500-7000); Neutrophils Percent Auto 91.5 % (50-75); Platelet Count 100 X10^3/uL (150-400); Red Cell Distribution Width 15.5 % (11.6-14.8); White Blood Cell Count 10.6 X10^3/uL (4.5-11.0)
[2018-11-02 10:37] VITALS: BP 137/88; PULSE 93; RESP 20; TEMP 36.8; O2SAT 98
[2018-11-02 10:46] LABS: Alanine Aminotransferase 26 IU/L (9-52); Albumin Globulin Ratio 1.5 (1.0-2.8); Alkaline Phosphatase 104 U/L (38-126); Aspartate Aminotransferase 20 IU/L (14-36); BUN Creatinine Ratio 15.7 (6-22); Bilirubin Total 1.3 mg/dL (0.2-1.3); Blood Urea Nitrogen 11 mg/dL (7-17); Calcium 9.2 mg/dL (8.4-10.2); Carbon Dioxide 29 mmol/L (22-32); Chloride 98 mmol/L (98-107); Estimated Glomerular Filt Rate > 60.0 mL/min (>60); Globulin 2.7 g/dL (1.7-4.1); Glucose 138 mg/dL (80-110); HEMOLYSIS < 15 (0-50); Potassium 3.9 mmol/L (3.4-5.1); Sodium 135 mmol/L (137-145); Total Protein 6.7 g/dL (6.3-8.2)
--- NOTE | 2018-11-02 10:52 | P.PNONC_ITS ---
PN -Subjective Interval history: Diagnosis: AML Previous treatment: 1. Induction chemotherapy with decidabine + GCLAM October 2016. 2. Three cycles of consolidation with winston-c completed April 2017. 3. Relapse in March 2018 treated with a clinical trial without response. 4. One additional cycle of GCLAM which was tolerated poorly but did induce apparent remission. Bone marrow biopsy in May showed morphologic CR but with MRD detected by FISH at 0.2%. 5. 4 cycles of vidaza Interval history The patient is 78-year-old woman who returns today for follow-up. She has a history of AML and has been receiving her treatment in [place]. She relapsed in March of this year and was treated on a clinical trial but failed to respond. She had 1 additional cycle of off trial therapy and did have a response. Her most recent bone marrow biopsy in May showed morphologic remission. Her FISH however was positive at 0.2%. She has been on 5 days as maintenance therapy. She has completed 4 cycles thus far. Since her last visit here, she was seen in the emergency room with a complaint of flank pain and hematuria. CT KUB did show some kidney stones on the left. She does have an appointment pending with the urologist. She has been using oxycodone for the pain and finds that helpful. She has been taking 1 tablet 3 to 4 times a day. She denies any fevers or chills. She has had a little bit of nausea but no vomiting. Strength and energy level have been low but stable. No no shortness of breath or cough. Appetite has been fair. She denies any other changes in her health. - Patient Self-Reported Symptoms SR Skin issues: Dry skin, Blistering or peeling, Hair loss or scalp prob, Nail changes SR Genitourinary issues: Blood in urine SR Musculoskeletal issues: Muscle weakness, Muscle pain or cramps Home Medications and Allergies Home Medications Medication Instructions Recorded Confirmed Type fexofenadine 60 mg PO QPM #0 05/29/12 07/28/18 History acetaminophen 650 mg PO Q4-6H PRN #0 05/08/17 07/28/18 History hyoscyamine sulfate 0.125 mg PO BID-QID PRN 04/22/18 07/28/18 History loperamide 2 mg PO BID PRN 04/22/18 07/28/18 History ondansetron 8 mg PO TID PRN 04/22/18 07/28/18 History prochlorperazine maleate 5 mg PO Q6HR PRN 04/22/18 07/28/18 History lorazepam [Ativan] 0.5 mg BUCCAL BID-TID PRN 07/14/18 07/28/18 History cyclobenzaprine 5 mg PO TID PRN 07/28/18 08/17/18 History hydrocodone-acetaminophen 1 tab PO Q4-6H PRN 08/17/18 08/17/18 History oxycodone 5 mg PO Q4-6H PRN 30 Days #90 cap 11/02/18 Rx tamsulosin [Flomax] 0.4 mg PO DAILY 11/02/18 11/02/18 History Allergies Allergy/AdvReac Type Severity Reaction Status Date / Time Penicillins Allergy Unknown Verified 07/28/18 13:08 fentanyl [FENTANYL] AdvReac Unknown NAUSEA Verified 07/28/18 13:08 meperidine AdvReac Unknown N/V Verified 07/28/18 13:08 morphine AdvReac Unknown N/V Verified 07/28/18 13:08 Exam - Constitutional positive no acute distress, positive average body habitus - Routine HEENT Exam Head: Present: normocephalic, atraumatic Eye: Present: EOMI, PERRL. Absent: conjunctival icterus, scleral injection ENT: Present: mucous membranes moist, oropharynx clear - Routine Neck Exam Present: supple. Absent: lymphadenopathy - Routine Respiratory Exam Present: Clear to auscultation bilaterally. Absent: rales, wheezes - Routine Cardiovascular Exam Present: RRR, S1, S2. Absent: murmur - Routine Abdominal Exam Present: soft, normoactive bowel sounds. Absent: tenderness, organomegaly, mass - Routine Back/Spine Exam Back/Spine: Present: CVA tenderness - Routine Skin Exam Present: intact. Absent: erythema, rash - Routine Neurological Exam Present: alert, oriented X3 - Routine Psychiatric Exam Present: normal affect, normal thought process Results - Labs Laboratory Last Values WBC 10.6 X10^3/uL (4.5-11.0) 11/02/18 10:31 RBC 4.00 X10^6/uL (4.0-5.2) 11/02/18 10:31 Hgb 12.8 g/dL (12.0-16.0) 11/02/18 10:31 Hct 38.2 % (36-46) 11/02/18 10:31 MCV 95.5 fL (80-100) 11/02/18 10:31 MCH 32.0 PG (26-34) 11/02/18 10:31 MCHC 33.5 % (30-36) 11/02/18 10:31 RDW 15.5 % (11.6-14.8) H 11/02/18 10:31 Plt Count 100 X10^3/uL (150-400) L 11/02/18 10:31 Neut % (Auto) 91.5 % (50-75) H 11/02/18 10:31 Lymph % (Auto) 3.8 % (25-40) L 11/02/18 10:31 [place] % (Auto) 3.9 % (3-14) 11/02/18 10:31 Eos % (Auto) 0.2 % (2-4) L 11/02/18 10:31 Baso % (Auto) 0.6 % (0-2) 11/02/18 10:31 Neut # (Auto) 9700 /uL (2055-2457) H 11/02/18 10:31 Total Counted 100 06/29/18 10:55 Seg Neutrophils % 71.0 % (38-70) H 06/29/18 10:55 Band Neutrophils % 6.0 % (3-7) 06/29/18 10:55 Lymphocytes % (Manual) 5.0 % (25-45) L 06/29/18 10:55 Atypical Lymphs % 1.0 % (-0) H 06/17/18 10:35 Monocytes % (Manual) 17.0 % (2-11) H 06/29/18 10:55 Eosinophils % (Manual) Cancelled 04/20/18 12:34 Basophils % (Manual) 1.0 % (0-1) 06/29/18 10:55 Metamyelocytes % 1.0 % (-0) H 06/17/18 10:35 Myelocytes % 2.0 % (-0) H 06/01/18 10:55 Promyelocytes % Cancelled 04/20/18 12:34 Blast Cells % Cancelled 04/20/18 12:34 Neutrophils # (Manual) 4312 /uL (8956-6117) 06/29/18 10:55 Differential Comment Cancelled 04/20/18 12:34 Plasma Cells Cancelled 04/20/18 12:34 Platelet Estimate Decreased on smear 06/07/18 10:30 Plt Morphology Comment 06/01/18 10:55 RBC Morphology Not Reportable 07/13/18 10:33 Polychromasia 1+ H 07/06/18 10:37 Hypochromasia 1+ H 07/06/18 10:37 Poikilocytosis 1+ H 07/06/18 10:37 Anisocytosis 2+ H 07/13/18 10:33 Microcytosis 1+ H 07/06/18 10:37 Sodium 135 mmol/L (137-145) L 11/02/18 10:31 Potassium 3.9 mmol/L (3.4-5.1) 11/02/18 10:31 Chloride 98 mmol/L (98-107) 11/02/18 10:31 Carbon Dioxide 29 mmol/L (22-32) 11/02/18 10:31 BUN 11 mg/dL (7-17) 11/02/18 10:31 Creatinine 0.70 mg/dL (0.52-1.04) 11/02/18 10:31 Estimated GFR > 60.0 mL/min (>60) 11/02/18 10:31 BUN/Creatinine Ratio 15.7 (6-22) 11/02/18 10:31 Glucose 138 mg/dL (80-110) H 11/02/18 10:31 Calcium 9.2 mg/dL (8.4-10.2) 11/02/18 10:31 Magnesium 2.2 mg/dL (1.6-2.3) 07/13/18 10:33 Total Bilirubin 1.3 mg/dL (0.2-1.3) 11/02/18 10:31 Conjugated Bilirubin 0.0 md/dL (0.0-0.3) 07/13/18 10:33 Unconjugated Bilirubin 0.7 mg/dL (0.0-1.1) 07/13/18 10:33 AST 20 IU/L (14-36) 11/02/18 10:31 ALT 26 IU/L (9-52) 11/02/18 10:31 Alkaline Phosphatase 104 U/L (38-126) 11/02/18 10:31 Total Protein 6.7 g/dL (6.3-8.2) 11/02/18 10:31 Albumin 4.0 g/dL (3.5-5.0) 11/02/18 10:31 Globulin 2.7 g/dL (1.7-4.1) 11/02/18 10:31 Albumin/Globulin Ratio 1.5 (1.0-2.8) 11/02/18 10:31 Urine Color Yellow 05/26/18 12:28 Urine Appearance Clear 05/26/18 12:28 Urine pH 7.0 (4.5-8.0) 05/26/18 12:28 Ur Specific [place] 1.010 (1.000-1.035) 05/26/18 12:28 Urine Protein Trace (Negative) H 05/26/18 12:28 Urine Glucose (UA) Negative g/dL (Normal) 05/26/18 12:28 Urine Ketones Negative (NEGATIVE) 05/26/18 12:28 Urine Occult Blood 3+ (Negative) H 05/26/18 12:28 Urine Nitrate Negative (Negative) 05/26/18 12:28 Urine Bilirubin Negative (NEGATIVE) 05/26/18 12:28 Urine Urobilinogen 0.2 E.U./dL (0.2) 05/26/18 12:28 Ur Leukocyte Esterase Negative (NEGATIVE) 05/26/18 12:28 Urine RBC 10-30/hpf (0-5/HPF) H 05/26/18 12:28 Urine WBC 0-1/hpf (0-5/HPF) 05/26/18 12:28 Ur Squamous Epith Cells 0-1 /hpf 05/26/18 12:28 Urine Bacteria None seen (None) 05/26/18 12:28 Ur Culture Indicated? Cult not indicated 05/26/18 12:28 Micro UA Comment Not Reportable 05/26/18 12:28 Blood Type O Positive 05/12/18 12:04 Antibody Screen Negative 05/12/18 12:04 Crossmatch See Detail 05/12/18 12:04 - Imaging Additional studies: Procedures Colonoscopy (04/06/14) Injection or infusion of other therapeutic or prophylactic substance (06/03/12) Assessment and Plan (1) Acute leukemia Problem details: 78-year-old woman with a history of AML with relapse disease. She is in a morphologic remission but does have residual disease detected by FISH. She remains at very high risk for relapse. She has been tolerating her therapy well. 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 She presents today for routine follow-up visit. She will continue with Vidaza as long as she is tolerating it and as long as she remains in remission. She has completed 4 cycles. She will be due for the 5th to begin on November 15. I did give her refill for oxycodone due to pain related to her kidney stones.
[2018-11-08 12:02] LABS: Add Manual Diff / Slide Review NO; Basophils Absolute Auto 0 /uL (0-100); Basophils Percent Auto 0.6 % (0-2); Eosinophils Absolute Auto 0 /uL (0-450); Eosinophils Percent Auto 0.4 % (2-4); Hematocrit 35.8 % (36-46); Hemoglobin 11.8 g/dL (12.0-16.0); Lymphocytes Absolute Auto 400 /uL (1100-4500); Lymphocytes Percent Auto 6.4 % (25-40); Mean Corpuscular HGB Conc 33.1 % (30-36); Mean Corpuscular Hemoglobin 31.6 PG (26-34); Mean Corpuscular Volume 95.6 fL (80-100); Monocytes Absolute Auto 400 /uL (0-900); Monocytes Percent Auto 6.9 % (3-14); Neutrophils Absolute Auto 5200 /uL (1500-7000); Neutrophils Percent Auto 85.7 % (50-75); Platelet Count 85 X10^3/uL (150-400); Red Blood Cell Count 3.75 X10^6/uL (4.0-5.2); Red Cell Distribution Width 15.7 % (11.6-14.8); White Blood Cell Count 6.1 X10^3/uL (4.5-11.0)
[2018-11-15 13:46] LABS: Add Manual Diff / Slide Review NO; Basophils Absolute Auto 0 /uL (0-100); Eosinophils Absolute Auto 0 /uL (0-450); Eosinophils Percent Auto 0.5 % (2-4); Hematocrit 31.4 % (36-46); Hemoglobin 10.8 g/dL (12.0-16.0); Lymphocytes Absolute Auto 500 /uL (1100-4500); Lymphocytes Percent Auto 13.2 % (25-40); Mean Corpuscular HGB Conc 34.3 % (30-36); Mean Corpuscular Hemoglobin 32.3 PG (26-34); Mean Corpuscular Volume 94.2 fL (80-100); Monocytes Absolute Auto 300 /uL (0-900); Monocytes Percent Auto 8.7 % (3-14); Neutrophils Absolute Auto 2600 /uL (1500-7000); Neutrophils Percent Auto 76.6 % (50-75); Platelet Count 121 X10^3/uL (150-400); Red Blood Cell Count 3.33 X10^6/uL (4.0-5.2); Red Cell Distribution Width 15.5 % (11.6-14.8); White Blood Cell Count 3.4 X10^3/uL (4.5-11.0)
[2018-11-15 14:05] VITALS: BP 143/75; PULSE 85; RESP 18; TEMP 36.8; O2SAT 97
[2018-11-15] MEDS: DEXAMETHASONE 12 MG in SODIUM CHLORIDE 0.9% 50 ML 212 ML IV (14:21)
[2018-11-15] MEDS: ONDANSETRON 16 MG in SODIUM CHLORIDE 0.9% 50 ML 232 ML IV (14:46)
[2018-11-15] MEDS: AZACITIDINE IV (15:17)
[2018-11-15] MEDS: SODIUM CHLORIDE 0.9% IV (15:17)
[2018-11-15 15:35] VITALS: BP 127/77; PULSE 83
[2018-11-16] MEDS: DEXAMETHASONE 10 MG/ML VIAL 8 MG IV (13:54)
[2018-11-16] MEDS: SODIUM CHLORIDE 0.9% 100 ML 21 ML IV (13:54)
[2018-11-16] MEDS: ONDANSETRON 16 MG in SODIUM CHLORIDE 0.9% 50 ML 232 ML IV (14:08)
[2018-11-16] MEDS: AZACITIDINE IV (14:45)
[2018-11-16] MEDS: SODIUM CHLORIDE 0.9% IV (14:45)
[2018-11-17 13:36] VITALS: BP 132/71; PULSE 84; RESP 16; TEMP 36.4
[2018-11-17] MEDS: DEXAMETHASONE 10 MG/ML VIAL 8 MG IV (13:44)
[2018-11-17] MEDS: SODIUM CHLORIDE 0.9% 100 ML 21 ML IV (13:45)
[2018-11-17] MEDS: ONDANSETRON 16 MG in SODIUM CHLORIDE 0.9% 50 ML 232 ML IV (14:15)
[2018-11-17] MEDS: AZACITIDINE IV (14:49)
[2018-11-17] MEDS: SODIUM CHLORIDE 0.9% IV (14:49)
[2018-11-18 13:33] VITALS: BP 144/90; PULSE 89; RESP 16; TEMP 36.4
[2018-11-18] MEDS: DEXAMETHASONE 10 MG/ML VIAL 8 MG IV (13:50)
[2018-11-18] MEDS: ONDANSETRON 16 MG in SODIUM CHLORIDE 0.9% 50 ML 232 ML IV (14:04)
--- NOTE | 2018-11-18 14:14 | ONC.SCHED ---
[facility]- Dr. Browne [phone] Lithotripsy 11/11/18
[2018-11-18 14:20] LABS: Bacteria Urine None Seen
[2018-11-18 14:29] LABS: Appearance Urine UA CLEAR; Bilirubin Urine UA NEGATIVE (NEGATIVE); Color Urine UA YELLOW; Glucose Urine UA NEGATIVE (Negative); Ketones Urine UA NEGATIVE (NEGATIVE); Leukocyte Esterase Urine UA NEGATIVE (NEGATIVE); Nitrite Urine UA NEGATIVE (Negative); Occult Blood Urine UA 3+ (Negative); Protein Urine UA NEGATIVE (Negative); Specific Gravity Urine UA 1.015 (1.000-1.035); Urobilinogen Urine UA 0.2 E.U./dL (0.2)
[2018-11-18 14:36] LABS: Calcium Oxalate Crystals Urine Few; Culture Indicated Urine Cult Not Indicated; RBC Urine 5-10/HPF (0-5/HPF); Squamous Epithelial Cell Urine 0-1 /HPF; Transitional Epi Cells Urine 0-1/HPF (0-5/HPF); WBC Urine 0-1/HPF (0-5/HPF)
[2018-11-18] MEDS: AZACITIDINE IV (14:38)
[2018-11-18] MEDS: SODIUM CHLORIDE 0.9% IV (14:38)
[2018-11-18] MEDS: SODIUM CHLORIDE 0.9% 100 ML 21 ML IV (14:38)
--- NOTE | 2018-11-18 16:33 | PC.NURSE ---
Pt seen in clinic today for treatment. Denies chest pain and SOB. RR equal and unlabored. Denies N/V. Speech clear. Reports pressure to bladder, states I feel like I'm getting a bladder infection. Denies frequency or burning just urgency and pressure. UA obtained, traige aware of results, no new orders received. Lab results given to pt, pt agrees to call urology with results. Tolerated chemo w/o issue.
[2018-11-19 13:30] VITALS: BP 125/71; PULSE 68; RESP 16; TEMP 36.7
[2018-11-19] MEDS: ONDANSETRON 16 MG in SODIUM CHLORIDE 0.9% 50 ML 232 ML IV (13:55)
[2018-11-19] MEDS: DEXAMETHASONE 10 MG/ML VIAL 8 MG IV (13:56)
[2018-11-19] MEDS: AZACITIDINE IV (14:40)
[2018-11-19] MEDS: SODIUM CHLORIDE 0.9% IV (14:40)
--- NOTE | 2018-11-19 15:25 | PC.NURSE ---
Pt seen in clinic for treatment. No new complaints, reports feeling same as yesterday. reports generalized fatigue. Denies chest pain and SOB. Reports taking Ativan for nausea, reports it helps. denies numbness or tingling to extremitiesx4. Speech clear, steady on feet. Tolerated infusion w/o incident.
[2018-11-22 14:03] LABS: Add Manual Diff / Slide Review NO; Basophils Absolute Auto 0 /uL (0-100); Basophils Percent Auto 0.6 % (0-2); Eosinophils Absolute Auto 0 /uL (0-450); Eosinophils Percent Auto 0.1 % (2-4); Hematocrit 37.8 % (36-46); Hemoglobin 12.6 g/dL (12.0-16.0); Lymphocytes Absolute Auto 500 /uL (1100-4500); Lymphocytes Percent Auto 5.9 % (25-40); Mean Corpuscular HGB Conc 33.4 % (30-36); Mean Corpuscular Hemoglobin 31.8 PG (26-34); Mean Corpuscular Volume 95.1 fL (80-100); Monocytes Absolute Auto 200 /uL (0-900); Monocytes Percent Auto 3.1 % (3-14); Neutrophils Absolute Auto 7100 /uL (1500-7000); Neutrophils Percent Auto 90.3 % (50-75); Platelet Count 144 X10^3/uL (150-400); Red Blood Cell Count 3.97 X10^6/uL (4.0-5.2); Red Cell Distribution Width 15.8 % (11.6-14.8); White Blood Cell Count 7.8 X10^3/uL (4.5-11.0)
[2018-11-22] MEDS: DEXAMETHASONE 10 MG/ML VIAL 8 MG IV (15:06)
[2018-11-22] MEDS: ONDANSETRON 16 MG in SODIUM CHLORIDE 0.9% 50 ML 232 ML IV (15:22)
[2018-11-22 15:26] VITALS: BP 120/78; PULSE 80; RESP 18; TEMP 36.8
[2018-11-22] MEDS: SODIUM CHLORIDE 0.9% IV (16:04)
[2018-11-22] MEDS: AZACITIDINE IV (16:04)
[2018-11-22] MEDS: DEXAMETHASONE 10 MG/ML VIAL 4 MG IV (16:15)
[2018-11-22] MEDS: SODIUM CHLORIDE 0.9% 100 ML 21 ML IV (16:17)
[2018-11-22] MEDS: SODIUM CHLORIDE 0.9% 500 ML 1000 ML IV (16:17)
[2018-11-23] MEDS: DEXAMETHASONE 12 MG in SODIUM CHLORIDE 0.9% 50 ML 212 ML IV (13:57)
[2018-11-23] MEDS: SODIUM CHLORIDE 0.9% 100 ML 21 ML IV (14:00)
[2018-11-23 14:03] VITALS: BP 138/70; PULSE 80; RESP 16; TEMP 36.7; O2SAT 100
[2018-11-23] MEDS: ONDANSETRON 16 MG in SODIUM CHLORIDE 0.9% 50 ML 232 ML IV (14:19)
[2018-11-23] MEDS: AZACITIDINE IV (14:57)
[2018-11-23] MEDS: SODIUM CHLORIDE 0.9% IV (14:57)
[2018-11-30 13:15] LABS: Add Manual Diff / Slide Review NO; Basophils Absolute Auto 0 /uL (0-100); Eosinophils Absolute Auto 0 /uL (0-450); Eosinophils Percent Auto 0.2 % (2-4); Hematocrit 37.3 % (36-46); Hemoglobin 12.4 g/dL (12.0-16.0); Lymphocytes Absolute Auto 600 /uL (1100-4500); Lymphocytes Percent Auto 5.8 % (25-40); Mean Corpuscular HGB Conc 33.4 % (30-36); Mean Corpuscular Hemoglobin 31.6 PG (26-34); Mean Corpuscular Volume 94.7 fL (80-100); Monocytes Absolute Auto 600 /uL (0-900); Monocytes Percent Auto 6.2 % (3-14); Neutrophils Absolute Auto 9100 /uL (1500-7000); Neutrophils Percent Auto 87.8 % (50-75); Platelet Count 78 X10^3/uL (150-400); Red Blood Cell Count 3.94 X10^6/uL (4.0-5.2); White Blood Cell Count 10.4 X10^3/uL (4.5-11.0)
[2018-11-30 13:27] VITALS: BP 135/75; PULSE 90; RESP 18; TEMP 36.3; O2SAT 98
--- NOTE | 2018-11-30 13:55 | P.PNONC_ITS ---
PN -Subjective Interval history: Diagnosis: AML Previous treatment: 1. Induction chemotherapy with decidabine + GCLAM October 2016. 2. Three cycles of consolidation with winston-c completed April 2017. 3. Relapse in March 2018 treated with a clinical trial without response. 4. One additional cycle of GCLAM which was tolerated poorly but did induce apparent remission. Bone marrow biopsy in May showed morphologic CR but with MRD detected by FISH at 0.2%. 5. 5 cycles of vidaza Interval history The patient is 78-year-old woman who returns today for follow-up. She has a history of AML and has been receiving her treatment in [place]. She relapsed in March 2018 and was treated on a clinical trial but failed to respond. She had 1 additional cycle of off trial therapy and did have a response. Her most recent bone marrow biopsy in May showed morphologic remission. Her FISH however was positive at 0.2%. She has been on maintenance therapy with azacitidine since then. She has been tolerating it fairly well. She has occasional nausea that is relieved with Zofran. She has not had any unusual bleeding or bruising. No fevers or chills. Her appetite has been low. Over the last month, she did have kidney stone. She had a procedure to break it apart. She had some bleeding postoperatively but it has since resolved. She is otherwise feeling well. She denies any other changes in her health. - Patient Self-Reported Symptoms SR Skin issues: Dry skin, Blistering or peeling, Hair loss or scalp prob, Nail changes SR Genitourinary issues: Blood in urine SR Musculoskeletal issues: Muscle weakness, Muscle pain or cramps Home Medications and Allergies Home Medications Medication Instructions Recorded Confirmed Type fexofenadine 60 mg PO QPM #0 05/29/12 07/28/18 History acetaminophen 650 mg PO Q4-6H PRN #0 05/08/17 07/28/18 History hyoscyamine sulfate 0.125 mg PO BID-QID PRN 04/22/18 07/28/18 History loperamide 2 mg PO BID PRN 04/22/18 07/28/18 History ondansetron 8 mg PO TID PRN 04/22/18 07/28/18 History prochlorperazine maleate 5 mg PO Q6HR PRN 04/22/18 07/28/18 History lorazepam [Ativan] 0.5 mg BUCCAL BID-TID PRN 07/14/18 07/28/18 History cyclobenzaprine 5 mg PO TID PRN 07/28/18 08/17/18 History hydrocodone-acetaminophen 1 tab PO Q4-6H PRN 08/17/18 08/17/18 History oxycodone 5 mg PO Q4-6H PRN #60 cap 11/23/18 Rx Allergies Allergy/AdvReac Type Severity Reaction Status Date / Time Penicillins Allergy Unknown Verified 07/28/18 13:08 fentanyl [FENTANYL] AdvReac Unknown NAUSEA Verified 07/28/18 13:08 meperidine AdvReac Unknown N/V Verified 07/28/18 13:08 morphine AdvReac Unknown N/V Verified 07/28/18 13:08 Exam - Constitutional positive no acute distress, positive thin - Routine HEENT Exam Head: Present: normocephalic, atraumatic Eye: Present: EOMI, PERRL. Absent: conjunctival icterus, scleral injection ENT: Present: mucous membranes moist, oropharynx clear - Routine Neck Exam Present: supple. Absent: lymphadenopathy, thyromegaly - Routine Respiratory Exam Present: Clear to auscultation bilaterally. Absent: rales, wheezes - Routine Cardiovascular Exam Present: RRR, S1, S2. Absent: murmur - Routine Abdominal Exam Present: soft, normoactive bowel sounds. Absent: tenderness, mass - Routine Extremities Exam Absent: cyanosis, clubbing, edema - Routine Back/Spine Exam Back/Spine: Absent: paraspinal tenderness, vertebral tenderness - Routine Skin Exam Present: intact. Absent: petechiae, rash - Routine Neurological Exam Present: alert, oriented X3 - Routine Psychiatric Exam Present: normal affect, normal thought process Results - Labs Laboratory Last Values WBC 10.4 X10^3/uL (4.5-11.0) 11/30/18 13:07 RBC 3.94 X10^6/uL (4.0-5.2) L 11/30/18 13:07 Hgb 12.4 g/dL (12.0-16.0) 11/30/18 13:07 Hct 37.3 % (36-46) 11/30/18 13:07 MCV 94.7 fL (80-100) 11/30/18 13:07 MCH 31.6 PG (26-34) 11/30/18 13:07 MCHC 33.4 % (30-36) 11/30/18 13:07 RDW 16.0 % (11.6-14.8) H 11/30/18 13:07 Plt Count 78 X10^3/uL (150-400) L 11/30/18 13:07 Neut % (Auto) 87.8 % (50-75) H 11/30/18 13:07 Lymph % (Auto) 5.8 % (25-40) L 11/30/18 13:07 [place] % (Auto) 6.2 % (3-14) 11/30/18 13:07 Eos % (Auto) 0.2 % (2-4) L 11/30/18 13:07 Baso % (Auto) 0.0 % (0-2) 11/30/18 13:07 Neut # (Auto) 9100 /uL (0345-6662) H 11/30/18 13:07 Lymph # (Auto) 600 /uL (4506-4056) L 11/30/18 13:07 [place] # (Auto) 600 /uL (0-900) 11/30/18 13:07 Eos # (Auto) 0 /uL (0-450) 11/30/18 13:07 Baso # (Auto) 0 /uL (0-100) 11/30/18 13:07 Total Counted 100 06/29/18 10:55 Seg Neutrophils % 71.0 % (38-70) H 06/29/18 10:55 Band Neutrophils % 6.0 % (3-7) 06/29/18 10:55 Lymphocytes % (Manual) 5.0 % (25-45) L 06/29/18 10:55 Atypical Lymphs % 1.0 % (-0) H 06/17/18 10:35 Monocytes % (Manual) 17.0 % (2-11) H 06/29/18 10:55 Eosinophils % (Manual) Cancelled 04/20/18 12:34 Basophils % (Manual) 1.0 % (0-1) 06/29/18 10:55 Metamyelocytes % 1.0 % (-0) H 06/17/18 10:35 Myelocytes % 2.0 % (-0) H 06/01/18 10:55 Promyelocytes % Cancelled 04/20/18 12:34 Blast Cells % Cancelled 04/20/18 12:34 Neutrophils # (Manual) 4312 /uL (6296-9243) 06/29/18 10:55 Differential Comment Cancelled 04/20/18 12:34 Plasma Cells Cancelled 04/20/18 12:34 Platelet Estimate Decreased on smear 06/07/18 10:30 Plt Morphology Comment 06/01/18 10:55 RBC Morphology Not Reportable 07/13/18 10:33 Polychromasia 1+ H 07/06/18 10:37 Hypochromasia 1+ H 07/06/18 10:37 Poikilocytosis 1+ H 07/06/18 10:37 Anisocytosis 2+ H 07/13/18 10:33 Microcytosis 1+ H 07/06/18 10:37 Sodium 135 mmol/L (137-145) L 11/02/18 10:31 Potassium 3.9 mmol/L (3.4-5.1) 11/02/18 10:31 Chloride 98 mmol/L (98-107) 11/02/18 10:31 Carbon Dioxide 29 mmol/L (22-32) 11/02/18 10:31 BUN 11 mg/dL (7-17) 11/02/18 10:31 Creatinine 0.70 mg/dL (0.52-1.04) 11/02/18 10:31 Estimated GFR > 60.0 mL/min (>60) 11/02/18 10:31 BUN/Creatinine Ratio 15.7 (6-22) 11/02/18 10:31 Glucose 138 mg/dL (80-110) H 11/02/18 10:31 Calcium 9.2 mg/dL (8.4-10.2) 11/02/18 10:31 Magnesium 2.2 mg/dL (1.6-2.3) 07/13/18 10:33 Total Bilirubin 1.3 mg/dL (0.2-1.3) 11/02/18 10:31 Conjugated Bilirubin 0.0 md/dL (0.0-0.3) 07/13/18 10:33 Unconjugated Bilirubin 0.7 mg/dL (0.0-1.1) 07/13/18 10:33 AST 20 IU/L (14-36) 11/02/18 10:31 ALT 26 IU/L (9-52) 11/02/18 10:31 Alkaline Phosphatase 104 U/L (38-126) 11/02/18 10:31 Total Protein 6.7 g/dL (6.3-8.2) 11/02/18 10:31 Albumin 4.0 g/dL (3.5-5.0) 11/02/18 10:31 Globulin 2.7 g/dL (1.7-4.1) 11/02/18 10:31 Albumin/Globulin Ratio 1.5 (1.0-2.8) 11/02/18 10:31 Urine Color Yellow 11/18/18 14:19 Urine Appearance Clear 11/18/18 14:19 Urine pH 7.0 (4.5-8.0) 11/18/18 14:19 Ur Specific [place] 1.015 (1.000-1.035) 11/18/18 14:19 Urine Protein Negative (Negative) 11/18/18 14:19 Urine Glucose (UA) Negative g/dL (Negative) 11/18/18 14:19 Urine Ketones Negative (NEGATIVE) 11/18/18 14:19 Urine Occult Blood 3+ (Negative) H 11/18/18 14:19 Urine Nitrate Negative (Negative) 11/18/18 14:19 Urine Bilirubin Negative (NEGATIVE) 11/18/18 14:19 Urine Urobilinogen 0.2 E.U./dL (0.2) 11/18/18 14:19 Ur Leukocyte Esterase Negative (NEGATIVE) 11/18/18 14:19 Urine RBC 5-10/hpf (0-5/HPF) H 11/18/18 14:19 Urine WBC 0-1/hpf (0-5/HPF) 11/18/18 14:19 Ur Squamous Epith Cells 0-1 /hpf 11/18/18 14:19 Ur Transition Epith Cell 0-1/hpf (0-5/HPF) 11/18/18 14:19 Calcium Oxalate Crystal Few (None) H 11/18/18 14:19 Urine Bacteria None seen (None) 11/18/18 14:19 Ur Culture Indicated? Cult not indicated 11/18/18 14:19 Micro UA Comment Not Reportable 05/26/18 12:28 Blood Type O Positive 05/12/18 12:04 Antibody Screen Negative 05/12/18 12:04 Crossmatch See Detail 05/12/18 12:04 - Imaging Additional studies: Procedures Colonoscopy (04/06/14) Injection or infusion of other therapeutic or prophylactic substance (06/03/12) Assessment and Plan (1) Acute leukemia Problem details: 78-year-old woman with a history of AML with relapse disease. She is in a morphologic remission but does have residual disease detected by FISH. She remains at very high risk for relapse. She has been tolerating her therapy well. 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 She presents today for routine follow-up visit. She will continue with Vidaza as long as she is tolerating it and as long as she remains in remission. She has completed 5 cycles. She will be due for the 6th on December 13. She will return to clinic in about 4 weeks for follow-up.
[2018-12-06 14:10] LABS: Add Manual Diff / Slide Review NO; Basophils Absolute Auto 100 /uL (0-100); Eosinophils Absolute Auto 0 /uL (0-450); Eosinophils Percent Auto 0.2 % (2-4); Hematocrit 35.2 % (36-46); Hemoglobin 11.9 g/dL (12.0-16.0); Lymphocytes Absolute Auto 500 /uL (1100-4500); Lymphocytes Percent Auto 7.1 % (25-40); Mean Corpuscular HGB Conc 33.9 % (30-36); Mean Corpuscular Hemoglobin 31.3 PG (26-34); Mean Corpuscular Volume 92.3 fL (80-100); Monocytes Absolute Auto 300 /uL (0-900); Neutrophils Absolute Auto 5500 /uL (1500-7000); Neutrophils Percent Auto 86.7 % (50-75); Platelet Count 109 X10^3/uL (150-400); Red Blood Cell Count 3.82 X10^6/uL (4.0-5.2); Red Cell Distribution Width 15.9 % (11.6-14.8); White Blood Cell Count 6.4 X10^3/uL (4.5-11.0)
[2018-12-13 13:56] LABS: Add Manual Diff / Slide Review NO; Basophils Absolute Auto 0 /uL (0-100); Basophils Percent Auto 0.5 % (0-2); Eosinophils Absolute Auto 0 /uL (0-450); Eosinophils Percent Auto 0.5 % (2-4); Hematocrit 37.6 % (36-46); Hemoglobin 12.3 g/dL (12.0-16.0); Lymphocytes Absolute Auto 300 /uL (1100-4500); Mean Corpuscular HGB Conc 32.6 % (30-36); Mean Corpuscular Hemoglobin 30.9 PG (26-34); Mean Corpuscular Volume 94.8 fL (80-100); Monocytes Absolute Auto 400 /uL (0-900); Monocytes Percent Auto 6.7 % (3-14); Neutrophils Absolute Auto 4500 /uL (1500-7000); Neutrophils Percent Auto 86.3 % (50-75); Platelet Count 129 X10^3/uL (150-400); Red Blood Cell Count 3.97 X10^6/uL (4.0-5.2); White Blood Cell Count 5.3 X10^3/uL (4.5-11.0)
[2018-12-13 14:05] VITALS: BP 124/76; PULSE 78; RESP 14; TEMP 36.7
[2018-12-13] MEDS: SODIUM CHLORIDE 0.9% 100 ML 21 ML IV (14:42)
[2018-12-13] MEDS: DEXAMETHASONE 12 MG in SODIUM CHLORIDE 0.9% 50 ML 212 ML IV (14:49)
[2018-12-13] MEDS: ONDANSETRON 16 MG in SODIUM CHLORIDE 0.9% 50 ML 232 ML IV (15:07)
[2018-12-13] MEDS: SODIUM CHLORIDE 0.9% IV (15:27)
[2018-12-13] MEDS: AZACITIDINE IV (15:27)
[2018-12-14] MEDS: DEXAMETHASONE 12 MG in SODIUM CHLORIDE 0.9% 50 ML 212 ML IV (13:45)
[2018-12-14] MEDS: SODIUM CHLORIDE 0.9% 100 ML 21 ML IV (13:46)
[2018-12-14 13:49] VITALS: BP 124/66; PULSE 88; RESP 18; TEMP 36.6; O2SAT 98
[2018-12-14] MEDS: ONDANSETRON 16 MG in SODIUM CHLORIDE 0.9% 50 ML 232 ML IV (14:07)
[2018-12-14] MEDS: SODIUM CHLORIDE 0.9% IV (14:47)
[2018-12-14] MEDS: AZACITIDINE IV (14:47)
[2018-12-15 13:53] VITALS: BP 124/77; PULSE 83; RESP 20; TEMP 36.4; O2SAT 97
[2018-12-15] MEDS: DEXAMETHASONE 12 MG in SODIUM CHLORIDE 0.9% 50 ML 212 ML IV (14:06)
[2018-12-15] MEDS: SODIUM CHLORIDE 0.9% 100 ML 21 ML IV (14:06)
[2018-12-15] MEDS: ONDANSETRON 16 MG in SODIUM CHLORIDE 0.9% 50 ML 232 ML IV (14:28)
[2018-12-15] MEDS: SODIUM CHLORIDE 0.9% IV (15:04)
[2018-12-15] MEDS: AZACITIDINE IV (15:04)
[2018-12-16 14:16] VITALS: BP 123/85; PULSE 74; RESP 16; TEMP 36.4
[2018-12-16] MEDS: DEXAMETHASONE 12 MG in SODIUM CHLORIDE 0.9% 50 ML 212 ML IV (14:40)
[2018-12-16] MEDS: ONDANSETRON 16 MG in SODIUM CHLORIDE 0.9% 50 ML 232 ML IV (15:02)
[2018-12-16] MEDS: SODIUM CHLORIDE 0.9% IV (15:35)
[2018-12-16] MEDS: AZACITIDINE IV (15:35)
[2018-12-20 13:46] LABS: Add Manual Diff / Slide Review NO; Basophils Absolute Auto 0 /uL (0-100); Basophils Percent Auto 0.4 % (0-2); Eosinophils Absolute Auto 0 /uL (0-450); Eosinophils Percent Auto 0.4 % (2-4); Hematocrit 39.3 % (36-46); Hemoglobin 13.2 g/dL (12.0-16.0); Lymphocytes Absolute Auto 400 /uL (1100-4500); Lymphocytes Percent Auto 5.5 % (25-40); Mean Corpuscular HGB Conc 33.6 % (30-36); Mean Corpuscular Volume 92.5 fL (80-100); Monocytes Absolute Auto 300 /uL (0-900); Monocytes Percent Auto 4.1 % (3-14); Neutrophils Absolute Auto 6600 /uL (1500-7000); Neutrophils Percent Auto 89.6 % (50-75); Platelet Count 100 X10^3/uL (150-400); Red Blood Cell Count 4.25 X10^6/uL (4.0-5.2); Red Cell Distribution Width 15.8 % (11.6-14.8); White Blood Cell Count 7.3 X10^3/uL (4.5-11.0)
[2018-12-20] MEDS: DEXAMETHASONE 12 MG in SODIUM CHLORIDE 0.9% 50 ML 212 ML IV (14:57)
[2018-12-20] MEDS: ONDANSETRON 16 MG in SODIUM CHLORIDE 0.9% 50 ML 232 ML IV (15:26)
[2018-12-20 15:40] VITALS: BP 130/72; PULSE 91; RESP 16; TEMP 37; O2SAT 95
[2018-12-20] MEDS: AZACITIDINE IV (15:57)
[2018-12-20] MEDS: SODIUM CHLORIDE 0.9% IV (15:57)
[2018-12-21 13:51] VITALS: BP 118/71; PULSE 85; RESP 16; TEMP 36.8
[2018-12-21] MEDS: DEXAMETHASONE 12 MG in SODIUM CHLORIDE 0.9% 50 ML 212 ML IV (13:53)
[2018-12-21] MEDS: SODIUM CHLORIDE 0.9% 100 ML 21 ML IV (13:54)
[2018-12-21] MEDS: ONDANSETRON 16 MG in SODIUM CHLORIDE 0.9% 50 ML 232 ML IV (14:25)
[2018-12-21] MEDS: SODIUM CHLORIDE 0.9% IV (14:58)
[2018-12-21] MEDS: AZACITIDINE IV (14:58)
--- NOTE | 2018-12-21 16:03 | PC.NURSE ---
Pt seen in clinic for treatment today. Denies chest pain and SOB. Reports nausea has improved since yesterday but still there. Reports pain is controlled with medications. Speech clear. Steady on feet. HRR. LS clear.
[2018-12-22] MEDS: SODIUM CHLORIDE 0.9% 100 ML 21 ML IV (14:19)
[2018-12-22] MEDS: DEXAMETHASONE 12 MG in SODIUM CHLORIDE 0.9% 50 ML 212 ML IV (14:19)
[2018-12-22 14:37] VITALS: BP 147/73; PULSE 76; RESP 16; TEMP 37.3
[2018-12-22] MEDS: ONDANSETRON 16 MG in SODIUM CHLORIDE 0.9% 50 ML 232 ML IV (14:40)
[2018-12-22] MEDS: AZACITIDINE IV (15:16)
[2018-12-22] MEDS: SODIUM CHLORIDE 0.9% IV (15:16)
[2018-12-28 09:05] VITALS: BP 142/77; PULSE 90; RESP 16; TEMP 36.4; O2SAT 95
[2018-12-28 09:16] LABS: Add Manual Diff / Slide Review NO; Basophils Absolute Auto 0 /uL (0-100); Basophils Percent Auto 0.2 % (0-2); Eosinophils Absolute Auto 0 /uL (0-450); Eosinophils Percent Auto 0.3 % (2-4); Hemoglobin 12.9 g/dL (12.0-16.0); Lymphocytes Absolute Auto 500 /uL (1100-4500); Lymphocytes Percent Auto 5.4 % (25-40); Mean Corpuscular HGB Conc 33.1 % (30-36); Mean Corpuscular Hemoglobin 31.1 PG (26-34); Mean Corpuscular Volume 93.7 fL (80-100); Monocytes Absolute Auto 500 /uL (0-900); Monocytes Percent Auto 5.8 % (3-14); Neutrophils Absolute Auto 8000 /uL (1500-7000); Neutrophils Percent Auto 88.3 % (50-75); Platelet Count 61 X10^3/uL (150-400); Red Blood Cell Count 4.16 X10^6/uL (4.0-5.2); Red Cell Distribution Width 15.8 % (11.6-14.8); White Blood Cell Count 9.1 X10^3/uL (4.5-11.0)
--- NOTE | 2018-12-28 09:26 | P.PNONC_ITS ---
PN -Subjective Interval history: Diagnosis: AML Previous treatment: 1. Induction chemotherapy with decidabine + GCLAM October 2016. 2. Three cycles of consolidation with winston-c completed April 2017. 3. Relapse in March 2018 treated with a clinical trial without response. 4. One additional cycle of GCLAM which was tolerated poorly but did induce apparent remission. Bone marrow biopsy in May showed morphologic CR but with MRD detected by FISH at 0.2%. 5. 6 cycles of vidaza beginning in June 2018 Interval history The patient is 78-year-old woman who returns today for follow-up. She has a history of AML and has been receiving her treatment in [place]. She relapsed in March 2018 and was treated on a clinical trial but failed to respond. She had 1 additional cycle of off trial therapy and did have a response. Her most recent bone marrow biopsy in May showed morphologic remission. Her FISH however was positive at 0.2%. She has been on maintenance therapy with azacitidine since then. She continues to tolerate her therapy fairly well. She notes that she has some fatigue particularly right after her treatment. She has had 1 episode of emesis. No fevers or chills. No shortness of breath or cough. Strength and energy level otherwise have been fair. She denies any unusual bleeding or bruising. She has not had any infectious complications. She does have some occasional abdominal cramps that have been attributed to scar tissue. She occasionally takes an oxycodone for it. She denies any other changes in her health. Her medications are unchanged. They include oxycodone Compazine Zofran hyoscamine and fexofenadine as needed. - Patient Self-Reported Symptoms SR Skin issues: Dry skin, Blistering or peeling, Hair loss or scalp prob, Nail changes SR Genitourinary issues: Blood in urine SR Musculoskeletal issues: Muscle weakness, Muscle pain or cramps Home Medications and Allergies Home Medications Medication Instructions Recorded Confirmed Type fexofenadine 60 mg PO QPM #0 05/29/12 07/28/18 History acetaminophen 650 mg PO Q4-6H PRN #0 05/08/17 07/28/18 History hyoscyamine sulfate 0.125 mg PO BID-QID PRN 04/22/18 07/28/18 History loperamide 2 mg PO BID PRN 04/22/18 07/28/18 History prochlorperazine maleate 5 mg PO Q6HR PRN 04/22/18 07/28/18 History lorazepam [Ativan] 0.5 mg BUCCAL BID-TID PRN 07/14/18 07/28/18 History cyclobenzaprine 5 mg PO TID PRN 07/28/18 08/17/18 History hydrocodone-acetaminophen 1 tab PO Q4-6H PRN 08/17/18 08/17/18 History oxycodone 5 mg PO Q4-6H PRN #60 cap 11/23/18 Rx ondansetron 8 mg PO TID PRN #30 tab 11/30/18 Rx lorazepam 0.5 mg PO BID-TID PRN 30 Days #90 12/07/18 Rx tab Allergies Allergy/AdvReac Type Severity Reaction Status Date / Time Penicillins Allergy Unknown Verified 07/28/18 13:08 fentanyl [FENTANYL] AdvReac Unknown NAUSEA Verified 07/28/18 13:08 meperidine AdvReac Unknown N/V Verified 07/28/18 13:08 morphine AdvReac Unknown N/V Verified 07/28/18 13:08 Exam Vital signs: Vital Signs Temp Pulse Resp BP Pulse Ox 12/28/18 09:05 97.6 F 90 16 142/77 H 95 Intake and Output 12/27/18 12/28/18 12/28/18 23:59 07:59 15:59 Other: Weight 42.6 kg Patient Weight 12/29/18 07:59 Weight 42.6 kg - Constitutional positive no acute distress, positive thin - Routine HEENT Exam Head: Present: normocephalic, atraumatic Eye: Present: EOMI, PERRL. Absent: conjunctival icterus, scleral injection ENT: Present: mucous membranes moist, oropharynx clear - Routine Neck Exam Present: supple. Absent: lymphadenopathy, thyromegaly - Routine Respiratory Exam Present: Clear to auscultation bilaterally. Absent: rales, wheezes - Routine Cardiovascular Exam Present: RRR, S1, S2. Absent: murmur - Routine Abdominal Exam Present: soft, normoactive bowel sounds. Absent: tenderness, organomegaly, mass - Routine Extremities Exam Absent: cyanosis, clubbing, edema - Routine Back/Spine Exam Back/Spine: Absent: vertebral tenderness - Routine Skin Exam Present: intact. Absent: petechiae, rash - Routine Neurological Exam Present: alert, oriented X3 - Routine Psychiatric Exam Present: normal affect, normal thought process Results - Labs Laboratory Last Values WBC 9.1 X10^3/uL (4.5-11.0) 12/28/18 08:24 RBC 4.16 X10^6/uL (4.0-5.2) 12/28/18 08:24 Hgb 12.9 g/dL (12.0-16.0) 12/28/18 08:24 Hct 39.0 % (36-46) 12/28/18 08:24 MCV 93.7 fL (80-100) 12/28/18 08:24 MCH 31.1 PG (26-34) 12/28/18 08:24 MCHC 33.1 % (30-36) 12/28/18 08:24 RDW 15.8 % (11.6-14.8) H 12/28/18 08:24 Plt Count 61 X10^3/uL (150-400) L 12/28/18 08:24 Neut % (Auto) 88.3 % (50-75) H 12/28/18 08:24 Lymph % (Auto) 5.4 % (25-40) L 12/28/18 08:24 [place] % (Auto) 5.8 % (3-14) 12/28/18 08:24 Eos % (Auto) 0.3 % (2-4) L 12/28/18 08:24 Baso % (Auto) 0.2 % (0-2) 12/28/18 08:24 Neut # (Auto) 8000 /uL (2651-7699) H 12/28/18 08:24 Lymph # (Auto) 500 /uL (2986-1120) L 12/28/18 08:24 [place] # (Auto) 500 /uL (0-900) 12/28/18 08:24 Eos # (Auto) 0 /uL (0-450) 12/28/18 08:24 Baso # (Auto) 0 /uL (0-100) 12/28/18 08:24 Total Counted 100 06/29/18 10:55 Seg Neutrophils % 71.0 % (38-70) H 06/29/18 10:55 Band Neutrophils % 6.0 % (3-7) 06/29/18 10:55 Lymphocytes % (Manual) 5.0 % (25-45) L 06/29/18 10:55 Atypical Lymphs % 1.0 % (-0) H 06/17/18 10:35 Monocytes % (Manual) 17.0 % (2-11) H 06/29/18 10:55 Eosinophils % (Manual) Cancelled 04/20/18 12:34 Basophils % (Manual) 1.0 % (0-1) 06/29/18 10:55 Metamyelocytes % 1.0 % (-0) H 06/17/18 10:35 Myelocytes % 2.0 % (-0) H 06/01/18 10:55 Promyelocytes % Cancelled 04/20/18 12:34 Blast Cells % Cancelled 04/20/18 12:34 Neutrophils # (Manual) 4312 /uL (9151-5135) 06/29/18 10:55 Differential Comment Cancelled 04/20/18 12:34 Plasma Cells Cancelled 04/20/18 12:34 Platelet Estimate Decreased on smear 06/07/18 10:30 Plt Morphology Comment 06/01/18 10:55 RBC Morphology Not Reportable 07/13/18 10:33 Polychromasia 1+ H 07/06/18 10:37 Hypochromasia 1+ H 07/06/18 10:37 Poikilocytosis 1+ H 07/06/18 10:37 Anisocytosis 2+ H 07/13/18 10:33 Microcytosis 1+ H 07/06/18 10:37 Sodium 135 mmol/L (137-145) L 11/02/18 10:31 Potassium 3.9 mmol/L (3.4-5.1) 11/02/18 10:31 Chloride 98 mmol/L (98-107) 11/02/18 10:31 Carbon Dioxide 29 mmol/L (22-32) 11/02/18 10:31 BUN 11 mg/dL (7-17) 11/02/18 10:31 Creatinine 0.70 mg/dL (0.52-1.04) 11/02/18 10:31 Estimated GFR > 60.0 mL/min (>60) 11/02/18 10:31 BUN/Creatinine Ratio 15.7 (6-22) 11/02/18 10:31 Glucose 138 mg/dL (80-110) H 11/02/18 10:31 Calcium 9.2 mg/dL (8.4-10.2) 11/02/18 10:31 Magnesium 2.2 mg/dL (1.6-2.3) 07/13/18 10:33 Total Bilirubin 1.3 mg/dL (0.2-1.3) 11/02/18 10:31 Conjugated Bilirubin 0.0 md/dL (0.0-0.3) 07/13/18 10:33 Unconjugated Bilirubin 0.7 mg/dL (0.0-1.1) 07/13/18 10:33 AST 20 IU/L (14-36) 11/02/18 10:31 ALT 26 IU/L (9-52) 11/02/18 10:31 Alkaline Phosphatase 104 U/L (38-126) 11/02/18 10:31 Total Protein 6.7 g/dL (6.3-8.2) 11/02/18 10:31 Albumin 4.0 g/dL (3.5-5.0) 11/02/18 10:31 Globulin 2.7 g/dL (1.7-4.1) 11/02/18 10:31 Albumin/Globulin Ratio 1.5 (1.0-2.8) 11/02/18 10:31 Urine Color Yellow 11/18/18 14:19 Urine Appearance Clear 11/18/18 14:19 Urine pH 7.0 (4.5-8.0) 11/18/18 14:19 Ur Specific [place] 1.015 (1.000-1.035) 11/18/18 14:19 Urine Protein Negative (Negative) 11/18/18 14:19 Urine Glucose (UA) Negative g/dL (Negative) 11/18/18 14:19 Urine Ketones Negative (NEGATIVE) 11/18/18 14:19 Urine Occult Blood 3+ (Negative) H 11/18/18 14:19 Urine Nitrate Negative (Negative) 11/18/18 14:19 Urine Bilirubin Negative (NEGATIVE) 11/18/18 14:19 Urine Urobilinogen 0.2 E.U./dL (0.2) 11/18/18 14:19 Ur Leukocyte Esterase Negative (NEGATIVE) 11/18/18 14:19 Urine RBC 5-10/hpf (0-5/HPF) H 11/18/18 14:19 Urine WBC 0-1/hpf (0-5/HPF) 11/18/18 14:19 Ur Squamous Epith Cells 0-1 /hpf 11/18/18 14:19 Ur Transition Epith Cell 0-1/hpf (0-5/HPF) 11/18/18 14:19 Calcium Oxalate Crystal Few (None) H 11/18/18 14:19 Urine Bacteria None seen (None) 11/18/18 14:19 Ur Culture Indicated? Cult not indicated 11/18/18 14:19 Micro UA Comment Not Reportable 05/26/18 12:28 Blood Type O Positive 05/12/18 12:04 Antibody Screen Negative 05/12/18 12:04 Crossmatch See Detail 05/12/18 12:04 - Imaging Additional studies: Procedures Colonoscopy (04/06/14) Injection or infusion of other therapeutic or prophylactic substance (06/03/12) Assessment and Plan (1) Acute leukemia Problem details: 78-year-old woman with a history of AML with relapse disease. She is in a morphologic remission but does have residual disease detected by FISH. She remains at very high risk for relapse. She has been tolerating her therapy well. She will continue with her current regimen and return to clinic in about 4 weeks for follow-up. She will be due for her next cycle on the week of January 10. Current visit: No Status: Acute
[2019-01-03 11:20] LABS: Add Manual Diff / Slide Review NO; Basophils Absolute Auto 0 /uL (0-100); Basophils Percent Auto 0.8 % (0-2); Eosinophils Absolute Auto 0 /uL (0-450); Eosinophils Percent Auto 0.3 % (2-4); Hematocrit 38.1 % (36-46); Hemoglobin 12.6 g/dL (12.0-16.0); Lymphocytes Absolute Auto 400 /uL (1100-4500); Lymphocytes Percent Auto 7.8 % (25-40); Mean Corpuscular Hemoglobin 30.8 PG (26-34); Mean Corpuscular Volume 93.5 fL (80-100); Monocytes Absolute Auto 500 /uL (0-900); Monocytes Percent Auto 8.4 % (3-14); Neutrophils Absolute Auto 4500 /uL (1500-7000); Neutrophils Percent Auto 82.7 % (50-75); Platelet Count 86 X10^3/uL (150-400); Red Blood Cell Count 4.07 X10^6/uL (4.0-5.2); Red Cell Distribution Width 16.5 % (11.6-14.8); White Blood Cell Count 5.5 X10^3/uL (4.5-11.0)
[2019-01-10 14:22] LABS: Add Manual Diff / Slide Review NO; Basophils Absolute Auto 0 /uL (0-100); Basophils Percent Auto 0.8 % (0-2); Eosinophils Absolute Auto 0 /uL (0-450); Eosinophils Percent Auto 0.4 % (2-4); Hematocrit 34.7 % (36-46); Hemoglobin 11.2 g/dL (12.0-16.0); Lymphocytes Absolute Auto 500 /uL (1100-4500); Lymphocytes Percent Auto 11.7 % (25-40); Mean Corpuscular HGB Conc 32.3 % (30-36); Mean Corpuscular Hemoglobin 30.3 PG (26-34); Monocytes Absolute Auto 400 /uL (0-900); Monocytes Percent Auto 9.5 % (3-14); Neutrophils Absolute Auto 3400 /uL (1500-7000); Neutrophils Percent Auto 77.6 % (50-75); Platelet Count 105 X10^3/uL (150-400); Red Blood Cell Count 3.69 X10^6/uL (4.0-5.2); Red Cell Distribution Width 16.4 % (11.6-14.8); White Blood Cell Count 4.4 X10^3/uL (4.5-11.0)
[2019-01-10] MEDS: DEXAMETHASONE 12 MG in SODIUM CHLORIDE 0.9% 50 ML 212 ML IV (14:46)
[2019-01-10] MEDS: ONDANSETRON 16 MG in SODIUM CHLORIDE 0.9% 50 ML 232 ML IV (15:11)
[2019-01-10] MEDS: SODIUM CHLORIDE 0.9% IV (15:39)
[2019-01-10] MEDS: AZACITIDINE IV (15:39)
[2019-01-10] MEDS: SODIUM CHLORIDE 0.9% 100 ML 21 ML IV (15:39)
[2019-01-10 15:45] VITALS: BP 126/77; PULSE 82; RESP 18; TEMP 36.6; O2SAT 96
[2019-01-11 13:37] VITALS: BP 112/63; PULSE 77; RESP 16; TEMP 36.4; O2SAT 97
[2019-01-11] MEDS: DEXAMETHASONE 12 MG in SODIUM CHLORIDE 0.9% 50 ML 212 ML IV (14:02)
[2019-01-11] MEDS: SODIUM CHLORIDE 0.9% 100 ML 21 ML IV (14:03)
[2019-01-11] MEDS: ONDANSETRON 16 MG in SODIUM CHLORIDE 0.9% 50 ML 232 ML IV (14:24)
[2019-01-11] MEDS: AZACITIDINE IV (14:52)
[2019-01-11] MEDS: SODIUM CHLORIDE 0.9% IV (14:52)
[2019-01-12 13:48] VITALS: BP 127/72; PULSE 76; RESP 18; TEMP 36.4; O2SAT 99
[2019-01-12] MEDS: DEXAMETHASONE 12 MG in SODIUM CHLORIDE 0.9% 50 ML 212 ML IV (13:56)
[2019-01-12] MEDS: SODIUM CHLORIDE 0.9% 100 ML 21 ML IV (13:57)
[2019-01-12] MEDS: ONDANSETRON 16 MG in SODIUM CHLORIDE 0.9% 50 ML 232 ML IV (14:17)
[2019-01-12] MEDS: SODIUM CHLORIDE 0.9% IV (14:49)
[2019-01-12] MEDS: AZACITIDINE IV (14:49)
[2019-01-13] MEDS: DEXAMETHASONE 12 MG in SODIUM CHLORIDE 0.9% 50 ML 212 ML IV (14:10)
[2019-01-13] MEDS: SODIUM CHLORIDE 0.9% 100 ML 21 ML IV (14:34)
[2019-01-13] MEDS: ONDANSETRON 16 MG in SODIUM CHLORIDE 0.9% 50 ML 232 ML IV (14:34)
[2019-01-13] MEDS: SODIUM CHLORIDE 0.9% IV (15:25)
[2019-01-13] MEDS: AZACITIDINE IV (15:25)
[2019-01-13 15:41] VITALS: BP 144/78; PULSE 73; RESP 20; TEMP 36.7; O2SAT 96
[2019-01-17 14:01] LABS: Add Manual Diff / Slide Review NO; Basophils Absolute Auto 0 /uL (0-100); Basophils Percent Auto 0.6 % (0-2); Eosinophils Absolute Auto 0 /uL (0-450); Eosinophils Percent Auto 0.3 % (2-4); Hematocrit 38.1 % (36-46); Hemoglobin 12.7 g/dL (12.0-16.0); Lymphocytes Absolute Auto 700 /uL (1100-4500); Lymphocytes Percent Auto 12.6 % (25-40); Mean Corpuscular HGB Conc 33.4 % (30-36); Mean Corpuscular Hemoglobin 30.6 PG (26-34); Mean Corpuscular Volume 91.9 fL (80-100); Monocytes Absolute Auto 300 /uL (0-900); Monocytes Percent Auto 4.8 % (3-14); Neutrophils Absolute Auto 4400 /uL (1500-7000); Neutrophils Percent Auto 81.7 % (50-75); Platelet Count 114 X10^3/uL (150-400); Red Blood Cell Count 4.15 X10^6/uL (4.0-5.2); Red Cell Distribution Width 16.7 % (11.6-14.8); White Blood Cell Count 5.4 X10^3/uL (4.5-11.0)
[2019-01-17] MEDS: DEXAMETHASONE 12 MG in SODIUM CHLORIDE 0.9% 50 ML 212 ML IV (14:45)
[2019-01-17] MEDS: ONDANSETRON 16 MG in SODIUM CHLORIDE 0.9% 50 ML 232 ML IV (15:05)
[2019-01-17 15:13] VITALS: BP 127/70; PULSE 83; RESP 18; TEMP 36.6; O2SAT 98
[2019-01-17] MEDS: SODIUM CHLORIDE 0.9% 100 ML 21 ML IV (15:44)
[2019-01-17] MEDS: AZACITIDINE IV (15:44)
[2019-01-17] MEDS: SODIUM CHLORIDE 0.9% IV (15:44)
[2019-01-18 13:43] VITALS: BP 119/66; PULSE 82; RESP 16; TEMP 36.4
[2019-01-18] MEDS: DEXAMETHASONE 12 MG in SODIUM CHLORIDE 0.9% 50 ML 212 ML IV (13:45)
[2019-01-18] MEDS: SODIUM CHLORIDE 0.9% 100 ML 21 ML IV (13:46)
[2019-01-18] MEDS: ONDANSETRON 16 MG in SODIUM CHLORIDE 0.9% 50 ML 232 ML IV (14:13)
[2019-01-18] MEDS: AZACITIDINE IV (14:48)
[2019-01-18] MEDS: SODIUM CHLORIDE 0.9% IV (14:48)
--- NOTE | 2019-01-19 08:59 | PC.NURSE ---
Called in RX refill of Ativan to [facility]. Notified pt
[2019-01-19 14:08] VITALS: BP 123/65; PULSE 74; RESP 20; TEMP 36.4; O2SAT 96
[2019-01-19] MEDS: DEXAMETHASONE 12 MG in SODIUM CHLORIDE 0.9% 50 ML 212 ML IV (14:10)
[2019-01-19] MEDS: ONDANSETRON 16 MG in SODIUM CHLORIDE 0.9% 50 ML 232 ML IV (14:32)
[2019-01-19] MEDS: SODIUM CHLORIDE 0.9% IV (15:05)
[2019-01-19] MEDS: AZACITIDINE IV (15:05)
[2019-01-25 10:07] LABS: Add Manual Diff / Slide Review NO; Basophils Absolute Auto 0 /uL (0-100); Basophils Percent Auto 0.5 % (0-2); Eosinophils Absolute Auto 0 /uL (0-450); Eosinophils Percent Auto 0.3 % (2-4); Hematocrit 37.9 % (36-46); Hemoglobin 12.7 g/dL (12.0-16.0); Lymphocytes Absolute Auto 600 /uL (1100-4500); Lymphocytes Percent Auto 7.4 % (25-40); Mean Corpuscular HGB Conc 33.4 % (30-36); Mean Corpuscular Hemoglobin 30.8 PG (26-34); Mean Corpuscular Volume 92.1 fL (80-100); Monocytes Absolute Auto 500 /uL (0-900); Monocytes Percent Auto 6.8 % (3-14); Neutrophils Absolute Auto 6900 /uL (1500-7000); Red Blood Cell Count 4.12 X10^6/uL (4.0-5.2); Red Cell Distribution Width 16.8 % (11.6-14.8); White Blood Cell Count 8.1 X10^3/uL (4.5-11.0)
[2019-01-25 10:12] LABS: Platelet Count 40 X10^3/uL (150-400)
[2019-01-25 10:19] VITALS: BP 136/71; PULSE 79; RESP 16; TEMP 36.4; O2SAT 95
--- NOTE | 2019-01-25 10:37 | P.PNONC_ITS ---
PN -Subjective Interval history: Diagnosis: AML Previous treatment: 1. Induction chemotherapy with decidabine + GCLAM October 2016. 2. Three cycles of consolidation with winston-c completed April 2017. 3. Relapse in March 2018 treated with a clinical trial without response. 4. One additional cycle of GCLAM which was tolerated poorly but did induce apparent remission. Bone marrow biopsy in May showed morphologic CR but with MRD detected by FISH at 0.2%. 5. 7 cycles of vidaza beginning in June 2018 Interval history The patient is 78-year-old woman who returns today for follow-up. She has a history of AML and has been receiving her treatment in [place]. She relapsed in March 2018 and was treated on a clinical trial but failed to respond. She had 1 additional cycle of off trial therapy and did have a response. Her most recent bone marrow biopsy in May showed morphologic remission. Her FISH however was positive at 0.2%. She has been on maintenance therapy with azacitidine since then. She continues to tolerate her therapy fairly well. She does note some nausea but no vomiting. It seems to be worse on the week following her treatment. She has been using Ativan which has been helping. She takes occasional Zofran if the symptoms are more severe. She has not had any emesis. She does have some ongoing fatigue and has been napping during the afternoon but is still able to go about all of her normal activities. She has not had any unusual bleeding or bruising. No fevers chills or sweats. Appetite has been stable as has her weight. Bowels have been moving normally. She denies any other changes in her health. Her medications are unchanged. They include oxycodone Compazine Zofran hyoscamine and fexofenadine as needed. - Patient Self-Reported Symptoms SR Skin issues: Dry skin, Blistering or peeling, Hair loss or scalp prob, Nail changes SR Genitourinary issues: Blood in urine SR Musculoskeletal issues: Muscle weakness, Muscle pain or cramps Home Medications and Allergies Home Medications Medication Instructions Recorded Confirmed Type fexofenadine 60 mg PO QPM #0 05/29/12 01/25/19 History acetaminophen 650 mg PO Q4-6H PRN #0 05/08/17 01/25/19 History hyoscyamine sulfate 0.125 mg PO BID-QID PRN 04/22/18 01/25/19 History loperamide 2 mg PO BID PRN 04/22/18 01/25/19 History prochlorperazine maleate 5 mg PO Q6HR PRN 04/22/18 01/25/19 History cyclobenzaprine 5 mg PO TID PRN 07/28/18 01/25/19 History hydrocodone-acetaminophen 1 tab PO Q4-6H PRN 08/17/18 01/25/19 History oxycodone 5 mg PO Q4-6H PRN #60 cap 11/23/18 01/25/19 Rx ondansetron 8 mg PO TID PRN #30 tab 11/30/18 01/25/19 Rx lorazepam 0.5 mg PO BID-TID PRN 30 Days #90 01/25/19 Rx tab lorazepam [Ativan] 0.5 mg BUCCAL BID-TID PRN 30 Days 01/25/19 Rx #30 tab Allergies Allergy/AdvReac Type Severity Reaction Status Date / Time Penicillins Allergy Unknown Verified 07/28/18 13:08 fentanyl [FENTANYL] AdvReac Unknown NAUSEA Verified 07/28/18 13:08 meperidine AdvReac Unknown N/V Verified 07/28/18 13:08 morphine AdvReac Unknown N/V Verified 07/28/18 13:08 Exam Vital signs: Vital Signs Temp Pulse Resp BP Pulse Ox 01/25/19 10:19 97.6 F 79 16 136/71 95 Intake and Output 01/24/19 01/25/19 01/25/19 23:59 07:59 15:59 Other: Weight 43.2 kg Patient Weight 01/25/19 23:59 Weight 43.2 kg - Constitutional positive no acute distress, positive thin - Routine HEENT Exam Head: Present: normocephalic, atraumatic Eye: Present: EOMI, PERRL. Absent: conjunctival icterus, scleral injection ENT: Present: mucous membranes moist, oropharynx clear - Routine Neck Exam Present: supple. Absent: lymphadenopathy, thyromegaly - Routine Respiratory Exam Present: Clear to auscultation bilaterally. Absent: rales, wheezes - Routine Cardiovascular Exam Present: RRR, S1, S2. Absent: murmur - Routine Abdominal Exam Present: soft, normoactive bowel sounds. Absent: tenderness, organomegaly, mass - Routine Extremities Exam Absent: cyanosis, clubbing, edema - Routine Back/Spine Exam Back/Spine: Absent: vertebral tenderness - Routine Skin Exam Present: intact. Absent: petechiae, rash - Routine Neurological Exam Present: alert, oriented X3 - Routine Psychiatric Exam Present: normal affect, normal thought process Results - Labs Laboratory Last Values WBC 8.1 X10^3/uL (4.5-11.0) 01/25/19 09:40 RBC 4.12 X10^6/uL (4.0-5.2) 01/25/19 09:40 Hgb 12.7 g/dL (12.0-16.0) 01/25/19 09:40 Hct 37.9 % (36-46) 01/25/19 09:40 MCV 92.1 fL (80-100) 01/25/19 09:40 MCH 30.8 PG (26-34) 01/25/19 09:40 MCHC 33.4 % (30-36) 01/25/19 09:40 RDW 16.8 % (11.6-14.8) H 01/25/19 09:40 Plt Count 40 X10^3/uL (150-400) L 01/25/19 09:40 Neut % (Auto) 85.0 % (50-75) H 01/25/19 09:40 Lymph % (Auto) 7.4 % (25-40) L 01/25/19 09:40 [place] % (Auto) 6.8 % (3-14) 01/25/19 09:40 Eos % (Auto) 0.3 % (2-4) L 01/25/19 09:40 Baso % (Auto) 0.5 % (0-2) 01/25/19 09:40 Neut # (Auto) 6900 /uL (0368-8285) 01/25/19 09:40 Lymph # (Auto) 600 /uL (9588-2472) L 01/25/19 09:40 [place] # (Auto) 500 /uL (0-900) 01/25/19 09:40 Eos # (Auto) 0 /uL (0-450) 01/25/19 09:40 Baso # (Auto) 0 /uL (0-100) 01/25/19 09:40 Total Counted 100 06/29/18 10:55 Seg Neutrophils % 71.0 % (38-70) H 06/29/18 10:55 Band Neutrophils % 6.0 % (3-7) 06/29/18 10:55 Lymphocytes % (Manual) 5.0 % (25-45) L 06/29/18 10:55 Atypical Lymphs % 1.0 % (-0) H 06/17/18 10:35 Monocytes % (Manual) 17.0 % (2-11) H 06/29/18 10:55 Eosinophils % (Manual) Cancelled 04/20/18 12:34 Basophils % (Manual) 1.0 % (0-1) 06/29/18 10:55 Metamyelocytes % 1.0 % (-0) H 06/17/18 10:35 Myelocytes % 2.0 % (-0) H 06/01/18 10:55 Promyelocytes % Cancelled 04/20/18 12:34 Blast Cells % Cancelled 04/20/18 12:34 Neutrophils # (Manual) 4312 /uL (0311-8590) 06/29/18 10:55 Differential Comment Cancelled 04/20/18 12:34 Plasma Cells Cancelled 04/20/18 12:34 Platelet Estimate Decreased on smear 06/07/18 10:30 Plt Morphology Comment 06/01/18 10:55 RBC Morphology Not Reportable 07/13/18 10:33 Polychromasia 1+ H 07/06/18 10:37 Hypochromasia 1+ H 07/06/18 10:37 Poikilocytosis 1+ H 07/06/18 10:37 Anisocytosis 2+ H 07/13/18 10:33 Microcytosis 1+ H 07/06/18 10:37 Sodium 135 mmol/L (137-145) L 11/02/18 10:31 Potassium 3.9 mmol/L (3.4-5.1) 11/02/18 10:31 Chloride 98 mmol/L (98-107) 11/02/18 10:31 Carbon Dioxide 29 mmol/L (22-32) 11/02/18 10:31 BUN 11 mg/dL (7-17) 11/02/18 10:31 Creatinine 0.70 mg/dL (0.52-1.04) 11/02/18 10:31 Estimated GFR > 60.0 mL/min (>60) 11/02/18 10:31 BUN/Creatinine Ratio 15.7 (6-22) 11/02/18 10:31 Glucose 138 mg/dL (80-110) H 11/02/18 10:31 Calcium 9.2 mg/dL (8.4-10.2) 11/02/18 10:31 Magnesium 2.2 mg/dL (1.6-2.3) 07/13/18 10:33 Total Bilirubin 1.3 mg/dL (0.2-1.3) 11/02/18 10:31 Conjugated Bilirubin 0.0 md/dL (0.0-0.3) 07/13/18 10:33 Unconjugated Bilirubin 0.7 mg/dL (0.0-1.1) 07/13/18 10:33 AST 20 IU/L (14-36) 11/02/18 10:31 ALT 26 IU/L (9-52) 11/02/18 10:31 Alkaline Phosphatase 104 U/L (38-126) 11/02/18 10:31 Total Protein 6.7 g/dL (6.3-8.2) 11/02/18 10:31 Albumin 4.0 g/dL (3.5-5.0) 11/02/18 10:31 Globulin 2.7 g/dL (1.7-4.1) 11/02/18 10:31 Albumin/Globulin Ratio 1.5 (1.0-2.8) 11/02/18 10:31 Urine Color Yellow 11/18/18 14:19 Urine Appearance Clear 11/18/18 14:19 Urine pH 7.0 (4.5-8.0) 11/18/18 14:19 Ur Specific [place] 1.015 (1.000-1.035) 11/18/18 14:19 Urine Protein Negative (Negative) 11/18/18 14:19 Urine Glucose (UA) Negative g/dL (Negative) 11/18/18 14:19 Urine Ketones Negative (NEGATIVE) 11/18/18 14:19 Urine Occult Blood 3+ (Negative) H 11/18/18 14:19 Urine Nitrate Negative (Negative) 11/18/18 14:19 Urine Bilirubin Negative (NEGATIVE) 11/18/18 14:19 Urine Urobilinogen 0.2 E.U./dL (0.2) 11/18/18 14:19 Ur Leukocyte Esterase Negative (NEGATIVE) 11/18/18 14:19 Urine RBC 5-10/hpf (0-5/HPF) H 11/18/18 14:19 Urine WBC 0-1/hpf (0-5/HPF) 11/18/18 14:19 Ur Squamous Epith Cells 0-1 /hpf 11/18/18 14:19 Ur Transition Epith Cell 0-1/hpf (0-5/HPF) 11/18/18 14:19 Calcium Oxalate Crystal Few (None) H 11/18/18 14:19 Urine Bacteria None seen (None) 11/18/18 14:19 Ur Culture Indicated? Cult not indicated 11/18/18 14:19 Micro UA Comment Not Reportable 05/26/18 12:28 Blood Type O Positive 05/12/18 12:04 Antibody Screen Negative 05/12/18 12:04 Crossmatch See Detail 05/12/18 12:04 - Imaging Additional studies: Procedures Colonoscopy (04/06/14) Injection or infusion of other therapeutic or prophylactic substance (06/03/12) Assessment and Plan (1) Acute leukemia Problem details: 78-year-old woman with a history of AML with relapse disease. She is in a morphologic remission but does have residual disease detected by FISH. She remains at very high risk for relapse. She has been tolerating her therapy well. She will continue with her current regimen and return to clinic in about 4 weeks for follow-up. She will be due for her next cycle on the week of February 07. She has been doing quite well and has not needed any transfusions. She is having some nausea and fatigue. We did talk about the possibility of extending the time between her cycles or perhaps shortening to 5 day cycles but she wished to continue with her current regimen. She will return to clinic in about 4 weeks for follow-up. Current visit: No Status: Acute
[2019-01-31 14:42] LABS: Add Manual Diff / Slide Review NO; Basophils Absolute Auto 0 /uL (0-100); Basophils Percent Auto 0.7 % (0-2); Eosinophils Absolute Auto 0 /uL (0-450); Eosinophils Percent Auto 0.4 % (2-4); Lymphocytes Absolute Auto 600 /uL (1100-4500); Lymphocytes Percent Auto 12.9 % (25-40); Mean Corpuscular HGB Conc 33.3 % (30-36); Mean Corpuscular Hemoglobin 30.8 PG (26-34); Mean Corpuscular Volume 92.4 fL (80-100); Monocytes Absolute Auto 400 /uL (0-900); Monocytes Percent Auto 7.4 % (3-14); Neutrophils Absolute Auto 3900 /uL (1500-7000); Neutrophils Percent Auto 78.6 % (50-75); Platelet Count 59 X10^3/uL (150-400); Red Blood Cell Count 3.89 X10^6/uL (4.0-5.2); Red Cell Distribution Width 17.6 % (11.6-14.8)
[2019-02-07 13:39] LABS: Add Manual Diff / Slide Review NO; Basophils Absolute Auto 0 /uL (0-100); Basophils Percent Auto 1.8 % (0-2); Eosinophils Absolute Auto 0 /uL (0-450); Eosinophils Percent Auto 0.9 % (2-4); Hematocrit 35.9 % (36-46); Hemoglobin 11.9 g/dL (12.0-16.0); Lymphocytes Absolute Auto 600 /uL (1100-4500); Lymphocytes Percent Auto 22.8 % (25-40); Mean Corpuscular HGB Conc 33.3 % (30-36); Mean Corpuscular Volume 93.1 fL (80-100); Monocytes Absolute Auto 300 /uL (0-900); Neutrophils Absolute Auto 1800 /uL (1500-7000); Neutrophils Percent Auto 63.5 % (50-75); Platelet Count 111 X10^3/uL (150-400); Red Blood Cell Count 3.85 X10^6/uL (4.0-5.2); Red Cell Distribution Width 17.8 % (11.6-14.8); White Blood Cell Count 2.8 X10^3/uL (4.5-11.0)
[2019-02-07] MEDS: DEXAMETHASONE 12 MG in SODIUM CHLORIDE 0.9% 50 ML 212 ML IV (14:26)
[2019-02-07 14:35] VITALS: BP 133/58; PULSE 81; RESP 18; TEMP 36.8; O2SAT 97
[2019-02-07] MEDS: SODIUM CHLORIDE 0.9% 100 ML 21 ML IV (14:54)
[2019-02-07] MEDS: ONDANSETRON 16 MG in SODIUM CHLORIDE 0.9% 50 ML 232 ML IV (14:54)
[2019-02-07] MEDS: SODIUM CHLORIDE 0.9% IV (15:28)
[2019-02-07] MEDS: AZACITIDINE IV (15:28)
[2019-02-08] MEDS: DEXAMETHASONE 12 MG in SODIUM CHLORIDE 0.9% 50 ML 212 ML IV (14:07)
[2019-02-08] MEDS: SODIUM CHLORIDE 0.9% 100 ML 21 ML IV (14:08)
[2019-02-08 14:19] VITALS: PULSE 76; RESP 16; TEMP 36.7; O2SAT 97
[2019-02-08] MEDS: ONDANSETRON 16 MG in SODIUM CHLORIDE 0.9% 50 ML 232 ML IV (14:28)
[2019-02-08] MEDS: AZACITIDINE IV (15:00)
[2019-02-08] MEDS: SODIUM CHLORIDE 0.9% IV (15:00)
[2019-02-09] MEDS: DEXAMETHASONE 12 MG in SODIUM CHLORIDE 0.9% 50 ML 212 ML IV (13:55)
[2019-02-09] MEDS: SODIUM CHLORIDE 0.9% 100 ML 21 ML IV (13:56)
[2019-02-09] MEDS: ONDANSETRON 16 MG in SODIUM CHLORIDE 0.9% 50 ML 232 ML IV (14:19)
[2019-02-09 14:51] VITALS: BP 122/63; PULSE 74; RESP 16; TEMP 36.4; O2SAT 97
[2019-02-09] MEDS: SODIUM CHLORIDE 0.9% IV (14:54)
[2019-02-09] MEDS: AZACITIDINE IV (14:54)
[2019-02-10] MEDS: SODIUM CHLORIDE 0.9% 100 ML 20 ML IV (13:45)
[2019-02-10] MEDS: DEXAMETHASONE 12 MG in SODIUM CHLORIDE 0.9% 50 ML 212 ML IV (13:45)
[2019-02-10] MEDS: ONDANSETRON 16 MG in SODIUM CHLORIDE 0.9% 50 ML 232 ML IV (14:07)
[2019-02-10 14:13] VITALS: BP 123/59; PULSE 79; RESP 24; TEMP 36.6; O2SAT 97
[2019-02-10] MEDS: AZACITIDINE IV (14:51)
[2019-02-10] MEDS: SODIUM CHLORIDE 0.9% IV (14:51)
[2019-02-14 13:45] LABS: Add Manual Diff / Slide Review NO; Basophils Absolute Auto 100 /uL (0-100); Basophils Percent Auto 1.3 % (0-2); Eosinophils Absolute Auto 0 /uL (0-450); Eosinophils Percent Auto 0.3 % (2-4); Hemoglobin 13.1 g/dL (12.0-16.0); Lymphocytes Absolute Auto 800 /uL (1100-4500); Lymphocytes Percent Auto 16.9 % (25-40); Mean Corpuscular HGB Conc 32.8 % (30-36); Mean Corpuscular Hemoglobin 30.4 PG (26-34); Mean Corpuscular Volume 92.7 fL (80-100); Monocytes Absolute Auto 300 /uL (0-900); Monocytes Percent Auto 6.6 % (3-14); Neutrophils Absolute Auto 3700 /uL (1500-7000); Neutrophils Percent Auto 74.9 % (50-75); Platelet Count 100 X10^3/uL (150-400); Red Blood Cell Count 4.31 X10^6/uL (4.0-5.2); Red Cell Distribution Width 17.4 % (11.6-14.8); White Blood Cell Count 4.9 X10^3/uL (4.5-11.0)
[2019-02-14] MEDS: DEXAMETHASONE 12 MG in SODIUM CHLORIDE 0.9% 50 ML 212 ML IV (14:34)
[2019-02-14] MEDS: ONDANSETRON 16 MG in SODIUM CHLORIDE 0.9% 50 ML 232 ML IV (15:02)
[2019-02-14] MEDS: AZACITIDINE IV (15:36)
[2019-02-14] MEDS: SODIUM CHLORIDE 0.9% IV (15:36)
[2019-02-14 15:51] VITALS: BP 116/61; PULSE 90; RESP 12; TEMP 36.8; O2SAT 97
[2019-02-15] MEDS: SODIUM CHLORIDE 0.9% 100 ML 20 ML IV (14:14)
[2019-02-15] MEDS: DEXAMETHASONE 12 MG in SODIUM CHLORIDE 0.9% 50 ML 212 ML IV (14:14)
[2019-02-15] MEDS: ONDANSETRON 16 MG in SODIUM CHLORIDE 0.9% 50 ML 232 ML IV (14:37)
[2019-02-15 15:30] VITALS: BP 146/87; PULSE 83; RESP 18; TEMP 36.6; O2SAT 97
--- NOTE | 2019-02-15 15:46 | PC.NURSE ---
pt has requested to take some time off during the end of February for a family vacation. I have placed a lab order and an order for the pt to have a picc line dressing change to be signed by Dr Patel. Pt has also been scheduled for her weekly lab and dressing change on Tuesday 03/20 at the [facility] just prior to her leaving on her vacation. I have reviewed this with JJ for her follow thru if necessary.
[2019-02-15] MEDS: SODIUM CHLORIDE 0.9% IV (15:47)
[2019-02-15] MEDS: AZACITIDINE IV (15:47)
[2019-02-16] MEDS: DEXAMETHASONE 12 MG in SODIUM CHLORIDE 0.9% 50 ML 212 ML IV (13:49)
[2019-02-16] MEDS: SODIUM CHLORIDE 0.9% 100 ML 21 ML IV (13:50)
[2019-02-16 13:55] VITALS: BP 128/85; PULSE 76; RESP 16; TEMP 36.4; O2SAT 94
[2019-02-16] MEDS: ONDANSETRON 16 MG in SODIUM CHLORIDE 0.9% 50 ML 232 ML IV (14:05)
[2019-02-16] MEDS: SODIUM CHLORIDE 0.9% IV (14:38)
[2019-02-16] MEDS: AZACITIDINE IV (14:38)
[2019-02-22 11:37] VITALS: BP 142/62; PULSE 78; RESP 16; TEMP 36.6; O2SAT 96
[2019-02-22 11:37] LABS: Basophils Absolute Auto 100 /uL (0-100); Basophils Percent Auto 0.9 % (0-2); Eosinophils Absolute Auto 0 /uL (0-450); Eosinophils Percent Auto 0.4 % (2-4); Hematocrit 38.7 % (36-46); Hemoglobin 12.9 g/dL (12.0-16.0); Lymphocytes Absolute Auto 700 /uL (1100-4500); Lymphocytes Percent Auto 8.9 % (25-40); Mean Corpuscular HGB Conc 33.3 % (30-36); Mean Corpuscular Volume 93.1 fL (80-100); Monocytes Absolute Auto 500 /uL (0-900); Monocytes Percent Auto 5.9 % (3-14); Neutrophils Absolute Auto 6500 /uL (1500-7000); Neutrophils Percent Auto 83.9 % (50-75); Red Blood Cell Count 4.16 X10^6/uL (4.0-5.2); Red Cell Distribution Width 17.8 % (11.6-14.8); White Blood Cell Count 7.7 X10^3/uL (4.5-11.0)
[2019-02-22 11:42] LABS: Add Manual Diff / Slide Review SLIDE REVIEW; Platelet Count 38 X10^3/uL (150-400)
--- NOTE | 2019-02-22 11:51 | ONC.PN ---
PN -Subjective Interval history: Diagnosis: AML Previous treatment: 1. Induction chemotherapy with decidabine + GCLAM October 2016. 2. Three cycles of consolidation with winston-c completed April 2017. 3. Relapse in March 2018 treated with a clinical trial without response. 4. One additional cycle of GCLAM which was tolerated poorly but did induce apparent remission. Bone marrow biopsy in May showed morphologic CR but with MRD detected by FISH at 0.2%. 5. 8 cycles of vidaza beginning in June 2018 Interval history The patient is 78-year-old woman who returns today for follow-up. She has a history of AML and has been receiving her treatment in [place]. She relapsed in March 2018 and was treated on a clinical trial but failed to respond. She had 1 additional cycle of off trial therapy and did have a response. Her most recent bone marrow biopsy in May showed morphologic remission. Her FISH however was positive at 0.2%. She has been on maintenance therapy with azacitidine since then. She continues to tolerate her therapy fairly well. she has had more nausea and vomiting with this last cycle. She has been using lorazepam which usually helps. She does have some Zofran if the nausea is more severe. Her appetite has been fair. She does have some tendency towards constipation and abdominal cramping. She has used MiraLax in the past with good results. She denies any fevers or chills. No unusual bleeding or bruising. Strength and energy level have been normal. She is due for her next cycle of chemotherapy to begin on March 07. She is planning on a trip to [place] after that. Her medications are unchanged. They include oxycodone Compazine Zofran hyoscamine and fexofenadine as needed. - Patient Self-Reported Symptoms SR Skin issues: Dry skin, Blistering or peeling, Hair loss or scalp prob, Nail changes SR Genitourinary issues: Blood in urine SR Musculoskeletal issues: Muscle weakness, Muscle pain or cramps Home Medications and Allergies Home Medications Medication Instructions Recorded Confirmed Type fexofenadine 60 mg PO QPM #0 05/29/12 02/22/19 History acetaminophen 650 mg PO Q4-6H PRN #0 05/08/17 02/22/19 History hyoscyamine sulfate 0.125 mg PO BID-QID PRN 04/22/18 02/22/19 History loperamide 2 mg PO BID PRN 04/22/18 02/22/19 History prochlorperazine maleate 5 mg PO Q6HR PRN 04/22/18 02/22/19 History cyclobenzaprine 5 mg PO TID PRN 07/28/18 02/22/19 History hydrocodone-acetaminophen 1 tab PO Q4-6H PRN 08/17/18 02/22/19 History ondansetron 8 mg PO TID PRN #30 tab 11/30/18 02/22/19 Rx lorazepam 0.5 mg PO BID-TID PRN 30 Days #90 02/22/19 Rx tab lorazepam 1 mg PO BID-TID PRN #60 tab 02/22/19 Rx oxycodone 5 mg PO Q4-6H PRN #60 cap 02/22/19 Rx Allergies Allergy/AdvReac Type Severity Reaction Status Date / Time Penicillins Allergy Unknown Verified 07/28/18 13:08 fentanyl [FENTANYL] AdvReac Unknown NAUSEA Verified 07/28/18 13:08 meperidine AdvReac Unknown N/V Verified 07/28/18 13:08 morphine AdvReac Unknown N/V Verified 07/28/18 13:08 Exam Vital signs: Vital Signs Temp Pulse Resp BP Pulse Ox 02/22/19 11:37 97.8 F 78 16 142/62 H 96 Intake and Output 02/21/19 02/22/19 02/22/19 23:59 07:59 15:59 Other: Weight 44 kg Patient Weight 02/22/19 23:59 Weight 44 kg - Constitutional positive no acute distress, positive thin - Routine HEENT Exam Head: Present: normocephalic, atraumatic Eye: Present: EOMI, PERRL. Absent: conjunctival icterus, scleral injection ENT: Present: mucous membranes moist, oropharynx clear - Routine Neck Exam Present: supple. Absent: lymphadenopathy, thyromegaly - Routine Respiratory Exam Present: Clear to auscultation bilaterally. Absent: rales, wheezes - Routine Cardiovascular Exam Present: RRR, S1, S2. Absent: murmur - Routine Abdominal Exam Present: soft, normoactive bowel sounds. Absent: tenderness, organomegaly - Routine Extremities Exam Absent: cyanosis, clubbing, edema - Routine Skin Exam Present: intact. Absent: petechiae, rash - Routine Neurological Exam Present: alert, oriented X3 Results - Labs Laboratory Last Values WBC 7.7 X10^3/uL (4.5-11.0) 02/22/19 11:20 RBC 4.16 X10^6/uL (4.0-5.2) 02/22/19 11:20 Hgb 12.9 g/dL (12.0-16.0) 02/22/19 11:20 Hct 38.7 % (36-46) 02/22/19 11:20 MCV 93.1 fL (80-100) 02/22/19 11:20 MCH 31.0 PG (26-34) 02/22/19 11:20 MCHC 33.3 % (30-36) 02/22/19 11:20 RDW 17.8 % (11.6-14.8) H 02/22/19 11:20 Plt Count 38 X10^3/uL (150-400) L 02/22/19 11:20 Neut % (Auto) 83.9 % (50-75) H 02/22/19 11:20 Lymph % (Auto) 8.9 % (25-40) L 02/22/19 11:20 [place] % (Auto) 5.9 % (3-14) 02/22/19 11:20 Eos % (Auto) 0.4 % (2-4) L 02/22/19 11:20 Baso % (Auto) 0.9 % (0-2) 02/22/19 11:20 Neut # (Auto) 6500 /uL (7300-6239) 02/22/19 11:20 Lymph # (Auto) 700 /uL (4861-5861) L 02/22/19 11:20 [place] # (Auto) 500 /uL (0-900) 02/22/19 11:20 Eos # (Auto) 0 /uL (0-450) 02/22/19 11:20 Baso # (Auto) 100 /uL (0-100) 02/22/19 11:20 Total Counted 100 06/29/18 10:55 Seg Neutrophils % 71.0 % (38-70) H 06/29/18 10:55 Band Neutrophils % 6.0 % (3-7) 06/29/18 10:55 Lymphocytes % (Manual) 5.0 % (25-45) L 06/29/18 10:55 Atypical Lymphs % 1.0 % (-0) H 06/17/18 10:35 Monocytes % (Manual) 17.0 % (2-11) H 06/29/18 10:55 Eosinophils % (Manual) Cancelled 04/20/18 12:34 Basophils % (Manual) 1.0 % (0-1) 06/29/18 10:55 Metamyelocytes % 1.0 % (-0) H 06/17/18 10:35 Myelocytes % 2.0 % (-0) H 06/01/18 10:55 Promyelocytes % Cancelled 04/20/18 12:34 Blast Cells % Cancelled 04/20/18 12:34 Neutrophils # (Manual) 4312 /uL (8496-2330) 06/29/18 10:55 Differential Comment Cancelled 04/20/18 12:34 Plasma Cells Cancelled 04/20/18 12:34 Platelet Estimate Decreased on smear 06/07/18 10:30 Plt Morphology Comment 06/01/18 10:55 RBC Morphology Not Reportable 07/13/18 10:33 Polychromasia 1+ H 07/06/18 10:37 Hypochromasia 1+ H 07/06/18 10:37 Poikilocytosis 1+ H 07/06/18 10:37 Anisocytosis 2+ H 07/13/18 10:33 Microcytosis 1+ H 07/06/18 10:37 Sodium 135 mmol/L (137-145) L 11/02/18 10:31 Potassium 3.9 mmol/L (3.4-5.1) 11/02/18 10:31 Chloride 98 mmol/L (98-107) 11/02/18 10:31 Carbon Dioxide 29 mmol/L (22-32) 11/02/18 10:31 BUN 11 mg/dL (7-17) 11/02/18 10:31 Creatinine 0.70 mg/dL (0.52-1.04) 11/02/18 10:31 Estimated GFR > 60.0 mL/min (>60) 11/02/18 10:31 BUN/Creatinine Ratio 15.7 (6-22) 11/02/18 10:31 Glucose 138 mg/dL (80-110) H 11/02/18 10:31 Calcium 9.2 mg/dL (8.4-10.2) 11/02/18 10:31 Magnesium 2.2 mg/dL (1.6-2.3) 07/13/18 10:33 Total Bilirubin 1.3 mg/dL (0.2-1.3) 11/02/18 10:31 Conjugated Bilirubin 0.0 md/dL (0.0-0.3) 07/13/18 10:33 Unconjugated Bilirubin 0.7 mg/dL (0.0-1.1) 07/13/18 10:33 AST 20 IU/L (14-36) 11/02/18 10:31 ALT 26 IU/L (9-52) 11/02/18 10:31 Alkaline Phosphatase 104 U/L (38-126) 11/02/18 10:31 Total Protein 6.7 g/dL (6.3-8.2) 11/02/18 10:31 Albumin 4.0 g/dL (3.5-5.0) 11/02/18 10:31 Globulin 2.7 g/dL (1.7-4.1) 11/02/18 10:31 Albumin/Globulin Ratio 1.5 (1.0-2.8) 11/02/18 10:31 Urine Color Yellow 11/18/18 14:19 Urine Appearance Clear 11/18/18 14:19 Urine pH 7.0 (4.5-8.0) 11/18/18 14:19 Ur Specific [place] 1.015 (1.000-1.035) 11/18/18 14:19 Urine Protein Negative (Negative) 11/18/18 14:19 Urine Glucose (UA) Negative g/dL (Negative) 11/18/18 14:19 Urine Ketones Negative (NEGATIVE) 11/18/18 14:19 Urine Occult Blood 3+ (Negative) H 11/18/18 14:19 Urine Nitrate Negative (Negative) 11/18/18 14:19 Urine Bilirubin Negative (NEGATIVE) 11/18/18 14:19 Urine Urobilinogen 0.2 E.U./dL (0.2) 11/18/18 14:19 Ur Leukocyte Esterase Negative (NEGATIVE) 11/18/18 14:19 Urine RBC 5-10/hpf (0-5/HPF) H 01/24/19 14:19 Urine WBC 0-1/hpf (0-5/HPF) 11/18/18 14:19 Ur Squamous Epith Cells 0-1 /hpf 11/18/18 14:19 Ur Transition Epith Cell 0-1/hpf (0-5/HPF) 11/18/18 14:19 Calcium Oxalate Crystal Few (None) H 11/18/18 14:19 Urine Bacteria None seen (None) 11/18/18 14:19 Ur Culture Indicated? Cult not indicated 11/18/18 14:19 Micro UA Comment Not Reportable 05/26/18 12:28 Blood Type O Positive 05/12/18 12:04 Antibody Screen Negative 05/12/18 12:04 Crossmatch See Detail 05/12/18 12:04 - Imaging Additional studies: Procedures Colonoscopy (04/06/14) Injection or infusion of other therapeutic or prophylactic substance (06/03/12) Assessment and Plan (1) Acute leukemia Problem details: 78-year-old woman with a history of AML with relapse disease. She is in a morphologic remission but does have residual disease detected by FISH. She remains at very high risk for relapse. She has been tolerating her therapy well. She will continue with her current regimen and return to clinic in March after her vacation. I did give her refills for oxycodone and for lorazepam. She will need to have PICC line care done while on her trip. 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 She presents today for routine follow-up visit. She will continue with Vidaza as long as she is tolerating it and as long as she remains in remission. She has completed 5 cycles. She will be due for the on December 13. She will return to clinic in about 4 weeks for follow-up.
[2019-02-22 12:25] LABS: Anisocytosis 1+; Platelet Morphology Comment D
[2019-02-28 14:42] LABS: Add Manual Diff / Slide Review NO; Basophils Absolute Auto 0 /uL (0-100); Basophils Percent Auto 0.8 % (0-2); Eosinophils Absolute Auto 0 /uL (0-450); Eosinophils Percent Auto 0.4 % (2-4); Hematocrit 33.5 % (36-46); Hemoglobin 11.2 g/dL (12.0-16.0); Lymphocytes Absolute Auto 500 /uL (1100-4500); Lymphocytes Percent Auto 9.7 % (25-40); Mean Corpuscular HGB Conc 33.3 % (30-36); Mean Corpuscular Hemoglobin 31.2 PG (26-34); Mean Corpuscular Volume 93.9 fL (80-100); Monocytes Absolute Auto 400 /uL (0-900); Monocytes Percent Auto 8.7 % (3-14); Neutrophils Absolute Auto 3900 /uL (1500-7000); Neutrophils Percent Auto 80.4 % (50-75); Platelet Count 69 X10^3/uL (150-400); Red Blood Cell Count 3.57 X10^6/uL (4.0-5.2); Red Cell Distribution Width 17.9 % (11.6-14.8); White Blood Cell Count 4.8 X10^3/uL (4.5-11.0)
[2019-03-07 14:12] LABS: Add Manual Diff / Slide Review NO; Basophils Absolute Auto 0 /uL (0-100); Basophils Percent Auto 0.8 % (0-2); Eosinophils Absolute Auto 0 /uL (0-450); Eosinophils Percent Auto 1.3 % (2-4); Hematocrit 33.6 % (36-46); Hemoglobin 11.3 g/dL (12.0-16.0); Lymphocytes Absolute Auto 600 /uL (1100-4500); Lymphocytes Percent Auto 24.5 % (25-40); Mean Corpuscular HGB Conc 33.7 % (30-36); Mean Corpuscular Hemoglobin 31.7 PG (26-34); Mean Corpuscular Volume 94.1 fL (80-100); Monocytes Absolute Auto 300 /uL (0-900); Monocytes Percent Auto 10.4 % (3-14); Neutrophils Absolute Auto 1600 /uL (1500-7000); Platelet Count 111 X10^3/uL (150-400); Red Blood Cell Count 3.57 X10^6/uL (4.0-5.2); Red Cell Distribution Width 18.1 % (11.6-14.8); White Blood Cell Count 2.5 X10^3/uL (4.5-11.0)
[2019-03-07 14:24] VITALS: BP 120/59; PULSE 79; RESP 16; TEMP 36.7
[2019-03-07] MEDS: DEXAMETHASONE 12 MG in SODIUM CHLORIDE 0.9% 50 ML 212 ML IV (14:36)
[2019-03-07] MEDS: SODIUM CHLORIDE 0.9% 100 ML 21 ML IV (14:37)
[2019-03-07] MEDS: ONDANSETRON 16 MG in SODIUM CHLORIDE 0.9% 50 ML 232 ML IV (15:07)
[2019-03-07] MEDS: SODIUM CHLORIDE 0.9% IV (15:40)
[2019-03-07] MEDS: AZACITIDINE IV (15:40)
[2019-03-08] MEDS: DEXAMETHASONE 12 MG in SODIUM CHLORIDE 0.9% 50 ML 212 ML IV (13:47)
[2019-03-08] MEDS: ONDANSETRON 16 MG in SODIUM CHLORIDE 0.9% 50 ML 232 ML IV (14:18)
[2019-03-08 14:32] VITALS: BP 118/70; PULSE 82; RESP 16; TEMP 36.6; O2SAT 93
[2019-03-08] MEDS: SODIUM CHLORIDE 0.9% 100 ML 21 ML IV (14:52)
[2019-03-08] MEDS: SODIUM CHLORIDE 0.9% IV (14:53)
[2019-03-08] MEDS: AZACITIDINE IV (14:53)
[2019-03-09] MEDS: DEXAMETHASONE 12 MG in SODIUM CHLORIDE 0.9% 50 ML 212 ML IV (14:14)
[2019-03-09] MEDS: ONDANSETRON 16 MG in SODIUM CHLORIDE 0.9% 50 ML 232 ML IV (14:45)
[2019-03-09] MEDS: AZACITIDINE IV (15:14)
[2019-03-09] MEDS: SODIUM CHLORIDE 0.9% IV (15:14)
[2019-03-09] MEDS: SODIUM CHLORIDE 0.9% 100 ML 21 ML IV (15:15)
[2019-03-09 16:30] VITALS: BP 120/62; PULSE 61; RESP 16; TEMP 36.6
[2019-03-10] MEDS: SODIUM CHLORIDE 0.9% 100 ML 21 ML IV (13:39)
[2019-03-10] MEDS: DEXAMETHASONE 12 MG in SODIUM CHLORIDE 0.9% 50 ML 212 ML IV (13:39)
[2019-03-10 14:00] VITALS: BP 125/60; PULSE 65; RESP 16; TEMP 36.7
[2019-03-10] MEDS: ONDANSETRON 16 MG in SODIUM CHLORIDE 0.9% 50 ML 232 ML IV (14:03)
[2019-03-10] MEDS: AZACITIDINE IV (14:30)
[2019-03-10] MEDS: SODIUM CHLORIDE 0.9% IV (14:30)
[2019-03-14 13:41] LABS: Add Manual Diff / Slide Review NO; Basophils Absolute Auto 0 /uL (0-100); Basophils Percent Auto 0.8 % (0-2); Eosinophils Absolute Auto 0 /uL (0-450); Eosinophils Percent Auto 0.8 % (2-4); Hematocrit 39.8 % (36-46); Hemoglobin 13.2 g/dL (12.0-16.0); Lymphocytes Absolute Auto 700 /uL (1100-4500); Lymphocytes Percent Auto 13.8 % (25-40); Mean Corpuscular HGB Conc 33.3 % (30-36); Mean Corpuscular Hemoglobin 31.5 PG (26-34); Mean Corpuscular Volume 94.6 fL (80-100); Monocytes Absolute Auto 200 /uL (0-900); Monocytes Percent Auto 4.1 % (3-14); Neutrophils Absolute Auto 4200 /uL (1500-7000); Neutrophils Percent Auto 80.5 % (50-75); Platelet Count 110 X10^3/uL (150-400); Red Blood Cell Count 4.21 X10^6/uL (4.0-5.2); White Blood Cell Count 5.2 X10^3/uL (4.5-11.0)
[2019-03-14 14:19] VITALS: BP 123/69; PULSE 83; RESP 16; TEMP 36.3; O2SAT 98
[2019-03-14] MEDS: SODIUM CHLORIDE 0.9% 100 ML 21 ML IV (14:19)
[2019-03-14] MEDS: DEXAMETHASONE 12 MG in SODIUM CHLORIDE 0.9% 50 ML 212 ML IV (14:25)
[2019-03-14] MEDS: ONDANSETRON 16 MG in SODIUM CHLORIDE 0.9% 50 ML 232 ML IV (14:46)
[2019-03-14] MEDS: AZACITIDINE IV (15:12)
[2019-03-14] MEDS: SODIUM CHLORIDE 0.9% IV (15:12)
[2019-03-15] MEDS: SODIUM CHLORIDE 0.9% 100 ML 21 ML IV (13:53)
[2019-03-15] MEDS: DEXAMETHASONE 12 MG in SODIUM CHLORIDE 0.9% 50 ML 212 ML IV (14:14)
[2019-03-15 14:17] VITALS: BP 122/60; PULSE 86; RESP 16; TEMP 36.6
[2019-03-15] MEDS: ONDANSETRON 16 MG in SODIUM CHLORIDE 0.9% 50 ML 232 ML IV (14:29)
[2019-03-15] MEDS: AZACITIDINE IV (15:14)
[2019-03-15] MEDS: SODIUM CHLORIDE 0.9% IV (15:14)
[2019-03-16] MEDS: SODIUM CHLORIDE 0.9% 100 ML 21 ML IV (14:02)
[2019-03-16] MEDS: DEXAMETHASONE 12 MG in SODIUM CHLORIDE 0.9% 50 ML 212 ML IV (14:02)
[2019-03-16] MEDS: ONDANSETRON 16 MG in SODIUM CHLORIDE 0.9% 50 ML 232 ML IV (14:24)
[2019-03-16] MEDS: AZACITIDINE IV (15:00)
[2019-03-16] MEDS: SODIUM CHLORIDE 0.9% IV (15:00)
[2019-03-16 15:45] VITALS: BP 117/67; PULSE 84; RESP 16; TEMP 36.5
[2019-03-20 12:10] VITALS: BP 156/73; PULSE 93; RESP 18; TEMP 36.6; O2SAT 97
[2019-03-20 13:02] LABS: Basophils Absolute Auto 100 /uL (0-100); Basophils Percent Auto 0.8 % (0-2); Eosinophils Absolute Auto 0 /uL (0-450); Eosinophils Percent Auto 0.6 % (2-4); Hematocrit 39.4 % (36-46); Hemoglobin 13.2 g/dL (12.0-16.0); Lymphocytes Absolute Auto 800 /uL (1100-4500); Lymphocytes Percent Auto 9.8 % (25-40); Mean Corpuscular HGB Conc 33.6 % (30-36); Mean Corpuscular Hemoglobin 31.8 PG (26-34); Mean Corpuscular Volume 94.8 fL (80-100); Monocytes Absolute Auto 500 /uL (0-900); Monocytes Percent Auto 6.8 % (3-14); Neutrophils Absolute Auto 6400 /uL (1500-7000); Red Blood Cell Count 4.16 X10^6/uL (4.0-5.2); Red Cell Distribution Width 17.4 % (11.6-14.8); White Blood Cell Count 7.8 X10^3/uL (4.5-11.0)
[2019-03-20 13:12] LABS: Add Manual Diff / Slide Review SLIDE REVIEW; Platelet Count 61 X10^3/uL (150-400)
--- NOTE | 2019-03-20 13:43 | PC.NURSE ---
PATIENT CAME IN AND HAD A CBC DRAWN, AFTER CLARIFIED ORDERS WITH HUMBERTO. PICC LINE DRSG AND HUBS CHANGED AND FLUSHED PER PROTOCOLS. CBC WAS DRAWN FROM THE PICC. CALLED PATIENT BACK JUST NOW, AND NOTIFIED HER OF HER LAB RESULTS INCLUDING HER PLATELET LEVEL PER HER REQUEST.
[2019-03-20 13:50] LABS: RBC Morphology Normal Morphology
[2019-04-04 13:45] LABS: Add Manual Diff / Slide Review NO; Basophils Absolute Auto 0 /uL (0-100); Basophils Percent Auto 1.6 % (0-2); Eosinophils Absolute Auto 0 /uL (0-450); Eosinophils Percent Auto 1.1 % (2-4); Hematocrit 35.6 % (36-46); Lymphocytes Absolute Auto 600 /uL (1100-4500); Mean Corpuscular HGB Conc 33.8 % (30-36); Mean Corpuscular Volume 94.8 fL (80-100); Monocytes Absolute Auto 200 /uL (0-900); Monocytes Percent Auto 8.7 % (3-14); Neutrophils Absolute Auto 1500 /uL (1500-7000); Neutrophils Percent Auto 62.6 % (50-75); Platelet Count 132 X10^3/uL (150-400); Red Blood Cell Count 3.75 X10^6/uL (4.0-5.2); Red Cell Distribution Width 17.3 % (11.6-14.8); White Blood Cell Count 2.4 X10^3/uL (4.5-11.0)
[2019-04-04 14:03] VITALS: BP 133/58; PULSE 86; RESP 16; TEMP 36.7
[2019-04-04] MEDS: DEXAMETHASONE 12 MG in SODIUM CHLORIDE 0.9% 50 ML 212 ML IV (14:20)
[2019-04-04] MEDS: SODIUM CHLORIDE 0.9% 100 ML 21 ML IV (14:22)
[2019-04-04] MEDS: ONDANSETRON 16 MG in SODIUM CHLORIDE 0.9% 50 ML 232 ML IV (14:42)
[2019-04-04] MEDS: AZACITIDINE IV (15:21)
[2019-04-04] MEDS: SODIUM CHLORIDE 0.9% IV (15:21)
--- NOTE | 2019-04-04 16:07 | PC.NURSE ---
seen in clinic today. reports left hip pain x1mos. tolerated treatment without problems. flushed PICC line x2 with Heparin 5units/ml. alert and oriented, speech clear, steady on feet. supportive spouse at side.
[2019-04-05 13:31] VITALS: BP 132/72; PULSE 90; RESP 18; TEMP 36.2; O2SAT 98
--- NOTE | 2019-04-05 13:48 | P.PNONC_ITS ---
PN -Subjective Interval history: Diagnosis: AML Previous treatment: 1. Induction chemotherapy with decidabine + GCLAM October 2016. 2. Three cycles of consolidation with winston-c completed April 2017. 3. Relapse in March 2018 treated with a clinical trial without response. 4. One additional cycle of GCLAM which was tolerated poorly but did induce apparent remission. Bone marrow biopsy in May showed morphologic CR but with MRD detected by FISH at 0.2%. 5. 8 cycles of vidaza beginning in June 2018 Interval history The patient is 78-year-old woman who returns today for follow-up. She has a history of AML and has been receiving her treatment in [place]. She relapsed in March 2018 and was treated on a clinical trial but failed to respond. She had 1 additional cycle of off trial therapy and did have a response. Her most recent bone marrow biopsy in May showed morphologic remission. Her FISH however was positive at 0.2%. She has been on maintenance therapy with azacitidine since then. She continues to tolerate her therapy fairly well. She had been having some constipation. She was planning to take some MiraLax but then developed diarrhea. Instead, she has been using Imodium which seems to be helpful. She and her run a trip. Since then, she has had some back pain that she attributes to sitting too much. It seems to be improving over the last few days. She has not had any nausea or vomiting. No recent infections. No fevers chills or sweats. Her appetite has been fair. She has had a little bit of fatigue that is been stable. She denies any other changes in her health. Her medications are unchanged. They include oxycodone Compazine Zofran hyoscamine and fexofenadine as needed. - Patient Self-Reported Symptoms SR Skin issues: Dry skin, Blistering or peeling, Hair loss or scalp prob, Nail changes SR Genitourinary issues: Blood in urine SR Musculoskeletal issues: Muscle weakness, Muscle pain or cramps Home Medications and Allergies Home Medications Medication Instructions Recorded Confirmed Type fexofenadine 60 mg PO QPM #0 05/29/02/22/19 History acetaminophen 650 mg PO Q4-6H PRN #0 05/08/17 02/22/19 History hyoscyamine sulfate 0.125 mg PO BID-QID PRN 04/22/18 02/22/19 History loperamide 2 mg PO BID PRN 04/22/18 02/22/19 History prochlorperazine maleate 5 mg PO Q6HR PRN 04/22/18 02/22/19 History cyclobenzaprine 5 mg PO TID PRN 07/28/18 02/22/19 History hydrocodone-acetaminophen 1 tab PO Q4-6H PRN 08/17/18 02/22/19 History ondansetron 8 mg PO TID PRN #30 tab 11/30/18 02/22/19 Rx lorazepam 1 mg PO BID-TID PRN #60 tab 02/22/19 Rx oxycodone 5 mg PO Q4-6H PRN #60 cap 02/22/19 Rx Allergies Allergy/AdvReac Type Severity Reaction Status Date / Time Penicillins Allergy Unknown Verified 07/28/18 13:08 fentanyl [FENTANYL] AdvReac Unknown NAUSEA Verified 07/28/18 13:08 meperidine AdvReac Unknown N/V Verified 07/28/18 13:08 morphine AdvReac Unknown N/V Verified 07/28/18 13:08 Exam Vital signs: Vital Signs Temp Pulse Resp BP Pulse Ox 04/05/19 13:31 97.2 F L 90 18 132/72 98 04/04/19 14:03 98.1 F 86 16 133/58 L Intake and Output 04/04/19 04/05/19 04/05/19 23:59 07:59 15:59 Intake Total 210.0 / 321.0 Balance 210.0 / 321.0 Intake: IV 210.0 / 321.0 Sodium Chloride 0.9% 100 ml @ 100.0 / 100.0 TKO IV NOW RACHNA Rx#:[id number] azaCITIDine 100 mg In Sodium 110 / 110 Chloride 0.9% (Chemo) 100 ml @ 440 mls/hr IV CHEM RACHNA Rx#: [id number] Other: Weight 46.5 kg Patient Weight 04/05/19 23:59 Weight 46.5 kg - Constitutional positive no acute distress, positive average body habitus - Routine HEENT Exam Head: Present: normocephalic, atraumatic Eye: Present: EOMI, PERRL. Absent: conjunctival icterus, scleral injection ENT: Present: mucous membranes moist, oropharynx clear - Routine Neck Exam Present: supple. Absent: lymphadenopathy, thyromegaly - Routine Respiratory Exam Present: Clear to auscultation bilaterally. Absent: rales, wheezes - Routine Cardiovascular Exam Present: RRR, S1, S2. Absent: murmur - Routine Abdominal Exam Present: soft, normoactive bowel sounds. Absent: tenderness, organomegaly, mass - Routine Extremities Exam Absent: cyanosis, clubbing, edema - Routine Skin Exam Present: intact. Absent: petechiae, rash - Routine Neurological Exam Present: alert, oriented X3 - Routine Psychiatric Exam Present: normal affect, normal thought process Results - Labs Laboratory Last Values WBC 2.4 X10^3/uL (4.5-11.0) L 04/04/19 13:37 RBC 3.75 X10^6/uL (4.0-5.2) L 04/04/19 13:37 Hgb 12.0 g/dL (12.0-16.0) 04/04/19 13:37 Hct 35.6 % (36-46) L 04/04/19 13:37 MCV 94.8 fL (80-100) 04/04/19 13:37 MCH 32.0 PG (26-34) 04/04/19 13:37 MCHC 33.8 % (30-36) 04/04/19 13:37 RDW 17.3 % (11.6-14.8) H 04/04/19 13:37 Plt Count 132 X10^3/uL (150-400) L 04/04/19 13:37 Neut % (Auto) 62.6 % (50-75) 04/04/19 13:37 Lymph % (Auto) 26.0 % (25-40) 04/04/19 13:37 [place] % (Auto) 8.7 % (3-14) 04/04/19 13:37 Eos % (Auto) 1.1 % (2-4) L 04/04/19 13:37 Baso % (Auto) 1.6 % (0-2) 04/04/19 13:37 Neut # (Auto) 1500 /uL (0810-7619) 04/04/19 13:37 Lymph # (Auto) 600 /uL (7259-3609) L 04/04/19 13:37 [place] # (Auto) 200 /uL (0-900) 04/04/19 13:37 Eos # (Auto) 0 /uL (0-450) 04/04/19 13:37 Baso # (Auto) 0 /uL (0-100) 04/04/19 13:37 Total Counted 100 06/29/18 10:55 Seg Neutrophils % 71.0 % (38-70) H 06/29/18 10:55 Band Neutrophils % 6.0 % (3-7) 06/29/18 10:55 Lymphocytes % (Manual) 5.0 % (25-45) L 06/29/18 10:55 Atypical Lymphs % 1.0 % (-0) H 06/17/18 10:35 Monocytes % (Manual) 17.0 % (2-11) H 06/29/18 10:55 Eosinophils % (Manual) Cancelled 04/20/18 12:34 Basophils % (Manual) 1.0 % (0-1) 06/29/18 10:55 Metamyelocytes % 1.0 % (-0) H 06/17/18 10:35 Myelocytes % 2.0 % (-0) H 06/01/18 10:55 Promyelocytes % Cancelled 04/20/18 12:34 Blast Cells % Cancelled 04/20/18 12:34 Neutrophils # (Manual) 4312 /uL (0841-0730) 06/29/18 10:55 Nucleated RBCs Cancelled 03/07/19 13:25 Differential Comment Cancelled 04/20/18 12:34 Hypersegmented Neuts Cancelled 03/07/19 13:25 Hypogranular Neuts Cancelled 03/07/19 13:25 Reactive Lymphocytes Cancelled 03/07/19 13:25 Plasma Cells Cancelled 04/20/18 12:34 Smudge Cells Cancelled 03/07/19 13:25 Other Cell Type Cancelled 03/07/19 13:25 Toxic Granulation Cancelled 03/07/19 13:25 Toxic Vacuolation Cancelled 03/07/19 13:25 Dohle Bodies Cancelled 03/07/19 13:25 [place] Rods Cancelled 03/07/19 13:25 WBC Morphology Comment Cancelled 03/07/19 13:25 Platelet Estimate Decreased on smear 06/07/18 10:30 Clumped Platelets Cancelled 03/07/19 13:25 Plt Morphology Comment 03/20/19 12:50 RBC Morphology Normal morphology 03/20/19 12:50 Dimorphic RBCs Cancelled 03/07/19 13:25 Polychromasia 1+ H 07/06/18 10:37 Hypochromasia 1+ H 07/06/18 10:37 Poikilocytosis 1+ H 07/06/18 10:37 Basophilic Stippling Cancelled 03/07/19 13:25 Anisocytosis 1+ H 02/22/19 11:20 Microcytosis 1+ H 07/06/18 10:37 Macrocytosis Cancelled 03/07/19 13:25 Spherocytes Cancelled 03/07/19 13:25 Pappenheimer Bodies Cancelled 03/07/19 13:25 Sickle Cells Cancelled 03/07/19 13:25 Target Cells Cancelled 03/07/19 13:25 Tear Drop Cells Cancelled 03/07/19 13:25 Ovalocytes Cancelled 03/07/19 13:25 Stomatocytes Cancelled 03/07/19 13:25 Helmet Cells Cancelled 03/07/19 13:25 [place] Bodies Cancelled 03/07/19 13:25 Center Rings Cancelled 03/07/19 13:25 Amarilis Cells Cancelled 03/07/19 13:25 Acanthocytes (Spur) Cancelled 03/07/19 13:25 Rouleaux Cancelled 03/07/19 13:25 Schistocytes Cancelled 03/07/19 13:25 Sodium 135 mmol/L (137-145) L 11/02/18 10:31 Potassium 3.9 mmol/L (3.4-5.1) 11/02/18 10:31 Chloride 98 mmol/L (98-107) 11/02/18 10:31 Carbon Dioxide 29 mmol/L (22-32) 11/02/18 10:31 BUN 11 mg/dL (7-17) 11/02/18 10:31 Creatinine 0.70 mg/dL (0.52-1.04) 11/02/18 10:31 Estimated GFR > 60.0 mL/min (>60) 11/02/18 10:31 BUN/Creatinine Ratio 15.7 (6-22) 11/02/18 10:31 Glucose 138 mg/dL (80-110) H 11/02/18 10:31 Calcium 9.2 mg/dL (8.4-10.2) 11/02/18 10:31 Magnesium 2.2 mg/dL (1.6-2.3) 07/13/18 10:33 Total Bilirubin 1.3 mg/dL (0.2-1.3) 11/02/18 10:31 Conjugated Bilirubin 0.0 md/dL (0.0-0.3) 07/13/18 10:33 Unconjugated Bilirubin 0.7 mg/dL (0.0-1.1) 07/13/18 10:33 AST 20 IU/L (14-36) 11/02/18 10:31 ALT 26 IU/L (9-52) 11/02/18 10:31 Alkaline Phosphatase 104 U/L (38-126) 11/02/18 10:31 Total Protein 6.7 g/dL (6.3-8.2) 11/02/18 10:31 Albumin 4.0 g/dL (3.5-5.0) 11/02/18 10:31 Globulin 2.7 g/dL (1.7-4.1) 11/02/18 10:31 Albumin/Globulin Ratio 1.5 (1.0-2.8) 11/02/18 10:31 Urine Color Yellow 11/18/18 14:19 Urine Appearance Clear 11/18/18 14:19 Urine pH 7.0 (4.5-8.0) 11/18/18 14:19 Ur Specific [place] 1.015 (1.000-1.035) 11/18/18 14:19 Urine Protein Negative (Negative) 11/18/18 14:19 Urine Glucose (UA) Negative g/dL (Negative) 11/18/18 14:19 Urine Ketones Negative (NEGATIVE) 11/18/18 14:19 Urine Occult Blood 3+ (Negative) H 11/18/18 14:19 Urine Nitrate Negative (Negative) 11/18/18 14:19 Urine Bilirubin Negative (NEGATIVE) 11/18/18 14:19 Urine Urobilinogen 0.2 E.U./dL (0.2) 11/18/18 14:19 Ur Leukocyte Esterase Negative (NEGATIVE) 11/18/18 14:19 Urine RBC 5-10/hpf (0-5/HPF) H 11/18/18 14:19 Urine WBC 0-1/hpf (0-5/HPF) 11/18/18 14:19 Ur Squamous Epith Cells 0-1 /hpf 11/18/18 14:19 Ur Transition Epith Cell 0-1/hpf (0-5/HPF) 11/18/18 14:19 Calcium Oxalate Crystal Few (None) H 11/18/18 14:19 Urine Bacteria None seen (None) 11/18/18 14:19 Ur Culture Indicated? Cult not indicated 11/18/18 14:19 Micro UA Comment Not Reportable 05/26/18 12:28 Blood Type O Positive 05/12/18 12:04 Antibody Screen Negative 05/12/18 12:04 Crossmatch See Detail 05/12/18 12:04 - Imaging Additional studies: Procedures Colonoscopy (04/06/14) Injection or infusion of other therapeutic or prophylactic substance (06/03/12) Assessment and Plan (1) Acute leukemia Problem details: 78-year-old woman with a history of AML with relapse disease. She is in a morphologic remission but does have residual disease detected by FISH. She remains at very high risk for relapse. She has been tolerating her therapy well. She will continue with her current regimen and return to clinic in about 4 weeks or so for follow-up but sooner should the need arise. Current visit: No Status: Acute .
[2019-04-05] MEDS: DEXAMETHASONE 12 MG in SODIUM CHLORIDE 0.9% 50 ML 212 ML IV (14:04)
[2019-04-05] MEDS: ONDANSETRON 16 MG in SODIUM CHLORIDE 0.9% 50 ML 232 ML IV (14:43)
[2019-04-05] MEDS: SODIUM CHLORIDE 0.9% IV (15:14)
[2019-04-05] MEDS: AZACITIDINE IV (15:14)
[2019-04-05] MEDS: SODIUM CHLORIDE 0.9% 100 ML 21 ML IV (15:20)
[2019-04-06 13:34] VITALS: BP 104/54; PULSE 82; RESP 16; TEMP 37.1; O2SAT 96
[2019-04-06] MEDS: DEXAMETHASONE 12 MG in SODIUM CHLORIDE 0.9% 50 ML 212 ML IV (13:46)
[2019-04-06] MEDS: SODIUM CHLORIDE 0.9% 100 ML 21 ML IV (13:48)
[2019-04-06] MEDS: ONDANSETRON 16 MG in SODIUM CHLORIDE 0.9% 50 ML 232 ML IV (14:09)
[2019-04-06] MEDS: AZACITIDINE IV (14:40)
[2019-04-06] MEDS: SODIUM CHLORIDE 0.9% IV (14:40)
[2019-04-07 13:24] VITALS: BP 121/76; PULSE 75; RESP 16; TEMP 36.3; O2SAT 97
[2019-04-07] MEDS: SODIUM CHLORIDE 0.9% 100 ML 21 ML IV (13:37)
[2019-04-07] MEDS: ONDANSETRON 16 MG in SODIUM CHLORIDE 0.9% 50 ML 232 ML IV (14:19)
[2019-04-07] MEDS: SODIUM CHLORIDE 0.9% IV (14:51)
[2019-04-07] MEDS: AZACITIDINE IV (14:51)
[2019-04-11 13:57] LABS: Add Manual Diff / Slide Review NO; Basophils Absolute Auto 0 /uL (0-100); Basophils Percent Auto 0.4 % (0-2); Eosinophils Absolute Auto 0 /uL (0-450); Hematocrit 39.6 % (36-46); Hemoglobin 13.2 g/dL (12.0-16.0); Lymphocytes Absolute Auto 800 /uL (1100-4500); Mean Corpuscular HGB Conc 33.4 % (30-36); Mean Corpuscular Hemoglobin 31.8 PG (26-34); Mean Corpuscular Volume 95.1 fL (80-100); Monocytes Absolute Auto 200 /uL (0-900); Monocytes Percent Auto 4.9 % (3-14); Neutrophils Absolute Auto 3500 /uL (1500-7000); Neutrophils Percent Auto 76.7 % (50-75); Platelet Count 113 X10^3/uL (150-400); Red Blood Cell Count 4.16 X10^6/uL (4.0-5.2); Red Cell Distribution Width 16.8 % (11.6-14.8); White Blood Cell Count 4.5 X10^3/uL (4.5-11.0)
[2019-04-11] MEDS: ONDANSETRON 16 MG in SODIUM CHLORIDE 0.9% 50 ML 232 ML IV (15:48)
[2019-04-11 15:49] VITALS: BP 120/65; PULSE 81; RESP 16; TEMP 36.8; O2SAT 95
[2019-04-11] MEDS: SODIUM CHLORIDE 0.9% 100 ML 21 ML IV (15:49)
[2019-04-11] MEDS: AZACITIDINE IV (16:19)
[2019-04-11] MEDS: SODIUM CHLORIDE 0.9% IV (16:19)
[2019-04-12 13:59] VITALS: BP 126/67; PULSE 76; RESP 15; TEMP 36.6; O2SAT 98
[2019-04-12] MEDS: ONDANSETRON 16 MG in SODIUM CHLORIDE 0.9% 50 ML 232 ML IV (14:49)
[2019-04-12] MEDS: AZACITIDINE IV (15:12)
[2019-04-12] MEDS: SODIUM CHLORIDE 0.9% IV (15:12)
[2019-04-13 13:41] VITALS: BP 136/80; PULSE 89; RESP 16
[2019-04-13] MEDS: ONDANSETRON 16 MG in SODIUM CHLORIDE 0.9% 50 ML 232 ML IV (14:12)
[2019-04-13] MEDS: SODIUM CHLORIDE 0.9% 100 ML 21 ML IV (14:16)
[2019-04-13] MEDS: SODIUM CHLORIDE 0.9% IV (15:00)
[2019-04-13] MEDS: AZACITIDINE IV (15:00)
[2019-04-19 14:58] LABS: Basophils Absolute Auto 0 /uL (0-100); Basophils Percent Auto 0.4 % (0-2); Eosinophils Absolute Auto 0 /uL (0-450); Eosinophils Percent Auto 0.2 % (2-4); Hematocrit 38.9 % (36-46); Hemoglobin 13.2 g/dL (12.0-16.0); Lymphocytes Absolute Auto 800 /uL (1100-4500); Lymphocytes Percent Auto 9.9 % (25-40); Mean Corpuscular Hemoglobin 32.2 PG (26-34); Mean Corpuscular Volume 94.6 fL (80-100); Monocytes Absolute Auto 400 /uL (0-900); Monocytes Percent Auto 5.1 % (3-14); Neutrophils Absolute Auto 6700 /uL (1500-7000); Neutrophils Percent Auto 84.4 % (50-75); Red Blood Cell Count 4.11 X10^6/uL (4.0-5.2); Red Cell Distribution Width 17.2 % (11.6-14.8)
[2019-04-19 14:59] LABS: Add Manual Diff / Slide Review SLIDE REVIEW
[2019-04-19 15:34] LABS: Anisocytosis 1+
[2019-04-19 15:38] LABS: Platelet Count 49 X10^3/uL (150-400)
[2019-04-25 13:26] LABS: Add Manual Diff / Slide Review NO; Basophils Absolute Auto 100 /uL (0-100); Basophils Percent Auto 1.5 % (0-2); Eosinophils Absolute Auto 0 /uL (0-450); Eosinophils Percent Auto 0.5 % (2-4); Lymphocytes Absolute Auto 700 /uL (1100-4500); Lymphocytes Percent Auto 18.5 % (25-40); Mean Corpuscular HGB Conc 33.5 % (30-36); Mean Corpuscular Volume 95.7 fL (80-100); Monocytes Absolute Auto 300 /uL (0-900); Monocytes Percent Auto 7.2 % (3-14); Neutrophils Absolute Auto 2700 /uL (1500-7000); Neutrophils Percent Auto 72.3 % (50-75); Platelet Count 64 X10^3/uL (150-400); Red Blood Cell Count 3.76 X10^6/uL (4.0-5.2); White Blood Cell Count 3.7 X10^3/uL (4.5-11.0)
[2019-05-02 13:15] LABS: Add Manual Diff / Slide Review NO; Basophils Absolute Auto 100 /uL (0-100); Basophils Percent Auto 1.7 % (0-2); Eosinophils Absolute Auto 0 /uL (0-450); Eosinophils Percent Auto 0.4 % (2-4); Hematocrit 36.4 % (36-46); Hemoglobin 12.4 g/dL (12.0-16.0); Lymphocytes Absolute Auto 1000 /uL (1100-4500); Mean Corpuscular Hemoglobin 32.2 PG (26-34); Mean Corpuscular Volume 94.9 fL (80-100); Monocytes Absolute Auto 200 /uL (0-900); Monocytes Percent Auto 3.7 % (3-14); Neutrophils Absolute Auto 3200 /uL (1500-7000); Neutrophils Percent Auto 72.2 % (50-75); Platelet Count 149 X10^3/uL (150-400); Red Blood Cell Count 3.84 X10^6/uL (4.0-5.2); White Blood Cell Count 4.4 X10^3/uL (4.5-11.0)
[2019-05-02 14:04] VITALS: BP 97/67; PULSE 82; RESP 18; TEMP 36.7; O2SAT 94
[2019-05-02] MEDS: SODIUM CHLORIDE 0.9% 100 ML 21 ML IV (14:12)
[2019-05-02] MEDS: ONDANSETRON 16 MG in SODIUM CHLORIDE 0.9% 50 ML 232 ML IV (14:32)
[2019-05-02] MEDS: AZACITIDINE IV (15:12)
[2019-05-02] MEDS: SODIUM CHLORIDE 0.9% IV (15:12)
[2019-05-03 12:25] VITALS: BP 121/67; PULSE 92; RESP 16; TEMP 36.7; O2SAT 96
--- NOTE | 2019-05-03 12:55 | ONC.PN ---
PN -Subjective Interval history: Diagnosis: AML Previous treatment: 1. Induction chemotherapy with decidabine + GCLAM October 2016. 2. Three cycles of consolidation with winston-c completed April 2017. 3. Relapse in March 2018 treated with a clinical trial without response. 4. One additional cycle of GCLAM which was tolerated poorly but did induce apparent remission. Bone marrow biopsy in May showed morphologic CR but with MRD detected by FISH at 0.2%. 5. 9 cycles of vidaza beginning in June 2018 Interval history The patient is 78-year-old woman who returns today for follow-up. She has a history of AML and has been receiving her treatment in [place]. She relapsed in March 2018 and was treated on a clinical trial but failed to respond. She had 1 additional cycle of off trial therapy and did have a response. Her most recent bone marrow biopsy in May showed morphologic remission. Her FISH however was positive at 0.2%. She has been on maintenance therapy with azacitidine since then. S she continues to tolerate her medication reasonably well. She has had some fatigue and some nausea but no vomiting. She denies any fevers chills or sweats. No unusual bleeding or bruising. Bowels have been moving normally. She has had some ongoing hip pain. There has also been some radiation of numbness down her left leg. Previously this resolved with steroids but not recently. She did see her primary physician and is scheduled for an MRI later this week. She denies any other changes in her health. Her medications are unchanged. They include oxycodone Compazine Zofran hyoscamine and fexofenadine as needed. - Patient Self-Reported Symptoms SR Skin issues: Dry skin, Blistering or peeling, Hair loss or scalp prob, Nail changes SR Gastrointestinal issues: Nausea SR Genitourinary issues: Blood in urine SR Musculoskeletal issues: Muscle weakness, Muscle pain or cramps Home Medications and Allergies Home Medications Medication Instructions Recorded Confirmed Type fexofenadine 60 mg PO QPM #0 05/29/12 05/03/19 History acetaminophen 650 mg PO Q4-6H PRN #0 05/08/17 05/03/19 History hyoscyamine sulfate 0.125 mg PO BID-QID PRN 04/22/18 05/03/19 History loperamide 2 mg PO BID PRN 04/22/18 05/03/19 History cyclobenzaprine 5 mg PO TID PRN 07/28/18 05/03/19 History hydrocodone-acetaminophen 1 tab PO Q4-6H PRN 08/17/18 05/03/19 History lorazepam 1 mg PO BID-TID PRN #60 tab 05/03/19 Rx ondansetron 8 mg PO Q8H PRN 30 Days #30 tab 05/03/19 Rx ondansetron 8 mg PO TID PRN #30 tab 05/03/19 Rx oxycodone 5 mg PO Q4-6H PRN #60 cap 05/03/19 Rx prochlorperazine maleate 5 mg PO Q6HR PRN 30 Days #30 tab 05/03/19 Rx Allergies Allergy/AdvReac Type Severity Reaction Status Date / Time Penicillins Allergy Unknown Verified 07/28/18 13:08 fentanyl [FENTANYL] AdvReac Unknown NAUSEA Verified 07/28/18 13:08 meperidine AdvReac Unknown N/V Verified 07/28/18 13:08 morphine AdvReac Unknown N/V Verified 07/28/18 13:08 Exam Vital signs: Vital Signs Temp Pulse Resp BP Pulse Ox 05/03/19 12:25 98.1 F 92 H 16 121/67 96 05/02/19 14:04 98.0 F 82 18 97/67 94 Intake and Output 05/02/19 05/03/19 05/03/19 23:59 07:59 15:59 Other: Weight 46.2 kg Patient Weight 05/03/19 23:59 Weight 46.2 kg - Constitutional positive no acute distress, positive average body habitus - Routine HEENT Exam Head: Present: normocephalic, atraumatic Eye: Present: EOMI, PERRL. Absent: conjunctival icterus, scleral injection ENT: Present: mucous membranes moist, oropharynx clear - Routine Neck Exam Present: supple. Absent: lymphadenopathy, thyromegaly - Routine Respiratory Exam Present: Clear to auscultation bilaterally. Absent: rales, wheezes - Routine Cardiovascular Exam Present: RRR, S1, S2. Absent: murmur - Routine Abdominal Exam Present: soft, normoactive bowel sounds. Absent: tenderness, organomegaly, mass - Routine Extremities Exam Absent: cyanosis, clubbing, edema - Routine Back/Spine Exam Back/Spine: Absent: vertebral tenderness - Routine Skin Exam Present: intact. Absent: petechiae, rash - Routine Neurological Exam Present: alert, oriented X3 - Routine Psychiatric Exam Present: normal affect, normal thought process Results - Labs Laboratory Last Values WBC 4.4 X10^3/uL (4.5-11.0) L 05/02/19 13:00 RBC 3.84 X10^6/uL (4.0-5.2) L 05/02/19 13:00 Hgb 12.4 g/dL (12.0-16.0) 05/02/19 13:00 Hct 36.4 % (36-46) 05/02/19 13:00 MCV 94.9 fL (80-100) 05/02/19 13:00 MCH 32.2 PG (26-34) 05/02/19 13:00 MCHC 34.0 % (30-36) 05/02/19 13:00 RDW 17.0 % (11.6-14.8) H 05/02/19 13:00 Plt Count 149 X10^3/uL (150-400) L 05/02/19 13:00 Neut % (Auto) 72.2 % (50-75) 05/02/19 13:00 Lymph % (Auto) 22.0 % (25-40) L 05/02/19 13:00 [place] % (Auto) 3.7 % (3-14) 05/02/19 13:00 Eos % (Auto) 0.4 % (2-4) L 05/02/19 13:00 Baso % (Auto) 1.7 % (0-2) 05/02/19 13:00 Neut # (Auto) 3200 /uL (9486-5114) 05/02/19 13:00 Lymph # (Auto) 1000 /uL (0664-5041) L 05/02/19 13:00 [place] # (Auto) 200 /uL (0-900) 05/02/19 13:00 Eos # (Auto) 0 /uL (0-450) 05/02/19 13:00 Baso # (Auto) 100 /uL (0-100) 05/02/19 13:00 Total Counted 100 06/29/18 10:55 Seg Neutrophils % 71.0 % (38-70) H 06/29/18 10:55 Band Neutrophils % 6.0 % (3-7) 06/29/18 10:55 Lymphocytes % (Manual) 5.0 % (25-45) L 06/29/18 10:55 Atypical Lymphs % 1.0 % (-0) H 06/17/18 10:35 Monocytes % (Manual) 17.0 % (2-11) H 06/29/18 10:55 Eosinophils % (Manual) Cancelled 04/20/18 12:34 Basophils % (Manual) 1.0 % (0-1) 06/29/18 10:55 Metamyelocytes % 1.0 % (-0) H 06/17/18 10:35 Myelocytes % 2.0 % (-0) H 06/01/18 10:55 Promyelocytes % Cancelled 04/20/18 12:34 Blast Cells % Cancelled 04/20/18 12:34 Neutrophils # (Manual) 4312 /uL (6204-6243) 06/29/18 10:55 Nucleated RBCs Cancelled 03/07/19 13:25 Differential Comment Cancelled 04/20/18 12:34 Hypersegmented Neuts Cancelled 03/07/19 13:25 Hypogranular Neuts Cancelled 03/07/19 13:25 Reactive Lymphocytes Cancelled 03/07/19 13:25 Plasma Cells Cancelled 04/20/18 12:34 Smudge Cells Cancelled 03/07/19 13:25 Other Cell Type Cancelled 03/07/19 13:25 Toxic Granulation Cancelled 03/07/19 13:25 Toxic Vacuolation Cancelled 03/07/19 13:25 Dohle Bodies Cancelled 03/07/19 13:25 [place] Rods Cancelled 03/07/19 13:25 WBC Morphology Comment Cancelled 03/07/19 13:25 Platelet Estimate Decreased on smear 06/07/18 10:30 Clumped Platelets Cancelled 03/07/19 13:25 Plt Morphology Comment 03/20/19 12:50 RBC Morphology See below 04/19/19 14:30 Dimorphic RBCs Cancelled 03/07/19 13:25 Polychromasia 1+ H 07/06/18 10:37 Hypochromasia 1+ H 07/06/18 10:37 Poikilocytosis 1+ H 07/06/18 10:37 Basophilic Stippling Cancelled 03/07/19 13:25 Anisocytosis 1+ H 04/19/19 14:30 Microcytosis 1+ H 07/06/18 10:37 Macrocytosis Cancelled 03/07/19 13:25 Spherocytes Cancelled 03/07/19 13:25 Pappenheimer Bodies Cancelled 03/07/19 13:25 Sickle Cells Cancelled 03/07/19 13:25 Target Cells Cancelled 03/07/19 13:25 Tear Drop Cells Cancelled 03/07/19 13:25 Ovalocytes Cancelled 03/07/19 13:25 Stomatocytes Cancelled 03/07/19 13:25 Helmet Cells Cancelled 03/07/19 13:25 [place] Bodies Cancelled 03/07/19 13:25 [place] Rings Cancelled 03/07/19 13:25 [place] Cells Cancelled 03/07/19 13:25 Acanthocytes (Spur) Cancelled 03/07/19 13:25 Rouleaux Cancelled 03/07/19 13:25 Schistocytes Cancelled 03/07/19 13:25 Sodium 135 mmol/L (137-145) L 11/02/18 10:31 Potassium 3.9 mmol/L (3.4-5.1) 11/02/18 10:31 Chloride 98 mmol/L (98-107) 11/02/18 10:31 Carbon Dioxide 29 mmol/L (22-32) 11/02/18 10:31 BUN 11 mg/dL (7-17) 11/02/18 10:31 Creatinine 0.70 mg/dL (0.52-1.04) 11/02/18 10:31 Estimated GFR > 60.0 mL/min (>60) 11/02/18 10:31 BUN/Creatinine Ratio 15.7 (6-22) 11/02/18 10:31 Glucose 138 mg/dL (80-110) H 11/02/18 10:31 Calcium 9.2 mg/dL (8.4-10.2) 11/02/18 10:31 Magnesium 2.2 mg/dL (1.6-2.3) 07/13/18 10:33 Total Bilirubin 1.3 mg/dL (0.2-1.3) 11/02/18 10:31 Conjugated Bilirubin 0.0 md/dL (0.0-0.3) 07/13/18 10:33 Unconjugated Bilirubin 0.7 mg/dL (0.0-1.1) 07/13/18 10:33 AST 20 IU/L (14-36) 11/02/18 10:31 ALT 26 IU/L (9-52) 11/02/18 10:31 Alkaline Phosphatase 104 U/L (38-126) 11/02/18 10:31 Total Protein 6.7 g/dL (6.3-8.2) 11/02/18 10:31 Albumin 4.0 g/dL (3.5-5.0) 11/02/18 10:31 Globulin 2.7 g/dL (1.7-4.1) 11/02/18 10:31 Albumin/Globulin Ratio 1.5 (1.0-2.8) 11/02/18 10:31 Urine Color Yellow 11/18/18 14:19 Urine Appearance Clear 11/18/18 14:19 Urine pH 7.0 (4.5-8.0) 11/18/18 14:19 Ur Specific [place] 1.015 (1.000-1.035) 11/18/18 14:19 Urine Protein Negative (Negative) 11/18/18 14:19 Urine Glucose (UA) Negative g/dL (Negative) 11/18/18 14:19 Urine Ketones Negative (NEGATIVE) 11/18/18 14:19 Urine Occult Blood 3+ (Negative) H 11/18/18 14:19 Urine Nitrate Negative (Negative) 11/18/18 14:19 Urine Bilirubin Negative (NEGATIVE) 11/18/18 14:19 Urine Urobilinogen 0.2 E.U./dL (0.2) 11/18/18 14:19 Ur Leukocyte Esterase Negative (NEGATIVE) 11/18/18 14:19 Urine RBC 5-10/hpf (0-5/HPF) H 11/18/18 14:19 Urine WBC 0-1/hpf (0-5/HPF) 11/18/18 14:19 Ur Squamous Epith Cells 0-1 /hpf 11/18/18 14:19 Ur Transition Epith Cell 0-1/hpf (0-5/HPF) 11/18/18 14:19 Calcium Oxalate Crystal Few (None) H 11/18/18 14:19 Urine Bacteria None seen (None) 11/18/18 14:19 Ur Culture Indicated? Cult not indicated 11/18/18 14:19 Micro UA Comment Not Reportable 05/26/18 12:28 Blood Type O Positive 05/12/18 12:04 Antibody Screen Negative 05/12/18 12:04 Crossmatch See Detail 05/12/18 12:04 - Imaging Additional studies: Procedures Colonoscopy (04/06/14) Injection or infusion of other therapeutic or prophylactic substance (06/03/12) Assessment and Plan (1) Acute leukemia Problem details: 78-year-old woman with a history of AML with relapse disease. She is in a morphologic remission but does have residual disease detected by FISH. She remains at very high risk for relapse. She has been tolerating her therapy well. She will continue with her current regimen and return to clinic in about 4 weeks or so for follow-up but sooner should the need arise. Given her increasing fatigue and nausea, we did discuss the possibility of extending the time between her cycles. She has a little bit hesitant to consider this. Will continue with her current regimen for now but if her symptoms worsen, we may need to change her schedule somewhat. She will return to clinic in about 4 weeks for follow-up. Current visit: No Status: Acute .
[2019-05-03] MEDS: SODIUM CHLORIDE 0.9% 100 ML 21 ML IV (13:17)
[2019-05-03] MEDS: ONDANSETRON 16 MG in SODIUM CHLORIDE 0.9% 50 ML 232 ML IV (13:44)
[2019-05-03] MEDS: AZACITIDINE IV (14:15)
[2019-05-03] MEDS: SODIUM CHLORIDE 0.9% IV (14:15)
[2019-05-04 13:11] VITALS: BP 108/61; PULSE 83; RESP 20; O2SAT 98
[2019-05-04] MEDS: SODIUM CHLORIDE 0.9% 100 ML 21 ML IV (13:23)
[2019-05-04] MEDS: ONDANSETRON 16 MG in SODIUM CHLORIDE 0.9% 50 ML 232 ML IV (13:51)
[2019-05-04] MEDS: SODIUM CHLORIDE 0.9% IV (14:21)
[2019-05-04] MEDS: AZACITIDINE IV (14:21)
[2019-05-05] MEDS: SODIUM CHLORIDE 0.9% 100 ML 21 ML IV (13:21)
[2019-05-05 13:38] VITALS: BP 115/66; PULSE 77; RESP 16; TEMP 36.5; O2SAT 96
[2019-05-05] MEDS: ONDANSETRON 16 MG in SODIUM CHLORIDE 0.9% 50 ML 232 ML IV (13:50)
[2019-05-05] MEDS: SODIUM CHLORIDE 0.9% IV (14:20)
[2019-05-05] MEDS: AZACITIDINE IV (14:20)
[2019-05-09 13:25] VITALS: BP 142/81; PULSE 88; RESP 16; TEMP 36.4; O2SAT 96
[2019-05-09 13:25] LABS: Add Manual Diff / Slide Review NO; Basophils Absolute Auto 100 /uL (0-100); Basophils Percent Auto 1.2 % (0-2); Eosinophils Absolute Auto 0 /uL (0-450); Eosinophils Percent Auto 0.4 % (2-4); Hematocrit 39.9 % (36-46); Hemoglobin 13.3 g/dL (12.0-16.0); Lymphocytes Absolute Auto 1000 /uL (1100-4500); Lymphocytes Percent Auto 16.2 % (25-40); Mean Corpuscular HGB Conc 33.3 % (30-36); Mean Corpuscular Hemoglobin 31.5 PG (26-34); Mean Corpuscular Volume 94.7 fL (80-100); Monocytes Absolute Auto 0 /uL (0-900); Monocytes Percent Auto 0.5 % (3-14); Neutrophils Absolute Auto 5100 /uL (1500-7000); Neutrophils Percent Auto 81.7 % (50-75); Red Blood Cell Count 4.22 X10^6/uL (4.0-5.2); Red Cell Distribution Width 17.1 % (11.6-14.8); White Blood Cell Count 6.2 X10^3/uL (4.5-11.0)
[2019-05-09] MEDS: SODIUM CHLORIDE 0.9% 100 ML 21 ML IV (14:06)
[2019-05-09 14:12] LABS: Platelet Count 153 X10^3/uL (150-400)
[2019-05-09] MEDS: ONDANSETRON 16 MG in SODIUM CHLORIDE 0.9% 50 ML 232 ML IV (15:06)
[2019-05-09] MEDS: AZACITIDINE IV (15:38)
[2019-05-09] MEDS: SODIUM CHLORIDE 0.9% IV (15:38)
[2019-05-10 13:37] VITALS: BP 137/66; PULSE 76; RESP 16; TEMP 36.9; O2SAT 94
[2019-05-10] MEDS: SODIUM CHLORIDE 0.9% 100 ML 21 ML IV (13:46)
[2019-05-10] MEDS: ONDANSETRON 16 MG in SODIUM CHLORIDE 0.9% 50 ML 232 ML IV (14:07)
[2019-05-10] MEDS: AZACITIDINE IV (14:38)
[2019-05-10] MEDS: SODIUM CHLORIDE 0.9% IV (14:38)
[2019-05-11 13:09] VITALS: BP 125/77; PULSE 79; RESP 16; TEMP 36.4; O2SAT 97
[2019-05-11] MEDS: SODIUM CHLORIDE 0.9% 100 ML 21 ML IV (13:12)
[2019-05-11] MEDS: ONDANSETRON 16 MG in SODIUM CHLORIDE 0.9% 50 ML 232 ML IV (13:51)
[2019-05-11] MEDS: AZACITIDINE IV (14:30)
[2019-05-11] MEDS: SODIUM CHLORIDE 0.9% IV (14:30)
[2019-05-16 14:06] LABS: Add Manual Diff / Slide Review NO; Basophils Absolute Auto 100 /uL (0-100); Eosinophils Absolute Auto 0 /uL (0-450); Eosinophils Percent Auto 0.3 % (2-4); Hematocrit 36.9 % (36-46); Hemoglobin 12.6 g/dL (12.0-16.0); Lymphocytes Absolute Auto 600 /uL (1100-4500); Lymphocytes Percent Auto 9.9 % (25-40); Mean Corpuscular HGB Conc 34.1 % (30-36); Monocytes Absolute Auto 200 /uL (0-900); Monocytes Percent Auto 2.6 % (3-14); Neutrophils Absolute Auto 5300 /uL (1500-7000); Neutrophils Percent Auto 86.2 % (50-75); Red Blood Cell Count 3.93 X10^6/uL (4.0-5.2); Red Cell Distribution Width 17.1 % (11.6-14.8); White Blood Cell Count 6.1 X10^3/uL (4.5-11.0)
[2019-05-16 14:46] LABS: Platelet Count 61 X10^3/uL (150-400)
[2019-05-23 13:59] LABS: Hemoglobin 12.1 g/dL (12.0-16.0); Mean Corpuscular HGB Conc 33.5 % (30-36); Mean Corpuscular Hemoglobin 31.9 PG (26-34); Mean Corpuscular Volume 95.2 fL (80-100); Platelet Count 43 X10^3/uL (150-400); Red Blood Cell Count 3.78 X10^6/uL (4.0-5.2); Red Cell Distribution Width 17.3 % (11.6-14.8)
[2019-05-23 14:00] LABS: Add Manual Diff / Slide Review YES
[2019-05-23 14:22] LABS: Neutrophils Absolute Manual 4980 /uL (3000-5900); Nucleated Red Blood Cells 2 #/Diff; Total Cells Counted 100
[2019-05-23 14:23] LABS: RBC Morphology Normal Morphology
[2019-06-01 16:06] LABS: Hematocrit 32.7 % (36-46); Hemoglobin 11.1 g/dL (12.0-16.0); Mean Corpuscular Hemoglobin 31.9 PG (26-34); Mean Corpuscular Volume 93.7 fL (80-100); Platelet Count 67 X10^3/uL (150-400); Red Blood Cell Count 3.49 X10^6/uL (4.0-5.2); White Blood Cell Count 22.3 X10^3/uL (4.5-11.0)
[2019-06-01 16:07] LABS: Add Manual Diff / Slide Review YES
[2019-06-01 16:29] LABS: Anisocytosis 2+; Neutrophils Absolute Manual 12042 /uL (3000-5900); Total Cells Counted 100
--- NOTE | 2019-06-01 17:22 | ONC.PROCEDUR ---
Date of procedure: 06/01/19 Onc Bone Marrow: bone marrow biopsy and aspiration Procedure: The patient is a 78-year-old woman with a history of acute leukemia. She has been on maintenance therapy with by days a with good peripheral counts. Recently, she has developed some increasing hip pain. Because of this, she had an MRI done that showed some abnormal uptake in the marrow suspicious for malignancy. She is here for a bone marrow biopsy today. She did give informed consent was placed in a prone position. Her left posterior iliac crest was prepped with Betadine and anesthetized with approximately 15 cc of 2% lidocaine. Small skin incision was made with a scalpel blade. A Jamshidi needle was used to obtain a bone marrow aspirate and core biopsy. The patient tolerated the procedure without any difficulty or complication. Samples were sent for routine histology as well as flow cytometry and cytogenetics. Her CBC today shows stable or slightly improved platelet count. [place] [address]. Differential is pending but is suspicious for recurrence of her leukemia. She will return to clinic in 1 week for follow-up.
--- NOTE | 2019-06-01 17:25 | P.PCN_ITS ---
Date of procedure: 06/01/19 Onc Bone Marrow: bone marrow biopsy and aspiration Procedure: The patient is a 78-year-old woman with a history of acute leukemia. She has been on maintenance therapy with by days a with good peripheral counts. Recently, she has developed some increasing hip pain. Because of this, she had an MRI done that showed some abnormal uptake in the marrow suspicious for malignancy. She is here for a bone marrow biopsy today. She did give informed consent was placed in a prone position. Her left posterior iliac crest was prepped with Betadine and anesthetized with approximately 15 cc of 2% lidocaine. Small skin incision was made with a scalpel blade. A Jamshidi needle was used to obtain a bone marrow aspirate and core biopsy. The patient tolerated the procedure without any difficulty or complication. Samples were sent for routine histology as well as flow cytometry and cytogenetics. Her CBC today shows stable or slightly improved platelet count. [place] [address]. Differential is pending but is suspicious for recurrence of her leukemia. She will return to clinic in 1 week for follow-up.
[2019-06-06 11:19] VITALS: BP 129/65; PULSE 100; RESP 16; TEMP 36.7; O2SAT 98
[2019-06-06] MEDS: SODIUM CHLORIDE 0.9% 1,000 ML 1000 ML IV (11:20)
[2019-06-06] MEDS: ONDANSETRON 8 MG in SODIUM CHLORIDE 0.9% 50 ML 216 ML IV (11:32)
[2019-06-06 11:38] LABS: Hematocrit 34.2 % (36-46); Hemoglobin 11.4 g/dL (12.0-16.0); Mean Corpuscular HGB Conc 33.2 % (30-36); Mean Corpuscular Hemoglobin 31.1 PG (26-34); Mean Corpuscular Volume 93.7 fL (80-100); Platelet Count 57 X10^3/uL (150-400); Red Blood Cell Count 3.65 X10^6/uL (4.0-5.2); Red Cell Distribution Width 18.4 % (11.6-14.8)
[2019-06-06 11:40] LABS: White Blood Cell Count 50.6 X10^3/uL (4.5-11.0)
[2019-06-06 11:41] LABS: Add Manual Diff / Slide Review YES
[2019-06-06 11:42] LABS: Alanine Aminotransferase 25 IU/L (9-52); Albumin 4.2 g/dL (3.5-5.0); Albumin Globulin Ratio 1.8 (1.0-2.8); Alkaline Phosphatase 98 U/L (38-126); Aspartate Aminotransferase 51 IU/L (14-36); BUN Creatinine Ratio 8.9 (6-22); Bilirubin Total 0.8 mg/dL (0.2-1.3); Blood Urea Nitrogen 8 mg/dL (7-17); Calcium 9.3 mg/dL (8.4-10.2); Carbon Dioxide 28 mmol/L (22-32); Chloride 99 mmol/L (98-107); Estimated Glomerular Filt Rate > 60.0 mL/min (>60); Globulin 2.4 g/dL (1.7-4.1); Glucose 117 mg/dL (80-110); HEMOLYSIS < 15 (0-50); Magnesium 2.1 mg/dL (1.6-2.3); Potassium 3.8 mmol/L (3.4-5.1); Sodium 137 mmol/L (137-145); Total Protein 6.6 g/dL (6.3-8.2)
--- NOTE | 2019-06-06 11:54 | PC.NURSE ---
Patient here today for fluids and iv zofran. Patient states that she has been really worn down lately. Patient states that she has not had any fever or signs of infection. Patient states that her nausea has really increased over the last week.
[2019-06-06 12:45] LABS: Neutrophils Absolute Manual 16698 /uL (3000-5900); Total Cells Counted 100
[2019-06-06 13:04] LABS: Anisocytosis 1+; Basophilic Stippling 1+; Platelet Estimate Decreased on smear; Polychromasia 1+
--- NOTE | 2019-06-06 15:37 | PC.NURSE ---
Patient called in am stating she has been having nauseau and dry heaves since her bone marrow last Thu. She has not found the ativan or zofran to be effective, she has not been eating or drinking adequately. She is afraid to try compazine as she threw up the last time she took it. This nurse advised patient to come in for fluids and iv zofran and relayed to her the instructions of Dr. Robles to try Benadryl if she continues to have problems with this when back at home. She was instructed to call in if still having problems after Benadryl. Patient was also informed at end of visit of WBC and that Dr. Patel has been informed and will speak with her about this.
[2019-06-08 13:54] VITALS: BP 127/69; PULSE 100; RESP 20; TEMP 36.7; O2SAT 95
[2019-06-08 15:11] LABS: Hemoglobin 10.6 g/dL (12.0-16.0); Mean Corpuscular HGB Conc 33.2 % (30-36); Mean Corpuscular Hemoglobin 31.2 PG (26-34); Platelet Count 38 X10^3/uL (150-400); Red Cell Distribution Width 18.7 % (11.6-14.8)
[2019-06-08 15:13] LABS: Add Manual Diff / Slide Review YES; White Blood Cell Count 66.6 X10^3/uL (4.5-11.0)
--- NOTE | 2019-06-08 15:23 | PC.NURSE ---
Critical WBC of 66.6 noted, Dr. Patel aware. No new orders at this time
[2019-06-08 15:48] LABS: Anisocytosis 2+; Neutrophils Absolute Manual 17316 /uL (3000-5900); Nucleated Red Blood Cells 1 #/Diff; Polychromasia 1+; Total Cells Counted 100
--- NOTE | 2019-06-08 17:30 | ONC.PN ---
PN -Subjective Interval history: Diagnosis: AML Previous treatment: 1. Induction chemotherapy with decidabine + GCLAM October 2016. 2. Three cycles of consolidation with winston-c completed April 2017. 3. Relapse in March 2018 treated with a clinical trial without response. 4. One additional cycle of GCLAM which was tolerated poorly but did induce apparent remission. Bone marrow biopsy in May showed morphologic CR but with MRD detected by FISH at 0.2%. 5. 9 cycles of vidaza beginning in June 2018 Interval history The patient is 78-year-old woman who returns today for follow-up. She has a history of AML and has been receiving her treatment in [place]. She relapsed in March 2018 and was treated on a clinical trial but failed to respond. She had 1 additional cycle of off trial therapy and did have a response. Her most recent bone marrow biopsy in May showed morphologic remission. Her FISH however was positive at 0.2%. She has been on maintenance therapy with azacitidine since then. She has recently developed increased pain in her hip. MRI suggested bone marrow infiltration. Last week, she was noted to have a rising white count to 22,000. A bone marrow biopsy was performed. The patient tolerated the procedure well without any complication. She has continued to have a gradually increasing pain in her hip. She has been using some oxycodone although it is not providing very much relief. She has not had any unusual bleeding or bruising. No fevers chills or sweats. She has had some increasing fatigue. Her appetite has been poor but her weight has been stable. She denies any other changes in her health. Her medications are unchanged. They include oxycodone Compazine Zofran hyoscamine and fexofenadine as needed. - Patient Self-Reported Symptoms SR Skin issues: Dry skin, Blistering or peeling, Hair loss or scalp prob, Nail changes SR Gastrointestinal issues: Nausea SR Genitourinary issues: Blood in urine SR Musculoskeletal issues: Muscle weakness, Muscle pain or cramps Home Medications and Allergies Home Medications Medication Instructions Recorded Confirmed Type fexofenadine 60 mg PO QPM #0 05/29/12 06/08/19 History acetaminophen 650 mg PO Q4-6H PRN #0 05/08/17 06/08/19 History hyoscyamine sulfate 0.125 mg PO BID-QID PRN 04/22/18 06/08/19 History loperamide 2 mg PO BID PRN 04/22/18 06/08/19 History cyclobenzaprine 5 mg PO TID PRN 07/28/18 06/08/19 History hydrocodone-acetaminophen 1 tab PO Q4-6H PRN 08/17/18 06/08/19 History lorazepam 1 mg PO BID-TID PRN #60 tab 05/03/19 06/08/19 Rx ondansetron 8 mg PO Q8H PRN 30 Days #30 tab 05/03/19 06/08/19 Rx ondansetron 8 mg PO TID PRN #30 tab 05/03/19 06/08/19 Rx prochlorperazine maleate 5 mg PO Q6HR PRN 30 Days #30 tab 05/03/19 06/08/19 Rx oxycodone 5 mg PO Q4-6H PRN #100 cap 06/01/19 06/08/19 Rx allopurinol 300 mg PO DAILY 30 Days #30 tab 06/08/19 Rx dexamethasone 4 mg PO BID 10 Days #20 tab 06/08/19 Rx hydroxyurea [Hydrea] 1,000 mg PO DAILY 10 Days #20 cap 06/08/19 Rx venetoclax [Venclexta] See Rx Instructions .ROUTE 06/08/19 Rx .COMPLEX #120 tab Allergies Allergy/AdvReac Type Severity Reaction Status Date / Time Penicillins Allergy Unknown Verified 07/28/18 13:08 fentanyl [FENTANYL] AdvReac Unknown NAUSEA Verified 07/28/18 13:08 meperidine AdvReac Unknown N/V Verified 07/28/18 13:08 morphine AdvReac Unknown N/V Verified 07/28/18 13:08 Exam Vital signs: Vital Signs Temp Pulse Resp BP Pulse Ox 06/08/19 13:54 98.1 F 100 H 20 127/69 95 Intake and Output 06/08/19 06/08/19 06/08/19 07:59 15:59 23:59 Other: Weight 44 kg Patient Weight 06/08/19 23:59 Weight 44 kg - Constitutional positive no acute distress, positive thin Comments: She is not further examined. Results - Labs Laboratory Last Values WBC 66.6 X10^3/uL (4.5-11.0) H* 06/08/19 14:39 RBC 3.40 X10^6/uL (4.0-5.2) L 06/08/19 14:39 Hgb 10.6 g/dL (12.0-16.0) L 06/08/19 14:39 Hct 32.0 % (36-46) L 06/08/19 14:39 MCV 94.0 fL (80-100) 06/08/19 14:39 MCH 31.2 PG (26-34) 06/08/19 14:39 MCHC 33.2 % (30-36) 06/08/19 14:39 RDW 18.7 % (11.6-14.8) H 06/08/19 14:39 Plt Count 38 X10^3/uL (150-400) L 06/08/19 14:39 Neut % (Auto) Not Reportable 06/08/19 14:39 Lymph % (Auto) Not Reportable 06/08/19 14:39 [place] % (Auto) Not Reportable 06/08/19 14:39 Eos % (Auto) Not Reportable 06/08/19 14:39 Baso % (Auto) Not Reportable 06/08/19 14:39 Neut # (Auto) 5300 /uL (8226-9039) 05/16/19 13:50 Lymph # (Auto) Not Reportable 06/08/19 14:39 [place] # (Auto) Not Reportable 06/08/19 14:39 Eos # (Auto) 0 /uL (0-450) 05/16/19 13:50 Baso # (Auto) Not Reportable 06/08/19 14:39 Total Counted 100 06/08/19 14:39 Seg Neutrophils % 17.0 % (38-70) L 06/08/19 14:39 Band Neutrophils % 9.0 % (3-7) H 06/08/19 14:39 Lymphocytes % (Manual) 5.0 % (25-45) L 06/08/19 14:39 Atypical Lymphs % 18.0 % (-0) H 06/08/19 14:39 Monocytes % (Manual) 10.0 % (2-11) 06/08/19 14:39 Eosinophils % (Manual) 2.0 % (2-4) 06/08/19 14:39 Basophils % (Manual) 1.0 % (0-1) 06/29/18 10:55 Metamyelocytes % 7.0 % (-0) H 06/08/19 14:39 Myelocytes % 5.0 % (-0) H 06/08/19 14:39 Promyelocytes % 16.0 % (-0) H 06/08/19 14:39 Blast Cells % 11.0 % (-0) H 06/08/19 14:39 Neutrophils # (Manual) 08226 /uL (9775-6779) H 06/08/19 14:39 Nucleated RBCs 1 #/Diff (-0) H 06/08/19 14:39 Differential Comment Cancelled 04/20/18 12:34 Hypersegmented Neuts Cancelled 03/07/19 13:25 Hypogranular Neuts Cancelled 03/07/19 13:25 Reactive Lymphocytes Cancelled 03/07/19 13:25 Plasma Cells Cancelled 04/20/18 12:34 Smudge Cells Cancelled 03/07/19 13:25 Other Cell Type Cancelled 03/07/19 13:25 Toxic Granulation Cancelled 03/07/19 13:25 Toxic Vacuolation Cancelled 03/07/19 13:25 Dohle Bodies Cancelled 03/07/19 13:25 [place] Rods Cancelled 03/07/19 13:25 WBC Morphology Comment Cancelled 03/07/19 13:25 Platelet Estimate Decreased on smear 06/06/19 11:20 Clumped Platelets Cancelled 03/07/19 13:25 Plt Morphology Comment 03/20/19 12:50 RBC Morphology Not Reportable 06/08/19 14:39 Dimorphic RBCs Cancelled 03/07/19 13:25 Polychromasia 1+ H 06/08/19 14:39 Hypochromasia 1+ H 07/06/18 10:37 Poikilocytosis 1+ H 07/06/18 10:37 Basophilic Stippling 1+ H 06/06/19 11:20 Anisocytosis 2+ H 06/08/19 14:39 Microcytosis 1+ H 07/06/18 10:37 Macrocytosis Cancelled 03/07/19 13:25 Spherocytes Cancelled 03/07/19 13:25 Pappenheimer Bodies Cancelled 03/07/19 13:25 Sickle Cells Cancelled 03/07/19 13:25 Target Cells Cancelled 03/07/19 13:25 Tear Drop Cells Cancelled 03/07/19 13:25 Ovalocytes Cancelled 03/07/19 13:25 Stomatocytes Cancelled 03/07/19 13:25 Helmet Cells Cancelled 03/07/19 13:25 [place] Bodies Cancelled 03/07/19 13:25 [place] Rings Cancelled 03/07/19 13:25 [place] Cells Cancelled 03/07/19 13:25 Acanthocytes (Spur) Cancelled 03/07/19 13:25 Rouleaux Cancelled 03/07/19 13:25 Schistocytes Cancelled 03/07/19 13:25 Sodium 137 mmol/L (137-145) 06/06/19 11:20 Potassium 3.8 mmol/L (3.4-5.1) 06/06/19 11:20 Chloride 99 mmol/L (98-107) 06/06/19 11:20 Carbon Dioxide 28 mmol/L (22-32) 06/06/19 11:20 BUN 8 mg/dL (7-17) 06/06/19 11:20 Creatinine 0.90 mg/dL (0.52-1.04) 06/06/19 11:20 Estimated GFR > 60.0 mL/min (>60) 06/06/19 11:20 BUN/Creatinine Ratio 8.9 (6-22) 06/06/19 11:20 Glucose 117 mg/dL (80-110) H 06/06/19 11:20 Calcium 9.3 mg/dL (8.4-10.2) 06/06/19 11:20 Magnesium 2.1 mg/dL (1.6-2.3) 06/06/19 11:20 Total Bilirubin 0.8 mg/dL (0.2-1.3) 06/06/19 11:20 Conjugated Bilirubin 0.0 md/dL (0.0-0.3) 07/13/18 10:33 Unconjugated Bilirubin 0.7 mg/dL (0.0-1.1) 07/13/18 10:33 AST 51 IU/L (14-36) H 06/06/19 11:20 ALT 25 IU/L (9-52) 06/06/19 11:20 Alkaline Phosphatase 98 U/L (38-126) 06/06/19 11:20 Total Protein 6.6 g/dL (6.3-8.2) 06/06/19 11:20 Albumin 4.2 g/dL (3.5-5.0) 06/06/19 11:20 Globulin 2.4 g/dL (1.7-4.1) 06/06/19 11:20 Albumin/Globulin Ratio 1.8 (1.0-2.8) 06/06/19 11:20 Urine Color Yellow 11/18/18 14:19 Urine Appearance Clear 11/18/18 14:19 Urine pH 7.0 (4.5-8.0) 11/18/18 14:19 Ur Specific [place] 1.015 (1.000-1.035) 11/18/18 14:19 Urine Protein Negative (Negative) 11/18/18 14:19 Urine Glucose (UA) Negative g/dL (Negative) 11/18/18 14:19 Urine Ketones Negative (NEGATIVE) 11/18/18 14:19 Urine Occult Blood 3+ (Negative) H 11/18/18 14:19 Urine Nitrate Negative (Negative) 11/18/18 14:19 Urine Bilirubin Negative (NEGATIVE) 11/18/18 14:19 Urine Urobilinogen 0.2 E.U./dL (0.2) 11/18/18 14:19 Ur Leukocyte Esterase Negative (NEGATIVE) 11/18/18 14:19 Urine RBC 5-10/hpf (0-5/HPF) H 11/18/18 14:19 Urine WBC 0-1/hpf (0-5/HPF) 11/18/18 14:19 Ur Squamous Epith Cells 0-1 /hpf 11/18/18 14:19 Ur Transition Epith Cell 0-1/hpf (0-5/HPF) 11/18/18 14:19 Calcium Oxalate Crystal Few (None) H 11/18/18 14:19 Urine Bacteria None seen (None) 11/18/18 14:19 Ur Culture Indicated? Cult not indicated 11/18/18 14:19 Micro UA Comment Not Reportable 05/26/18 12:28 Blood Type O Positive 05/12/18 12:04 Antibody Screen Negative 05/12/18 12:04 Crossmatch See Detail 05/12/18 12:04 - Imaging Additional studies: Procedures Colonoscopy (04/06/14) Injection or infusion of other therapeutic or prophylactic substance (06/03/12) Assessment and Plan (1) Acute leukemia Problem details: 78-year-old woman with a history of AML. Unfortunately, her bone marrow demonstrates florid relapse with 80% blasts. Cytogenetics are pending. In the past, they have been normal. Today, we discussed treatment options. The 1st would be referral to [facility] [facility] [facility] to consider additional clinical trial treatment. It appears that there are few trials that she may be eligible for. These however would require significant time in [place] either on an inpatient or outpatient basis. We also talked about additional therapy here. Recently, azacitidine and venetoclax have shown a substantial response rate with minimal additional toxicity in elderly patients with acute leukemia. The biggest side effect is the risk for tumor lysis syndrome on initiation of the oral agent. This would require generally 4 day inpatient stay as the dose of venetoclax his escalated. Would require IV hydration as well as careful monitoring of electrolytes and renal function. The response rate for relapse disease his reasonably good with the response rate of 44% reported in 1 small trial and relapse refractory disease. We also talked about the possibility of supportive care. The patient expresses that she would like to survive long enough to see the of her great grandchild in November. She also expressed a strong desire to be treated closer to home and to avoid traveling to [place] if at all possible. With that in mind, we will plan on treating her with azacitidine and venetoclax as soon as the drug can be obtained. She will require brief hospital stay as the dose is wrapped up. She will need IV fluids and monitoring for tumor lysis syndrome. In the meantime, we will plan on treating her with Hydrea to try and control her white count. She will start on some allopurinol. I have also given her a prescription for some steroids to see if that would help with her hip pain. She will return to clinic here next week for CBC. Hopefully will be able to find out soon the time frame for initiating therapy. 40 minutes was spent with the patient the majority in counseling. Current visit: No Status: Acute .
[2019-06-13 14:22] LABS: Hematocrit 31.7 % (36-46); Hemoglobin 10.8 g/dL (12.0-16.0); Mean Corpuscular HGB Conc 34.1 % (30-36); Mean Corpuscular Hemoglobin 31.5 PG (26-34); Mean Corpuscular Volume 92.2 fL (80-100); Red Blood Cell Count 3.44 X10^6/uL (4.0-5.2); Red Cell Distribution Width 18.7 % (11.6-14.8)
[2019-06-13 14:23] LABS: White Blood Cell Count 57.3 X10^3/uL (4.5-11.0)
[2019-06-13 14:24] LABS: Add Manual Diff / Slide Review YES; Platelet Count 13 X10^3/uL (150-400)
[2019-06-13 14:29] LABS: Alanine Aminotransferase 33 IU/L (9-52); Albumin 4.3 g/dL (3.5-5.0); Albumin Globulin Ratio 1.7 (1.0-2.8); Alkaline Phosphatase 88 U/L (38-126); Aspartate Aminotransferase 45 IU/L (14-36); Bilirubin Total 1.1 mg/dL (0.2-1.3); Blood Urea Nitrogen 23 mg/dL (7-17); Calcium 9.2 mg/dL (8.4-10.2); Carbon Dioxide 28 mmol/L (22-32); Chloride 97 mmol/L (98-107); Estimated Glomerular Filt Rate 53.6 mL/min (>60); Globulin 2.5 g/dL (1.7-4.1); Glucose 100 mg/dL (80-110); HEMOLYSIS 29 (0-50); Potassium 3.8 mmol/L (3.4-5.1); Sodium 135 mmol/L (137-145); Total Protein 6.8 g/dL (6.3-8.2); Uric Acid 2.6 mg/dL (2.5-6.2)
[2019-06-13 14:55] LABS: Lactate Dehydrogenase 4460 U/L (313-618)
[2019-06-13 15:05] LABS: Neutrophils Absolute Manual 18909 /uL (3000-5900); Total Cells Counted 100
[2019-06-13 15:07] LABS: Anisocytosis 2+
[2019-06-13 15:09] LABS: Nucleated Red Blood Cells 5 #/Diff
[2019-06-13 15:11] LABS: Platelet Estimate Decreased on smear; Smudge Cells 1+
--- NOTE | 2019-06-14 09:11 | PC.NURSE ---
Venetoclax denied by [facility]. Patient informed and patient signed consent form for [employer] application. Dr. Patel signed provider portion and application for venetoclax faxed to [employer]. Josefina Anthony RP
[2019-06-14 16:47] VITALS: BP 123/45; PULSE 89; RESP 16; TEMP 36.6
[2019-06-14 17:10] VITALS: BP 119/58; PULSE 86; RESP 20; TEMP 36.8
[2019-06-14 18:00] VITALS: BP 129/53; PULSE 93; RESP 20; TEMP 36.8
[2019-06-16 09:04] LABS: Hematocrit 30.2 % (36-46); Hemoglobin 10.1 g/dL (12.0-16.0); Mean Corpuscular HGB Conc 33.5 % (30-36); Mean Corpuscular Hemoglobin 31.2 PG (26-34); Mean Corpuscular Volume 93.2 fL (80-100); Platelet Count 78 X10^3/uL (150-400); Red Blood Cell Count 3.24 X10^6/uL (4.0-5.2); Red Cell Distribution Width 18.9 % (11.6-14.8)
[2019-06-16 09:05] LABS: Add Manual Diff / Slide Review YES
[2019-06-16 09:06] LABS: White Blood Cell Count 44.5 X10^3/uL (4.5-11.0)
--- NOTE | 2019-06-16 09:32 | PC.NURSE ---
[facility]yd[facility], pt requesting for RX to be sent to [facility] in [place]. This resume writer called [facility] and let them know not to fill RX per pt's request. Stephanieea called into [facility] by this resume writer, pt aware.
[2019-06-16 09:38] LABS: Neutrophils Absolute Manual 27590 /uL (3000-5900); Total Cells Counted 100
[2019-06-16 09:40] LABS: Anisocytosis 2+; Polychromasia 1+; Smudge Cells 1+
[2019-06-16 09:41] LABS: Platelet Estimate Decreased on smear
[2019-06-20 09:21] LABS: Alanine Aminotransferase 29 IU/L (9-52); Albumin 4.2 g/dL (3.5-5.0); Albumin Globulin Ratio 1.9 (1.0-2.8); Alkaline Phosphatase 88 U/L (38-126); Aspartate Aminotransferase 32 IU/L (14-36); BUN Creatinine Ratio 23.3 (6-22); Bilirubin Total 0.7 mg/dL (0.2-1.3); Blood Urea Nitrogen 21 mg/dL (7-17); Calcium 9.2 mg/dL (8.4-10.2); Carbon Dioxide 26 mmol/L (22-32); Chloride 99 mmol/L (98-107); Estimated Glomerular Filt Rate > 60.0 mL/min (>60); Globulin 2.2 g/dL (1.7-4.1); Glucose 103 mg/dL (80-110); HEMOLYSIS < 15 (0-50); Potassium 3.9 mmol/L (3.4-5.1); Sodium 135 mmol/L (137-145); Total Protein 6.4 g/dL (6.3-8.2)
[2019-06-20 09:24] LABS: Hematocrit 29.7 % (36-46); Mean Corpuscular HGB Conc 33.6 % (30-36); Mean Corpuscular Hemoglobin 31.1 PG (26-34); Mean Corpuscular Volume 92.7 fL (80-100); Red Cell Distribution Width 18.7 % (11.6-14.8)
[2019-06-20 09:28] LABS: White Blood Cell Count 56.7 X10^3/uL (4.5-11.0)
[2019-06-20 09:29] LABS: Add Manual Diff / Slide Review YES; Platelet Count 27 X10^3/uL (150-400)
[2019-06-20 10:37] LABS: Anisocytosis 2+; Neutrophils Absolute Manual 28350 /uL (3000-5900); Nucleated Red Blood Cells 1 #/Diff; Poikilocytosis 1+; Total Cells Counted 100
--- NOTE | 2019-06-20 15:20 | PC.NURSE ---
Patient has been approved for free Venclexta from [employer] [facility]. Patient and Dr. Patel informed. Called pharmacy to set up delivery, medication will be shipped to clinic for delivery on 06-22-19. Josefina Anthony RP
[2019-06-23 13:23] LABS: Hematocrit 28.4 % (36-46); Hemoglobin 9.4 g/dL (12.0-16.0); Mean Corpuscular Hemoglobin 30.7 PG (26-34); Mean Corpuscular Volume 92.9 fL (80-100); Red Blood Cell Count 3.05 X10^6/uL (4.0-5.2); Red Cell Distribution Width 19.1 % (11.6-14.8)
[2019-06-23 13:24] LABS: Add Manual Diff / Slide Review YES
[2019-06-23 13:26] LABS: Platelet Count 14 X10^3/uL (150-400); White Blood Cell Count 57.2 X10^3/uL (4.5-11.0)
[2019-06-23 14:08] LABS: Neutrophils Absolute Manual 34892 /uL (3000-5900); Nucleated Red Blood Cells 1 #/Diff; Total Cells Counted 100
[2019-06-23 14:09] LABS: Anisocytosis 2+; Platelet Estimate Decreased on smear
--- NOTE | 2019-06-23 15:27 | CM.MNRNOTE ---
Critical labs noted. Pt will receive 2 units platelets.
[2019-06-23 18:17] VITALS: BP 106/52; PULSE 97; RESP 18; TEMP 36.9
[2019-06-23 18:35] VITALS: BP 105/47; PULSE 95; RESP 16; TEMP 37.1
[2019-06-23 19:13] VITALS: BP 117/60; PULSE 104; RESP 16; TEMP 37.1
[2019-06-23 19:40] VITALS: BP 117/60; PULSE 104; RESP 16; TEMP 37.1
[2019-06-23 19:55] VITALS: BP 108/57; PULSE 99; RESP 16; TEMP 37.2
[2019-06-23 20:31] VITALS: BP 106/73; PULSE 100; RESP 16; TEMP 36.8
--- NOTE | 2019-06-28 17:27 | P.PNONC_ITS ---
PN -Subjective Interval history: Diagnosis: AML Previous treatment: 1. Induction chemotherapy with decidabine + GCLAM October 2016. 2. Three cycles of consolidation with winston-c completed April 2017. 3. Relapse in March 2018 treated with a clinical trial without response. 4. One additional cycle of GCLAM which was tolerated poorly but did induce apparent remission. Bone marrow biopsy in May showed morphologic CR but with MRD detected by FISH at 0.2%. 5. 9 cycles of vidaza beginning in June 2018 Interval history The patient is 79-year-old woman who is seen today in the hospital. She has a history of relapsed acute leukemia. She had been on maintenance 5 days of for the last year. Recently she began having some increasing hip pain and MRI showed marrow infiltration. Shortly thereafter, her white cell count increased dramatically. Bone marrow biopsy showed relapsed acute leukemia. She has been taking Hydrea 1 g daily for the last few weeks which has been holding her white count steady. She has been needing red cell and platelet transfusions, the last was about a week ago. She did have an episode of epistaxis requiring cauterization in the ER. She has not had any other unusual bleeding or bruising. Her hip pain has been under good control with oxycodone. Strength and energy level have been low but stable. No mouth sores. No fevers or chills. She has not had any infectious complications. Appetite has been fair. No nausea or vomiting. She is otherwise without complaint today. Her medications are unchanged. They include Hydrea. Her last dose was yesterday. She has just run out. She has been on allopurinol for about 2-3 weeks now. She also takes Oxycodone Compazine Zofran hyoscamine and fe xofenadine as needed. Social history: She lives in [place]. She is . She does not smoke or use alcohol. For past medical history is notable for leukemia as described above. She also has a history of C diff. She has otherwise been quite healthy. - Patient Self-Reported Symptoms SR Skin issues: Dry skin, Blistering or peeling, Hair loss or scalp prob, Nail changes SR Gastrointestinal issues: Nausea SR Genitourinary issues: Blood in urine SR Musculoskeletal issues: Muscle weakness, Muscle pain or cramps Home Medications and Allergies Home Medications Medication Instructions Recorded Confirmed Type lorazepam 1 mg PO BID-TID PRN #60 tab 05/03/19 06/28/19 Rx ondansetron 8 mg PO Q8H PRN 30 Days #30 tab 05/03/19 06/28/19 Rx allopurinol 300 mg PO DAILY 30 Days #30 tab 06/08/19 06/28/19 Rx hydroxyurea [Hydrea] 1,000 mg PO DAILY 06/20/19 06/28/19 History oxycodone 5 mg PO Q4-6H PRN 06/22/19 06/28/19 History fexofenadine [Irma Allergy] 180 mg PO DAILY 06/28/19 06/28/19 History loperamide [Imodium A-D] 2 mg PO Q2-4H PRN 06/28/19 06/28/19 History Allergies Allergy/AdvReac Type Severity Reaction Status Date / Time Penicillins Allergy Unknown Verified 06/22/19 12:30 fentanyl [FENTANYL] AdvReac Unknown NAUSEA Verified 06/22/19 12:30 meperidine AdvReac Unknown N/V Verified 06/22/19 12:30 morphine AdvReac Unknown N/V Verified 06/22/19 12:30 Exam - Constitutional positive no acute distress, positive average body habitus - Routine HEENT Exam Head: Present: normocephalic, atraumatic Eye: Present: EOMI, PERRL. Absent: conjunctival icterus, scleral injection ENT: Present: mucous membranes moist, oropharynx clear - Routine Neck Exam Present: supple. Absent: lymphadenopathy, thyromegaly - Routine Respiratory Exam Present: Clear to auscultation bilaterally. Absent: rales, wheezes - Routine Cardiovascular Exam Present: RRR, S1, S2. Absent: murmur - Routine Abdominal Exam Present: soft, normoactive bowel sounds. Absent: tenderness, organomegaly, mass - Routine Extremities Exam Absent: cyanosis, clubbing, edema - Routine Skin Exam Present: intact. Absent: petechiae, rash - Routine Neurological Exam Present: alert, oriented X3 - Routine Psychiatric Exam Present: normal affect, normal thought process Results - Labs Laboratory Last Values WBC Cancelled 06/23/19 13:02 RBC Cancelled 06/23/19 13:02 Hgb Cancelled 06/23/19 13:02 Hct Cancelled 06/23/19 13:02 MCV Cancelled 06/23/19 13:02 MCH Cancelled 06/23/19 13:02 MCHC Cancelled 06/23/19 13:02 RDW Cancelled 06/23/19 13:02 Plt Count Cancelled 06/23/19 13:02 Neut % (Auto) Cancelled 06/23/19 13:02 Lymph % (Auto) Cancelled 06/23/19 13:02 [place] % (Auto) Cancelled 06/23/19 13:02 Eos % (Auto) Cancelled 06/23/19 13:02 Baso % (Auto) Cancelled 06/23/19 13:02 Neut # (Auto) Cancelled 06/23/19 13:02 Lymph # (Auto) Cancelled 06/23/19 13:02 [place] # (Auto) Cancelled 06/23/19 13:02 Eos # (Auto) Cancelled 06/23/19 13:02 Baso # (Auto) Cancelled 06/23/19 13:02 Total Counted 100 06/23/19 13:00 Seg Neutrophils % 48.0 % (38-70) 06/23/19 13:00 Band Neutrophils % 13.0 % (3-7) H 06/23/19 13:00 Lymphocytes % (Manual) 5.0 % (25-45) L 06/23/19 13:00 Atypical Lymphs % 1.0 % (-0) H 06/16/19 08:49 Monocytes % (Manual) 5.0 % (2-11) 06/23/19 13:00 Eosinophils % (Manual) 2.0 % (2-4) 06/08/19 14:39 Basophils % (Manual) 1.0 % (0-1) 06/20/19 08:50 Metamyelocytes % 5.0 % (-0) H 06/23/19 13:00 Myelocytes % 5.0 % (-0) H 06/23/19 13:00 Promyelocytes % 4.0 % (-0) H 06/23/19 13:00 Blast Cells % 15.0 % (-0) H 06/23/19 13:00 Neutrophils # (Manual) 51811 /uL (0182-1679) H 06/23/19 13:00 Nucleated RBCs 1 #/Diff (-0) H 06/23/19 13:00 Differential Comment Cancelled 05/26/18 10:47 Hypersegmented Neuts Cancelled 03/07/19 13:25 Hypogranular Neuts Cancelled 03/07/19 13:25 Reactive Lymphocytes Cancelled 03/07/19 13:25 Plasma Cells Cancelled 05/26/18 10:47 Smudge Cells 1+ H 06/16/19 08:49 Other Cell Type Cancelled 03/07/19 13:25 Toxic Granulation Cancelled 03/07/19 13:25 Toxic Vacuolation Cancelled 03/07/19 13:25 Dohle Bodies Cancelled 03/07/19 13:25 [place] Rods Cancelled 03/07/19 13:25 WBC Morphology Comment Cancelled 03/07/19 13:25 Platelet Estimate Decreased on smear 06/23/19 13:00 Clumped Platelets Cancelled 03/07/19 13:25 Plt Morphology Comment 03/20/19 12:50 RBC Morphology See below 06/23/19 13:00 Dimorphic RBCs Cancelled 03/07/19 13:25 Polychromasia 1+ H 06/16/19 08:49 Hypochromasia Cancelled 03/07/19 13:25 Poikilocytosis 1+ H 06/20/19 08:50 Basophilic Stippling 1+ H 06/06/19 11:20 Anisocytosis 2+ H 06/23/19 13:00 Microcytosis Cancelled 03/07/19 13:25 Macrocytosis Cancelled 03/07/19 13:25 Spherocytes Cancelled 03/07/19 13:25 Pappenheimer Bodies Cancelled 03/07/19 13:25 Sickle Cells Cancelled 03/07/19 13:25 Target Cells Cancelled 03/07/19 13:25 Tear Drop Cells Cancelled 03/07/19 13:25 Ovalocytes Cancelled 03/07/19 13:25 Stomatocytes Cancelled 03/07/19 13:25 Helmet Cells Cancelled 03/07/19 13:25 [place] Bodies Cancelled 03/07/19 13:25 [place] Rings Cancelled 03/07/19 13:25 [place] Cells Cancelled 03/07/19 13:25 Acanthocytes (Spur) Cancelled 03/07/19 13:25 Rouleaux Cancelled 03/07/19 13:25 Schistocytes Cancelled 03/07/19 13:25 Smear Path Review Cancelled 06/01/19 15:55 Sodium 135 mmol/L (137-145) L 06/20/19 08:50 Potassium 3.9 mmol/L (3.4-5.1) 06/20/19 08:50 Chloride 99 mmol/L (98-107) 06/20/19 08:50 Carbon Dioxide 26 mmol/L (22-32) 06/20/19 08:50 BUN 21 mg/dL (7-17) H 06/20/19 08:50 Creatinine 0.90 mg/dL (0.52-1.04) 06/20/19 08:50 Estimated GFR > 60.0 mL/min (>60) 06/20/19 08:50 BUN/Creatinine Ratio 23.3 (6-22) H 06/20/19 08:50 Glucose 103 mg/dL (80-110) 06/20/19 08:50 Uric Acid 2.6 mg/dL (2.5-6.2) 06/13/19 14:06 Calcium 9.2 mg/dL (8.4-10.2) 06/20/19 08:50 Magnesium 2.1 mg/dL (1.6-2.3) 06/06/19 11:20 Total Bilirubin 0.7 mg/dL (0.2-1.3) 06/20/19 08:50 Conjugated Bilirubin 0.0 md/dL (0.0-0.3) 07/13/18 10:33 Unconjugated Bilirubin 0.7 mg/dL (0.0-1.1) 07/13/18 10:33 AST 32 IU/L (14-36) 06/20/19 08:50 ALT 29 IU/L (9-52) 06/20/19 08:50 Alkaline Phosphatase 88 U/L (38-126) 06/20/19 08:50 Lactate Dehydrogenase 4460 U/L (313-618) H 06/13/19 14:06 Total Protein 6.4 g/dL (6.3-8.2) 06/20/19 08:50 Albumin 4.2 g/dL (3.5-5.0) 06/20/19 08:50 Globulin 2.2 g/dL (1.7-4.1) 06/20/19 08:50 Albumin/Globulin Ratio 1.9 (1.0-2.8) 06/20/19 08:50 Urine Color Yellow 11/18/18 14:19 Urine Appearance Clear 11/18/18 14:19 Urine pH 7.0 (4.5-8.0) 11/18/18 14:19 Ur Specific [place] 1.015 (1.000-1.035) 11/18/18 14:19 Urine Protein Negative (Negative) 11/18/18 14:19 Urine Glucose (UA) Negative g/dL (Negative) 11/18/18 14:19 Urine Ketones Negative (NEGATIVE) 11/18/18 14:19 Urine Occult Blood 3+ (Negative) H 11/18/18 14:19 Urine Nitrate Negative (Negative) 11/18/18 14:19 Urine Bilirubin Negative (NEGATIVE) 11/18/18 14:19 Urine Urobilinogen 0.2 E.U./dL (0.2) 11/18/18 14:19 Ur Leukocyte Esterase Negative (NEGATIVE) 11/18/18 14:19 Urine RBC 5-10/hpf (0-5/HPF) H 11/18/18 14:19 Urine WBC 0-1/hpf (0-5/HPF) 11/18/18 14:19 Ur Squamous Epith Cells 0-1 /hpf 11/18/18 14:19 Ur Transition Epith Cell 0-1/hpf (0-5/HPF) 11/18/18 14:19 Calcium Oxalate Crystal Few (None) H 11/18/18 14:19 Urine Bacteria None seen (None) 11/18/18 14:19 Ur Culture Indicated? Cult not indicated 11/18/18 14:19 Micro UA Comment Not Reportable 05/26/18 12:28 Blood Type O Positive 06/23/19 13:00 Antibody Screen Cancelled 06/14/19 16:20 Crossmatch See Detail 05/12/18 12:04 - Imaging Additional studies: Procedures Colonoscopy (04/06/14) Injection or infusion of other therapeutic or prophylactic substance (06/03/12) Assessment and Plan (1) Acute leukemia Status: Acute 79-year-old woman with florid relapse of acute leukemia. Her recent bone marrow showed 80% blasts. She has been on Hydrea which has been holding her white count steady. She has been on allopurinol now for 2-3 weeks. She is ready to begin therapy with azacitidine and venetoclax. The dose will need to be titrated over the next 3 days and she will then continue on 400 mg daily. She will need to be monitored carefully for the development of tumor lysis syndrome. She will continue with IV hydration. She does have some anemia and is scheduled for transfusion.
--- NOTE | 2019-06-29 08:12 | P.PNONC_ITS ---
PN -Subjective Interval history: Diagnosis: AML Previous treatment: 1. Induction chemotherapy with decidabine + GCLAM October 2016. 2. Three cycles of consolidation with winston-c completed April 2017. 3. Relapse in March 2018 treated with a clinical trial without response. 4. One additional cycle of GCLAM which was tolerated poorly but did induce apparent remission. Bone marrow biopsy in May showed morphologic CR but with MRD detected by FISH at 0.2%. 5. 9 cycles of vidaza beginning in June 2018 6. Azacitidine and venetoclax starting yesterday Interval history The patient is 79-year-old woman who is seen today in the hospital. She has a history of relapsed acute leukemia. She had been on maintenance azacitidine for the last year. Recently she began having some increasing hip pain and MRI showed marrow infiltration. Shortly thereafter, her white cell count increased dramatically. Bone marrow biopsy showed relapsed acute leukemia. She has been taking Hydrea 1 g daily for the last few weeks which has been holding her white count steady. Yesterday, she started on azacitidine and venetoclax. She tolerated the 1st dose reasonably well. She has had a little bit of nausea but no vomiting. She has also noticed some loose stool yesterday. She took some Imodium which seems to have helped. She is scheduled for red cell transfusion later today. She has not had any unusual bleeding or bruising. No fevers or chills. No shortness of breath or cough. She notes a lot of urine output. She denies any other changes in her health. - Patient Self-Reported Symptoms SR Skin issues: Dry skin, Blistering or peeling, Hair loss or scalp prob, Nail changes SR Gastrointestinal issues: Nausea SR Genitourinary issues: Blood in urine SR Musculoskeletal issues: Muscle weakness, Muscle pain or cramps Home Medications and Allergies Home Medications Medication Instructions Recorded Confirmed Type lorazepam 1 mg PO BID-TID PRN #60 tab 05/03/19 06/28/19 Rx ondansetron 8 mg PO Q8H PRN 30 Days #30 tab 05/03/19 06/28/19 Rx allopurinol 300 mg PO DAILY 30 Days #30 tab 06/08/19 06/28/19 Rx hydroxyurea [Hydrea] 1,000 mg PO DAILY 06/20/19 06/28/19 History oxycodone 5 mg PO Q4-6H PRN 06/22/19 06/28/19 History fexofenadine [Irma Allergy] 180 mg PO DAILY 06/28/19 06/28/19 History loperamide [Imodium A-D] 2 mg PO Q2-4H PRN 06/28/19 06/28/19 History Allergies Allergy/AdvReac Type Severity Reaction Status Date / Time Penicillins Allergy Unknown Verified 06/22/19 12:30 fentanyl [FENTANYL] AdvReac Unknown NAUSEA Verified 06/22/19 12:30 meperidine AdvReac Unknown N/V Verified 06/22/19 12:30 morphine AdvReac Unknown N/V Verified 06/22/19 12:30 Exam - Constitutional positive no acute distress, positive average body habitus Comments: She is not further examined. Results - Labs Laboratory Last Values WBC Cancelled 06/23/19 13:02 RBC Cancelled 06/23/19 13:02 Hgb Cancelled 06/23/19 13:02 Hct Cancelled 06/23/19 13:02 MCV Cancelled 06/23/19 13:02 MCH Cancelled 06/23/19 13:02 MCHC Cancelled 06/23/19 13:02 RDW Cancelled 06/23/19 13:02 Plt Count Cancelled 06/23/19 13:02 Neut % (Auto) Cancelled 06/23/19 13:02 Lymph % (Auto) Cancelled 06/23/19 13:02 [place] % (Auto) Cancelled 06/23/19 13:02 Eos % (Auto) Cancelled 06/23/19 13:02 Baso % (Auto) Cancelled 06/23/19 13:02 Neut # (Auto) Cancelled 06/23/19 13:02 Lymph # (Auto) Cancelled 06/23/19 13:02 [place] # (Auto) Cancelled 06/23/19 13:02 Eos # (Auto) Cancelled 06/23/19 13:02 Baso # (Auto) Cancelled 06/23/19 13:02 Total Counted 100 06/23/19 13:00 Seg Neutrophils % 48.0 % (38-70) 06/23/19 13:00 Band Neutrophils % 13.0 % (3-7) H 06/23/19 13:00 Lymphocytes % (Manual) 5.0 % (25-45) L 06/23/19 13:00 Atypical Lymphs % 1.0 % (-0) H 06/16/19 08:49 Monocytes % (Manual) 5.0 % (2-11) 06/23/19 13:00 Eosinophils % (Manual) 2.0 % (2-4) 06/08/19 14:39 Basophils % (Manual) 1.0 % (0-1) 06/20/19 08:50 Metamyelocytes % 5.0 % (-0) H 06/23/19 13:00 Myelocytes % 5.0 % (-0) H 06/23/19 13:00 Promyelocytes % 4.0 % (-0) H 06/23/19 13:00 Blast Cells % 15.0 % (-0) H 06/23/19 13:00 Neutrophils # (Manual) 97257 /uL (4822-1892) H 06/23/19 13:00 Nucleated RBCs 1 #/Diff (-0) H 06/23/19 13:00 Differential Comment Cancelled 05/26/18 10:47 Hypersegmented Neuts Cancelled 03/07/19 13:25 Hypogranular Neuts Cancelled 03/07/19 13:25 Reactive Lymphocytes Cancelled 03/07/19 13:25 Plasma Cells Cancelled 05/26/18 10:47 Smudge Cells 1+ H 06/16/19 08:49 Other Cell Type Cancelled 03/07/19 13:25 Toxic Granulation Cancelled 03/07/19 13:25 Toxic Vacuolation Cancelled 03/07/19 13:25 [place]ohle Bodies Cancelled 03/07/19 13:25 [place] Rods Cancelled 03/07/19 13:25 WBC Morphology Comment Cancelled 03/07/19 13:25 Platelet Estimate Decreased on smear 06/23/19 13:00 Clumped Platelets Cancelled 03/07/19 13:25 Plt Morphology Comment 03/20/19 12:50 RBC Morphology See below 06/23/19 13:00 Dimorphic RBCs Cancelled 03/07/19 13:25 Polychromasia 1+ H 06/16/19 08:49 Hypochromasia Cancelled 03/07/19 13:25 Poikilocytosis 1+ H 06/20/19 08:50 Basophilic Stippling 1+ H 06/06/19 11:20 Anisocytosis 2+ H 06/23/19 13:00 Microcytosis Cancelled 03/07/19 13:25 Macrocytosis Cancelled 03/07/19 13:25 Spherocytes Cancelled 03/07/19 13:25 Pappenheimer Bodies Cancelled 03/07/19 13:25 Sickle Cells Cancelled 03/07/19 13:25 Target Cells Cancelled 03/07/19 13:25 Tear Drop Cells Cancelled 03/07/19 13:25 Ovalocytes Cancelled 03/07/19 13:25 Stomatocytes Cancelled 03/07/19 13:25 Helmet Cells Cancelled 03/07/19 13:25 [place] Bodies Cancelled 03/07/19 13:25 [place] Rings Cancelled 03/07/19 13:25 [place] Cells Cancelled 03/07/19 13:25 Acanthocytes (Spur) Cancelled 03/07/19 13:25 Rouleaux Cancelled 03/07/19 13:25 Schistocytes Cancelled 03/07/19 13:25 Smear Path Review Cancelled 06/01/19 15:55 Sodium 135 mmol/L (137-145) L 06/20/19 08:50 Potassium 3.9 mmol/L (3.4-5.1) 06/20/19 08:50 Chloride 99 mmol/L (98-107) 06/20/19 08:50 Carbon Dioxide 26 mmol/L (22-32) 06/20/19 08:50 BUN 21 mg/dL (7-17) H 06/20/19 08:50 Creatinine 0.90 mg/dL (0.52-1.04) 06/20/19 08:50 Estimated GFR > 60.0 mL/min (>60) 06/20/19 08:50 BUN/Creatinine Ratio 23.3 (6-22) H 06/20/19 08:50 Glucose 103 mg/dL (80-110) 06/20/19 08:50 Uric Acid 2.6 mg/dL (2.5-6.2) 06/13/19 14:06 Calcium 9.2 mg/dL (8.4-10.2) 06/20/19 08:50 Magnesium 2.1 mg/dL (1.6-2.3) 06/06/19 11:20 Total Bilirubin 0.7 mg/dL (0.2-1.3) 06/20/19 08:50 Conjugated Bilirubin 0.0 md/dL (0.0-0.3) 07/13/18 10:33 Unconjugated Bilirubin 0.7 mg/dL (0.0-1.1) 07/13/18 10:33 AST 32 IU/L (14-36) 06/20/19 08:50 ALT 29 IU/L (9-52) 06/20/19 08:50 Alkaline Phosphatase 88 U/L (38-126) 06/20/19 08:50 Lactate Dehydrogenase 4460 U/L (313-618) H 06/13/19 14:06 Total Protein 6.4 g/dL (6.3-8.2) 06/20/19 08:50 Albumin 4.2 g/dL (3.5-5.0) 06/20/19 08:50 Globulin 2.2 g/dL (1.7-4.1) 06/20/19 08:50 Albumin/Globulin Ratio 1.9 (1.0-2.8) 06/20/19 08:50 Urine Color Yellow 11/18/18 14:19 Urine Appearance Clear 11/18/18 14:19 Urine pH 7.0 (4.5-8.0) 11/18/18 14:19 Ur Specific [place] 1.015 (1.000-1.035) 11/18/18 14:19 Urine Protein Negative (Negative) 11/18/18 14:19 Urine Glucose (UA) Negative g/dL (Negative) 11/18/18 14:19 Urine Ketones Negative (NEGATIVE) 11/18/18 14:19 Urine Occult Blood 3+ (Negative) H 11/18/18 14:19 Urine Nitrate Negative (Negative) 11/18/18 14:19 Urine Bilirubin Negative (NEGATIVE) 11/18/18 14:19 Urine Urobilinogen 0.2 E.U./dL (0.2) 11/18/18 14:19 Ur Leukocyte Esterase Negative (NEGATIVE) 11/18/18 14:19 Urine RBC 5-10/hpf (0-5/HPF) H 11/18/18 14:19 Urine WBC 0-1/hpf (0-5/HPF) 11/18/18 14:19 Ur Squamous Epith Cells 0-1 /hpf 11/18/18 14:19 Ur Transition Epith Cell 0-1/hpf (0-5/HPF) 11/18/18 14:19 Calcium Oxalate Crystal Few (None) H 11/18/18 14:19 Urine Bacteria None seen (None) 11/18/18 14:19 Ur Culture Indicated? Cult not indicated 11/18/18 14:19 Micro UA Comment Not Reportable 05/26/18 12:28 Blood Type O Positive 06/23/19 13:00 Antibody Screen Cancelled 06/14/19 16:20 Crossmatch See Detail 05/12/18 12:04 - Imaging Additional studies: Procedures Colonoscopy (04/06/14) Injection or infusion of other therapeutic or prophylactic substance (06/03/12) Assessment and Plan (1) Acute leukemia Status: Acute 79-year-old woman with florid relapse of acute leukemia. Her recent bone marrow showed 80% blasts. She started azacytadine and venetoclax yesterday. She will be due for 200 mg of venetoclax today. This morning, her Cr, K and Phos are stable. Uric acid is undetectable. There is no sign of TLS so far. Will continue IVF and monitor electolytes. Red cell transfusion today.
--- NOTE | 2019-06-29 13:53 | PC.NURSE ---
Patient alert and oriented, no pain or SOB. Patient states that her urine output is adequate albeit somewhat darker than usual. She is aware that she will be receiving platelets and PRBCs later today. Vidaza and oral chemo administered. Patient's need to receive her ativan early in am, at lunch and at bedtime in order to control her nauseau adequately was communicated for her to the nurse coordinator.
[2019-07-04 13:41] VITALS: PULSE 104; RESP 20; TEMP 36.8; O2SAT 96
--- NOTE | 2019-07-04 13:56 | PC.NURSE ---
pt states she was discharged 07/03/19. labs reviewed. reports abd cramping and heart racing. HR 105. laying back in chair
[2019-07-04] MEDS: SODIUM CHLORIDE 0.9% 100 ML 21 ML IV (15:24)
[2019-07-04] MEDS: ONDANSETRON 16 MG in SODIUM CHLORIDE 0.9% 50 ML 232 ML IV (15:24)
[2019-07-04] MEDS: AZACITIDINE IV (15:50)
[2019-07-04] MEDS: SODIUM CHLORIDE 0.9% IV (15:50)
--- NOTE | 2019-07-04 16:11 | PC.NURSE ---
Patient due for Azacitidine, nurse discussed patient with Dr. Robles who felt patient was OK to proceed with chemo today but did not release azacitidine order in computer. As the provider was involved in lengthy visit with patient, this pharmacist confirmed with Dr. Robles that it was OK for pharmacist to perform physician review on the patient's chemotherapy order for today.
[2019-07-05 14:27] LABS: Hematocrit 22.6 % (36-46); Hemoglobin 7.7 g/dL (12.0-16.0); Mean Corpuscular HGB Conc 34.3 % (30-36); Mean Corpuscular Hemoglobin 31.3 PG (26-34); Mean Corpuscular Volume 91.5 fL (80-100); Red Blood Cell Count 2.47 X10^6/uL (4.0-5.2); Red Cell Distribution Width 16.4 % (11.6-14.8); White Blood Cell Count 5.4 X10^3/uL (4.5-11.0)
[2019-07-05 14:30] LABS: Add Manual Diff / Slide Review YES; Platelet Count 29 X10^3/uL (150-400)
[2019-07-05 14:31] LABS: Alanine Aminotransferase 20 IU/L (9-52); Albumin 3.7 g/dL (3.5-5.0); Albumin Globulin Ratio 1.6 (1.0-2.8); Alkaline Phosphatase 83 U/L (38-126); Aspartate Aminotransferase 17 IU/L (14-36); Bilirubin Total 1.7 mg/dL (0.2-1.3); Blood Urea Nitrogen 18 mg/dL (7-17); Calcium 8.7 mg/dL (8.4-10.2); Carbon Dioxide 29 mmol/L (22-32); Chloride 98 mmol/L (98-107); Estimated Glomerular Filt Rate > 60.0 mL/min (>60); Globulin 2.3 g/dL (1.7-4.1); Glucose 119 mg/dL (80-110); HEMOLYSIS < 15 (0-50); Magnesium 2.3 mg/dL (1.6-2.3); Potassium 3.6 mmol/L (3.4-5.1); Sodium 136 mmol/L (137-145)
[2019-07-05 14:48] VITALS: BP 134/47; PULSE 98; RESP 16; TEMP 36.7; O2SAT 97
[2019-07-05 14:54] LABS: Neutrophils Absolute Manual 5076 /uL (3000-5900); Platelet Estimate Decreased on smear; RBC Morphology Normal Morphology; Total Cells Counted 100
[2019-07-05] MEDS: SODIUM CHLORIDE 0.9% 100 ML 21 ML IV (15:29)
[2019-07-05] MEDS: ONDANSETRON 16 MG in SODIUM CHLORIDE 0.9% 50 ML 232 ML IV (15:46)
[2019-07-05] MEDS: SODIUM CHLORIDE 0.9% IV (16:24)
[2019-07-05] MEDS: AZACITIDINE IV (16:24)
[2019-07-05 16:55] VITALS: BP 137/72; PULSE 98; RESP 16; TEMP 36.7
[2019-07-05 17:13] VITALS: BP 135/65; PULSE 100; RESP 20; TEMP 36.7
[2019-07-05 19:24] VITALS: BP 116/76; PULSE 91; RESP 20; TEMP 37.2
[2019-07-06 12:18] VITALS: BP 127/69; PULSE 102; RESP 18; TEMP 36.6
[2019-07-06 12:33] VITALS: BP 126/66; PULSE 93; RESP 18; TEMP 36.5
[2019-07-06 14:44] VITALS: BP 132/71; PULSE 85; RESP 18; TEMP 36.8
[2019-07-06] MEDS: ONDANSETRON 16 MG in SODIUM CHLORIDE 0.9% 50 ML 232 ML IV (15:01)
[2019-07-06] MEDS: SODIUM CHLORIDE 0.9% IV (15:37)
[2019-07-06] MEDS: AZACITIDINE IV (15:37)
[2019-07-06] MEDS: SODIUM CHLORIDE 0.9% 100 ML 21 ML IV (16:53)
[2019-07-07] MEDS: SODIUM CHLORIDE 0.9% 100 ML 21 ML IV (13:59)
[2019-07-07] MEDS: ONDANSETRON 16 MG in SODIUM CHLORIDE 0.9% 50 ML 232 ML IV (14:27)
[2019-07-07] MEDS: SODIUM CHLORIDE 0.9% IV (14:50)
[2019-07-07] MEDS: AZACITIDINE IV (14:50)
[2019-07-07 15:50] VITALS: BP 131/75; PULSE 86; RESP 18; TEMP 36.5; O2SAT 94
[2019-07-12 11:31] LABS: Hemoglobin 10.8 g/dL (12.0-16.0); Mean Corpuscular HGB Conc 34.6 % (30-36); Mean Corpuscular Hemoglobin 31.1 PG (26-34); Mean Corpuscular Volume 89.9 fL (80-100); Red Blood Cell Count 3.45 X10^6/uL (4.0-5.2); White Blood Cell Count 4.5 X10^3/uL (4.5-11.0)
[2019-07-12 11:33] LABS: Platelet Count 5 X10^3/uL (150-400)
[2019-07-12 11:34] LABS: Add Manual Diff / Slide Review YES
[2019-07-12 12:04] LABS: Neutrophils Absolute Manual 4320 /uL (3000-5900); Total Cells Counted 100
[2019-07-12 12:07] LABS: Anisocytosis 2+
[2019-07-12 12:09] LABS: Schistocytes 1+
[2019-07-12 13:04] VITALS: BP 117/70; PULSE 98; RESP 16; TEMP 36.8; O2SAT 96
[2019-07-12 15:57] VITALS: BP 116/57; PULSE 108; RESP 18; TEMP 36.9
[2019-07-12 16:15] VITALS: BP 103/49; PULSE 75; RESP 16; TEMP 36.9
[2019-07-12 17:25] VITALS: BP 121/61; PULSE 90; RESP 16; TEMP 36.6
[2019-07-12 18:11] VITALS: BP 112/53; PULSE 103; RESP 18; TEMP 37.3
[2019-07-20 08:32] LABS: Hematocrit 28.4 % (36-46); Hemoglobin 9.7 g/dL (12.0-16.0); Mean Corpuscular HGB Conc 34.2 % (30-36); Mean Corpuscular Hemoglobin 31.1 PG (26-34); Red Blood Cell Count 3.12 X10^6/uL (4.0-5.2); Red Cell Distribution Width 14.9 % (11.6-14.8); White Blood Cell Count 7.1 X10^3/uL (4.5-11.0)
[2019-07-20 08:35] LABS: Platelet Count 14 X10^3/uL (150-400)
[2019-07-20 08:36] LABS: Add Manual Diff / Slide Review YES
[2019-07-20 08:43] VITALS: BP 116/62; PULSE 100; RESP 18; TEMP 36.6; O2SAT 99
[2019-07-20 08:49] LABS: Anisocytosis 1+; Neutrophils Absolute Manual 6461 /uL (3000-5900); Platelet Estimate Decreased on smear; Total Cells Counted 100
[2019-07-20 08:50] VITALS: BP 116/62; PULSE 100; RESP 18; TEMP 36.6; O2SAT 99
--- NOTE | 2019-07-20 09:20 | ONC.PN ---
PN -Subjective Interval history: Diagnosis: AML Previous treatment: 1. Induction chemotherapy with decidabine + GCLAM October 2016. 2. Three cycles of consolidation with winston-c completed April 2017. 3. Relapse in March 2018 treated with a clinical trial without response. 4. One additional cycle of GCLAM which was tolerated poorly but did induce apparent remission. Bone marrow biopsy in May showed morphologic CR but with MRD detected by FISH at 0.2%. 5. 9 cycles of vidaza beginning in June 2018 6. Azacitidine and venetoclax starting about 3 weeks ago. Interval history The patient is 79-year-old woman who returns today for follow-up. She has a history of relapsed AML. She has just started therapy with venetoclax and azacitidine. She notes that she has had some increased fatigue and has been sleeping more. She has had more nausea with this chemotherapy then with her prior. She has been using Ativan at night which is affective. She does not like to take it during the day because it makes her sleepy year. She has some Zofran 0DT which is affective but leaves a bad taste in her mouth so that is hard for her to eat. Her weight has been down about a lb. Her appetite has been low. She has not had any further fevers or chills. No shortness of breath. Her cough has improved. She has not noticed any unusual bleeding or bruising. No chest pain or palpitations. Bowels have been loose but moving normally. She denies any other changes in her health. - Patient Self-Reported Symptoms SR Constitution: Fatigue/Malaise SR Skin issues: Dry skin, Blistering or peeling, Hair loss or scalp prob, Nail changes SR Gastrointestinal issues: Nausea SR Genitourinary issues: Blood in urine SR Musculoskeletal issues: Muscle weakness, Muscle pain or cramps Home Medications and Allergies Home Medications Medication Instructions Recorded Confirmed Type lorazepam 1 mg PO BID-TID PRN #60 tab 05/03/19 07/20/19 Rx ondansetron 8 mg PO Q8H PRN 30 Days #30 tab 05/03/19 07/20/19 Rx allopurinol 300 mg PO DAILY 30 Days #30 tab 06/08/19 07/20/19 Rx oxycodone 5 mg PO Q4-6H PRN 06/22/19 07/20/19 History fexofenadine [Irma Allergy] 180 mg PO DAILY 06/28/19 07/20/19 History loperamide [Imodium A-D] 2 mg PO Q2-4H PRN 06/28/19 07/20/19 History ondansetron HCl [Zofran] 8 mg PO Q12H #30 tab 07/20/19 Rx venetoclax [Venclexta] 400 mg PO DAILY 07/20/19 07/20/19 History Allergies Allergy/AdvReac Type Severity Reaction Status Date / Time Penicillins Allergy Unknown Verified 06/22/19 12:30 fentanyl [FENTANYL] AdvReac Unknown NAUSEA Verified 06/22/19 12:30 meperidine AdvReac Unknown N/V Verified 06/22/19 12:30 morphine AdvReac Unknown N/V Verified 06/22/19 12:30 Exam Vital signs: Vital Signs Temp Pulse Resp BP Pulse Ox 07/20/19 08:50 98 F 100 H 18 116/62 99 07/20/19 08:43 98 F 100 H 18 116/62 99 Intake and Output 07/19/19 07/20/19 07/20/19 23:59 07:59 15:59 Other: Weight 42.1 kg Patient Weight 07/20/19 23:59 Weight 42.1 kg - Constitutional positive no acute distress, positive thin - Routine HEENT Exam Head: Present: normocephalic, atraumatic Eye: Present: EOMI, PERRL. Absent: conjunctival icterus, scleral injection ENT: Present: mucous membranes moist, oropharynx clear - Routine Neck Exam Present: supple. Absent: lymphadenopathy, thyromegaly - Routine Respiratory Exam Present: Clear to auscultation bilaterally. Absent: rales, wheezes - Routine Cardiovascular Exam Present: RRR, S1, S2. Absent: murmur - Routine Abdominal Exam Present: soft, normoactive bowel sounds. Absent: tenderness, organomegaly, mass - Routine Extremities Exam Absent: cyanosis, clubbing, edema - Routine Back/Spine Exam Back/Spine: Absent: vertebral tenderness - Routine Skin Exam Present: intact. Absent: petechiae, rash - Routine Neurological Exam Present: alert, oriented X3 - Routine Psychiatric Exam Present: normal affect, normal thought process Results - Labs Laboratory Last Values WBC 7.1 X10^3/uL (4.5-11.0) 07/20/19 08:20 RBC 3.12 X10^6/uL (4.0-5.2) L 07/20/19 08:20 Hgb 9.7 g/dL (12.0-16.0) L 07/20/19 08:20 Hct 28.4 % (36-46) L 07/20/19 08:20 MCV 91.0 fL (80-100) 07/20/19 08:20 MCH 31.1 PG (26-34) 07/20/19 08:20 MCHC 34.2 % (30-36) 07/20/19 08:20 RDW 14.9 % (11.6-14.8) H 07/20/19 08:20 Plt Count 14 X10^3/uL (150-400) L* 07/20/19 08:20 Neut % (Auto) Not Reportable 07/20/19 08:20 Lymph % (Auto) Not Reportable 07/20/19 08:20 [place] % (Auto) Not Reportable 07/20/19 08:20 Eos % (Auto) Not Reportable 07/20/19 08:20 Baso % (Auto) Not Reportable 07/20/19 08:20 Neut # (Auto) Cancelled 06/23/19 13:02 Lymph # (Auto) Not Reportable 07/20/19 08:20 [place] # (Auto) Not Reportable 07/20/19 08:20 Eos # (Auto) Cancelled 06/23/19 13:02 Baso # (Auto) Not Reportable 07/20/19 08:20 Total Counted 100 07/20/19 08:20 Seg Neutrophils % 87.0 % (38-70) H 07/20/19 08:20 Band Neutrophils % 4.0 % (3-7) 07/20/19 08:20 Lymphocytes % (Manual) 3.0 % (25-45) L 07/20/19 08:20 Atypical Lymphs % 3.0 % (-0) H 07/20/19 08:20 Monocytes % (Manual) 3.0 % (2-11) 07/20/19 08:20 Eosinophils % (Manual) 2.0 % (2-4) 06/08/19 14:39 Basophils % (Manual) 1.0 % (0-1) 06/20/19 08:50 Metamyelocytes % 5.0 % (-0) H 06/23/19 13:00 Myelocytes % 5.0 % (-0) H 06/23/19 13:00 Promyelocytes % 4.0 % (-0) H 06/23/19 13:00 Blast Cells % 15.0 % (-0) H 06/23/19 13:00 Neutrophils # (Manual) 6461 /uL (9433-6286) H 07/20/19 08:20 Nucleated RBCs 1 #/Diff (-0) H 06/23/19 13:00 Differential Comment Cancelled 05/26/18 10:47 Hypersegmented Neuts Cancelled 03/07/19 13:25 Hypogranular Neuts Cancelled 03/07/19 13:25 Reactive Lymphocytes Cancelled 03/07/19 13:25 Plasma Cells Cancelled 05/26/18 10:47 Smudge Cells 1+ H 06/16/19 08:49 Other Cell Type Cancelled 03/07/19 13:25 Toxic Granulation Cancelled 03/07/19 13:25 Toxic Vacuolation Cancelled 03/07/19 13:25 Dohle Bodies Cancelled 03/07/19 13:25 [place] Rods Cancelled 03/07/19 13:25 WBC Morphology Comment Cancelled 03/07/19 13:25 Platelet Estimate Decreased on smear 07/20/19 08:20 Clumped Platelets Cancelled 03/07/19 13:25 Plt Morphology Comment 03/20/19 12:50 RBC Morphology Not Reportable 07/20/19 08:20 Dimorphic RBCs Cancelled 03/07/19 13:25 Polychromasia 1+ H 06/16/19 08:49 Hypochromasia Cancelled 03/07/19 13:25 Poikilocytosis 1+ H 06/20/19 08:50 Basophilic Stippling 1+ H 06/06/19 11:20 Anisocytosis 1+ H 07/20/19 08:20 Microcytosis Cancelled 03/07/19 13:25 Macrocytosis Cancelled 03/07/19 13:25 Spherocytes Cancelled 03/07/19 13:25 Pappenheimer Bodies Cancelled 03/07/19 13:25 Sickle Cells Cancelled 03/07/19 13:25 Target Cells Cancelled 03/07/19 13:25 Tear Drop Cells Cancelled 03/07/19 13:25 Ovalocytes Cancelled 03/07/19 13:25 Stomatocytes Cancelled 03/07/19 13:25 Helmet Cells Cancelled 03/07/19 13:25 [place] Bodies Cancelled 03/07/19 13:25 [place] Rings Cancelled 03/07/19 13:25 [place] Cells Cancelled 03/07/19 13:25 Acanthocytes (Spur) Cancelled 03/07/19 13:25 Rouleaux Cancelled 03/07/19 13:25 Schistocytes 1+ H 07/12/19 11:15 Smear Path Review Cancelled 06/01/19 15:55 Sodium 136 mmol/L (137-145) L 07/05/19 14:05 Potassium 3.6 mmol/L (3.4-5.1) 07/05/19 14:05 Chloride 98 mmol/L (98-107) 07/05/19 14:05 Carbon Dioxide 29 mmol/L (22-32) 07/05/19 14:05 BUN 18 mg/dL (7-17) H 07/05/19 14:05 Creatinine 0.60 mg/dL (0.52-1.04) 07/05/19 14:05 Estimated GFR > 60.0 mL/min (>60) 07/05/19 14:05 BUN/Creatinine Ratio 30.0 (6-22) H 07/05/19 14:05 Glucose 119 mg/dL (80-110) H 07/05/19 14:05 Uric Acid 2.6 mg/dL (2.5-6.2) 06/13/19 14:06 Calcium 8.7 mg/dL (8.4-10.2) 07/05/19 14:05 Magnesium 2.3 mg/dL (1.6-2.3) 07/05/19 14:05 Total Bilirubin 1.7 mg/dL (0.2-1.3) H 07/05/19 14:05 Conjugated Bilirubin 0.0 md/dL (0.0-0.3) 07/13/18 10:33 Unconjugated Bilirubin 0.7 mg/dL (0.0-1.1) 07/13/18 10:33 AST 17 IU/L (14-36) 07/05/19 14:05 ALT 20 IU/L (9-52) 07/05/19 14:05 Alkaline Phosphatase 83 U/L (38-126) 07/05/19 14:05 Lactate Dehydrogenase 4460 U/L (313-618) H 06/13/19 14:06 Total Protein 6.0 g/dL (6.3-8.2) L 07/05/19 14:05 Albumin 3.7 g/dL (3.5-5.0) 07/05/19 14:05 Globulin 2.3 g/dL (1.7-4.1) 07/05/19 14:05 Albumin/Globulin Ratio 1.6 (1.0-2.8) 07/05/19 14:05 Urine Color Yellow 11/18/18 14:19 Urine Appearance Clear 11/18/18 14:19 Urine pH 7.0 (4.5-8.0) 11/18/18 14:19 Ur Specific [place] 1.015 (1.000-1.035) 11/18/18 14:19 Urine Protein Negative (Negative) 11/18/18 14:19 Urine Glucose (UA) Negative g/dL (Negative) 11/18/18 14:19 Urine Ketones Negative (NEGATIVE) 11/18/18 14:19 Urine Occult Blood 3+ (Negative) H 11/18/18 14:19 Urine Nitrate Negative (Negative) 11/18/18 14:19 Urine Bilirubin Negative (NEGATIVE) 11/18/18 14:19 Urine Urobilinogen 0.2 E.U./dL (0.2) 11/18/18 14:19 Ur Leukocyte Esterase Negative (NEGATIVE) 11/18/18 14:19 Urine RBC 5-10/hpf (0-5/HPF) H 11/18/18 14:19 Urine WBC 0-1/hpf (0-5/HPF) 11/18/18 14:19 Ur Squamous Epith Cells 0-1 /hpf 11/18/18 14:19 Ur Transition Epith Cell 0-1/hpf (0-5/HPF) 11/18/18 14:19 Calcium Oxalate Crystal Few (None) H 11/18/18 14:19 Urine Bacteria None seen (None) 11/18/18 14:19 Ur Culture Indicated? Cult not indicated 11/18/18 14:19 Micro UA Comment Not Reportable 05/26/18 12:28 Blood Type O Positive 07/12/19 11:15 Antibody Screen Negative 07/05/19 14:05 Crossmatch See Detail 07/05/19 14:05 - Imaging Additional studies: Procedures Colonoscopy (04/06/14) Injection or infusion of other therapeutic or prophylactic substance (06/03/12) Introduction of Other Antineoplastic into Central Vein, Percutaneous Approach (06/28/19) Transfusion of Nonautologous Red Blood Cells into Peripheral Vein, Percutaneous Approach (06/28/19) Assessment and Plan (1) Acute leukemia Current visit: No Status: Acute 79-year-old woman with florid relapse of acute leukemia. Her recent bone marrow showed 80% blasts. She started azacytadine and venetoclax about 3 weeks ago. She will be due for her next cycle of I days of beginning next week. She appears to be having an excellent response with disappearance of her blast count. She has had normalization of her white count and a normal neutrophil count. She seems to have had a decrease in her red cell transfusion requirement. She is still requiring platelet transfusions. Overall, she seems to be tolerating it fairly well with the exception of nausea and fatigue. Will trying get her some Zofran tablets that hopefully will be better tolerated. She also had questions regarding the role of medical marijuana. I think this could potentially help with her appetite and nausea. She will need a platelet transfusion today. She will resume her chemotherapy next week and continue with her oral venetoclax daily.
--- NOTE | 2019-07-20 12:14 | PC.NURSE ---
Next Venclexta script called in to [facility] pharmacy at [phone], and informed pharmacy that patient wants refill sent to their home instead of provider office. Josefina Anthony RPh
[2019-07-20 18:32] VITALS: BP 120/64; PULSE 104; RESP 18; TEMP 37.3
[2019-07-20 18:52] VITALS: BP 108/68; PULSE 93; RESP 18; TEMP 37
[2019-07-20 20:16] VITALS: BP 120/60; PULSE 93; RESP 18; TEMP 37.1
[2019-07-26 12:15] VITALS: BP 122/60; PULSE 60; RESP 18; TEMP 36.8; O2SAT 98
[2019-07-26 12:16] LABS: Hematocrit 26.4 % (36-46); Hemoglobin 8.9 g/dL (12.0-16.0); Mean Corpuscular HGB Conc 33.6 % (30-36); Mean Corpuscular Hemoglobin 30.2 PG (26-34); Mean Corpuscular Volume 89.9 fL (80-100); Red Blood Cell Count 2.94 X10^6/uL (4.0-5.2); Red Cell Distribution Width 15.2 % (11.6-14.8)
[2019-07-26 12:17] LABS: Add Manual Diff / Slide Review YES; Platelet Count 25 X10^3/uL (150-400)
[2019-07-26 12:33] LABS: Neutrophils Absolute Manual 23000 /uL (3000-5900); Total Cells Counted 100
[2019-07-26 12:34] LABS: Anisocytosis 2+; Poikilocytosis 1+
[2019-07-26 12:36] LABS: Alanine Aminotransferase 31 IU/L (9-52); Albumin 3.8 g/dL (3.5-5.0); Albumin Globulin Ratio 1.5 (1.0-2.8); Alkaline Phosphatase 104 U/L (38-126); Aspartate Aminotransferase 31 IU/L (14-36); BUN Creatinine Ratio 11.3 (6-22); Bilirubin Total 0.8 mg/dL (0.2-1.3); Blood Urea Nitrogen 9 mg/dL (7-17); Calcium 8.6 mg/dL (8.4-10.2); Carbon Dioxide 31 mmol/L (22-32); Chloride 98 mmol/L (98-107); Estimated Glomerular Filt Rate > 60.0 mL/min (>60); Globulin 2.5 g/dL (1.7-4.1); Glucose 115 mg/dL (80-110); HEMOLYSIS < 15 (0-50); Potassium 3.3 mmol/L (3.4-5.1); Sodium 136 mmol/L (137-145); Total Protein 6.3 g/dL (6.3-8.2)
[2019-07-26] MEDS: SODIUM CHLORIDE 0.9% 100 ML 21 ML IV (13:15)
[2019-07-26] MEDS: ONDANSETRON 16 MG in SODIUM CHLORIDE 0.9% 50 ML 232 ML IV (13:37)
[2019-07-26] MEDS: AZACITIDINE IV (13:56)
[2019-07-26] MEDS: SODIUM CHLORIDE 0.9% IV (13:56)
--- NOTE | 2019-07-26 15:07 | ONC.PN ---
PN -Subjective Interval history: Diagnosis: AML Previous treatment: 1. Induction chemotherapy with decidabine + GCLAM October 2016. 2. Three cycles of consolidation with winston-c completed April 2017. 3. Relapse in March 2018 treated with a clinical trial without response. 4. One additional cycle of GCLAM which was tolerated poorly but did induce apparent remission. Bone marrow biopsy in May showed morphologic CR but with MRD detected by FISH at 0.2%. 5. 9 cycles of vidaza beginning in June 2018 6. Azacitidine and venetoclax starting about 3 weeks ago. Interval history The patient is 79-year-old woman who returns today for follow-up. She has a history of relapsed AML. She has just started therapy with venetoclax and azacitidine about a month ago. She has been having some trouble with increasing nausea and vomiting. She was using some Ativan. It was not helping a whole lot. She did try some medical marijuana that was ineffective. She has taken a couple of Zofran tablets but has not gotten much relief from that either. She has not had any fevers or chills. She denies any worsening shortness of breath or cough. Overall, she has felt generally weak and has continued to require red cell and platelet transfusions. She has not been aware of any bleeding. She has not noted any adenopathy. Bowels have been moving normally. She denies any other changes in her health. - Patient Self-Reported Symptoms SR Constitution: Fatigue/Malaise SR Skin issues: Dry skin, Blistering or peeling, Hair loss or scalp prob, Nail changes SR Gastrointestinal issues: Nausea SR Genitourinary issues: Blood in urine SR Musculoskeletal issues: Muscle weakness, Muscle pain or cramps Home Medications and Allergies Home Medications Medication Instructions Recorded Confirmed Type ondansetron 8 mg PO Q8H PRN 30 Days #30 tab 05/03/19 07/20/19 Rx allopurinol 300 mg PO DAILY 30 Days #30 tab 06/08/19 07/20/19 Rx fexofenadine [Irma Allergy] 180 mg PO DAILY 06/28/19 07/20/19 History loperamide [Imodium A-D] 2 mg PO Q2-4H PRN 06/28/19 07/20/19 History lorazepam 1 mg PO BID-TID PRN #60 tab 07/20/19 Rx ondansetron HCl [Zofran] 8 mg PO Q12H #30 tab 07/20/19 Rx oxycodone 5 mg PO Q4-6H PRN 30 Days #60 tab 07/20/19 Rx venetoclax [Venclexta] 400 mg PO DAILY #120 tab 07/20/19 Rx dexamethasone 4 mg PO DAILY #30 tab 07/26/19 Rx Allergies Allergy/AdvReac Type Severity Reaction Status Date / Time Penicillins Allergy Unknown Verified 06/22/19 12:30 fentanyl [FENTANYL] AdvReac Unknown NAUSEA Verified 06/22/19 12:30 meperidine AdvReac Unknown N/V Verified 06/22/19 12:30 morphine AdvReac Unknown N/V Verified 06/22/19 12:30 Exam Vital signs: Vital Signs Temp Pulse Resp BP Pulse Ox 07/26/19 12:15 98.2 F 60 18 122/60 98 Intake and Output 07/25/19 07/26/19 07/26/19 23:59 07:59 15:59 Intake Total 109.2 / 109.2 Balance 109.2 / 109.2 Intake: IV 109.2 / 109.2 Ondansetron 16 mg In Sodium 58 / 58 Chloride 0.9% 50 ml @ 232 mls/ hr IV [facility] Rx#:[id number] dexAMETHasone 12 mg In Sodium 51.2 / 51.2 Chloride 0.9% 50 ml @ 212 mls/ hr IV [facility] Rx#:[id number] Other: Weight 41.5 kg Patient Weight 07/26/19 23:59 Weight 41.5 kg - Constitutional positive no acute distress, positive thin - Routine HEENT Exam Head: Present: normocephalic, atraumatic Eye: Present: EOMI, PERRL. Absent: conjunctival icterus, scleral injection ENT: Present: mucous membranes moist, oropharynx clear - Routine Neck Exam Present: supple. Absent: lymphadenopathy, thyromegaly - Routine Respiratory Exam Present: Clear to auscultation bilaterally. Absent: rales, wheezes - Routine Cardiovascular Exam Present: RRR, S1, S2. Absent: murmur - Routine Abdominal Exam Present: soft, normoactive bowel sounds. Absent: tenderness, organomegaly, mass - Routine Extremities Exam Absent: cyanosis, clubbing, edema - Routine Skin Exam Present: intact. Absent: petechiae, rash - Routine Neurological Exam Present: alert, oriented X3 - Routine Psychiatric Exam Present: normal affect, normal thought process Results - Labs Laboratory Last Values WBC 46.0 X10^3/uL (4.5-11.0) H* 07/26/19 11:38 RBC 2.94 X10^6/uL (4.0-5.2) L 07/26/19 11:38 Hgb 8.9 g/dL (12.0-16.0) L 07/26/19 11:38 Hct 26.4 % (36-46) L 07/26/19 11:38 MCV 89.9 fL (80-100) 07/26/19 11:38 MCH 30.2 PG (26-34) 07/26/19 11:38 MCHC 33.6 % (30-36) 07/26/19 11:38 RDW 15.2 % (11.6-14.8) H 07/26/19 11:38 Plt Count 25 X10^3/uL (150-400) L* 07/26/19 11:38 Neut % (Auto) Not Reportable 07/26/19 11:38 Lymph % (Auto) Not Reportable 07/26/19 11:38 [place] % (Auto) Not Reportable 07/26/19 11:38 Eos % (Auto) Not Reportable 07/26/19 11:38 Baso % (Auto) Not Reportable 07/26/19 11:38 Neut # (Auto) Cancelled 06/23/19 13:02 Lymph # (Auto) Not Reportable 07/26/19 11:38 [place] # (Auto) Not Reportable 07/26/19 11:38 Eos # (Auto) Cancelled 06/23/19 13:02 Baso # (Auto) Not Reportable 07/26/19 11:38 Total Counted 100 07/26/19 11:38 Seg Neutrophils % 48.0 % (38-70) 07/26/19 11:38 Band Neutrophils % 2.0 % (3-7) L 07/26/19 11:38 Lymphocytes % (Manual) 2.0 % (25-45) L 07/26/19 11:38 Atypical Lymphs % 4.0 % (-0) H 07/26/19 11:38 Monocytes % (Manual) 2.0 % (2-11) 07/26/19 11:38 Eosinophils % (Manual) 2.0 % (2-4) 06/08/19 14:39 Basophils % (Manual) 1.0 % (0-1) 06/20/19 08:50 Metamyelocytes % 2.0 % (-0) H 07/26/19 11:38 Myelocytes % 4.0 % (-0) H 07/26/19 11:38 Promyelocytes % 9.0 % (-0) H 07/26/19 11:38 Blast Cells % 27.0 % (-0) H 07/26/19 11:38 Neutrophils # (Manual) 21975 /uL (9053-5843) H 07/26/19 11:38 Nucleated RBCs 1 #/Diff (-0) H 06/23/19 13:00 Differential Comment Cancelled 05/26/18 10:47 Hypersegmented Neuts Cancelled 03/07/19 13:25 Hypogranular Neuts Cancelled 03/07/19 13:25 Reactive Lymphocytes Cancelled 03/07/19 13:25 Plasma Cells Cancelled 05/26/18 10:47 Smudge Cells 1+ H 06/16/19 08:49 Other Cell Type Cancelled 03/07/19 13:25 Toxic Granulation Cancelled 03/07/19 13:25 Toxic Vacuolation Cancelled 03/07/19 13:25 Dohle Bodies Cancelled 03/07/19 13:25 [place] Rods Cancelled 03/07/19 13:25 WBC Morphology Comment Cancelled 03/07/19 13:25 Platelet Estimate Decreased on smear 07/20/19 08:20 Clumped Platelets Cancelled 03/07/19 13:25 Plt Morphology Comment 03/20/19 12:50 RBC Morphology Not Reportable 07/26/19 11:38 Dimorphic RBCs Cancelled 03/07/19 13:25 Polychromasia 1+ H 06/16/19 08:49 Hypochromasia Cancelled 03/07/19 13:25 Poikilocytosis 1+ H 07/26/19 11:38 Basophilic Stippling 1+ H 06/06/19 11:20 Anisocytosis 2+ H 07/26/19 11:38 Microcytosis Cancelled 03/07/19 13:25 Macrocytosis Cancelled 03/07/19 13:25 Spherocytes Cancelled 03/07/19 13:25 Pappenheimer Bodies Cancelled 03/07/19 13:25 Sickle Cells Cancelled 03/07/19 13:25 Target Cells Cancelled 03/07/19 13:25 Tear Drop Cells Cancelled 03/07/19 13:25 Ovalocytes Cancelled 03/07/19 13:25 Stomatocytes Cancelled 03/07/19 13:25 Helmet Cells Cancelled 03/07/19 13:25 [place] Bodies Cancelled 03/07/19 13:25 [place] Rings Cancelled 03/07/19 13:25 [place] Cells Cancelled 03/07/19 13:25 Acanthocytes (Spur) Cancelled 03/07/19 13:25 Rouleaux Cancelled 03/07/19 13:25 Schistocytes 1+ H 07/12/19 11:15 Smear Path Review Cancelled 06/01/19 15:55 Sodium 136 mmol/L (137-145) L 07/26/19 11:40 Potassium 3.3 mmol/L (3.4-5.1) L 07/26/19 11:40 Chloride 98 mmol/L (98-107) 07/26/19 11:40 Carbon Dioxide 31 mmol/L (22-32) 07/26/19 11:40 BUN 9 mg/dL (7-17) 07/26/19 11:40 Creatinine 0.80 mg/dL (0.52-1.04) 07/26/19 11:40 Estimated GFR > 60.0 mL/min (>60) 07/26/19 11:40 BUN/Creatinine Ratio 11.3 (6-22) 07/26/19 11:40 Glucose 115 mg/dL (80-110) H 07/26/19 11:40 Uric Acid 2.6 mg/dL (2.5-6.2) 06/13/19 14:06 Calcium 8.6 mg/dL (8.4-10.2) 07/26/19 11:40 Magnesium 2.3 mg/dL (1.6-2.3) 07/05/19 14:05 Total Bilirubin 0.8 mg/dL (0.2-1.3) 07/26/19 11:40 Conjugated Bilirubin 0.0 md/dL (0.0-0.3) 07/13/18 10:33 Unconjugated Bilirubin 0.7 mg/dL (0.0-1.1) 07/13/18 10:33 AST 31 IU/L (14-36) 07/26/19 11:40 ALT 31 IU/L (9-52) 07/26/19 11:40 Alkaline Phosphatase 104 U/L (38-126) 07/26/19 11:40 Lactate Dehydrogenase 4460 U/L (313-618) H 06/13/19 14:06 Total Protein 6.3 g/dL (6.3-8.2) 07/26/19 11:40 Albumin 3.8 g/dL (3.5-5.0) 07/26/19 11:40 Globulin 2.5 g/dL (1.7-4.1) 07/26/19 11:40 Albumin/Globulin Ratio 1.5 (1.0-2.8) 07/26/19 11:40 Urine Color Yellow 11/18/18 14:19 Urine Appearance Clear 11/18/18 14:19 Urine pH 7.0 (4.5-8.0) 11/18/18 14:19 Ur Specific [place] 1.015 (1.000-1.035) 11/18/18 14:19 Urine Protein Negative (Negative) 11/18/18 14:19 Urine Glucose (UA) Negative g/dL (Negative) 11/18/18 14:19 Urine Ketones Negative (NEGATIVE) 11/18/18 14:19 Urine Occult Blood 3+ (Negative) H 11/18/18 14:19 Urine Nitrate Negative (Negative) 11/18/18 14:19 Urine Bilirubin Negative (NEGATIVE) 11/18/18 14:19 Urine Urobilinogen 0.2 E.U./dL (0.2) 11/18/18 14:19 Ur Leukocyte Esterase Negative (NEGATIVE) 11/18/18 14:19 Urine RBC 5-10/hpf (0-5/HPF) H 11/18/18 14:19 Urine WBC 0-1/hpf (0-5/HPF) 11/18/18 14:19 Ur Squamous Epith Cells 0-1 /hpf 11/18/18 14:19 Ur Transition Epith Cell 0-1/hpf (0-5/HPF) 01/24/19 14:19 Calcium Oxalate Crystal Few (None) H 11/18/18 14:19 Urine Bacteria None seen (None) 11/18/18 14:19 Ur Culture Indicated? Cult not indicated 11/18/18 14:19 Micro UA Comment Not Reportable 05/26/18 12:28 Blood Type O Positive 07/20/19 08:20 Antibody Screen Negative 07/05/19 14:05 Crossmatch See Detail 07/05/19 14:05 - Imaging Additional studies: Procedures Colonoscopy (04/06/14) Injection or infusion of other therapeutic or prophylactic substance (06/03/12) Introduction of Other Antineoplastic into Central Vein, Percutaneous Approach (06/28/19) Transfusion of Nonautologous Red Blood Cells into Peripheral Vein, Percutaneous Approach (06/28/19) Assessment and Plan (1) Acute leukemia Current visit: No Status: Acute 79-year-old woman with florid relapse of acute leukemia. She started azacytadine and venetoclax about 3 weeks ago. She initially had a very rapid decline in her white count. Unfortunately, her blasts have recurred over the last several days in her white count is up from normal to about 40,000 today. It appears that she is no longer responding to the venetoclax. We will plan on stopping her current regimen. Unfortunately, there are really not any further standard treatment options are likely to be tolerated. Instead, we will focus on supportive care. She will continue with transfusions as needed. We did discuss the possibility of hospice but I do not think she is ready for that step yet. She will return to clinic in about 2 weeks or so for follow-up. She will continue with twice weekly CBCs and transfusions as needed. Her nausea I think is been due to the of an attic lax. Hopefully if she stops that that will improve. I did give her prescription for some dexamethasone to see if that would help with her nausea and appetite though. 40 minutes was spent with the patient the majority in counseling.
[2019-07-28 13:28] LABS: Hematocrit 24.4 % (36-46); Hemoglobin 8.3 g/dL (12.0-16.0); Mean Corpuscular Hemoglobin 30.5 PG (26-34); Mean Corpuscular Volume 89.6 fL (80-100); Red Blood Cell Count 2.72 X10^6/uL (4.0-5.2); Red Cell Distribution Width 15.1 % (11.6-14.8); White Blood Cell Count 21.2 X10^3/uL (4.5-11.0)
[2019-07-28 13:30] LABS: Add Manual Diff / Slide Review YES; Platelet Count 9 X10^3/uL (150-400)
[2019-07-28 13:58] LABS: Neutrophils Absolute Manual 14840 /uL (3000-5900); Total Cells Counted 100
[2019-07-28 13:59] LABS: Anisocytosis 1+; Platelet Estimate Decreased on smear; Poikilocytosis 1+
--- NOTE | 2019-07-28 16:39 | PC.NURSE ---
Dr. Robles aware of platelet 9, 2 units ordered, pt scheduled to go to nursing floor tomorrow at 330 for infusion. Pt aware of plan.
[2019-07-29] VITALS (7 sets, daily range): BP systolic 127–133; BP diastolic 51–63; PULSE 97–100; RESP 18; TEMP 37.2–37.8
--- NOTE | 2019-07-29 17:27 | TAR.TRANSNT ---
Platelets received from blood bank, issued at 1620. Verification of products was done before transfusion started. Transfusion was hung on tubing, but pt's bed was switched out at that time d/t pt discomfort which delayed the start time of transfusion and delayed the time of second set of vital signs. Transfusion now running with second set of vitals taken.
[2019-08-01 13:34] LABS: Hemoglobin 7.5 g/dL (12.0-16.0); Mean Corpuscular HGB Conc 32.5 % (30-36); Mean Corpuscular Hemoglobin 29.2 PG (26-34); Mean Corpuscular Volume 89.7 fL (80-100); Platelet Count 87 X10^3/uL (150-400); Red Blood Cell Count 2.56 X10^6/uL (4.0-5.2); Red Cell Distribution Width 15.3 % (11.6-14.8)
[2019-08-01 13:35] LABS: Add Manual Diff / Slide Review YES; White Blood Cell Count 139.3 X10^3/uL (4.5-11.0)
[2019-08-01 13:57] LABS: Neutrophils Absolute Manual 44576 /uL (3000-5900); Nucleated Red Blood Cells 1 #/Diff; Total Cells Counted 100
[2019-08-01 13:58] LABS: Anisocytosis 2+; Poikilocytosis 1+
[2019-08-01 15:01] VITALS: BP 127/58; PULSE 103; RESP 14; TEMP 37.2
[2019-08-01 15:05] VITALS: BP 127/58; PULSE 104; RESP 14; TEMP 37.2
[2019-08-01 15:22] VITALS: BP 127/54; PULSE 105; RESP 20; TEMP 37.3
--- NOTE | 2019-08-01 17:00 | PC.NURSE ---
Addendum entered by Qi Haskins R.N. 08/01/19 17:34: Second PRBC transfusion completed. VSS and afebrile. No s/sx of transfusion reaction. Ambulated to bathroom with min SBA, voided. Flushed PICC line per protocol. Patient home with via WC to private vehicle. Will return to transfusion center on 08/02 for F/U. Original Note: 8691: Received patient from Infusion center via WC accompanied with Mary BARRETT. O + PRBC infusion in progress to [facility] double lumen PICC line. Patient resting in bed, states feels more comfortable in bed with warm blankets. No dizziness. Approx 20 minutes remain to completion of infusion. HGB 7.5 HCT 23%. at bedside providing supportive care.
[2019-08-01 17:26] VITALS: BP 120/73; PULSE 103; RESP 16; TEMP 37.2
[2019-08-02 10:15] VITALS: BP 127/51; PULSE 107; RESP 18; TEMP 36.9
[2019-08-02 10:30] VITALS: BP 127/51; PULSE 106; RESP 18; TEMP 36.9
[2019-08-02 10:36] VITALS: BP 127/51; PULSE 107; RESP 18; TEMP 36.9
[2019-08-02 10:45] VITALS: BP 122/62; PULSE 104; RESP 16; TEMP 37.1
[2019-08-02 10:55] VITALS: BP 127/51; PULSE 106; RESP 18; TEMP 36.9
[2019-08-02 10:56] VITALS: BP 121/55; PULSE 99; RESP 16; TEMP 37.1
--- NOTE | 2019-08-02 11:24 | PC.NURSE ---
Addendum entered by Mary Son R.N. 08/02/19 12:14: Dilaudid 0.5mg IV given in 0.25mg divided doses. pt states hip pain rating 4 out of 10. pt awake, eating lunch. Original Note: pt reporting left hip pain 8 out of 10 even after taking 2 oxycodone at home. info given to jose to notify Dr. Patel.
[2019-08-02] MEDS: HYDROMORPHONE 1 MG INJ IV (11:41)
--- NOTE | 2019-08-04 11:56 | PC.NURSE ---
late note; Returned pt's 's phone call at approx 10am. , Greg, reports pt has been sleeping a lot more lately. Greg also reports pt had increased pain last night . Greg reports giving her oxycodone 5mg at 7pm last night and again at 1am and 3am. He then gave her pain medication and dex at 6:30 this morning, now she's just sleeping. Greg reports oxycontin long acting RX was denied from the pharmacy because they needed a waiver or form signed by Dr. Patel. According to Greg the pharmacy said they faxed this clinic the form for signature, however, this clinical writer had not received any RX form requests on this pt. Greg reports pt does not feel like coming in today for lab draw. Rebekah explained to Greg that it is ultimately Cornelia's decision to come in today. Greg expresses concern stating, So is she just going to keep sleeping and just not wake up one day? Discussed end of life transition with Greg and expressed empathy with the difficulty of this process. Explained that unfortunately it is unpredictable how the coming days and weeks will unfold. Reiterated that we are to support both him an Cornelia and if she changes her mind and feels like coming in today, we would be happy to see her and draw her labs to see if she needed a transfusion. Also explained that this clinical writer would contact pharmacy regarding long acting pain meds. Greg then reported that Cornelia fell in the bathroom on Thursday evening. She has a bruise on her leg about 3-4 inches in diameter. Discussed s/s of bleeding with Greg, verbalized understanding, states I will keep a close eye on it. Pt platelet count was 87 on 08/01/19. Encouraged Greg to call us with any other needs or concerns, verbalized understanding.
--- NOTE | 2019-08-04 16:33 | PC.NURSE ---
OxyContin requiring pre auth, production line technician working on it. Called pt's and explain pre auth process. Greg asked if he could get a portion of the RX filled in order to get through the weekend. this casualty underwriter explained that per [facility] he could do that, however, the rest of the RX would be void and they would need a new RX on Thursday. Also informed Greg that [facility] informed this casualty underwriter that 6 tablets would cost $56.79, he verbalized understanding. This casualty underwriter instructed him that once pt starts taking Oxycontin 20mg that the 5mg of oxycodone should only be used for breakthrough pain, further explaining that OxyContin is an extended release med and would remain in pt's system longer, Greg verbalized understanding.
== END ==
PROVIDERS: Family Medicine; Internal Medicine Hematology & Oncology; Nurse Practitioner Gerontology; Family Provider Family Medicine; PCP Family Medicine
DX: C92.02 Acute myeloblastic leukemia, in relapse (principal)
CPT/HCPCS: 36415; 36430; 36591; 36592; 38222; 80048; 80053; 80076; 81001; 83615; 83735; 84550; 85025; 86850; 86900; 86901; 86945; 90471; 90656; 96360; 96365; 96366; 96367; 96374; 96375; 96376; 96409; 96411; 96413; 96523; 99000; 99211; 99214; 99215; 99231; P9016; P9040; J1100; J1170; J1642; J2405; J3480; J9025; P9035; Q2038

== ENCOUNTER 2019-08-05 15:58 | Emergency (ER) | payer MEDICARE, OTHER, SELFPAY ==
[2019-08-05 16:07] VITALS: BP 139/60; PULSE 109; RESP 20; TEMP 37.3; O2SAT 95
[2019-08-05 16:37] VITALS: BP 123/52; PULSE 100; RESP 18
[2019-08-05] MEDS: SODIUM CHLORIDE 0.9% 1,000 ML 1000 ML IV (16:40)
[2019-08-05] MEDS: HYDROMORPHONE 1 MG INJ IV (16:40)
[2019-08-05 16:47] LABS: Hematocrit 27.3 % (36-46); Mean Corpuscular HGB Conc 33.1 % (30-36); Mean Corpuscular Hemoglobin 28.8 PG (26-34); Mean Corpuscular Volume 87.1 fL (80-100); Red Blood Cell Count 3.13 X10^6/uL (4.0-5.2); Red Cell Distribution Width 15.2 % (11.6-14.8)
[2019-08-05 16:52] LABS: Add Manual Diff / Slide Review YES; White Blood Cell Count 240.8 X10^3/uL (4.5-11.0)
[2019-08-05 16:53] LABS: Lactate (Lactic Acid) 1.1 mmol/L (0.7-2.1); Platelet Count 7 X10^3/uL (150-400)
[2019-08-05 16:54] LABS: Alanine Aminotransferase 46 IU/L (9-52); Albumin 3.7 g/dL (3.5-5.0); Albumin Globulin Ratio 1.5 (1.0-2.8); Alkaline Phosphatase 99 U/L (38-126); Amylase 49 U/L (30-110); Aspartate Aminotransferase 76 IU/L (14-36); Bilirubin Total 1.6 mg/dL (0.2-1.3); Blood Urea Nitrogen 8 mg/dL (7-17); Calcium 8.9 mg/dL (8.4-10.2); Carbon Dioxide 30 mmol/L (22-32); Chloride 96 mmol/L (98-107); Estimated Glomerular Filt Rate > 60.0 mL/min (>60); Globulin 2.4 g/dL (1.7-4.1); Glucose 123 mg/dL (80-110); HEMOLYSIS 16 (0-50); Lipase 44 U/L (23-300); Potassium 3.4 mmol/L (3.4-5.1); Sodium 136 mmol/L (137-145); Total Protein 6.1 g/dL (6.3-8.2)
[2019-08-05 17:12] LABS: Procalcitonin 2.95 ng/mL (<0.5)
[2019-08-05 17:21] LABS: Neutrophils Absolute Manual 26488 /uL (3000-5900); Total Cells Counted 100
[2019-08-05 17:22] LABS: Anisocytosis 1+; Nucleated Red Blood Cells 2 #/Diff; Platelet Estimate Decreased on smear; Poikilocytosis 1+; Smudge Cells 2+
[2019-08-05 17:24] LABS: Auer Rods FEW
[2019-08-05 17:59] VITALS: BP 127/62; PULSE 100; O2SAT 91
--- NOTE | 2019-08-05 18:34 | PC.NURSE ---
OOB to BR with steady gait with
--- NOTE | 2019-08-05 19:42 | PC.NURSE ---
1914: Pt to be DC and is to come back tomorrow in the morning for plt infusion. double lumen PICC flushed per protocol prior to DC. 1944: Pt without current T&S for infusion tomorrow. T&S drawn by ARNOLD Beckford and sent to lab. PICC flushed per protocol by ARNOLD Beckford.
[2019-08-05 19:47] VITALS: BP 126/68; PULSE 98; RESP 18; O2SAT 100
--- NOTE | 2019-08-05 21:15 | ED_ITS ---
HPI - Abdominal Pain <BARNEY Chavarria-BC - Last Filed: 08/05/19 21:21> General Chief Complaint: Abdominal Pain Stated Complaint: Abdominal Pain Time Seen by Provider: 08/05/19 15:59 Source: patient Mode of arrival: EMS Limitations: no limitations History of Present Illness HPI narrative: The patient is a 79-year-old female nonsmoker with history of leukemia a neutropenic fever who presents with her for chief complaint of abdominal pain. She states that she has been having abdominal pain with her treatments lately, but she is concerned as though she states she only has 2 mon ths or so to live. She states that her pain came on suddenly, is consistent with her normal abdominal pain but much worse. She denies any fevers nausea vomiting or diarrhea. She has not taken anything for the pain at home. Upon further inquiry, her states that they did not give the patient her normal OxyContin this morning. She denies any dysuria urgency or frequency. Related Data Home Medications Medication Instructions Recorded Confirmed loperamide [Imodium A-D] 2 mg PO Q2-4H PRN 06/28/19 08/06/19 dexamethasone 4 mg PO QPM 08/05/19 08/06/19 Previous Rx's Medication Instructions Recorded lorazepam 1 mg PO BID-TID PRN #60 tab 07/20/19 ondansetron HCl [Zofran] 8 mg PO Q12H #30 tab 07/20/19 oxycodone 5 mg PO Q4-6H PRN 30 Days #60 tab 07/20/19 oxycodone [OxyContin] 20 mg PO Q12H 30 Days #60 tab 08/02/19 Allergies Allergy/AdvReac Type Severity Reaction Status Date / Time Penicillins Allergy Unknown Verified 08/05/19 16:09 fentanyl [FENTANYL] AdvReac Unknown NAUSEA Verified 08/05/19 16:09 meperidine AdvReac Unknown N/V Verified 08/05/19 16:09 morphine AdvReac Unknown N/V Verified 08/05/19 16:09 Review of Systems <MENDOZA Chavarria - Last Filed: 08/05/19 21:21> Review of Systems Narrative: GENERAL: See HPI HEENT: Denies sinus pain, ear pain, sore throat, difficulty swallowing, dizziness. RESPIRATORY: Denies dyspnea, cough, wheezing, hemoptysis, sputum. CARDIOVASCULAR: Denies chest pain, palpitations, orthopnea, edema, GASTROINTESTINAL: See HPI : Denies dysuria, frequency, incontinence, hematuria, urinary retention. MUSCULOSKELETAL: denies weakness, joint pain, or bony pain SKIN: Denies rash, skin lesions, or other NEUROLOGIC: Denies weakness, headache, numbness, change in speech, confusion, seizures, incoordination. PSYCHIATRIC: No concerning psychosocial issues. 12 point review of systems is negative except for those stated above Exam <BARNEY Chavarria-BC - Last Filed: 08/05/19 21:21> Narrative Exam Narrative: GENERAL: This is a chronically ill-appearing elderly female in appears uncomfortable HEAD: Atraumatic. Normocephalic. No temporal or scalp tenderness. EYES: Pupils equal round and reactive. Extraocular motions intact. No scleral icterus. No injection or drainage. ENT: Nose without bleeding, purulent drainage or septal hematoma. Throat without erythema, tonsillar hypertrophy or exudate. Uvula midline. Airway patent. NECK: Trachea midline. No JVD or lymphadenopathy. Supple, nontender, no meningeal signs. CARDIOVASCULAR: Regular rate and rhythm RESPIRATORY: Clear to auscultation. Breath sounds equal bilaterally. No wheezes, rales, or rhonchi. No cough. No increased respiratory effort. No accessory muscle use. GASTROINTESTINAL: Abdomen soft, diffusely tender nondistended. No hepato- splenomegaly, or palpable masses. No guarding. Active bowel sounds all 4 quadrants EXTREMITIES: No clubbing, cyanosis, or edema. No joint tenderness, effusion, or edema noted. BACK: Nontender without deformity or crepitance. No flank tenderness. NEURO: AOx3. SKIN: No rash or erythema. Initial Vital Signs Initial Vital Signs: Vital Signs Temperature 99.2 F 08/05/19 16:07 Pulse Rate 109 H 08/05/19 16:07 Respiratory Rate 20 08/05/19 16:07 Blood Pressure 139/60 08/05/19 16:07 Pulse Oximetry 95 08/05/19 16:07 <Ramírez Sanchez DO - Last Filed: 08/11/19 00:59> Initial Vital Signs Initial Vital Signs: Vital Signs Temperature 99.2 F 08/05/19 16:07 Pulse Rate 109 H 08/05/19 16:07 Respiratory Rate 20 10/11/19 16:07 Blood Pressure 139/60 08/05/19 16:07 Pulse Oximetry 95 08/05/19 16:07 Course <BARNEY Chavarria-BC - Last Filed: 08/05/19 21:21> Orders Ordered: Discontinued Medications Hydromorphone HCl (Dilaudid) 1 mg IV NOW ONE Stop: 08/05/19 16:09 Last Admin: 08/05/19 16:40 Dose: 1 mg Documented by: ANTONIO Sodium Chloride (Normal Saline 0.9%) 1,000 mls @ 1,000 mls/hr IV BOLUS ONE Stop: 08/05/19 17:07 Last Infusion: 08/05/19 18:33 Dose: 0 mls/hr Documented by: Admin: 08/05/19 16:40 Dose: 1,000 mls/hr Documented by: ANTONIO Vital Signs Vital signs: Vital Signs - 8 hr 08/05/19 16:07 08/05/19 16:37 08/05/19 17:59 Temperature 99.2 F Pulse Rate 109 H 100 H 100 H Respiratory Rate 20 18 Blood Pressure 139/60 Blood Pressure [Left Arm] 123/52 L 127/62 Pulse Oximetry 95 91 08/05/19 19:47 Temperature Pulse Rate 98 H Respiratory Rate 18 Blood Pressure 126/68 Blood Pressure [Left Arm] Pulse Oximetry 100 <Ramírez Sanchez DO - Last Filed: 08/11/19 00:59> Orders Ordered: Discontinued Medications Hydromorphone HCl (Dilaudid) 1 mg IV NOW ONE Stop: 08/05/19 16:09 Last Admin: 08/05/19 16:40 Dose: 1 mg Documented by: ANTONIO Sodium Chloride (Normal Saline 0.9%) 1,000 mls @ 1,000 mls/hr IV BOLUS ONE Stop: 08/05/19 17:07 Last Infusion: 08/05/19 18:33 Dose: 0 mls/hr Documented by: Admin: 08/05/19 16:40 Dose: 1,000 mls/hr Documented by: ANTONIO Vital Signs Vital signs: Vital Signs - 8 hr 08/05/19 16:07 08/05/19 16:37 08/05/19 17:59 Temperature 99.2 F Pulse Rate 109 H 100 H 100 H Respiratory Rate 20 18 Blood Pressure 139/60 Blood Pressure [Left Arm] 123/52 L 127/62 Pulse Oximetry 95 91 08/05/19 19:47 Temperature Pulse Rate 98 H Respiratory Rate 18 Blood Pressure 126/68 Blood Pressure [Left Arm] Pulse Oximetry 100 MDM - Abdominal Pain <Shawanda Kuhn, ADMITTANCE ATTENDANT-BC - Last Filed: 08/05/19 21:21> Lab Data Result diagrams: 08/05/19 16:30 08/05/19 16:30 Labs: Lab Results 08/05/19 08/05/19 08/05/19 Range/Units 16:30 16:30 16:30 WBC 240.8 H* (4.5-11.0) X10^3/uL RBC 3.13 L (4.0-5.2) X10^6/uL Hgb 9.0 L (12.0-16.0) g/dL Hct 27.3 L (36-46) % MCV 87.1 (80-100) fL MCH 28.8 (26-34) PG MCHC 33.1 (30-36) % RDW 15.2 H (11.6-14.8) % Plt Count 7 L* (150-400) X10^3/uL Neut % (Auto) Not Reportable Lymph % (Auto) Not Reportable [place] % (Auto) Not Reportable Eos % (Auto) Not Reportable Baso % (Auto) Not Reportable Lymph # (Auto) Not Reportable [place] # (Auto) Not Reportable Baso # (Auto) Not Reportable Total Counted 100 Seg Neutrophils % 11.0 L (38-70) % Lymphocytes % (Manual) 1.0 L (25-45) % Monocytes % (Manual) 1.0 L (2-11) % Eosinophils % (Manual) 2.0 (2-4) % Blast Cells % 85.0 H (-0) % Neutrophils # (Manual) 13991 H (9797-1463) /uL Nucleated RBCs 2 H ( - 0) #/Diff Smudge Cells 2+ H [place] Rods Few Platelet Estimate Decreased on smear RBC Morphology Not Reportable Poikilocytosis 1+ H Anisocytosis 1+ H Sodium 136 L (137-145) mmol/L Potassium 3.4 (3.4-5.1) mmol/L Chloride 96 L (98-107) mmol/L Carbon Dioxide 30 (22-32) mmol/L BUN 8 (7-17) mg/dL Creatinine 0.80 (0.52-1.04) mg/dL Estimated GFR > 60.0 (>60) mL/min BUN/Creatinine Ratio 10.0 (6-22) Glucose 123 H (80-110) mg/dL Lactate (0.7-2.1) mmol/L Calcium 8.9 (8.4-10.2) mg/dL Total Bilirubin 1.6 H (0.2-1.3) mg/dL AST 76 H (14-36) IU/L ALT 46 (9-52) IU/L Alkaline Phosphatase 99 (38-126) U/L Total Protein 6.1 L (6.3-8.2) g/dL Albumin 3.7 (3.5-5.0) g/dL Globulin 2.4 (1.7-4.1) g/dL Albumin/Globulin Ratio 1.5 (1.0-2.8) Amylase 49 (30-110) U/L Lipase 44 (23-300) U/L Procalcitonin 2.95 H (<0.5) ng/mL A. baumannii (PCR) (Not Detect) Sue albicans (PCR) (Not Detect) C. glabrata (PCR) (Not Detect) C. krusei (PCR) (Not Detect) C. parapsilosis (PCR) (Not Detect) C. tropicalis (PCR) (Not Detect) Enterobacteriac sp PCR (Not Detect) E. cloacae complex PCR (Not Detect) Enterococcus sp PCR (Not Detect) E. coli (PCR) (Not Detect) H. influenzae (PCR) (Not Detect) Klebsiella oxytoca PCR (Not Detect) Klebsiella pneumoniae (Not Detect) List. monocytogenes PCR (Not Detect) N. meningitidis (PCR) (Not Detect) Proteus species (PCR) (Not Detect) Serratia marcescens PCR (Not Detect) Staphylococcus sp PCR (Not Detect) Staph aureus (PCR) (Not Detect) mecA-Methicil Res Gene (Not Detect) Streptococcus sp PCR (Not Detect) Group A Strep (PCR) (Not Detect) Strep agalactiae (PCR) (Not Detect) Strep pneumoniae (PCR) (Not Detect) P. aeruginosa (PCR) (Not Detect) Rosalee/B-Vanco Res Genes KPC-Carbap Res Gene PCR Blood Type Antibody Screen 08/05/19 08/05/19 08/05/19 Range/Units 16:30 16:30 19:35 WBC (4.5-11.0) X10^3/uL RBC (4.0-5.2) X10^6/uL Hgb (12.0-16.0) g/dL Hct (36-46) % MCV (80-100) fL MCH (26-34) PG MCHC (30-36) % RDW (11.6-14.8) % Plt Count (150-400) X10^3/uL Neut % (Auto) Lymph % (Auto) [place] % (Auto) Eos % (Auto) Baso % (Auto) Lymph # (Auto) [place] # (Auto) Baso # (Auto) Total Counted Seg Neutrophils % (38-70) % Lymphocytes % (Manual) (25-45) % Monocytes % (Manual) (2-11) % Eosinophils % (Manual) (2-4) % Blast Cells % (-0) % Neutrophils # (Manual) (8888-9202) /uL Nucleated RBCs ( - 0) #/Diff Smudge Cells [place] Rods Platelet Estimate RBC Morphology Poikilocytosis Anisocytosis Sodium (137-145) mmol/L Potassium (3.4-5.1) mmol/L Chloride (98-107) mmol/L Carbon Dioxide (22-32) mmol/L BUN (7-17) mg/dL Creatinine (0.52-1.04) mg/dL Estimated GFR (>60) mL/min BUN/Creatinine Ratio (6-22) Glucose (80-110) mg/dL Lactate 1.1 (0.7-2.1) mmol/L Calcium (8.4-10.2) mg/dL Total Bilirubin (0.2-1.3) mg/dL AST (14-36) IU/L ALT (9-52) IU/L Alkaline Phosphatase (38-126) U/L Total Protein (6.3-8.2) g/dL Albumin (3.5-5.0) g/dL Globulin (1.7-4.1) g/dL Albumin/Globulin Ratio (1.0-2.8) Amylase (30-110) U/L Lipase (23-300) U/L Procalcitonin (<0.5) ng/mL A. baumannii (PCR) Not detected (Not Detect) Sue albicans (PCR) Not detected (Not Detect) C. glabrata (PCR) Not detected (Not Detect) C. krusei (PCR) Not detected (Not Detect) C. parapsilosis (PCR) Not detected (Not Detect) C. tropicalis (PCR) Not detected (Not Detect) Enterobacteriac sp PCR Not detected (Not Detect) E. cloacae complex PCR Not detected (Not Detect) Enterococcus sp PCR Not detected (Not Detect) E. coli (PCR) Not detected (Not Detect) H. influenzae (PCR) Not detected (Not Detect) Klebsiella oxytoca PCR Not detected (Not Detect) Klebsiella pneumoniae Not detected (Not Detect) List. monocytogenes PCR Not detected (Not Detect) N. meningitidis (PCR) Not detected (Not Detect) Proteus species (PCR) Not detected (Not Detect) Serratia marcescens PCR Not detected (Not Detect) Staphylococcus sp PCR Detected H (Not Detect) Staph aureus (PCR) Not detected (Not Detect) mecA-Methicil Res Gene Not detected (Not Detect) Streptococcus sp PCR Not detected (Not Detect) Group A Strep (PCR) Not detected (Not Detect) Strep agalactiae (PCR) Not detected (Not Detect) Strep pneumoniae (PCR) Not detected (Not Detect) P. aeruginosa (PCR) Not detected (Not Detect) Rosalee/B-Vanco Res Genes Not Reportable KPC-Carbap Res Gene PCR Not Reportable Blood Type O Positive Antibody Screen Negative [facility] Narrative Medical decision making narrative: The patient is a 79-year-old female with history of acute leukemia who presents for chief complaint of abdominal pain. She did not take her normal OxyContin this morning, and her given to her in the emergency department. This improved her pain greatly. She declined any imaging in the emergency department. Basic labs were drawn as the patient had a slightly elevated temperature upon arrival to the emergency department. This included blood cultures and a procalcitonin. The patient is platelets returned at 7, so I called and spoke with Dr. Patel. I discussed her low platelets, white blood cell count, elevated procalcitonin. The patient does not want to come into the hospital for a platelet transfusion and they are not available in the emergency department. Thus hematology/oncology will order an outpatient unit of platelets for tomorrow. A type and screen was collected tonight so that can be applicable tomorrow. I discussed at length coming back to the emergency department for any acute concerns. The patient family were adamant about not being admitted to the hospital today. The patient was adamant about not getting any imaging done today. The patient appears to be increasingly open to hospice, and social work was by to talk with them. Patient family state understanding of all follow-up care, return precautions and have no questions or concerns upon discharge <Ramírez Sanchez, DO - Last Filed: 08/11/19 00:59> Lab Data Labs: Lab Results 08/05/19 08/05/19 08/05/19 Range/Units 16:30 16:30 16:30 WBC 240.8 H* (4.5-11.0) X10^3/uL RBC 3.13 L (4.0-5.2) X10^6/uL Hgb 9.0 L (12.0-16.0) g/dL Hct 27.3 L (36-46) % MCV 87.1 (80-100) fL MCH 28.8 (26-34) PG MCHC 33.1 (30-36) % RDW 15.2 H (11.6-14.8) % Plt Count 7 L* (150-400) X10^3/uL Neut % (Auto) Not Reportable Lymph % (Auto) Not Reportable [place] % (Auto) Not Reportable Eos % (Auto) Not Reportable Baso % (Auto) Not Reportable Lymph # (Auto) Not Reportable [place] # (Auto) Not Reportable Baso # (Auto) Not Reportable Total Counted 100 Seg Neutrophils % 11.0 L (38-70) % Lymphocytes % (Manual) 1.0 L (25-45) % Monocytes % (Manual) 1.0 L (2-11) % Eosinophils % (Manual) 2.0 (2-4) % Blast Cells % 85.0 H (-0) % Neutrophils # (Manual) 73771 H (4718-4045) /uL Nucleated RBCs 2 H ( - 0) #/Diff Smudge Cells 2+ H [place] Rods Few Platelet Estimate Decreased on smear RBC Morphology Not Reportable Poikilocytosis 1+ H Anisocytosis 1+ H Sodium 136 L (137-145) mmol/L Potassium 3.4 (3.4-5.1) mmol/L Chloride 96 L (98-107) mmol/L Carbon Dioxide 30 (22-32) mmol/L BUN 8 (7-17) mg/dL Creatinine 0.80 (0.52-1.04) mg/dL Estimated GFR > 60.0 (>60) mL/min BUN/Creatinine Ratio 10.0 (6-22) Glucose 123 H (80-110) mg/dL Lactate (0.7-2.1) mmol/L Calcium 8.9 (8.4-10.2) mg/dL Total Bilirubin 1.6 H (0.2-1.3) mg/dL AST 76 H (14-36) IU/L ALT 46 (9-52) IU/L Alkaline Phosphatase 99 (38-126) U/L Total Protein 6.1 L (6.3-8.2) g/dL Albumin 3.7 (3.5-5.0) g/dL Globulin 2.4 (1.7-4.1) g/dL Albumin/Globulin Ratio 1.5 (1.0-2.8) Amylase 49 (30-110) U/L Lipase 44 (23-300) U/L Procalcitonin 2.95 H (<0.5) ng/mL A. baumannii (PCR) (Not Detect) Sue albicans (PCR) (Not Detect) C. glabrata (PCR) (Not Detect) C. krusei (PCR) (Not Detect) C. parapsilosis (PCR) (Not Detect) C. tropicalis (PCR) (Not Detect) Enterobacteriac sp PCR (Not Detect) E. cloacae complex PCR (Not Detect) Enterococcus sp PCR (Not Detect) E. coli (PCR) (Not Detect) H. influenzae (PCR) (Not Detect) Klebsiella oxytoca PCR (Not Detect) Klebsiella pneumoniae (Not Detect) List. monocytogenes PCR (Not Detect) N. meningitidis (PCR) (Not Detect) Proteus species (PCR) (Not Detect) Serratia marcescens PCR (Not Detect) Staphylococcus sp PCR (Not Detect) Staph aureus (PCR) (Not Detect) mecA-Methicil Res Gene (Not Detect) Streptococcus sp PCR (Not Detect) Group A Strep (PCR) (Not Detect) Strep agalactiae (PCR) (Not Detect) Strep pneumoniae (PCR) (Not Detect) P. aeruginosa (PCR) (Not Detect) [place]e/B-Vanco Res Genes KPC-Carbap Res Gene PCR Blood Type Antibody Screen 08/05/19 08/05/19 08/05/19 Range/Units 16:30 16:30 19:35 WBC (4.5-11.0) X10^3/uL RBC (4.0-5.2) X10^6/uL Hgb (12.0-16.0) g/dL Hct (36-46) % MCV (80-100) fL MCH (26-34) PG MCHC (30-36) % RDW (11.6-14.8) % Plt Count (150-400) X10^3/uL Neut % (Auto) Lymph % (Auto) [place] % (Auto) Eos % (Auto) Baso % (Auto) Lymph # (Auto) [place] # (Auto) Baso # (Auto) Total Counted Seg Neutrophils % (38-70) % Lymphocytes % (Manual) (25-45) % Monocytes % (Manual) (2-11) % Eosinophils % (Manual) (2-4) % Blast Cells % (-0) % Neutrophils # (Manual) (8425-4997) /uL Nucleated RBCs ( - 0) #/Diff Smudge Cells [place] Rods Platelet Estimate RBC Morphology Poikilocytosis Anisocytosis Sodium (137-145) mmol/L Potassium (3.4-5.1) mmol/L Chloride (98-107) mmol/L Carbon Dioxide (22-32) mmol/L BUN (7-17) mg/dL Creatinine (0.52-1.04) mg/dL Estimated GFR (>60) mL/min BUN/Creatinine Ratio (6-22) Glucose (80-110) mg/dL Lactate 1.1 (0.7-2.1) mmol/L Calcium (8.4-10.2) mg/dL Total Bilirubin (0.2-1.3) mg/dL AST (14-36) IU/L ALT (9-52) IU/L Alkaline Phosphatase (38-126) U/L Total Protein (6.3-8.2) g/dL Albumin (3.5-5.0) g/dL Globulin (1.7-4.1) g/dL Albumin/Globulin Ratio (1.0-2.8) Amylase (30-110) U/L Lipase (23-300) U/L Procalcitonin (<0.5) ng/mL A. baumannii (PCR) Not detected (Not Detect) Sue albicans (PCR) Not detected (Not Detect) C. glabrata (PCR) Not detected (Not Detect) C. krusei (PCR) Not detected (Not Detect) C. parapsilosis (PCR) Not detected (Not Detect) C. tropicalis (PCR) Not detected (Not Detect) Enterobacteriac sp PCR Not detected (Not Detect) E. cloacae complex PCR Not detected (Not Detect) Enterococcus sp PCR Not detected (Not Detect) E. coli (PCR) Not detected (Not Detect) H. influenzae (PCR) Not detected (Not Detect) Klebsiella oxytoca PCR Not detected (Not Detect) Klebsiella pneumoniae Not detected (Not Detect) List. monocytogenes PCR Not detected (Not Detect) N. meningitidis (PCR) Not detected (Not Detect) Proteus species (PCR) Not detected (Not Detect) Serratia marcescens PCR Not detected (Not Detect) Staphylococcus sp PCR Detected H (Not Detect) Staph aureus (PCR) Not detected (Not Detect) mecA-Methicil Res Gene Not detected (Not Detect) Streptococcus sp PCR Not detected (Not Detect) Group A Strep (PCR) Not detected (Not Detect) Strep agalactiae (PCR) Not detected (Not Detect) Strep pneumoniae (PCR) Not detected (Not Detect) P. aeruginosa (PCR) Not detected (Not Detect) [place]/B-Vanco Res Genes Not Reportable KPC-Carbap Res Gene PCR Not Reportable Blood Type O Positive Antibody Screen Negative Discharge Plan Departure Patient Disposition: Home Clinical Impression: Anemia with low platelet count Abdominal pain Qualifiers: Abdominal location: generalized Qualified Code(s): R10.84 - Generalized abdominal pain Discharge Date/Time: 08/05/19 19:49 Instructions: Platelet Count, DI for Abdominal Pain-Adult, DI for Fever (Symptom) -- Adult Activity Restrictions/Additional Instructions: Please follow up with Dr. Patel. I have given you a prescription of an antibiotic for his request. He should be arranging for a platelet transfusion tomorrow on the acute care unit, as the transfusion center is closed. Please come back to the emergency department for any acute concerns such as bleeding, chest pain shortness of breath Prescriptions: No Action ondansetron HCl [Zofran] 8 mg Tablet 8 mg PO Q12H Qty: 30 RF: 3 lorazepam 1 mg Tablet 1 mg PO BID-TID PRN (Reason: Nausea) Qty: 60 RF: 1 oxycodone 5 mg tablet 5 mg PO Q4-6H PRN (Reason: pain) 30 Days Qty: 60 RF: 0 oxycodone [OxyContin] 20 mg Tablet,Oral Only,Ext.Rel.12 Hr 20 mg PO Q12H 30 Days Qty: 60 RF: 0 dexamethasone 4 mg tablet 4 mg PO QPM RF: 0 loperamide [Imodium A-D] 2 mg Capsule 2 mg PO Q2-4H PRN (Reason: Diarrhea) RF: 0 Referrals: Alexandre Orlando MD [Primary Care Provider] -
[2019-08-06 05:14] LABS: Enterococcus species Not Detected (Not Detect); Listeria monocytogenes Not Detected (Not Detect); Methicillin-resistant gene Not Detected (Not Detect)
[2019-08-06 05:15] LABS: Acinetobacter baumannii Not Detected (Not Detect); Candida albicans Not Detected (Not Detect); Candida glabrata Not Detected (Not Detect); Candida krusei Not Detected (Not Detect); Candida parapsilosis Not Detected (Not Detect); Candida tropicalis Not Detected (Not Detect); E. coli Not Detected (Not Detect); Enterobacter cloacae complex Not Detected (Not Detect); Enterobacteriaceae species Not Detected (Not Detect); Haemophilus influenzae Not Detected (Not Detect); Neisseria meningitidis Not Detected (Not Detect); Proteus species Not Detected (Not Detect); Pseudomonas aeruginosa Not Detected (Not Detect); Serratia marcescens Not Detected (Not Detect); Streptococcus agalactiae (Gr B Not Detected (Not Detect); Streptococcus pneumonia Not Detected (Not Detect); Streptococcus pyogenes (Gr A) Not Detected (Not Detect); Streptococcus species Not Detected (Not Detect)
[2019-08-06 05:16] LABS: Staphylococcus species Detected (Not Detect)
== END 2019-08-05 19:49 | disposition home or self-care (01) ==
PROVIDERS: Emergency Provider Nurse Practitioner Family; Family Provider Family Medicine; PCP Family Medicine
DX: D69.6 Thrombocytopenia, unspecified (principal); R10.84 Generalized abdominal pain
CPT/HCPCS: 36415; 80053; 82150; 83605; 83690; 84145; 85025; 86850; 86900; 86901; 87040; 87077; 87147; 87150; 87205; 99283; J1170; J1642

== ENCOUNTER 2019-08-06 06:00 | Inpatient (IN) | payer MEDICARE, OTHER, SELFPAY ==
[2019-08-06] VITALS (8 sets, daily range): BP systolic 111–131; BP diastolic 62–74; PULSE 100–112; RESP 16–18; TEMP 36.6–37.3; O2SAT 94; BMI 18.1
--- NOTE | 2019-08-06 06:13 | DI.RAD.S_ITS ---
PROCEDURE: XR CHEST 1V INDICATIONS: hemoptysis, low platelets TECHNIQUE: One view of the chest was acquired. COMPARISON: [facility], CR, XR CHEST 1V, 07/13/2019, 21:09. [facility], CR, XR CHEST 1V, 06/30/2019, 12:31. [facility], CR, XR CHEST 1V, 05/12/2018, 16:56. [facility], CR, CHEST 2 VIEW, 02/08/2017, 18:34. [facility], CR, CHEST 2 VIEW, 11/06/2016, 11:00. FINDINGS: Surgical changes and devices: There is a stable right-sided PICC line. Gastroesophageal junction clips are seen. Lungs and pleura: Lungs are clear. No pleural effusions or pneumothorax. Mediastinum: The cardiac contours are within normal limits. The aorta demonstrates calcification and tortuosity. Bones and chest wall: No suspicious bony lesions. Age-appropriate bony degenerative changes are seen. Overlying soft tissues appear unremarkable. IMPRESSION: No acute cardiopulmonary process is seen. For this patient's presenting history of hemoptysis, please consider a dedicated chest CT with contrast for further evaluation. Postoperative and degenerative changes are seen. Dictated by: Aleksey Armstrong M.D. on 08/06/2019 at 7:00 Approved by: Aleksey Armstrong M.D. on 08/06/2019 at 7:01
--- NOTE | 2019-08-06 06:16 | ED.URI ---
HPI - URI/Sore Throat General Chief Complaint: Upper Respiratory Symptoms Stated Complaint: coughing blood Time Seen by Provider: 08/06/19 06:13 Source: patient Mode of arrival: EMS Limitations: no limitations History of Present Illness HPI Narrative: 79-year-old female comes to the emergency department with complaint of low platelets and coughing up blood. Patient was here about 12 hours ago her platelets were found to be 7, they had wanted to keep her for transfusion of platelets but patient did not wish to. Overnight she started having some hemoptysis. Patient had some streaks per EMS they did not see any large blood clots or massive hemoptysis that they could appreciate. Patient had some difficulty describing exactly what she saw. She denies any chest pain, no shortness of breath, she is little nauseated but no vomiting. No diarrhea, no constipation, no melena. No recent head injuries. No headache. Related Data Home Medications Medication Instructions Recorded Confirmed loperamide [Imodium A-D] 2 mg PO Q2-4H PRN 06/28/19 08/05/19 dexamethasone 4 mg PO QPM 08/05/19 08/05/19 Previous Rx's Medication Instructions Recorded lorazepam 1 mg PO BID-TID PRN #60 tab 07/20/19 ondansetron HCl [Zofran] 8 mg PO Q12H #30 tab 07/20/19 oxycodone 5 mg PO Q4-6H PRN 30 Days #60 tab 07/20/19 oxycodone [OxyContin] 20 mg PO Q12H 30 Days #60 tab 08/02/19 levofloxacin [Levaquin] 500 mg PO DAILY #7 tab 08/05/19 Allergies Allergy/AdvReac Type Severity Reaction Status Date / Time Penicillins Allergy Unknown Verified 08/05/19 16:09 fentanyl [FENTANYL] AdvReac Unknown NAUSEA Verified 08/05/19 16:09 meperidine AdvReac Unknown N/V Verified 08/05/19 16:09 morphine AdvReac Unknown N/V Verified 08/05/19 16:09 Review of Systems Review of Systems ROS Unobtainable: All systems reviewed & are unremarkable except as noted in HPI and below Patient History Medical/Surgical History Medical History 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) Bowel obstruction (Acute) Chronic back pain (Chronic) Chronic constipation (Chronic) Endometriosis (Chronic) History of kidney stones (Chronic) Leukemia (Chronic) Surgical History History of Charisma fundoplication (Resolved) No pertinent past surgical history (Acute) Family History Father Lung cancer Grandfather Stomach cancer Other Family history non-contributory Social History household members: spouse Smoking Status: Never smoker Family/Social History Social History household members: spouse Smoking Status: Never smoker alcohol intake frequency: 0-2 drinks per day Substance Use Type: does not use Exam Narrative Exam Narrative: GEN: Thin elderly female, alert and oriented x 3, patient appears to be in mild distress. HEENT: Atraumatic, pupils are equal round reactive to light, extraocular movements are intact, nares are clear, TMs are clear with no fluid, there is no conjunctival pallor. Throat is patient has some dried blood along the edges of her lips throat is without any exudates, erythema, tonsillar enlargement or uvular deviation HEART: Regular rate and rhythm without murmur, clicks, rubs. No carotid bruits, pulses are equal in upper and lower extremities LUNGS:Lungs clear to auscultation, no wheezes, rales, crackles, chest moves symmetrically ABD:bowel sounds normal, soft, non-tender, no guarding, rebound, rigidity, no masses noted, no hepatosplenomegaly :No CVA tenderness MSCL: Non-tender, no muscle atrophy, full range of motion, normal gait NEURO:CN 2-12 intact, sensation normal. Initial Vital Signs Initial Vital Signs: Vital Signs Temperature 97.9 F 08/06/19 06:05 Course Orders Ordered: ED Orders 08/06/19 06:13 XR chest 1V Stat 08/06/19 06:40 ABO RH Type Stat Blood Culture Stat Complete Blood Count AUTO DIFF Stat Comprehensive Metabolic Panel Stat Partial Thromboplastin Time Stat Platelets Stat Prothrombin Time INR Stat Type and Screen Stat Vital Signs Vital signs: Vital Signs - 8 hr 08/06/19 06:05 Temperature 97.9 F MDM - URI/Sore Throat Lab Data Attestation: I reviewed the patient's lab results. Result diagrams: 08/06/19 06:40 08/06/19 06:40 Labs: Lab Results 08/06/19 08/06/19 08/06/19 Range/Units 06:40 06:40 06:40 WBC 241.6 H* (4.5-11.0) X10^3/uL RBC 2.86 L (4.0-5.2) X10^6/uL Hgb 8.2 L (12.0-16.0) g/dL Hct 25.2 L (36-46) % MCV 88.1 (80-100) fL MCH 28.8 (26-34) PG MCHC 32.7 (30-36) % RDW 15.5 H (11.6-14.8) % Plt Count 7 L* (150-400) X10^3/uL Neut % (Auto) Not Reportable Lymph % (Auto) Not Reportable [place] % (Auto) Not Reportable Eos % (Auto) Not Reportable Baso % (Auto) Not Reportable Lymph # (Auto) Not Reportable [place] # (Auto) Not Reportable Baso # (Auto) Not Reportable PT 15.7 H (10.1-12.7) SECONDS INR 1.4 H (0.9-1.3) APTT 32 (26.4-36.2) SECONDS Sodium 136 L (137-145) mmol/L Potassium 3.5 (3.4-5.1) mmol/L Chloride 98 (98-107) mmol/L Carbon Dioxide 29 (22-32) mmol/L BUN 9 (7-17) mg/dL Creatinine 0.80 (0.52-1.04) mg/dL Estimated GFR > 60.0 (>60) mL/min BUN/Creatinine Ratio 11.3 (6-22) Glucose 140 H (80-110) mg/dL Calcium 8.5 (8.4-10.2) mg/dL Total Bilirubin 1.7 H (0.2-1.3) mg/dL AST 68 H (14-36) IU/L ALT 35 (9-52) IU/L Alkaline Phosphatase 86 (38-126) U/L Total Protein 5.9 L (6.3-8.2) g/dL Albumin 3.5 (3.5-5.0) g/dL Globulin 2.4 (1.7-4.1) g/dL Albumin/Globulin Ratio 1.5 (1.0-2.8) MDM Narrative Medical decision making narrative: Patient and platelets of 7 last 8, platelets are here at the hospital. They did request that we read type and cross the patient today so this was ordered. And platelets are being started. Patient was signed out to Dr. Powell for final disposition there was some discussion of hospice yesterday so patient may wish to return home but she may also wish to be admitted which would also be appropriate. Labs are still pending. Chest x-ray not show any large effusion or hemothorax. Discharge Plan Departure Prescriptions: No Action ondansetron HCl [Zofran] 8 mg Tablet 8 mg PO Q12H Qty: 30 RF: 3 lorazepam 1 mg Tablet 1 mg PO BID-TID PRN (Reason: Nausea) Qty: 60 RF: 1 oxycodone 5 mg tablet 5 mg PO Q4-6H PRN (Reason: pain) 30 Days Qty: 60 RF: 0 oxycodone [OxyContin] 20 mg Tablet,Oral Only,Ext.Rel.12 Hr 20 mg PO Q12H 30 Days Qty: 60 RF: 0 dexamethasone 4 mg tablet 4 mg PO QPM RF: 0 levofloxacin [Levaquin] 500 mg tablet 500 mg PO DAILY Qty: 7 RF: 0 loperamide [Imodium A-D] 2 mg Capsule 2 mg PO Q2-4H PRN (Reason: Diarrhea) RF: 0
[2019-08-06 07:05] LABS: INR 1.4 (0.9-1.3); Prothrombin Time 15.7 SECONDS (10.1-12.7)
[2019-08-06 07:06] LABS: Hematocrit 25.2 % (36-46); Hemoglobin 8.2 g/dL (12.0-16.0); Mean Corpuscular HGB Conc 32.7 % (30-36); Mean Corpuscular Hemoglobin 28.8 PG (26-34); Mean Corpuscular Volume 88.1 fL (80-100); Red Blood Cell Count 2.86 X10^6/uL (4.0-5.2); Red Cell Distribution Width 15.5 % (11.6-14.8)
[2019-08-06 07:08] LABS: PTT Partial Thromboplastin Tim 32 SECONDS (26.4-36.2)
[2019-08-06 07:09] LABS: Add Manual Diff / Slide Review YES; Platelet Count 7 X10^3/uL (150-400); White Blood Cell Count 241.6 X10^3/uL (4.5-11.0)
[2019-08-06 07:10] LABS: Alanine Aminotransferase 35 IU/L (9-52); Albumin 3.5 g/dL (3.5-5.0); Albumin Globulin Ratio 1.5 (1.0-2.8); Alkaline Phosphatase 86 U/L (38-126); Aspartate Aminotransferase 68 IU/L (14-36); BUN Creatinine Ratio 11.3 (6-22); Bilirubin Total 1.7 mg/dL (0.2-1.3); Blood Urea Nitrogen 9 mg/dL (7-17); Calcium 8.5 mg/dL (8.4-10.2); Carbon Dioxide 29 mmol/L (22-32); Chloride 98 mmol/L (98-107); Estimated Glomerular Filt Rate > 60.0 mL/min (>60); Globulin 2.4 g/dL (1.7-4.1); Glucose 140 mg/dL (80-110); HEMOLYSIS < 15 (0-50); Potassium 3.5 mmol/L (3.4-5.1); Sodium 136 mmol/L (137-145); Total Protein 5.9 g/dL (6.3-8.2)
[2019-08-06 07:32] LABS: Neutrophils Absolute Manual 45904 /uL (3000-5900); Platelet Estimate Decreased on smear; Total Cells Counted 100
[2019-08-06 07:33] LABS: Anisocytosis 3+; Poikilocytosis 2+
--- NOTE | 2019-08-06 08:42 | PC.NURSE ---
Received report on pt. resting in bed AAOx3. Was supposed to return today to acute care to receive plt transfusion. came into ED for increased coughing around 0230 with some blood tinged sputum. 2nd blood culture drawn from PICC using aseptic technique. pt appears calm and comfortable at this time. no bloody sputum while in ED. Platelets obtained from lab and infusing per TAR. NAD. family in waiting area. plan is to Admit to floor.
--- NOTE | 2019-08-06 09:23 | PC.NURSE ---
Platelets completed at this time. pt tolerated well. VS cycled. awaiting admission. given crackers to eat. sipping on water. NAD
[2019-08-06] MEDS: BENZOCAINE/MENTHOL 1 LOZ PKT 1 EACH PO (15:13)
--- NOTE | 2019-08-06 15:24 | PC.NURSE ---
pt admitted by float nurse- she denies any pain at present- freq cough with occ gagging and dry heaves associated - ambulated with assist to br for void of small amount of urine- resting rest of shift
--- NOTE | 2019-08-06 15:51 | PM.HP.1 ---
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 The patient has been undergoing chemotherapy with viadaza and venetoclax and initially responded with rapid decline in her leulocytosis but then unfortunately her blasts recurred and her leukocytosis continued to increase exponentially with cessation of treatment. The patient is followed by Dr. Patel of oncology who has redirected her care toward a supportive and palliative approach with recommendation for hospice referral today. The patient returned to the ED last night with hemoptysis. She returned 12 hours after refusing a platelet transfusion when her platelet count was found to be 7. The patient reports she initially had some streaks of blood in her sputum then it became more bloody with gobs of blood. Per EMS report they did not visualize any large blood clots or massive hemoptysis. The patient has not had any recurrence since admission. She is asymptomatic of blood loss and denies headache, lightheadedness or dizziness, presyncope or syncope, shortness of breath, or chest pain. She endorses generalized weakness, fatigue, and poor appetite. The patient is continues to have coughing paroxysms with talking and nausea with dry heaves. She denies abdominal pain, nausea, dysuria, diarrhea or constipation. She has had no hematemesis, hematuria, hematochezia or melena. The patient's red blood cell count has not significantly dropped but did decrease from 9.0 to 8.2. The patient was admitted for observation, platelet transfusion and hospice referral. 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) Bowel obstruction (Acute) Chronic back pain (Chronic) Chronic constipation (Chronic) Endometriosis (Chronic) GERD (gastroesophageal reflux disease) (Acute) History of kidney stones (Chronic) Leukemia (Chronic) Surgical History (Updated 08/06/19 @ 21:46 by Jeniffer Garduno DO) H/O cataract removal with insertion of prosthetic lens (Acute) History of Charisma fundoplication (Resolved) Hx of cholecystectomy (Acute) No pertinent past surgical history (Acute) Family History Father Lung cancer Grandfather Stomach cancer Other Family history non-contributory Social History household members: spouse Smoking Status: Never smoker Family & Social History Family History Father Lung cancer Grandfather Stomach cancer Other Family history non-contributory Social History: household members spouse Prior Living Arrangements House Safety & Behavioral: Feels Safe in Current Yes Environment Been Physically Hurt or No Threatened By a Person Suicidal Ideation Description None Tobacco & Substance use: Smoking Status Never smoker alcohol intake frequency Rare Substance Use Type Does not use The patient has been for 61 years. She has 3 children 2 boys and 1 girl who are all healthy. Meds Home Medications and Allergies Home Medications Medication Instructions Recorded Confirmed Type loperamide [Imodium A-D] 2 mg PO Q2-4H PRN 06/28/19 08/06/19 History lorazepam 1 mg PO BID-TID PRN #60 tab 07/20/19 08/06/19 Rx ondansetron HCl [Zofran] 8 mg PO Q12H #30 tab 07/20/19 08/06/19 Rx oxycodone 5 mg PO Q4-6H PRN 30 Days #60 tab 07/20/19 08/06/19 Rx oxycodone [OxyContin] 20 mg PO Q12H 30 Days #60 tab 08/02/19 08/06/19 Rx dexamethasone 4 mg PO QPM 08/05/19 08/06/19 History levofloxacin [Levaquin] 500 mg PO DAILY #7 tab 08/05/19 08/06/19 Rx Allergies Allergy/AdvReac Type Severity Reaction Status Date / Time Penicillins Allergy Unknown Verified 08/05/19 16:09 fentanyl [FENTANYL] AdvReac Unknown NAUSEA Verified 08/05/19 16:09 meperidine AdvReac Unknown N/V Verified 08/05/19 16:09 morphine AdvReac Unknown N/V Verified 08/05/19 16:09 Review of Systems Review of Systems Narrative: A 10 system comprehensive review of systems was conducted with the patient and found to be negative except as above in the History of Present Illness. Exam Vital Signs (past 8 hours): - 08/06/19 17:41 Pulse Oximetry 94 Oxygen Delivery Method Room Air Narrative Exam Narrative: General: Elderly female lying in bed, emaciated, cachectic and frail, withdrawn but otherwise appropriately interactive. HEENT: Normocephalic, atraumatic. External ears without defect. Pupils equal, round, and reactive to light. Anicteric sclerae, moist conjunctivae, and no lid lag. Dry oral mucosa. Neck: Poor skin turgor. No lymphadenopathy or thyromegaly. Cardiovascular: Regular rhythm, tachycardic without murmurs, rubs, or gallops appreciated. Pulmonary: Clear to auscultation bilaterally without crackles, wheezes, or rhonchi. Normal respiratory effort with no use of accessory muscles. Abdomen: Soft, bowel sounds present, nontender, nondistended. No hepatosplenomegaly or masses appreciated. Extremities: No clubbing, cyanosis, or edema. Skin: Normal temperature, turgor, and texture; no rash, ulcers, or subcutaneous nodules appreciated. Neurological: Cranial nerves grossly intact. Psychiatric: Depressed mood, withdrawn and flat affect. Appears alert and oriented to person, place, and time. Objective Labs Result Diagrams: 08/07/19 06:30 08/06/19 06:40 Labs: Laboratory Results - last 24 hr 08/06/19 08/06/19 08/06/19 06:40 06:40 06:40 WBC 241.6 H* RBC 2.86 L Hgb 8.2 L Hct 25.2 L MCV 88.1 MCH 28.8 MCHC 32.7 RDW 15.5 H Plt Count 7 L* Neut % (Auto) Not Reportable Lymph % (Auto) Not Reportable [place] % (Auto) Not Reportable Eos % (Auto) Not Reportable Baso % (Auto) Not Reportable Lymph # (Auto) Not Reportable [place] # (Auto) Not Reportable Baso # (Auto) Not Reportable Total Counted 100 Seg Neutrophils % 17.0 L D Band Neutrophils % 2.0 L Lymphocytes % (Manual) 5.0 L D Monocytes % (Manual) 2.0 Metamyelocytes % 1.0 H Myelocytes % 6.0 H Promyelocytes % 16.0 H Blast Cells % 51.0 H Neutrophils # (Manual) 84063 H Platelet Estimate Decreased on smear RBC Morphology Not Reportable Poikilocytosis 2+ H Anisocytosis 3+ H D PT 15.7 H INR 1.4 H APTT 32 Sodium 136 L Potassium 3.5 Chloride 98 Carbon Dioxide 29 BUN 9 Creatinine 0.80 Estimated GFR > 60.0 BUN/Creatinine Ratio 11.3 Glucose 140 H Calcium 8.5 Total Bilirubin 1.7 H AST 68 H ALT 35 Alkaline Phosphatase 86 Total Protein 5.9 L Albumin 3.5 Globulin 2.4 Albumin/Globulin Ratio 1.5 Blood Type Rho(D) Type Antibody Screen 08/06/19 08/06/19 06:40 06:40 WBC RBC Hgb Hct MCV MCH MCHC RDW Plt Count Neut % (Auto) Lymph % (Auto) [place] % (Auto) Eos % (Auto) Baso % (Auto) Lymph # (Auto) [place] # (Auto) Baso # (Auto) Total Counted Seg Neutrophils % Band Neutrophils % Lymphocytes % (Manual) Monocytes % (Manual) Metamyelocytes % Myelocytes % Promyelocytes % Blast Cells % Neutrophils # (Manual) Platelet Estimate RBC Morphology Poikilocytosis Anisocytosis PT INR APTT Sodium Potassium Chloride Carbon Dioxide BUN Creatinine Estimated GFR BUN/Creatinine Ratio Glucose Calcium Total Bilirubin AST ALT Alkaline Phosphatase Total Protein Albumin Globulin Albumin/Globulin Ratio Blood Type O Positive Cancelled Rho(D) Type Cancelled Antibody Screen Cancelled Assessment & Plan Assessment & Plan narrative: Cornelia Baird is a 79-year-old female with a past medical history significant for 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 1. Acute hemoptysis, secondary to severe thrombocytopenia, not present on admission. Resolved. -Patient reports significant amount of hemoptysis at home with no recurrence thus far since admission likely due to platelet transfusion. -Received 6-pack of platelets in ED. -Continue to monitor for overt signs of bleeding. -Continue to monitor CBC tomorrow with morning labs and transfuse if necessary. Platelet transfusion goal < 20. 2. Relapse of AML now resistant to viadaza and venetoclax with pancytopenia, present on admission. Active. -Patient has now failed treatment viadaza and venetoclax and has not been on chemotherapy for 10 days. -Continue supportive care with pain and nausea control and placed hospice referral per oncologist Dr. Patel. -Consulted COMPUTER SECURITY SPECIALIST and we appreciate her time and care of the patient. Patient is admitted under observation status with expected length of stay less than 2 midnights due to severity of presenting symptoms, risk of adverse event, and complexity of treatment plan. Quality VTE Deep Vein Thrombosis/Pulmonary Embolism Present on Admission: No
[2019-08-06] MEDS: dexAMETHasone 4 MG TABLET PO (16:54)
[2019-08-06] MEDS: OXYCODONE ER 20 MG TAB PO (20:36)
[2019-08-06] MEDS: ONDANSETRON 4 MG ODT 8 MG PO (20:36)
[2019-08-07] VITALS (10 sets, daily range): BP systolic 122–148; BP diastolic 60–79; PULSE 96–103; RESP 16–20; TEMP 36.4–37.4; O2SAT 90–95
[2019-08-07] MEDS: VANCOMYCIN 600 MG in SODIUM CHLORIDE 0.9% 100 ML IV (00:29)
--- NOTE | 2019-08-07 00:46 | PC.NURSE ---
[employer] Consultant Note: 0030: Resting in bed. Vital sign stable. PICC in place in rt upper arm; dressing cdi, no redness, swelling or drainage at site. Pt states she feels sweaty; linen changed.
[2019-08-07 07:05] LABS: Hematocrit 23.9 % (36-46); Hemoglobin 7.8 g/dL (12.0-16.0); Mean Corpuscular HGB Conc 32.6 % (30-36); Mean Corpuscular Hemoglobin 28.6 PG (26-34); Mean Corpuscular Volume 87.7 fL (80-100); Platelet Count 70 X10^3/uL (150-400); Red Blood Cell Count 2.73 X10^6/uL (4.0-5.2); Red Cell Distribution Width 15.7 % (11.6-14.8)
[2019-08-07 07:07] LABS: Add Manual Diff / Slide Review YES; White Blood Cell Count 252.4 X10^3/uL (4.5-11.0)
[2019-08-07 07:42] LABS: Neutrophils Absolute Manual 63100 /uL (3000-5900); Total Cells Counted 100
[2019-08-07 07:43] LABS: Anisocytosis 2+; Platelet Estimate Decreased on smear; Poikilocytosis 2+
[2019-08-07] MEDS: ONDANSETRON 4 MG/2 ML INJ IV (08:02)
[2019-08-07] MEDS: OXYCODONE IR 5 MG TABLET PO (09:06)
[2019-08-07] MEDS: CALCIUM CARBONATE 500 MG TAB 1000 MG PO (09:37)
[2019-08-07] MEDS: LORazepam 1 MG TABLET PO (09:41)
--- NOTE | 2019-08-07 09:49 | PC.NURSE ---
Addendum entered by Jessi Winter R.N. 08/07/19 15:42: First unit of PRBC started, patient tolerating well. Patients brief changed and repositioned to right. Original Note: Patient resting in bed with at bedside. Patient alert/oriented x4. Pt c/o nausea earlier this morning. Given PRN IV Zofran via RUE PICC, patent, dsg CDI (see MAR). Patient denies appetite. Still coughing up sputum but no blood seen at this time. Patient has scattered bruising including large bruise on the LLE.
[2019-08-07] MEDS: OXYCODONE ER 20 MG TAB PO (09:59)
[2019-08-07] MEDS: ONDANSETRON 4 MG ODT 8 MG PO (09:59)
--- NOTE | 2019-08-07 11:27 | P.PNONC_ITS ---
PN -Subjective Interval history: Diagnosis: AML Previous treatment: 1. Induction chemotherapy with decidabine + GCLAM October 2016. 2. Three cycles of consolidation with winston-c completed April 2017. 3. Relapse in March 2018 treated with a clinical trial without response. 4. One additional cycle of GCLAM which was tolerated poorly but did induce apparent remission. Bone marrow biopsy in May showed morphologic CR but with MRD detected by FISH at 0.2%. 5. 9 cycles of vidaza beginning in June 2018 6. Azacitidine and venetoclax starting about 3 weeks ago. Interval history The patient is 79-year-old woman who I followed in clinic for relapsed AML. She is most recently treated with azacitidine and ventoclax with an initial drop in her white count but rapid relapse of her leukemia. For the last 1 or 2 weeks, she has been receiving supportive care with transfusions as needed. On Thursday, she was seen in the emergency room because of abdominal pain. She did have blood cultures drawn. She was found to have a platelet count of 7. She did not want to stay in the emergency room for a platelet transfusion and was discharged with a plan to return the following day for an outpatient platelet transfusion. On Thursday, she had an episode of hemoptysis and return to the emergency room. She was transfused with platelets and hospitalized. Subsequently, blood cultures have shown a coag-negative staph. Today, the patient complains of nausea. She has had some dry heaves. She has a little bit of a cough but has not noted any further hemoptysis. She has some ongoing hip pain. She has been taking OxyContin which has been helping. Overall, she feels weak and tired. She feels like she is not sufficiently b enefitting from pain or erythema at the PICC line site. She has not had any fevers. She and her family have met with hospice. The patient does wish to transition to supportive care. Home Medications and Allergies Home Medications Medication Instructions Recorded Confirmed Type loperamide [Imodium A-D] 2 mg PO Q2-4H PRN 06/28/19 08/06/19 History lorazepam 1 mg PO BID-TID PRN #60 tab 07/20/19 08/06/19 Rx ondansetron HCl [Zofran] 8 mg PO Q12H #30 tab 07/20/19 08/06/19 Rx oxycodone 5 mg PO Q4-6H PRN 30 Days #60 tab 07/20/19 08/06/19 Rx oxycodone [OxyContin] 20 mg PO Q12H 30 Days #60 tab 08/02/19 08/06/19 Rx dexamethasone 4 mg PO QPM 08/05/19 08/06/19 History levofloxacin [Levaquin] 500 mg PO DAILY #7 tab 08/05/19 08/06/19 Rx Allergies Allergy/AdvReac Type Severity Reaction Status Date / Time Penicillins Allergy Unknown Verified 08/05/19 16:09 fentanyl [FENTANYL] AdvReac Unknown NAUSEA Verified 08/05/19 16:09 meperidine AdvReac Unknown N/V Verified 08/05/19 16:09 morphine AdvReac Unknown N/V Verified 08/05/19 16:09 Exam Vital signs: Vital Signs Temp Pulse Resp BP Pulse Ox 08/07/19 08:00 97.6 F 98 H 16 122/66 94 08/07/19 04:30 99.4 F 100 H 18 124/60 91 08/07/19 00:30 97.9 F 96 H 18 126/71 92 08/06/19 22:31 98.1 F 100 H 17 122/72 94 08/06/19 17:41 94 Intake and Output 08/06/19 08/07/19 08/07/19 23:59 07:59 15:59 Intake Total 150 / 150 Output Total 225 / 300 500 / 600 100 / 600 Balance -225 / -83 -350 / -450 -100 / -450 Intake: Oral 150 / 150 Output: Urine 225 / 300 500 / 600 100 / 600 Other: Percent Meal Consumed 0% Stool Size Small Weight 41 kg Patient Weight 08/07/19 23:59 Weight 41 kg - Constitutional positive no acute distress, positive thin - Routine HEENT Exam Head: Present: normocephalic, atraumatic Comments: She is not further examined. Results - Labs Laboratory Last Values WBC 252.4 X10^3/uL (4.5-11.0) H* 08/07/19 06:30 RBC 2.73 X10^6/uL (4.0-5.2) L 08/07/19 06:30 Hgb 7.8 g/dL (12.0-16.0) L 08/07/19 06:30 Hct 23.9 % (36-46) L 08/07/19 06:30 MCV 87.7 fL (80-100) 08/07/19 06:30 MCH 28.6 PG (26-34) 08/07/19 06:30 MCHC 32.6 % (30-36) 08/07/19 06:30 RDW 15.7 % (11.6-14.8) H 08/07/19 06:30 Plt Count 70 X10^3/uL (150-400) L 08/07/19 06:30 Neut % (Auto) Not Reportable 08/07/19 06:30 Lymph % (Auto) Not Reportable 08/07/19 06:30 [place] % (Auto) Not Reportable 08/07/19 06:30 Eos % (Auto) Not Reportable 08/07/19 06:30 Baso % (Auto) Not Reportable 08/07/19 06:30 Lymph # (Auto) Not Reportable 08/07/19 06:30 [place] # (Auto) Not Reportable 08/07/19 06:30 Baso # (Auto) Not Reportable 08/07/19 06:30 Total Counted 100 08/07/19 06:30 Seg Neutrophils % 25.0 % (38-70) L 08/07/19 06:30 Band Neutrophils % 2.0 % (3-7) L 08/06/19 06:40 Lymphocytes % (Manual) 1.0 % (25-45) L 08/07/19 06:30 Atypical Lymphs % 5.0 % (-0) H 08/07/19 06:30 Monocytes % (Manual) 1.0 % (2-11) L 08/07/19 06:30 Metamyelocytes % 1.0 % (-0) H 08/06/19 06:40 Myelocytes % 2.0 % (-0) H 08/07/19 06:30 Promyelocytes % 5.0 % (-0) H 08/07/19 06:30 Blast Cells % 61.0 % (-0) H 08/07/19 06:30 Neutrophils # (Manual) 32826 /uL (3260-1885) H 08/07/19 06:30 Platelet Estimate Decreased on smear 08/07/19 06:30 RBC Morphology Not Reportable 08/07/19 06:30 Poikilocytosis 2+ H 08/07/19 06:30 Anisocytosis 2+ H 08/07/19 06:30 PT 15.7 SECONDS (10.1-12.7) H 08/06/19 06:40 INR 1.4 (0.9-1.3) H 08/06/19 06:40 APTT 32 SECONDS (26.4-36.2) 08/06/19 06:40 Sodium 136 mmol/L (137-145) L 08/06/19 06:40 Potassium 3.5 mmol/L (3.4-5.1) 08/06/19 06:40 Chloride 98 mmol/L (98-107) 08/06/19 06:40 Carbon Dioxide 29 mmol/L (22-32) 08/06/19 06:40 BUN 9 mg/dL (7-17) 08/06/19 06:40 Creatinine 0.80 mg/dL (0.52-1.04) 08/06/19 06:40 Estimated GFR > 60.0 mL/min (>60) 08/06/19 06:40 BUN/Creatinine Ratio 11.3 (6-22) 08/06/19 06:40 Glucose 140 mg/dL (80-110) H 08/06/19 06:40 Calcium 8.5 mg/dL (8.4-10.2) 08/06/19 06:40 Total Bilirubin 1.7 mg/dL (0.2-1.3) H 08/06/19 06:40 AST 68 IU/L (14-36) H 08/06/19 06:40 ALT 35 IU/L (9-52) 08/06/19 06:40 Alkaline Phosphatase 86 U/L (38-126) 08/06/19 06:40 Total Protein 5.9 g/dL (6.3-8.2) L 08/06/19 06:40 Albumin 3.5 g/dL (3.5-5.0) 08/06/19 06:40 Globulin 2.4 g/dL (1.7-4.1) 08/06/19 06:40 Albumin/Globulin Ratio 1.5 (1.0-2.8) 08/06/19 06:40 Blood Type O Positive 08/07/19 06:40 Rho(D) Type Cancelled 08/06/19 06:40 Antibody Screen Negative 08/07/19 06:40 Crossmatch See Detail 08/07/19 06:40 - Imaging Additional studies: Procedures Colonoscopy (04/06/14) Injection or infusion of other therapeutic or prophylactic substance (06/03/12) Introduction of Other Antineoplastic into Central Vein, Percutaneous Approach (06/28/19) Transfusion of Nonautologous Red Blood Cells into Peripheral Vein, Percutaneous Approach (06/28/19) Assessment and Plan (1) Leukemia Current visit: Yes Status: Acute 79-year-old woman with relapsed acute leukemia. Her white count has been climbing rapidly. She has had a recent episode of hemoptysis. Her platelet count is better after transfusion. From a quality of life standpoint symptomatically, she has declined quite a bit over the last week or so. She is ready to stop aggressive interventions for her leukemia. I think she has met with hospice already. I think it is entirely appropriate for her to her and role at this time. I think her survival at this point is quite limited, possibly days but maybe a week or 2. She does not want any further transfusions. She did have a coag-negative staph in her blood but is not symptomatic. We did discuss the possibility of removing the PICC line and either leaving it out or replacing it. She feels comfortable leaving it in. It may still be useful for pain medications in the future. __ (1) Leukemia Qualifiers: Leukemia type: unspecified Leukemia Active/Remission status: without remission Qualified Code(s): C95.90 - Leukemia, unspecified not having achieved remission
--- NOTE | 2019-08-07 14:22 | P.DS_ITS ---
History of Present Illness History of Present Illness Chief complaint: coughing blood Narrative: Written by myself Dr. 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 The patient has been undergoing chemotherapy with viadaza and venetoclax and initially responded with rapid decline in her leulocytosis but then unfortunately her blasts recurred and her leukocytosis continued to increase exponentially with cessation of treatment. The patient is followed by Dr. Patel of oncology who has redirected her care toward a supportive and palliative approach with recommendation for hospice referral today. The patient returned to the ED last night with hemoptysis. She returned 12 hours after refusing a platelet transfusion when her platelet count was found to be 7. The patient reports she initially had some streaks of blood in her sputum then it became more bloody with gobs of blood. Per EMS report they did not visualize any large blood clots or massive hemoptysis. The patient has not had any recurrence since admission. She is asymptomatic of blood loss and denies headache, lightheadedness or dizziness, presyncope or syncope, shortness of breath, or chest pain. She endorses generalized weakness, fatigue, and poor appetite. The patient is continues to have coughing paroxysms with talking and nausea with dry heaves. She denies abdominal pain, nausea, dysuria, diarrhea or constipation. She has had no hematemesis, hematuria, hematochezia or melena. The patient's red blood cell count has not significantly dropped but did decrease from 9.0 to 8.2. The patient was admitted for observation, platelet transfusion and hospice referral. Discharge Providers Provider Date of admission: 08/06/19 09:39 Discharge Date: 08/07/19 Primary care physician: Alexandre Orlando MD Consults: 08/06/19 07:50 Consult to [facility] - Integrated Log[employer] Support Manager Stat Comment: hospice 08/06/19 11:04 Consult to Dietitian, Adult Routine Comment: Reason For Exam: poor PO intake Discharge provider: Jeniffer Garduno DO Summary Hospital Course Discharge Diagnosis: 1. Acute hemoptysis, secondary to severe thrombocytopenia, not present on admiss ion. Resolved. 2. Relapse of AML now resistant to viadaza and venetoclax with pancytopenia, present on admission. Active. 3. Acute staph epidermidis bacteremia likely secondary to PICC line, present on admission. Active. 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 1. Acute hemoptysis, secondary to severe thrombocytopenia, not present on admission. Resolved. -Patient reports significant amount of hemoptysis at home with no recurrence thus far since admission likely due to platelet transfusion. -Initial platelet count 7. Received 6-pack of platelets in ED. Platelet count now 70. -Continued to monitor for overt signs of bleeding. -Continued to monitor CBC and transfuse as necessary. Platelet transfusion goal < 20. 2. Relapse of AML now resistant to viadaza and venetoclax with pancytopenia, present on admission. Active. -Patient has now failed treatment viadaza and venetoclax and has not been on chemotherapy for 10 days prior to admission. Transfusion of RBC and platelets dependent. -Initial platelet count 7. Received 6-pack of platelets in ED. Platelet count now 70. -Initial hemoglobin 8.2 and dropped to 7.8. Received 2 units PRBC. Transfusion goal H&H < 8/24. -Continued supportive care with pain and nausea control. -Consulted [employer] who placed and arranged for home with hospice and equipment delivered in the next 1-2 days. 3. Acute staph epidermidis bacteremia likely secondary to PICC line, present on admission. Active. -Discussed goals of care with the patient and her family who want comfort care only at this time. Discontinued IV vancomycin. Did not remove PICC line as this may be needed for IV medications with hospice. Exam Vital Signs (past 8 hours): - 08/07/19 11:56 08/07/19 12:11 08/07/19 12:36 Temperature 99.3 F 99.3 F 99.3 F Pulse Rate 102 H 102 H 101 H Respiratory Rate 18 20 18 Blood Pressure 136/63 136/63 130/69 Pulse Oximetry 95 08/07/19 12:45 08/07/19 15:09 08/07/19 15:51 Temperature 98.9 F 98.8 F 99.3 F Pulse Rate 98 H 98 H 97 H Respiratory Rate 16 16 16 Blood Pressure 135/64 135/64 141/69 H Pulse Oximetry 90 L 08/07/19 17:39 Temperature 99.4 F Pulse Rate 103 H Respiratory Rate 16 Blood Pressure 148/79 H Pulse Oximetry Oxygen Delivery Method Room Air Oxygen Flow Rate 0 Narrative Exam Narrative: General: Elderly female lying in bed, emaciated, cachectic and frail, appears uncomfortable, withdrawn but otherwise appropriately interactive. HEENT: Normocephalic, atraumatic. External ears without defect. Pupils equal, round, and reactive to light. Anicteric sclerae, moist conjunctivae, and no lid lag. Dry oral mucosa. Neck: Poor skin turgor. No lymphadenopathy or thyromegaly. Cardiovascular: Regular rhythm, tachycardic without murmurs, rubs, or gallops appreciated. Pulmonary: Clear to auscultation bilaterally without crackles, wheezes, or rhonchi. Normal respiratory effort with no use of accessory muscles. Abdomen: Soft, bowel sounds present, nontender, nondistended. No hepatosplenomegaly or masses appreciated. Extremities: No clubbing, cyanosis, or edema. Skin: Normal temperature, turgor, and texture; no rash, ulcers, or subcutaneous nodules appreciated. Neurological: Cranial nerves grossly intact. Psychiatric: Depressed mood, withdrawn and flat affect. Appears alert and oriented to person, place, and time. Objective Labs Result Diagrams: 08/07/19 06:30 08/06/19 06:40 Labs: Laboratory Results - last 24 hr 08/07/19 08/07/19 06:30 06:40 WBC 252.4 H* RBC 2.73 L Hgb 7.8 L Hct 23.9 L MCV 87.7 MCH 28.6 MCHC 32.6 RDW 15.7 H Plt Count 70 L Neut % (Auto) Not Reportable Lymph % (Auto) Not Reportable [place] % (Auto) Not Reportable Eos % (Auto) Not Reportable Baso % (Auto) Not Reportable Lymph # (Auto) Not Reportable [place] # (Auto) Not Reportable Baso # (Auto) Not Reportable Total Counted 100 Seg Neutrophils % 25.0 L Lymphocytes % (Manual) 1.0 L Atypical Lymphs % 5.0 H Monocytes % (Manual) 1.0 L Myelocytes % 2.0 H Promyelocytes % 5.0 H Blast Cells % 61.0 H Neutrophils # (Manual) 93877 H Platelet Estimate Decreased on smear RBC Morphology Not Reportable Poikilocytosis 2+ H Anisocytosis 2+ H Blood Type O Positive Antibody Screen Negative Crossmatch See Detail Discharge Plan Discharge Plan Patient Disposition: Hospice - Home Discharge comment: You're being discharged home with [facility] hospice to follow and open in the next 1-2 days (hopefully tomorrow) and have equipment delivered as well. Discharge Med Rec/Prescriptions Prescriptions: Continued ondansetron HCl [Zofran] 8 mg Tablet 8 mg PO Q12H Qty: 30 RF: 3 lorazepam 1 mg Tablet 1 mg PO BID-TID PRN (Reason: Nausea) Qty: 60 RF: 1 oxycodone 5 mg tablet 5 mg PO Q4-6H PRN (Reason: pain) 30 Days Qty: 60 RF: 0 oxycodone [OxyContin] 20 mg Tablet,Oral Only,Ext.Rel.12 Hr 20 mg PO Q12H 30 Days Qty: 60 RF: 0 dexamethasone 4 mg tablet 4 mg PO QPM RF: 0 loperamide [Imodium A-D] 2 mg Capsule 2 mg PO Q2-4H PRN (Reason: Diarrhea) RF: 0 Discontinued levofloxacin [Levaquin] 500 mg tablet 500 mg PO DAILY Qty: 7 RF: 0 Follow up/Referrals: Alexandre Orlando MD [Primary Care Provider] - Provider Discharge Instructions Activity: Activity as tolerated Visit Report/Discharge Packet Instructions: DI for Blood Transfusion Discharge Data Primary Care Provider: Alexandre Orlando Discharges patient from system. Discharge Date/Time: 08/07/19 18:15 Quality VTE Deep Vein Thrombosis/Pulmonary Embolism Present on Admission: No
--- NOTE | 2019-08-07 14:39 | CM.IDA ---
Initial DCP Assessment and DC Note: Pt is a 79 yo female, resident of [place]. Pt under observation, hx significant for AML, presents after coughing up blood at home, she has received blood transfusion here. PCP: Alexandre Orlando Payer: Medicare/[facility] Pt seen by Dr Patel today and he is recommending Hospice, Dr Garduno agrees w/this recommendation and plans to DC pt home w/Hospice pending these arrangements can be started today per pt and family's request. Working on this DCP yesterday and today; met at length w/pt (A+O), spouse Greg, two adult sons and one adult grand dtr today, reviewed DCP options. Pt/family do not want an info visit today, they would like Hospice service arranged. This INSTALLATION TECHNICIAN reviewed agencies [facility] ; pt/family would like the agency that can f/u evon. placed call to [facility], they are potentially out for another week for admissions, schedule unavailable until Thursday. Placed call to [facility] today, spoke w/ on-call ARNOLD Woody, she explained there was likely an opening in [place] for admission tomorrow and DME could potentially be delivered Thursday. If pt was to DC the hospital this evening, her family would need to f/u w/ Irene, jig hand at [facility]. Hospice, Thursday morning at P# [phone]. This INSTALLATION TECHNICIAN faxed face sheet, H+P and Consult note from Dr Patel to [facility] at F# [phone]. Updated Dr Garduno, ARNOLD Hopson and ARNOLD Bowen, and pt/family. Pt eager to return home after her blood transfusion is complete this evening. Spouse Greg agreeable to this plan and will call [facility] in the morning to coordinate further. P: DC this evening, home w/family via pov and [facility] to f/u tomorrow w/pt/family. EARL Laird
[2019-08-07] MEDS: dexAMETHasone 4 MG TABLET PO (16:42)
== END 2019-08-07 18:15 | disposition hospice, home (50) | DRG 813 ==
LOC: ED 09:37 → AC 09:41
PROVIDERS: Emergency Medicine; Admitting Provider Internal Medicine; Emergency Provider Emergency Medicine; Family Provider Family Medicine; PCP Family Medicine; Visit Provider Internal Medicine
DX: D69.6 Thrombocytopenia, unspecified (principal); T80.211A Bloodstream infection due to central venous catheter, initial encounter; C92.02 Acute myeloblastic leukemia, in relapse; D61.818 Other pancytopenia; R04.2 Hemoptysis; B95.7 Other staphylococcus as the cause of diseases classified elsewhere; Z51.5 Encounter for palliative care; R10.84 Generalized abdominal pain
CPT/HCPCS: 36415; 36430; 71045; 80053; 82150; 83605; 83690; 84145; 85025; 85610; 85730; 86850; 86900; 86901; 87040; 87077; 87147; 87150; 87186; 87205; 96361; 96365; 96375; 96376; 99232; 99282; 99283; 99284; P9016; J1170; J1642; J2405; P9035